=== PATIENT | female | born 1995 | race Caucasian/White ===

== ENCOUNTER → 2021-09-21 | Outpatient (CLI) | payer MEDICAID, SELFPAY ==
[2021-09-21 10:33] LABS: Erythrocyte Sedimentation Rate 16 mm/hr (0-30)
[2021-09-21 10:35] LABS: Absolute Lymphocyte Count 2.18 X10^3/uL (0.83-4.51); Absolute Neutrophil Count 5.2 X10^3/uL (2.0-7.7); Basophil# 0.02 X10^3/uL; Basophil% 0.3 % (0-1); Eosinophil# 0.19 X10^3/uL; Eosinophils% 2.4 % (0-5); Hematocrit 42.1 % (37-47); Hemoglobin 14.2 g/dL (12.0-15.0); Lymphocyte # 2.18 X10^3/ul (0.83-4.51); Lymphocyte % 27.4 % (19-41); Mean Corp Hgb Conc 33.7 g/dL (32-36); Mean Corpuscular Hgb 28.3 pg (27.0-32.0); Mean Corpuscular Volume 83.9 fL (81-99); Mean Platelet Vol. 10.9 fl (6.2-12.0); Monocyte# 0.36 X10^3/uL; Monocyte% 4.5 % (0-10); NRBC Flagged by Analyzer 0 % (0-5); Neutrophil # 5.19 X10^3/uL (2.7-7.7); Neutrophil % 65.1 % (47-70); Platelet Count 300 K/mm3 (150-450); RBC Distribution Width CV 13.6 % (11.6-14.6); RBC Distribution Width SD 41.8 fl (35.1-43.9); Red Blood Count 5.02 M/mm3 (4.2-5.4)
[2021-09-21 10:44] LABS: Hemoglobin A1c 5.3 % (3.8-5.6)
[2021-09-21 10:56] LABS: ALB/GLOB Ratio 0.8 RATIO (0.9-2.4); AST(SGOT) 13 U/L (15-37); Alanine Aminotransfer ALT/SGPT 22 U/L (13-56); Albumin, Serum 3.5 g/dL (3.2-5.0); Alkaline Phosphatase 74 U/L (45-117); Anion Gap 6 (5-15); BUN 11 mg/dL (7-18); BUN/Creat Ratio 18.7 RATIO (10-20); Bilirubin, Direct 0.11 mg/dL (0.00-0.30); Calcium,Total 9.3 mg/dL (8.5-10.1); Chloride 103 mmol/L (98-107); Creatinine, Serum 0.59 mg/dL (0.55-1.02); EST Glomerular Filtration Rate 130 mL/min (>60); Est Glom Filt Rate - Afr Amer 158 mL/min (>60); Globulin 4.3 g/dL (2.2-4.2); Glucose 91 mg/dL (74-106); Potassium 3.5 mmol/L (3.5-5.1); Protein, Total 7.8 g/dL (6.4-8.2); Sodium Level 136 mmol/L (136-145); Thyroid Stim Hormone (TSH) 2.83 uIU/mL (0.358-3.74)
[2021-09-22 18:08] LABS: Endomysial Antibody IgA Negative (Negative)
[2021-09-22 20:35] LABS: Immunoglobulin A 123 mg/dL (87-352); t-Transglutaminase IgA <2 U/mL (0-3)
[2021-09-28 05:07] LABS: Anti-Centromere B Ab <0.2 AI (0.0-0.9); Anti-Chromatin <0.2 AI (0.0-0.9); Anti-Jo <0.2 AI (0.0-0.9); Anti-Scleroderma-70 AB <0.2 AI (0.0-0.9); Beef <0.10 kU/L (Class 0); Clam <0.10 kU/L (Class 0); Codfish <0.10 kU/L (Class 0); Corn <0.10 kU/L (Class 0); Egg, White <0.10 kU/L (Class 0); Egg, Whole <0.10 kU/L (Class 0); Milk (Cow) <0.10 kU/L (Class 0); Peanut <0.10 kU/L (Class 0); Pork <0.10 kU/L (Class 0); RNP Ab <0.2 AI (0.0-0.9); SCALLOP <0.10 kU/L (Class 0); SESAME SEED <0.10 kU/L (Class 0); SJOGREN'S Anti-SS-A test 0.5 AI (0.0-0.9); SJOGREN'S Anti-SS-B test < 0.2 AI (0.0-0.9); Shrimp <0.10 kU/L (Class 0); Smith Ab <0.2 AI (0.0-0.9); Soybean <0.10 kU/L (Class 0); Walnut, (Food) <0.10 kU/L (Class 0); Wheat <0.10 kU/L (Class 0)
[2021-09-28 07:47] LABS: Anti-dsDNA Ab <1 IU/mL (0-9); Chocolate <0.10 kU/L (Class 0)
== END | disposition home or self-care (01) ==
LOC: LAB 09:17
PROVIDERS: PCP Student in an Organized Health Care Education/Training Program; Referring Provider Nurse Practitioner Adult Health; Visit Provider Nurse Practitioner Adult Health
DX: R11.0 Nausea (principal); R10.9 Unspecified abdominal pain; R19.8 Other specified symptoms and signs involving the digestive system and abdomen
CPT/HCPCS: 36415; 80053; 82248; 82784; 83036; 83516; 84443; 85025; 85652; 86003; 86005; 86140; 86225; 86235; 86255

== ENCOUNTER 2021-09-23 08:30 | Outpatient (RCR) | payer MEDICAID, SELFPAY ==
--- NOTE | 2021-09-07 10:15 | HP.PTEVAL ---
Patient's Visit Information CHRISSIE MABRY is a 26 year old F referred to Physical Therapy by Dr. Elder Solorzano DO with a diagnosis of R hip pain. Date of Evaluation: 09/07/21 Physical Therapist: Isma Unger, MATTT, OCS, CSCS - Visit Plan Frequency: 3x /Week Duration: 4-6 Weeks Plan: 3x/week for 2-4 weeks. Given hip flexor stretch and activitiy modification to avoid clicking/poppiing today with pics. please rollout and stretch gluts/piriformis and ITB. Please focus on hip stabs glut , pirifromis, abduction and extension. TENS and MH as needed for pain. - Subjective L hip pain. Had hip dysplasia at 6 months old and had brace . has clicked throughout years but no big problems. has gotten pain in the last 6 months and clicks louder. She feels very gaurded. X rays were Ok. Hard to flex hip or get out to side. 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 Sitting long time makes it ache. pain is constant. Transition out of chair is hard. Not sure what happened 6 months ago to make it worse. Now is fairly constant. Pain is posterior R hip and around side and can go to front. Constant 2/10. Sleep is uncomfortable to get to sleep, tries on tummy, usually ends up pulling R leg up. Student. Works at [employer] in [place] on feet for 8 hour shifts, worse with work. Patient asked for PT. No regular exercises at this point, hip ex cause pain. - Pain R hip Pain Intensity (Out of 10): 2 Pain Intensity Range: 2, 4 - Objective wALKS SLOWLY BUT i WITHOUT ANTALGIA TODAY. MARCHING CAUSES CLICKING WITH r HIP FLEXION EVERY STEP. Steps clicks when elevating R foot onto step and is painful. Transitioning out of chair is ataxic and clicking intermittently, slow. Hip AROM R is WFL, some tightness in hip flexors vs L and ITB. Tender to the touch ITB R and piriformis/glut area. External and IR r hip hurt at end range but decent ROM. reflexes 2/3 patella and achilles. Sensation LE WNL to gross light touch. Strength R hip abd and ext 4- and hip flexion 3+ with pain. Others on the right and L are 4/5. Knee and ankle 4+/5 B. Pain with R KIMI and FADDIR at end range. + instability test around 40 degrees with R SLR. - Balance/Special Test Scores Lower Extremity Functional Score: 46 - Goals Goal 1:: Patient pain 0/10 at rest and 1/10 at worst during day, 90% improved. Goal Time Frame: 4-6 Weeks Goal 2:: steps and march without clicking, trasnition out of chair without clicking. Goal Time Frame: 4-6 Weeks Goal 3:: I appropriate HEP to minimize future symptoms Goal Time Frame: 4-6 Weeks Goal 4:: Work without increased pain Goal Time Frame: 4-6 Weeks - Rehabilitation Potential Physical Therapy Diagnosis: R hip pain due to instability Rehabilitation Potential: Good - Anticipated Interventions Patient/Client Instruction: Educate patient on: Condition, Plan of Care For the Purpose of:: To decrease pain, To improve muscle performance and motor function, To improve ability of physical actions for home/community/work/leisure, To improve gait and locomotor functions Therapeutic Exercise to Include: Strength training, Flexibilty training, Gait and locomotor training, Dynamic Lumbar Stabilization For the Purpose of:: To decrease pain, To improve muscle performance and motor function, To increase tolerance to activity/condition/position, To improve gait and locomotor functions Manual Therapy Techniques to Include: Soft tissue mobilization For the Purpose of:: To increase ROM, To improve nutrient delivery to tissue, To increase tolerance to activity/condition/position TENS: Yes Thermo therapy (hot pack): Yes For the Purpose of:: To decrease pain Thank you for the opportunity to evaluate your patient. For Medicare and Medicare HMO plans, please review the plan of care and approve it. It will need to be FAXED BACK to us at [phone] for Medicare purposes. For Medicare only, by signing this I certify the plan of care. Please let me know if there are questions or concerns regarding this plan of care. Physician Signature: Date:
--- NOTE | 2021-09-23 09:18 | HP.PTREVAL ---
Dr. Elder Solorzano, DO, It has been my pleasure to treat CHRISSIE MABRY over the last 7 visits for R hip pain. Please see the progress note below for an update on the physical therapy plan of care! Subjective: Not as much pain standing or doing things where it used to be constant. Still hurts to be immobile for a while and takes 15 minutes to loosen up. Still pops now and then. Sleep is OK. Stiff in am. Pain this week up to 3/10 in class. To doctor in a couple weeks. Doing home exercises whcih are challenging. Work has not been too bad but does a lot of squatting and bending. Wants to continue HEP. Objective/Function: AROM R hip WNL, some clicking and pain with flexion over 100 degrees. Walking is normal today and steps are reciprocal without rail but does have some discomfort. Doing well and wishes to continue strength at home vs continued therapy. Plan Plan: pt to call after doctor f/u two weeks or prior if condition deteriorates. Will d/c end of September if no call. Balance/Gait/Functional tests - Balance/Special Test Scores Lower Extremity Functional Score: 43 Goals Goal 1:: Patient pain 0/10 at rest and 1/10 at worst during day, 90% improved. Goal Time Frame: 4-6 Weeks Goal Progress: Progressing 60% Goal 2:: steps and march without clicking, trasnition out of chair without clicking. Goal Time Frame: 4-6 Weeks Goal Progress: improving Goal 3:: I appropriate HEP to minimize future symptoms Goal Time Frame: 4-6 Weeks Goal Progress: Goal Met Goal 4:: Work without increased pain Goal Time Frame: 4-6 Weeks Goal Progress: Progressing Anticipated Interventions Patient/Client Instruction: Educate patient on: Condition, Plan of Care For the Purpose of:: To decrease pain, To improve muscle performance and motor function, To improve ability of physical actions for home/community/work/leisure, To improve gait and locomotor functions Therapeutic Exercise to Include: Strength training, Flexibilty training, Gait and locomotor training, Dynamic Lumbar Stabilization For the Purpose of:: To decrease pain, To improve muscle performance and motor function, To increase tolerance to activity/condition/position, To improve gait and locomotor functions Manual Therapy Techniques to Include: Soft tissue mobilization For the Purpose of:: To increase ROM, To improve nutrient delivery to tissue, To increase tolerance to activity/condition/position TENS: Yes Thermo therapy (hot pack): Yes For the Purpose of:: To decrease pain Please do not hesitate to contact me at [phone] by phone or if you have questions or concerns regarding this new plan of care! Sincerely, Isma Unger, DPT, OCS, CSCS
--- NOTE | 2021-11-24 16:14 | HP.PTDCSUM ---
It has been my pleasure to treat CHRISSIE MABRY referred by Dr. Elder Solorzano DO, with the diagnosis of R hip pain for a total of 7 visit(s). Discharge Date: Please see the following information for a summary of their discharge status. Subjective: Not as much pain standing or doing things where it used to be constant. Still hurts to be immobile for a while and takes 15 minutes to loosen up. Still pops now and then. Sleep is OK. Stiff in am. Pain this week up to 3/10 in class. To doctor in a couple weeks. Doing home exercises whcih are challenging. Work has not been too bad but does a lot of squatting and bending. Wants to continue HEP. R hip Pain Intensity (Out of 10): 0 % Improvement: 60 Objective/Function: AROM R hip WNL, some clicking and pain with flexion over 100 degrees. Walking is normal today and steps are reciprocal without rail but does have some discomfort. Doing well and wishes to continue strength at home vs continued therapy. Goal 1:: Patient pain 0/10 at rest and 1/10 at worst during day, 90% improved. Goal Progress: Progressing 60% Goal 2:: steps and march without clicking, trasnition out of chair without clicking. Goal Progress: improving Goal 3:: I appropriate HEP to minimize future symptoms Goal Progress: Goal Met Goal 4:: Work without increased pain Goal Progress: Progressing Plan: pt to call after doctor f/u two weeks or prior if condition deteriorates. Will d/c end of September if no call. If there are questions or concerns regarding this patient's physical therapy, please feel free to call me at [phone]. Thank you for the referral of this patient. Sincerely, Isma Unger, DPT, OCS, CSCS Balance/Gait/Functional tests - Balance/Special Test Scores Lower Extremity Functional Score: 43
== END 2021-09-23 19:00 | disposition home or self-care (01) ==
LOC: PT 08:30
PROVIDERS: PCP Student in an Organized Health Care Education/Training Program; Referring Provider Student in an Organized Health Care Education/Training Program; Visit Provider Student in an Organized Health Care Education/Training Program
DX: M25.551 Pain in right hip (principal)
CPT/HCPCS: 97110; 97140; 97161; 97164

== ENCOUNTER → 2021-11-01 | Outpatient (CLI) | payer MEDICAID, SELFPAY ==
--- NOTE | 2021-11-01 14:50 | CT_ITS ---
STUDY: CT ABDOMEN AND PELVIS WITH CONTRAST REASON FOR EXAM: Female, 26 years old. Abd pain, diarrhea and constipation -- oral and IV RADIATION DOSAGE (If Supplied By Facility): CTDIvol = ( 16.82 ) mGy, DLP = ( 1270.54 ) mGycm TECHNIQUE: Transaxial images were obtained from the dome of the diaphragm to the symphysis pubis without oral contrast. IV 100mL Isovue-300 was administered. Sagittal and coronal images were reconstructed. Individualized dose optimization techniques were used for this CT. COMPARISON: None. FINDINGS: The visualized lung bases are unremarkable. The visualized portions of the heart are within normal limits. Normal liver. Normal gallbladder and extrahepatic biliary system. Normal spleen. Normal pancreas. Normal bilateral adrenal glands. Normal right kidney. Normal left kidney. Normal visualized stomach. Normal small intestine. Normal colon. The appendix is visualized and appears normal. Normal abdominal aorta. Normal inferior vena cava. Normal retroperitoneum. Normal urinary bladder. There is a 4.27 x 3.2 cm cyst in the right ovary. This also evidence of a 3.5 cm x 2.2 cm cyst in the left ovary. Correlation with ultrasound is recommended. Normal abdominal wall. Normal osseous structures. CT/Abdomen/Pelvis WITH Contrast IMPRESSION: Bilateral ovarian cysts. Correlation with ultrasound recommended. Electronically Signed: Axel Burroughs MD at 15:15 EDT ,
== END | disposition home or self-care (01) ==
LOC: CT 14:48
PROVIDERS: PCP Student in an Organized Health Care Education/Training Program; Referring Provider Nurse Practitioner Adult Health; Visit Provider Nurse Practitioner Adult Health
DX: R10.9 Unspecified abdominal pain (principal); R19.8 Other specified symptoms and signs involving the digestive system and abdomen; R11.0 Nausea
CPT/HCPCS: 74177; Q9967

== ENCOUNTER 2021-12-22 07:37 | Day surgery (SDC) | payer MEDICAID, SELFPAY ==
[2021-12-22] VITALS (7 sets, daily range): BP systolic 102–114; BP diastolic 58–74; PULSE 73–96; RESP 16–18; TEMP 36.7–37.1; O2SAT 95–99; BMI 40.6
--- NOTE | 2021-12-22 08:06 | HP.PCM_ITS ---
History and Physical Date of Admission: 12/22/21 CHRISSIE MABRY, is a 26 F who presents to the office today for chronic abdominal pain and inconsistent bowels that are getting worse over time. Symptoms began in 7th grade; popcorn caused abdominal pain, went to ED couple times then. Also coconuts and nuts are problematic. Tried FODMAP diet w/o success. Now has no foods that don't bother her. Processed foods bother her more than whole foods. Interested in food allergy testing. She has a constant abd pain--ache, discomfort, bloated and gassy, mostly periumbilical and sometimes bilateral sides, no relieving factors; and then spasms whenever she eats--intense, lower abd and sides, affects her sleep, no relief with NSAIDS, only maybe minimal relief with dicyclomine. Took the dicyclomine prn, has a hard time remembering to take meds due to ADHD. Tried papaya enzymes w/ minimal relief with cramping. Taking Align probiotic now w/ some relief of cramping, the efficacy is waning. Recently developed heartburn, gets burning acid in throat x 2 mos, worse with tomato products, some relief with Maalox. Has nausea with the abdominal pain, often wakes up with nausea; tries not to vomit because she dislikes it so much. Usually has diarrhea, can be violently liquid, has 6 small BMs per day. No nocturnal diarrhea, no fecal incontinence. Otherwise soft stool. About twice a month she has constipation--this is when she hasn't had the urge to have a BM for 2 days. Has had rectal blood when constipated. Tried saline enemas, fiber, miralax, suppository, dulcolax, mag citrate--all w/o relief of constipation. Minimal help with stool softeners. Belly feels full and hard then. Almost never feels like bowels fully evacuate, even when she has diarrhea. No imaging for her GI symptoms. No endoscopy. 03/2021 labs: normal CBC with hgb 13.9, normal CMP and liver profile No significant seasonal allergies, no asthma or eczema. Gets dyshydrotic eczema on hands when stressed. Mother has similar GI symptoms, diagnosed w/ IBS. Mom also has fibromyalgia. Both parents have DM2. ROS Const Constitutional: Positive for fatigue, headache(s) and weight change ENT ENT: Positive for headache(s); No difficulty swallowing Cardio Cardiology: Positive for leg pain with exertion and dyspnea on exertion Gastro GI: Positive for abdominal pain, bloating, change in bowel habits, constipation, diarrhea, heartburn, excessive flatus and nausea/dyspepsia; No belching, change in stool character, coffee ground emesis, cramping, difficulty swallowing, feeling full early, incontinent of stools, Vomiting blood/hematemesis, Blood in stool, loose stools, Black,tarry stools, pain with swallowing, vomiting or other Genitourinary-Female: Positive for urinary frequency Musc Musculoskeletal: Positive for abnormal gait, back pain, numbness, stiffness, tingling, Arthritis, leg pain at night and leg pain with exertion; No joint pain Skin Skin: Positive for dry skin; No yellowing of the eye or itchy eyes Neuro Neurology: Positive for abnormal gait, headache(s), numbness and tingling Psych Psychiatric: Positive for anxiety, No depression, Positive for hyperactivity and Positive for inattentiveness Endo Endocrine: Positive for cold intolerance, fatigue, increased hunger, increased urine leakage and weight change Aller/Imm Allergy/Immunologic: No itchy eyes Frederick/Lymp Hematologic/Lymphatic: No easy bleeding or easy bruising Exam Const General: cooperative, no acute distress, well developed and well groomed Eyes Conjunctivae: conjunctivae normal Sclera: sclerae normal Neck Neck: normal visual inspection, no lymphadenopathy and supple Thyroid: thyroid normal Resp Effort & Inspection: normal respiratory effort GI Inspection: obesity Palpation: soft, no hepatosplenomegaly and tender (generalized, most bothersome LUQ) Skin General: no rashes or lesions noted Neuro Gait: normal gait Extrem General: no pedal edema Psych Mental Status: mental status grossly normal Mood: congruent mood Affect: normal affect Quality Reporting Tobacco Screening ([facility] 138) Smoking Status: Never smoker Assessment and Plan Assessment and Plan (1) Abdominal pain: ?Status:?Acute (2) Abdominal cramping: ?Status:?Acute (3) Alternating constipation and diarrhea: ?Status:?Acute (4) Nausea: ?Status:?Acute ? ? ? Orders:?Orders: ? Abdomen/Pelvis WITH Contrast TodayD R10.9, R10.9, R19.8, R11.0 ? ? CBC W/Diff, Automated Today R10.9, R10.9, R19.8, R11.0 ? ? Celiac Disease Profile Today R10.9, R10.9, R19.8, R11.0 ? ? Comprehensive Metabolic Profil Today R10.9, R10.9, R19.8, R11.0 ? ? CRP Today R10.9, R10.9, R19.8, R11.0 ? ? Erythrocyte Sed Rate Today R10.9, R10.9, R19.8, R11.0 ? ? JOAN Comprehensive Panel Today R10.9, R10.9, R19.8, R11.0 ? ? Hemoglobin A1c Today R10.9, R10.9, R19.8, R11.0 ? ? Liver Profile Today R10.9, R10.9, R19.8, R11.0 ? ? Thyroid Stim Hormone (TSH) Today R10.9, R10.9, R19.8, R11.0 ? ? Allergen, Food Profile Today R10.9, R10.9, R19.8, R11.0 ? ? Allergen, Rast Food Profile Today R10.9, R10.9, R19.8, R11.0 ? ? H. PYLORI STOOL AG Today R19.8, R11.0 ? ? Stool Lactoferrin/WBC Today R19.8, R11.0 ? ? Calprotectin, Stool Today R19.8, R11.0 ? ? Abdomen Single View Today R19.8 ? ? 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 This may be IBS but we will do a thorough work-up.? Biochemical work-up to include inflammatory markers, thyroid, hemoglobin A1c, celiac disease, food allergies, autoimmune disorders, stool tests for inflammation and H. pylori.? Sits marker study to assess colon transit time; she may have underlying constipation all the time and then loose stools passing a hard stool; in which case we could treat with Linzess or Amitiza or Trulance.? She has not had imaging, due to the severe pain she experiences we will get CT abdomen and pelvis with oral and IV contrast.? We will schedule her for upper and lower endoscopies.? Prescriptions today: Scopolamine patch for nausea, pantoprazole for heartburn, hyoscyamine for abdominal cramping.? Follow-up 4 to 6 weeks.? We will also schedule a 2-week follow-up after her endoscopies. Plan Details Other Medications: ?New: ? hyoscyamine sulfate 0.125 mg? PO BID-QID PRN 60 tabs 0RF abd ominal discomfort ? ? ? scopolamine base 1 patch? transdermal Q3D 10 ea 2RF nause a ? ? ? pantoprazole 40 mg? PO QAM 30 tabs 2RF ? ? I have re-examined the patient. There are no clinical changes since date of exam.
[2021-12-22] MEDS: Lactated Ringers 1,000 ML 15 ML IV (08:15)
[2021-12-22 08:31] LABS: Internal QC Validated? YES +Cl - CLEAR BKGD; Pregnancy, Serum, hCG Quali. NEGATIVE Negative
--- NOTE | 2021-12-22 09:00 | EGD_PTH ---
PATIENT: CHRISSIE DE LEÓN LOC: EN U#:[id number] AGE/SX: 26/F ROOM: RE12/22/[address]: Dr. Adrian Lock DO : 1995 BED: DIS: 12/22/2021 SPEC #: [id number] RECD: 12/22/21 10:17 STATUS: ANISHA RESandra #: [id number] TIM: 12/22/21 09:[address]: Adrian Lock DEPT: SURGICAL PATHOLOGY RECD BY: Jo Ann Shaffer ENTERED: 12/22/21 10:57 SP TYPE: EGD BIOPSY OT DR: Dr. Elder Solorzano DO Tissues: A - Duodenum, NOS B - Gastric mucous membrane C - Gastric mucous membrane D - Esophagus, NOS E - Ileum, NOS F - COLON BIOPSY Procedures: Special Stain Group II Surgery Specimen Level IV Alcian Blue/PAS (control) HEADER OPERATION: Colonoscopy, EGD ([facility]) with biopsies PRE-OP DIAGNOSIS: Abdominal pain, abdominal cramping, constipation and diarrhea, nausea TISSUE SUBMITTED: A - Duodenum biopsy, B - Antrum biopsy for H. pylori and path, C - Gastric body, D - Distal esophagus biopsy, E - Terminal ileum biopsy, F - Random colon biopsies MICROSCOPIC DIAGNOSIS A. Duodenum, biopsy: Fragments of duodenal mucosa, no pathologic diagnosis. B. Antrum, biopsy: Mild gastritis. See microscopic description and comment. C. Gastric body, biopsy: Mild gastritis. See microscopic description and comment. D. Distal esophagus, biopsy: A fragment of gastroesophageal mucosa with mild chronic inflammation. Intestinal metaplasia (goblet cell metaplasia) is not identified. See comment. E. Terminal ileum, biopsy: Fragments of small intestinal mucosa, no pathologic diagnosis. F. Colon, random biopsy: Fragments of colonic mucosa, no pathologic diagnosis. SJ:john 12/23/2021 COMMENT B. The results of immunohistochemistry for Helicobacter pylori will be reported separately ([id number]). C. Alcian blue/PAS stain with matched control is used in the evaluation of the specimen. D. Alcian blue/PAS stain with matched control is used in the evaluation of the specimen. MICROSCOPIC DESCRIPTION Slides are reviewed. B. The specimen shows fragments of gastric mucosa with chronic inflammatory cell infiltrates in the lamina propria consisting of lymphocytes and plasma cells, consistent with mild chronic gastritis. C. The specimen shows fragments of gastric mucosa with chronic inflammatory cell infiltrates in the lamina propria consisting of lymphocytes and plasma cells, consistent with mild chronic gastritis. A fragment of gastroesophageal mucosa is also noted with chronic inflammation and rare cells with intestinal metaplasia (goblet cell metaplasia). No evidence of dysplasia. GROSS DESCRIPTION A - Received in fixative is one container labeled with the patient's name and designated duodenum biopsy. The specimen consists of two irregular fragments of light hdz soft tissue that in aggregate measure 0.5 x 0.4 x 0.1 cm. The specimen is totally submitted in one cassette. B - Received in fixative is one container labeled with the patient's name and designated antrum biopsy. The specimen consists of two irregular fragments of light hdz soft tissue that in aggregate measure 0.6 x 0.3 x 0.1 cm. The specimen is totally submitted in one cassette. C - Received in fixative is one container labeled with the patient's name and designated gastric body biopsy. The specimen consists of multiple irregular fragments of light hdz soft tissue that in aggregate measure 1 x 0.3 x 0.1 cm. The specimen is totally submitted in one cassette. D - Received in fixative is one container labeled with the patient's name and designated distal esophagus biopsy. The specimen consists of one irregular fragment of light hdz soft tissue that measures 0.2 x 0.2 x 0.1 cm. The specimen is totally submitted in one cassette. E - Received in fixative is one container labeled with the patient's name and designated terminal ileum biopsy. The specimen consists of multiple irregular fragments of light hdz soft tissue that in aggregate measure 1.5 x 0.3 x 0.1 cm. The specimen is totally submitted in one cassette. F - Received in fixative is one container labeled with the patient's name and designated random colon biopsy. The specimen consists of multiple irregular fragments of light hdz soft tissue that in aggregate measure 1.5 x 0.5 x 0.1 cm. The specimen is totally submitted in one cassette. / SJ:rg 12/22/2021 TC: CPT: 38945 x6, 34824 x2
--- NOTE | 2021-12-22 09:00 | IMM_PTH ---
PATIENT: CHRISSIE DE LEÓN LOC: EN U#:[id number] AGE/SX: 26/F ROOM: RE12/22/[address]: Dr. Adrian Lock DO : 1995 BED: DIS: 12/22/2021 SPEC #: [id number] RECD: 12/22/21 11:38 STATUS: ANISHA REQ #: [id number] TIM: 12/22/21 09:[address]: Adrian Lock DEPT: IMMUNOHISTOCHEMISTRY RECD BY: Constance Isabel ENTERED: 12/22/21 11:38 SP TYPE: IMMUNO OTHR DR: Dr. Elder Solorzano DO Tissues: B - Stomach, NOS Procedures: H Pylori (initial) PHYSICIAN & INSTITUTION [place] [id number] SPECIMEN INFORMATION: Tissue Source: B ? Antrum biopsy Clinical Info: Abdominal pain, abdominal cramping, constipation and diarrhea, nausea Specimen Number: [id number] CPT code: 61315 METHODOLOGY: Deparaffinized sections of prefer/formalin-fixed tissue or PAP/DQ stained slides are incubated with monoclonal/polyclonal antibodies/oligonucleotide probes. Localization is made via biotin free immunoperoxidase method. Appropriate controls are performed and reacted as expected. Results on target cell population are indicated in the following table: RESULTS: ANTIBODY / CLONE RESULT Block B H Pylori (polyclonal) negative These tests were developed and their performance characteristics determined by [facility]. They may not have been cleared or approved by the U.S. Food and Drug Administration. The FDA has determined that such clearance or approval is not necessary. The above immunohistochemical/dualISH markers are ordered and reviewed by the Pathologist. INTERPRETATION: B. Antrum biopsy: Negative for Helicobacter pylori organisms. ROSA:john 12/23/2021
--- NOTE | 2021-12-22 09:55 | OP.EGD_ITS ---
Patient Name: Angela Christine Procedure Date: 12/22/2021 9:12 AM Date of : 1995 Age: 26 Procedure: Upper GI endoscopy Indications: Epigastric abdominal pain, Functional Dyspepsia, Failure to respond to medical treatment Providers: Adrian Lock DO Medicines: Monitored Anesthesia Care Patient Profile: This is a 26 year old female. Refer to note in patient chart for documentation of history and physical. Patient has symptoms of chronic abdominal cramping and chronic abdominal distention. Complications: No immediate complications. Procedure: Pre-Anesthesia Assessment: - Prior to the procedure, a History and Physical was performed, and patient medications and allergies were reviewed. The patient is competent. The risks and benefits of the procedure and the sedation options and risks were discussed with the patient. All questions were answered and informed consent was obtained. Patient identification and proposed procedure were verified by the physician in the pre-procedure area. Mental Status Examination: alert and oriented. Airway Examination: normal oropharyngeal airway and neck mobility. Respiratory Examination: clear to auscultation. CV Examination: normal. Prophylactic Antibiotics: The patient does not require prophylactic antibiotics. Prior Anticoagulants: The patient has taken no previous anticoagulant or antiplatelet agents. After reviewing the risks and benefits, the patient was deemed in satisfactory condition to undergo the procedure. The anesthesia plan was to use moderate sedation / analgesia (conscious sedation). Immediately prior to administration of medications, the patient was re-assessed for adequacy to receive sedatives. The heart rate, respiratory rate, oxygen saturations, blood pressure, adequacy of pulmonary ventilation, and response to care were monitored throughout the procedure. The physical status of the patient was re-assessed after the procedure. After obtaining informed consent, the endoscope was passed under direct vision. Throughout the procedure, the patient's blood pressure, pulse, and oxygen saturations were monitored continuously. The Colonoscope was introduced through the mouth, and advanced to the duodenal bulb. The upper GI endoscopy was accomplished without difficulty. The patient tolerated the procedure well. Scope In: 9:23:37 AM Scope Out: 9:29:46 AM Total Procedure Duration Time 0 hours 6 minutes 9 seconds Findings: The Z-line was irregular and was found 38 cm from the incisors. Biopsies were taken with a cold forceps for histology. Verification of patient identification for the specimen was done. Estimated blood loss was minimal. Patchy mildly erythematous mucosa without bleeding was found in the gastric body and in the gastric antrum. Biopsies were taken with a cold forceps for histology. Verification of patient identification for the specimen was done. Estimated blood loss was minimal. Patchy mildly erythematous mucosa without active bleeding and with no stigmata of bleeding was found in the first portion of the duodenum. Biopsies for histology were taken with a cold forceps for evaluation of celiac disease. Estimated blood loss: none. The major and minor ampulla were present on forward view imaging when evaluating the second portion of the duodenum. Impression: - Z-line irregular, 38 cm from the incisors. Biopsied. - Erythematous mucosa in the gastric body and antrum. Biopsied. - Erythematous duodenopathy. Biopsied. Recommendation: - Discharge patient to home. - Resume previous diet. - Continue present medications. - Await pathology results. -MR CP to evaluate hepatobiliary system for pancreatic divisum and possible stone disease of the minor ampulla or major ampulla Procedure Code(s): --- Professional --- 35978, Esophagogastroduodenoscopy, flexible, transoral; with biopsy, single or multiple CPT copyright 2017 [employer]. All rights reserved. The codes documented in this report are preliminary and upon deliverer food review may be revised to meet current compliance requirements. Adrian Lock DO 12/22/2021 9:55:22 AM This report has been signed electronically. Number of Addenda: 1 Note Initiated On: 12/22/2021 9:12 AM Addendum Number: 1 Addendum Date: 02/23/2022 6:28:32 AM MAC was used as sedation for this procedure. Adrian Lock DO 02/23/2022 6:28:36 AM This report has been signed electronically.
--- NOTE | 2021-12-22 09:56 | OP.CCLET_ITS ---
02/23/2022 Elder Solorzano Do Re : Upper GI endoscopy procedure for Angela Christine Dear Jeanine This procedure was performed on December. My impressions and recommendations are as follows: Impressions : - Z-line irregular, 38 cm from the incisors. Biopsied. - Erythematous mucosa in the gastric body and antrum. Biopsied. - Erythematous duodenopathy. Biopsied. Recommendations : - Discharge patient to home. - Resume previous diet. - Continue present medications. - Await pathology results. -MR CP to evaluate hepatobiliary system for pancreatic divisum and possible stone disease of the minor ampulla or major ampulla My findings are described in the full procedure note, which is enclosed. If I can be of further assistance, please feel free to contact me at . Sincerely, Adrian Lock, 12/22/2021 9:55:22 AM This report has been signed electronically.
--- NOTE | 2021-12-22 09:59 | OP.COLON_ITS ---
Patient Name: Angela Christine Procedure Date: 12/22/2021 9:30 AM Date of : 1995 Age: 26 Procedure: Colonoscopy Indications: This is the patient's first colonoscopy, Generalized abdominal pain, Clinically significant diarrhea of unexplained origin Providers: Adrian Lock DO Medicines: Monitored Anesthesia Care Patient Profile: This is a 26 year old female. Refer to note in patient chart for documentation of history and physical. Patient has symptoms of chronic abdominal cramping and chronic abdominal distention. Last Colonoscopy: none. The patient's first colonoscopy is today. Complications: No immediate complications. Procedure: Pre-Anesthesia Assessment: - Prior to the procedure, a History and Physical was performed, and patient medications and allergies were reviewed. The patient is competent. The risks and benefits of the procedure and the sedation options and risks were discussed with the patient. All questions were answered and informed consent was obtained. Patient identification and proposed procedure were verified by the physician in the pre-procedure area. Mental Status Examination: alert and oriented. Airway Examination: normal oropharyngeal airway and neck mobility. Respiratory Examination: clear to auscultation. CV Examination: normal. Prophylactic Antibiotics: The patient does not require prophylactic antibiotics. Prior Anticoagulants: The patient has taken no previous anticoagulant or antiplatelet agents. After reviewing the risks and benefits, the patient was deemed in satisfactory condition to undergo the procedure. The anesthesia plan was to use moderate sedation / analgesia (conscious sedation). Immediately prior to administration of medications, the patient was re-assessed for adequacy to receive sedatives. The heart rate, respiratory rate, oxygen saturations, blood pressure, adequacy of pulmonary ventilation, and response to care were monitored throughout the procedure. The physical status of the patient was re-assessed after the procedure. After I obtained informed consent, the scope was passed under direct vision. Throughout the procedure, the patient's blood pressure, pulse, and oxygen saturations were monitored continuously. The Colonoscope was introduced through the anus and advanced to the terminal ileum, with identification of the appendiceal orifice and IC valve. The colonoscopy was performed without difficulty. The patient tolerated the procedure well. The quality of the bowel preparation was adequate. Scope In: 9:32:02 AM Scope Withdrawal Time 0 hours 7 minutes 27 seconds Scope Out: 9:43:52 AM Total Procedure Duration Time 0 hours 11 minutes 50 seconds Findings: The perianal and digital rectal examinations were normal. Diffuse mild inflammation characterized by congestion (edema), erosions and erythema was found in the recto-sigmoid colon, in the sigmoid colon and in the descending colon. Biopsies were taken with a cold forceps for histology. Verification of patient identification for the specimen was done. Estimated blood loss was minimal. A patchy area of the terminal ileum was congested. Biopsies were taken with a cold forceps for histology. Verification of patient identification for the specimen was done. Estimated blood loss was minimal. Impression: - Diffuse mild inflammation was found in the recto-sigmoid colon, in the sigmoid colon and in the descending colon secondary to colitis. Biopsied. - Congested mucosa in the terminal ileum. Biopsied. Recommendation: - Discharge patient to home. - Resume previous diet. - Continue present medications. - Await pathology results. - Repeat colonoscopy in 5 years for surveillance. - Return to GI office. Procedure Code(s): --- Professional --- 63221, Colonoscopy, flexible; with biopsy, single or multiple CPT copyright 2017 [employer]. All rights reserved. The codes documented in this report are preliminary and upon drill press tender review may be revised to meet current compliance requirements. Adrian Lock DO 12/22/2021 9:58:57 AM This report has been signed electronically. Number of Addenda: 1 Note Initiated On: 12/22/2021 9:30 AM Addendum Number: 1 Addendum Date: 02/23/2022 6:28:45 AM MAC was used as sedation for this procedure. Adrian Lock DO 02/23/2022 6:28:49 AM This report has been signed electronically.
--- NOTE | 2021-12-22 09:59 | OP.CCLET_ITS ---
02/23/2022 Elder Solorzano Do Re : Colonoscopy procedure for Angela Galeasr Jeanine This procedure was performed on December. My impressions and recommendations are as follows: Impressions : - Diffuse mild inflammation was found in the recto-sigmoid colon, in the sigmoid colon and in the descending colon secondary to colitis. Biopsied. - Congested mucosa in the terminal ileum. Biopsied. Recommendations : - Discharge patient to home. - Resume previous diet. - Continue present medications. - Await pathology results. - Repeat colonoscopy in 5 years for surveillance. - Return to GI office. My findings are described in the full procedure note, which is enclosed. If I can be of further assistance, please feel free to contact me at . Sincerely, Adrian Lock, 12/22/2021 9:58:57 AM This report has been signed electronically.
== END 2021-12-22 10:35 | disposition home or self-care (01) ==
LOC: EN 07:38 → AC 07:39
PROVIDERS: Anesthesiology; PCP Student in an Organized Health Care Education/Training Program; Referring Provider Student in an Organized Health Care Education/Training Program; Visit Provider Internal Medicine Gastroenterology
PROC: 0DJD8ZZ Inspection of Lower Intestinal Tract, Via Natural or Artificial Opening Endoscopic (ICD-10-PCS; CPT 45378; principal; 2021-12-22 08:55)
DX: K29.70 Gastritis, unspecified, without bleeding (principal); R12 Heartburn; K63.89 Other specified diseases of intestine; R10.9 Unspecified abdominal pain; R19.8 Other specified symptoms and signs involving the digestive system and abdomen; R11.0 Nausea; F90.9 Attention-deficit hyperactivity disorder, unspecified type
CPT/HCPCS: 45380; 43239; 84703; 87493; 87506; 88305; 88313; 88342; J7120; J2405

== ENCOUNTER → 2021-12-30 | Outpatient (CLI) | payer MEDICAID, SELFPAY ==
--- NOTE | 2021-12-30 07:03 | MRI_ITS ---
STUDY: MR MRCP WITHOUT CONTRAST REASON FOR EXAM: Female, 26 years old. pancreatic abnormality , abd pain x 15 yrs TECHNIQUE: Standard MRCP technique was utilized. 3-D post processing images were reviewed. COMPARISON: None. FINDINGS: Gall Bladder: Normal with no distention or demonstrated fixed intraluminal filling defect. Cystic duct: Normal with no demonstrated fixed filling defect. Intrahepatic ducts: Normal visualized intrahepatic ducts with no demonstrated fixed filling defect, dilation or stricture. Common hepatic duct: Normal with no demonstrated fixed filling defect, dilation or stricture. Common bile duct: Normal with no demonstrated fixed filling defect, dilation or stricture. Pancreatic duct: Normal with no demonstrated fixed filling defect, dilation or stricture. MRI/MRCP Abdomen without Contrast IMPRESSION: Normal MR Cholangiopancreatography (MRCP). Electronically Signed: Benjamin Molina MD at 23:56 EDT ,
== END | disposition home or self-care (01) ==
LOC: MRI 07:03
PROVIDERS: PCP Student in an Organized Health Care Education/Training Program; Referring Provider Internal Medicine Gastroenterology; Visit Provider Internal Medicine Gastroenterology
DX: R10.9 Unspecified abdominal pain (principal)
CPT/HCPCS: 74181

== ENCOUNTER → 2022-09-02 | Outpatient (CLI) | payer MEDICAID, SELFPAY ==
[2022-09-02 10:38] LABS: Absolute Lymphocyte Count 1.81 X10^3/uL (0.83-4.51); Absolute Neutrophil Count 4.8 X10^3/uL (2.0-7.7); Basophil# 0.02 X10^3/uL; Basophil% 0.3 % (0-1); Eosinophils% 2.8 % (0-5); Hemoglobin 12.1 g/dL (12.0-15.0); Lymphocyte # 1.81 X10^3/ul (0.83-4.51); Lymphocyte % 25.1 % (19-41); Mean Corp Hgb Conc 32.7 g/dL (32-36); Mean Corpuscular Hgb 27.3 pg (27.0-32.0); Mean Corpuscular Volume 83.3 fL (81-99); Mean Platelet Vol. 10.9 fl (6.2-12.0); Monocyte# 0.31 X10^3/uL; Monocyte% 4.3 % (0-10); NRBC Flagged by Analyzer 0 % (0-5); Neutrophil # 4.83 X10^3/uL (2.7-7.7); Neutrophil % 67.1 % (47-70); Platelet Count 309 K/mm3 (150-450); RBC Distribution Width CV 13.7 % (11.6-14.6); RBC Distribution Width SD 41.7 fl (35.1-43.9); Red Blood Count 4.44 M/mm3 (4.2-5.4); White Blood Count 7.2 K/mm3 (4.4-11.0)
[2022-09-02 11:20] LABS: AST(SGOT) 21 U/L (15-37); Alanine Aminotransfer ALT/SGPT 39 U/L (13-56); Albumin, Serum 3.6 g/dL (3.2-5.0); Alkaline Phosphatase 93 U/L (45-117); Anion Gap 6 (5-15); BUN 12 mg/dL (7-18); BUN/Creat Ratio 19.9 RATIO (10-20); Chloride 106 mmol/L (98-107); Cholesterol 142 mg/dL (200); EST Glomerular Filtration Rate 125 mL/min (>60); Est Glom Filt Rate - Afr Amer 152 mL/min (>60); Estradiol 302.2 pg/mL; Follicle Stimulating Hormone 7.6 mIU/mL; Globulin 3.7 g/dL (2.2-4.2); Glucose 93 mg/dL (74-106); High Density Lipoprotein 42 mg/dL; Potassium 3.5 mmol/L (3.5-5.1); Prolactin 26.3 ng/mL; Protein, Total 7.3 g/dL (6.4-8.2); Sodium Level 137 mmol/L (136-145); Triglycerides 149 mg/dL; Very Low Density Lipoprotein 30 mg/dL (5-40)
[2022-09-02 12:35] LABS: Hemoglobin A1c 5.5 % (3.8-5.6)
[2022-09-05 11:18] LABS: 17-Hydroxyprogesterone 178 ng/dL (.); Vitamin D 1,25-Dihydroxy 48.2 pg/mL (24.8-81.5)
[2022-09-05 21:06] LABS: Testosterone Free 4.4 pg/mL (0.0-4.2)
== END | disposition home or self-care (01) ==
PROVIDERS: PCP Student in an Organized Health Care Education/Training Program; Referring Provider Obstetrics & Gynecology; Visit Provider Obstetrics & Gynecology
DX: E28.2 Polycystic ovarian syndrome (principal)
CPT/HCPCS: 36415; 80053; 80061; 82627; 82652; 82670; 83001; 83036; 83498; 84146; 84402; 85025; 82626

== ENCOUNTER → 2022-09-12 | Outpatient (CLI) | payer MEDICAID, SELFPAY ==
--- NOTE | 2022-09-12 16:00 | US_ITS ---
STUDY: ULTRASOUND OF THE FEMALE PELVIS - COMPLETE REASON FOR EXAM: Female, 27 years old. PCOS LMP: 2 months ago. TECHNIQUE: Transabdominal and Transvaginal TECHNICAL QUALITY: Adequate. COMPARISON: None. FINDINGS: The uterus is retroverted and is in a midline position. The uterus measures 7.5 cm x 5.5 cm x 4 cm. There is a Nabothian cyst of the cervix. The endometrium measures 8.1 mm in thickness, and is hyperechoic. There is no demonstrated endometrial mass. There is no demonstrated myometrial mass. I.U.D. - The patient does not have an I.U.D. The right ovary is visualized. The right ovary measures 5.3 cm x 6 3.7 cm x 4 cm. There is a 2.3 cm x 1.7 cm x 1.7 cm right ovarian cyst. There is no visualized right adnexal mass or complex lesion. There is normal arterial and normal venous vascularity. The left ovary is visualized. The left ovary measures 4.1 cm x 2.7 cm x 2.9 cm. There is no left ovarian cyst or ovarian mass. There is no visualized left adnexal mass or complex lesion. There is normal arterial and normal venous vascularity. There is no fluid in the cul-de-sac. US/Transvaginal Non- IMPRESSION: 2.3 cm x 1.7 cm x 1.7 cm cyst in the right ovary. Electronically Signed: Axel Burroughs MD at 15:01 EDT ,
== END | disposition home or self-care (01) ==
LOC: US 15:59
PROVIDERS: PCP Student in an Organized Health Care Education/Training Program; Referring Provider Obstetrics & Gynecology; Visit Provider Obstetrics & Gynecology
DX: E28.2 Polycystic ovarian syndrome (principal)
CPT/HCPCS: 76830

== ENCOUNTER → 2023-01-15 | Outpatient (CLI) | payer MEDICAID, SELFPAY ==
[2023-01-15 15:35] LABS: HIV - WCH Non-Reactive (Nonreactive); Hepatitis C Antibody Non-Reactive (Nonreactive); Syphilis Antibodies Non-reactive
[2023-01-17 05:07] LABS: HSV 1 IgG < 0.91 index (0.00-0.90); HSV 2 IgG < 0.91 index (0.00-0.90)
[2023-01-18 09:09] LABS: Chlamydia By Nucleic Acid AMP Negative (Negative); Gonococcus By Nucleic Acid AMP Negative (Negative)
== END | disposition home or self-care (01) ==
PROVIDERS: PCP Student in an Organized Health Care Education/Training Program; Referring Provider Nurse Practitioner Women's Health; Visit Provider Nurse Practitioner Women's Health
DX: Z20.2 Contact with and (suspected) exposure to infections with a predominantly sexual mode of transmission (principal); N89.8 Other specified noninflammatory disorders of vagina
CPT/HCPCS: 36415; 86695; 86696; 86703; 86780; 86803; 87070; 87205; 87491; 87591

== ENCOUNTER → 2024-04-02 | Outpatient (CLI) | payer BC, SELFPAY | END | disposition home or self-care (01) | LOC: LABSPEC 11:32 | PROVIDERS: PCP Student in an Organized Health Care Education/Training Program; Referring Provider Nurse Practitioner Family; Visit Provider Nurse Practitioner Family | DX: N89.8 Other specified noninflammatory disorders of vagina (principal) | CPT/HCPCS: 87070; 87205 ==

== ENCOUNTER → 2024-06-02 | Outpatient (CLI) | payer BC, SELFPAY ==
[2024-06-02 13:28] LABS: hCG Titer Quant., Serum < 1 mIU/mL (1-3)
[2024-06-02 13:32] LABS: ALB/GLOB Ratio 0.9 RATIO (0.9-2.4); AST(SGOT) 63 U/L (15-37); Alanine Aminotransfer ALT/SGPT 133 U/L (13-56); Albumin, Serum 3.6 g/dL (3.2-5.0); Alkaline Phosphatase 115 U/L (45-117); Anion Gap 8 (5-15); BUN 10 mg/dL (7-18); BUN/Creat Ratio 12.8 RATIO (10-20); Calcium,Total 8.8 mg/dL (8.5-10.1); Chloride 105 mmol/L (98-107); Creatinine, Serum 0.78 mg/dL (0.55-1.02); EST Glomerular Filtration Rate 92 mL/min (>60); Est Glom Filt Rate - Afr Amer 112 mL/min (>60); Glucose 171 mg/dL (74-106); Potassium 3.7 mmol/L (3.5-5.1); Protein, Total 7.6 g/dL (6.4-8.2); Sodium Level 139 mmol/L (136-145); T4 Free Direct 1.22 ng/dL (0.76-1.46)
== END | disposition home or self-care (01) ==
LOC: BWCLAB 08:06
PROVIDERS: Obstetrics & Gynecology; PCP Student in an Organized Health Care Education/Training Program; Referring Provider Nurse Practitioner Family; Visit Provider Nurse Practitioner Family
DX: E28.2 Polycystic ovarian syndrome (principal); N92.0 Excessive and frequent menstruation with regular cycle; Z13.29 Encounter for screening for other suspected endocrine disorder

== ENCOUNTER → 2024-10-15 | Outpatient (CLI) | payer BC, SELFPAY ==
[2024-10-15 09:18] LABS: Hemoglobin A1c 5.9 % (<=5.6)
[2024-10-15 09:30] LABS: ALB/GLOB Ratio 1.4 RATIO (0.9-2.4); AST(SGOT) 32 U/L (<=31); Alanine Aminotransfer ALT/SGPT 38 U/L (<=34); Albumin, Serum 4.3 g/dL (3.5-5.0); Alkaline Phosphatase 109 U/L (35-104); Anion Gap 11 (5-15); BUN 11 mg/dL (4-19); BUN/Creat Ratio 18.1 RATIO (10-20); Calcium,Total 9.3 mg/dL (7.6-11.0); Carbon Dioxide 26.1 mmol/L (21.0-32.0); Chloride 102 mmol/L (98-108); Creatinine, Serum 0.63 mg/dL (0.70-1.20); EST Glomerular Filtration Rate 122 (>60); Globulin 3.1 g/dL (2.2-4.2); Glucose 121 mg/dL (70-99); Potassium 4.1 mmol/L (3.3-5.1); Protein, Total 7.3 g/dL (5.9-8.4); Sodium Level 138 mmol/L (133-145); Total Bilirubin 0.39 mg/dL (0.00-1.30)
== END | disposition home or self-care (01) ==
LOC: LAB 07:49
PROVIDERS: PCP Student in an Organized Health Care Education/Training Program; Referring Provider Nurse Practitioner Family; Visit Provider Nurse Practitioner Family
DX: R73.09 Other abnormal glucose (principal); R74.8 Abnormal levels of other serum enzymes
CPT/HCPCS: 36415; 80053; 83036

== ENCOUNTER → 2024-12-04 | Outpatient (CLI) | payer BC, SELFPAY ==
--- OUTSIDE RECORDS SUMMARY | 2024-12-04 09:15 | XMS RPT_ITS | CCD ---
Author Organization [facility] Care Team Providers Care Director Of Business Applications Name Role Phone JON CARDOZO, DR DAMON Primary Care Physician [phone] Unavailable Primary Care Provider Bahman Sexton ADMINISTRATIVE OFFICE SPECIALIST, ADMINISTRATIVE OFFICE SPECIALIST-C Estela Bray Attending Provider [phone] Dr. Elder Solorzano Primary Care Provider Dr. Elder Solorzano Referring Provider [phone] Adrian Lock Attending Provider FriendDr. Campbell Other Provider Dr. Elder Solorzano Primary Care Provider Dr. Elder Solorzano Referring Provider Dr. Kamille Herr Attending Provider Dr. Elder Solorzano Primary Care Provider Dr. Elder Solorzano Referring Provider Ritu RICHARDS, ADMINISTRATIVE OFFICE SPECIALIST-C Rachell Attending Provider Unavailable Primary Care Provider LEANN Elizabeth Attending Unavailable ROMAR DO, DR DAMON Attending Unavailable ROMAR DO, DR DAMON Primary Care Unavailable CHRISTIAN THORPE-CAMILO CISNEROS Attending Abel SOLORZANO DO, DR DAMON Primary Care Unavailable ROMAR [...] ROMAR DO, DR DAMON Primary Care Unavailable Romar DO, Dr. Damon Primary Care Provider Romar DO, Dr. Damon Referring Provider Ritu ADMINISTRATIVE OFFICE SPECIALIST-C, Rachell Attending Provider Randy ADMINISTRATIVE OFFICE SPECIALIST-C, Airam Attending Provider Randy ADMINISTRATIVE OFFICE SPECIALIST-C, Airam Referring Provider Airam Padilla Attending Unavailable Romar, Elder Primary Care Unavailable Airam Padilla Referring Unavailable Romar, Elder Primary Care Unavailable Airam Padilla Attending Unavailable Randy, Airam Referring Unavailable Madeline Monet Attending Unavailable Romar, Elder Referring Unavailable Romar, Elder Primary Care Unavailable Kamille Herr Attending Unavailable Romar, Elder Referring Unavailable Romar, Elder Primary Care Unavailable Romar, Elder Primary Care Unavailable Kamille Herr Attending Unavailable Romar, Elder Referring Unavailable Romar, Elder Primary Care Unavailable Romar, Elder Referring Unavailable Airam Padilla Attending Unavailable Ritu ADMINISTRATIVE OFFICE SPECIALIST, Rachell Attending Unavailable Romar, Elder Referring Unavailable Romar, Elder Primary Care Unavailable Airam Padilla Attending Unavailable Romar, Elder Primary Care Unavailable Airam Padilla Referring Unavailable BarkAiram noguera Referring Unavailable Romar, Elder Primary Care Unavailable Airam Padilla Attending Unavailable Medications Current Medications Medication Drug Class(es) Dates Sig (Normalized) Sig (Original) 200 actuat albuterol 0.09 mg/actuat dry powder inhaler (3 sources) beta2-Adrenergic Agonist Start: 08-12-2021 Albuterol Sulfate Active 2 INH INHALATION EVERY 6 HOURS August 12, 2021 12:00am albuterol MDI (90 mcg/inh) CFC free inhalation aerosol (2 sources) Start: 03-14-2021 take 2 puff(s) by inhalation every four hours as needed for wheezing albuterol MDI (90 mcg/inh) CFC free inhalation aerosol 2 puff(s), Inhalation, q4h, PRN as needed for wheezing, # 18 gram(s), 0 Refill(s), Pharmacy: [address], Suspected COVID-19 virus infection, 165.1, cm, 03/14/21 13:35:00 EDT, Height, kg, 03/14/21 13:35:00 EDT, Dosing Weight Start Date: 03/14/21 Status: Ordered amoxicillin 875 mg oral tablet (1 source) Penicillin-class Antibacterial Start: 03-13-2023 End: 03-23-2023 take 1 tablet by mouth twice daily amoxicillin (AMOXIL) 875 mg tablet Indications: Odontalgia Take 1 tablet by mouth two times a day for 10 days. 20 tablet 0 03/13/2023 03/23/2023 Active Comment on above: Take 1 tablet by [facility] two times a day for 10 days. atomoxetine 40 mg oral capsule (1 source) Norepinephrine Reuptake Inhibitor Start: 04-28-2021 End: 06-27-2021 atomoxetine 40 mg oral capsule Dose : 40 mg = 1 cap(s), Oral, BID, Take in AM and noon, # 120 cap(s), 0 Refill(s), Pharmacy: [facility], ADHD (attention deficit hyperactivity disorder), combined type, 165, cm, 04/28/21 8:12:00 EST, Height, kg, 04/28/21 8:12:00 EST, Dos... Start Date: 04/28/21 Stop Date: 06/27/21 Status: Ordered dexamethasone 4 mg oral tablet (1 source) Corticosteroid Start: 03-13-2023 End: 03-17-2023 take 1 tablet by mouth once daily dexAMETHasone (DECADRON) 4 mg tablet Indications: Odontalgia , Cervical paraspinal muscle spasm Take 1 tablet by mouth once daily for 4 days. 4 tablet 0 03/13/2023 03/17/2023 Active Comment on above: Take 1 tablet by [facility] once daily for 4 days. dicyclomine hydrochloride 20 mg oral tablet (8 sources) Anticholinergic Start: 08-12-2021 take 20 mg by mouth four times daily Dicyclomine Active 20 MG PO .qid August 12, 2021 12:00am Start: 03-02-2021 End: 03-16-2021 dicyclomine 20 mg oral table t Dose : 20 mg = 1 tab(s), Oral, QID, PRN abdominal pain/diarrhea, 30 to 60 minutes before meals as needed, # 56 tab(s), 0 Refill(s), [facility]: [facility] [address] 130, cm, 03/02/21 14:56:00 EDT, Height, kg, 03/02/21 14:56:00 EDT, Dosing Weight Start Date: 03/02/21 Stop Date: 03/16/21 Status: Ordered digestive enzyme (3 sources) Start: 06-17-2021 digestive enzy me digestive enzyme, Oral, TID, 0 Refill(s), 106.1 Start Date: 06/17/21 Status: Ordered DME MISCellaneous (5 sources) Start: 03-01-2023 DME MISCellane ous See Instructions, BP cuff and machine, Dx: I10, # 1 EA, 0 Refill(s), Hypertension goal BP (blood pressure) Start Date: 03/01/23 Status: Ordered Start: 09-02-2021 DME MISCellane ous See Instructions, Blood pressure cuff and machine Dx: R03.0, # 1 EA, 0 Refill(s), Pharmacy: [facility] [address] Elevated blood pressure reading, 165, cm, 09/02/21 10:24:00 EDT, Height, 115 Start Date: 09/02/21 Status: Ordered docosahexaenoic acid 200 mg oral capsule (1 source) Start: 04-02-2024 Docosahexaenoi c Acid ( Dha) 200 mg capsule Active mg PO April 02, 2024 1:00am docusate calcium 240 mg oral capsule (1 source) Start: 04-28-2021 End: 06-27-2021 docusate calcium 240 mg oral capsule Dose : 240 mg = 1 cap(s), Oral, Daily, PRN for constipation, with plenty of water, # 30 cap(s), 1 Refill(s), Pharmacy: [facility] [address] 165, cm, 04/28/21 8:12:00 EST, Height, kg, 04/28/21 8:12:00 EST, Dosing Weight Start Date: 04/28/21 Stop Date: 06/27/21 Status: Ordered ethinyl estradiol 0.02 mg / ferrous fumarate 75 mg / norethindrone 1 mg oral tablet (4 sources) Estrogen Start: 03-02-2021 take 1 tablet by mouth once daily Dyllan FE 06/09 oral tablet Dose = 1 tab(s), Oral, qDay, # 84 tab(s), 0 Refill(s) Start Date: 03/02/21 Status: Ordered Norethin-E.Estradiol Triphasic (8 sources) Estrogen Start: 08-12-2021 take 1 tablet by mouth once daily Norethin-E.Estradiol Triphasic Active 1 TABLET PO DAILY August 12, 2021 4:36pm Start: 08-12-2021 End: 08-03-2022 take 1 tablet by mouth once daily Norethin-E.Estradiol Triphasic 0.5/1/0.5-35 mg-mcg tablet Discontinued 1 {tbl} PO DAILY August 12, 2021 12:00am August 03, 2022 2:46pm Start: 08-12-2021 End: 08-03-2022 take 1 tablet by mouth once daily Norethin-E.Estradiol Triphasic Discontinued 1 TABLET PO DAILY August 12, 2021 12:00am August 03, 2022 2:46pm Start: 08-12-2021 take 1 tablet by [facility] once daily Norethin-E.Estradiol Triphasic Active 1 TABLET PO DAILY August 12, 2021 12:00am fluticasone propionate 0.05 mg/actuat metered dose nasal spray (1 source) Corticosteroid Start: 09-23-2021 take 1 dose nasal route twice daily fluticasone proprionate NASAL 50 mcg/ spray Dose = 2 spray(s), Nostril, each, BID, 0 Refill(s) Start Date: 09/23/21 Status: Ordered hyoscyamine sulfate 0.125 mg disintegrating oral tablet (4 sources) Start: 09-21-2021 Hyoscyamine Sulfate Active 0.125 MG PO 2 to 4 times per day 60 September 21, 2021 12:00am labetalol hydrochloride 100 mg oral tablet (2 sources) beta-Adrenergic Esa Start: 04-02-2024 End: 10-08-2024 labetalol 100 mg oral tablet Dose : 100 mg = 1 tab(s), Oral, BID, # 200 tab(s), 0 Refill(s), Pharmacy: [facility] #[id number], 165.1, cm, 06/26/24 14:29:00 EST, Height, kg, 06/26/24 14:29:00 EST, Dosing Weight Start Date: 06/30/24 Stop Date: 10/08/24 Status: Ordered Quantity: 200.0 Unit: tab(s) Repeat number: 1 Dyllan FE 06/09 oral tablet (3 sources) Start: 03-02-2021 take 1 tablet by mouth once daily Dyllan FE 06/09 oral tablet Dose = 1 tab(s), Oral, qDay, # 84 tab(s), 0 Refill(s) Start Date: 03/02/21 Status: Ordered Multivitamin preparation (5 sources) Start: 08-03-2022 take 1 tablet by mouth once daily Multivitamin Active 1 TABLET PO DAILY August 03, 2022 12:00am Start: 04-19-2022 take 1 tablet by [facility] once daily Multivitamin Dose = 1 tab(s), Oral, Daily, 0 Refill(s) Start Date: 04/19/22 Status: Ordered polyethylene glycol 3350 oral powder for reconstitution (1 source) Start: 04-28-2021 End: 06-27-2021 take 17 doses by mouth once daily as needed for constipation polyethylene glycol 3350 oral powder for reconstitution Dose : 17 gram(s) =, Oral, qDay, PRN Constipation, dissolve in water or juice before taking, X 30 day(s), # 255 gram(s), 1 Refill(s), 06/27/21 8:40:00 EST, Pharmacy: [facility] 165, cm, 04/28/21 8:12:00 EST, Height, kg, 04/28/21 8:12:00... Start Date: 04/28/21 Stop Date: 06/27/21 Status: Ordered Probiotic (3 sources) Start: 06-17-2021 Probiotic Oral, qDay, 0 Refill(s) Start Date: 06/17/21 Status: Ordered tiZANidine 4 mg oral tablet (1 source) Central alpha-2 Adrenergic Agonist Start: 03-13-2023 End: 03-17-2023 take 1 tablet by mouth three times daily tiZANidine (ZANAFLEX) 4 mg tablet Indications: Cervical paraspinal muscle spasm Take 1 tablet by mouth three times a day for 4 days. 12 tablet 0 03/13/2023 03/17/2023 Active Comment on above: Take 1 tablet by harper three times a day for 4 days. traMADol hydrochloride 50 mg oral tablet (1 source) Opioid Agonist Start: 03-13-2023 End: 03-18-2023 take 1 tablet by mouth every eight hours as needed for pain traMADol (ULTRAM) 50 mg tablet Indications: Odontalgia Take 1 tablet by mouth every 8 hours as needed for pain for up to 5 days. 15 tablet 0 03/13/2023 03/18/2023 Active Comment on above: [facility] hours as needed for pain for up to 5 days. Completed/Discontinued Medications Medication Drug Class(es) Dates Sig (Normalized) Sig (Original) acetaminophen 500 mg oral tablet (1 source) take 1 tablet by mouth every eight hours as needed acetaminophen (TYLENOL EXTRA STRENGTH) 500 mg tablet Take 500 mg by mouth every 8 hours as needed. 0 Active Comment on above: Take 500 mg by mouth every 8 hours as needed. amLODIPine 5 mg / benazepril hydrochloride 10 mg oral capsule (17 sources) Dihydropyridine Calcium Channel Esa, Angiotensin Converting Enzyme Inhibitor Start: 12-05-2022 take 1 capsule by mouth once amLODIPine-benazep ril (LOTREL) 5-10 mg per capsule Take 1 capsule by mouth every afternoon. 0 12/05/2022 Active Start: 12-19-2021 End: 04-02-2024 take 1 capsule by mouth once daily amlodipine-benazepril 5 mg-10 mg oral capsule Dose = 1 cap(s), Oral, qDay, # 90 cap(s), 1 Refill(s), [facility]: [facility] #[id number], 165, cm, 04/19/22 11:21:00 EST, Height, kg, 04/19/22 11:21:00 EST, Dosing Weight Start Date: 04/19/22 Status: Ordered Start: 12-19-2021 take 1 capsule by mo [facility] once daily Amlodipine-Benazepril Active 1 CAP PO DAILY December 19, 2021 12:00am Start: 09-21-2021 End: 01-05-2022 take 1 capsule by mouth once daily Amlodipine-Benazepril Discontinued 1 CAP PO DAILY September 21, 2021 12:00am January 05, 2022 8:28am Start: 09-16-2021 End: 01-05-2022 Amlodipine-Benazepril 2.5-10 mg capsule Discontinued 1 NMA PO DAILY September 21, 2021 12:00am January 05, 2022 8:28am Comment on above: Take 1 capsule by [facility] every afternoon. bisacodyl 5 mg delayed release oral tablet (8 sources) Stimulant Laxative Start: End: take 4 tablets by mouth once Bisacodyl 5 mg tablet,delayed release (DR/EC) Discontinued 20 mg PO ONCE September 22, 2021 12:00am January 05, 2022 8:25am take as directed for colon prep Start: 09-22-2021 End: 01-05-2022 take 20 mg by mouth once Bisacodyl Discontinued 20 MG PO ONCE September 22, 2021 12:00am January 05, 2022 8:25am take as directed for colon prep 12 hr buPROPion hydrochloride 90 mg / naltrexone hydrochloride 8 mg extended release oral tablet (4 sources) Opioid Antagonist, Aminoketone Start: 09-10-2022 End: 04-02-2024 Naltrexone-Bupropion (Contrave) 8-90 mg tablet extended release Discontinued 2 {tbl} PO TWICE A DAY 112 September 10, 2022 12:00am April 02, 2024 11:29am cetirizine hydrochloride 10 mg oral tablet (7 sources) Histamine-1 Receptor Antagonist Start: 08-03-2022 End: 04-02-2024 take 1 tablet by mouth once daily as needed Cetirizine (Zyrtec) 10 mg tablet Discontinued 10 mg PO DAILY as needed August 03, 2022 12:00am April 02, 2024 11:28am Start: 04-19-2022 take 1 mg by mouth once daily Zyrtec 10 mg oral tablet mg = tab(s), Oral, qDay, 0 Refill(s) Start Date: 04/19/22 Status: Ordered Cetirizine (ZYRT EC) 10 mg cap Take by mouth once daily. 0 Active Comment on above: Take by mouth once d aily. Desogestrel / Ethinyl Estradiol (4 sources) Progestin, Estrogen Start: 09-05-2022 End: 04-02-2024 take 0.15 tablet by mouth once daily Desogestrel-Ethinyl Estradiol (Apri) 0.15-0.03 mg tablet Discontinued 1 {tbl} PO daily September 05, 2022 12:00am April 02, 2024 11:29am Start: 09-05-2022 Desogestrel-Et hinyl Estradiol (Apri) 0.15-0.03 mg tablet Active 1 TABLET PO daily September 05, 2022 12:00am fluconazole 150 mg oral tablet (5 sources) Azole Antifungal Start: 01-15-2023 End: 04-02-2024 Fluconazole 150 mg tablet Discontinued 150 mg PO .COMPLEX 2 December 21, 2023 4:57pm April 02, 2024 11:29am 150 mg PO take one po now and repeat in 3 days Comment on above: take 1 tablet by har[facility] immediately then repeat in 3 days ibuprofen 800 mg oral tablet (1 source) Nonsteroidal Anti-inflammatory Drug take 1 tablet by mouth every six hours as needed ibuprofen (IBU) 800 mg tablet Take 800 mg by mouth every 6 hours as needed. 0 Active Comment on above: Take 800 mg by mouth every 6 hours as needed. Multivitamin tablet (1 source) Start: 08-03-2022 End: 04-02-2024 Multivitamin tablet Discontinued 1 {tbl} PO DAILY August 03, 2022 12:00am April 02, 2024 11:29am pantoprazole 40 mg delayed release oral tablet (20 sources) Proton Pump Inhibitor Start: 09-21-2021 End: 08-03-2022 take 1 tablet by mouth once daily in the morning Pantoprazole 40 mg tablet,delayed release (DR/EC) Discontinued 40 mg PO EVERY MORNING April 26, 2022 8:55am August 03, 2022 2:46pm polyethylene glycol 3350 78541 mg powder for oral solution (8 sources) Osmotic Laxative Start: 09-22-2021 End: 01-05-2022 take 238 g by mouth once Polyethylene Glycol 3350 17 gram/dose powder Discontinued 238 g PO ONCE September 22, 2021 12:00am January 05, 2022 8:25am use as directed for colon prep Multivitamins with Folic Acid 0.4 mg oral tablet (2 sources) Start: 02-18-2024 End: 03-24-2025 take 1 tablet by mouth once daily Multivitamins with Folic Acid 0.4 mg oral tablet Dose = 1 tab(s), Oral, qDay, # 100 tab(s), 3 Refill(s), [facility]: [facility] #[id number], 165, cm, 12/26/23 15:36:00 EDT, Height, kg, 12/26/23 15:36:00 EDT, Dosing Weight Start Date: 02/18/24 Stop Date: 03/24/25 Status: Ordered Quantity: 100.0 Unit: tab(s) Repeat number: 4 Start: 09-19-2023 End: 10-23-2024 take 1 tablet by mouth once daily Multivitamins with Folic Acid 0.4 mg oral tablet Dose = 1 tab(s), Oral, qDay, # 100 tab(s), 3 Refill(s), [facility]: [facility] #[id number], 163.8, cm, 09/19/23 11:02:00 EDT, Height, kg, 09/19/23 11:02:00 EDT, Dosing Weight Start Date: 09/19/23 Stop Date: 10/23/24 Status: Ordered 72 hr scopolamine 0.0139 mg/hr transdermal system (7 sources) Anticholinergic Start: 04-26-2022 End: 04-02-2024 Scopolamine Base 1 mg over 3 days patch 3 day Discontinued 1 NMA TD Every 3 Days as needed for nausea and vomiting April 26, 2022 1:00am April 02, 2024 11:29am Start: 04-26-2022 Scopolamine Ba se Active 1 PATCH TD Q3D April 26, 2022 1:00am Start: 09-21-2021 Scopolamine Ba se Active 1 PATCH TD Q3D September 21, 2021 12:00am sertraline 50 mg oral tablet (16 sources) Serotonin Reuptake Inhibitor Start: 12-05-2022 take 1 tablet by mouth once sertraline (ZOLOFT) 50 mg tablet Take 1 tablet by mouth every afternoon. 0 12/05/2022 Active Start: 08-03-2022 End: 04-02-2024 take 2 tablets by mouth once daily Sertraline (Zoloft) 25 mg tablet Discontinued 50 mg PO DAILY September 01, 2022 3:58pm April 02, 2024 11:29am Start: 04-19-2022 End: 06-18-2022 sertraline 50 mg oral tablet Dose : 50 mg = 1 tab(s), Oral, qDay, # 60 tab(s), 0 Refill(s), [id number], 165, cm, 04/19/22 11:21:00 EST, Height Start Date: 04/19/22 Stop Date: 06/18/22 Status: Ordered Start: 12-19-2021 End: 08-03-2022 take 1 tablet by mouth once daily Sertraline (Zoloft) 25 mg Tablet Discontinued 25 mg PO DAILY December 19, 2021 12:00am August 03, 2022 2:48pm Comment on above: Take 1 tablet by [facility] every afternoon. sucralfate 100 mg/ml oral suspension (4 sources) Aluminum Complex Start: End: take 1 mL by mouth 1 hour(s) before mealtime Sucralfate 100 mg/mL suspension Discontinued 10 mL PO before meals 999December 23, 2021 12:00am August 03, 2022 2:48pm take on an empty stomach one hour before meals and two hours away from other medications for thirty minutes. Start: 12-23-2021 End: 08-03-2022 take 1 mL by mouth 1 hour(s) before mealtime Sucralfate Discontinued 10 ML PO before meals 999December 23, 2021 12:00am August 03, 2022 2:48pm take on an empty stomach one hour before meals and two hours away from other medications for thirty minutes. Problems Active Problems Problem Classification Problem Date Documented Da te Episodic/Chronic Abdominal pain (20 sources) Abdominal pain; Translations: [Finding of sensation of abdomen] 03-02-2021 Episodic Anxiety disorders (4 sources) Mixed anxiety and depressive disorder 11-15-2021 Chronic Attention-deficit, conduct, and disruptive behavior disorders (1 source) Attention deficit hyperactivity disorder 03-02-2021 Chronic Attention-deficit, conduct, and disruptive behavior disorders (8 sources) Attention deficit hyperactivity disorder, combined type 04-06-2021 Chronic Diabetes mellitus with complications (4 sources) Type 2 diabetes mellitus with hyperglycemia; Translations: [Type II diabetes mellitus uncontrolled] Onset: 5 Chronic Diabetes mellitus without complication (10 sources) Hyperglycemia; Translations: [Increased glucose level] Onset: 5 03-14-2021 Episodic Disorders of teeth and jaw (2 sources) Toothache; Translations: [Other specified disorders of teeth and supporting structures] Onset: 3 03-13-2023 Episodic Esophageal disorders (2 sources) Gastroesophageal reflux disease 03-01-2023 Chronic Essential hypertension (15 sources) Hypertensive disorder; Translations: [Essential hypertension] Onset: 5 09-16-2021 Chronic Comment on above: medication. monitor to ensure combo ocp or contrave does not affect. recommend weight reduction. Gastritis and duodenitis (4 sources) Gastritis; Translations: [Gastritis, unspecified, without bleeding] 09-10-2022 Episodic Gastrointestinal hemorrhage (9 sources) Rectal hemorrhage 03-02-2021 Episodic Immunizations and screening for infectious disease (1 source) Contact with and (suspected) exposure to infections with a predominantly sexual mode of transmission; Translations: [Contact with or exposure to venereal diseases] 01-15-2023 Episodic Menstrual disorders (2 sources) Secondary amenorrhea 03-01-2023 Chronic Mycoses (3 sources) Candidiasis of vagina; Translations: [Candidiasis of vagina] 01-15-2023 Episodic Nausea and vomiting (12 sources) Nausea; Translations: [Nausea] Episodic Nonspecific chest pain (9 sources) Chest pain; Translations: [Chest pain, unspecified] Onset: 2 Episodic Other connective tissue disease (1 source) Spasm of cervical paraspinous muscle; Translations: [Other muscle spasm] 03-13-2023 Episodic Other connective tissue disease (1 source) Other muscle spasm; Translations: [Cervical paraspinal muscle spasm] Onset: 3 Episodic Other endocrine disorders (5 sources) Polycystic ovary syndrome; Translations: [Polycystic ovarian syndrome] 08-03-2022 Chronic Comment on above: counseling and educa tion given. recommend diabetes and HTN control prior to any [facility] script. counseled on how to take medicine but will not start until medically optimized Other endocrine disorders (6 sources) Polycystic ovarian syndrome; Translations: [Polycystic ovaries] Onset: 4 08-03-2022 Chronic Other female genital disorders (1 source) Vaginal discharge; Translations: [Other specified noninflammatory disorders of vagina] 09-25-2024 Episodic Other gastrointestinal disorders (4 sources) Irritable bowel syndrome characterized by constipation; Translations: [Irritable bowel syndrome with constipation] 09-10-2022 Chronic Comment on above: avoid phentermine pe r patient request. Other gastrointestinal disorders (2 sources) Irritable bowel syndrome with constipation; Translations: [Irritable bowel syndrome] 09-05-2022 Chronic Other gastrointestinal disorders (17 sources) Constipation alternates with diarrhea; Translations: [Other specified symptoms and signs involving the digestive system and abdomen] 03-02-2021 Episodic Other gastrointestinal disorders (4 sources) Other specified symptoms and signs involving the digestive system and abdomen; Translations: [Other symptoms involving digestive system] Episodic Other liver diseases (1 source) Elevated liver enzymes level 06-26-2024 Episodic Other non-traumatic joint disorders (6 sources) Hip pain 09-02-2021 Episodic Other nutritional; endocrine; and metabolic disorders (8 sources) Hypoalbuminemia 03-14-2021 Chronic Other nutritional; endocrine; and metabolic disorders (12 sources) Body mass index 40+ - severely obese; Translations: [Body mass index (BMI) 40.0-44.9, adult] 06-17-2021 Chronic Other nutritional; endocrine; and metabolic disorders (5 sources) Obesity; Translations: [Obesity, unspecified] 09-10-2022 Chronic Comment on above: nutrition consult co mplete. Other nutritional; endocrine; and metabolic disorders (2 sources) Body mass index (BMI) 40.0-44.9, adult; Translations: [Body Mass Index 40.0-44.9, adult] 09-05-2022 Chronic Other nutritional; endocrine; and metabolic disorders (2 sources) Obesity, unspecified; Translations: [Obesity, unspecified] 09-05-2022 Chronic Other upper respiratory disease (2 sources) Nasal congestion 12-05-2022 Episodic Other upper respiratory infections (4 sources) Sore throat symptom 04-08-2021 Episodic Ovarian cyst (4 sources) Cyst of ovary 11-03-2021 Episodic Heather-; endo-; and myocarditis; cardiomyopathy (except that caused by tuberculosis or sexually transmitted disease) (8 sources) Ejection murmur 04-06-2021 Chronic Residual codes; unclassified (2 sources) Peripheral edema 11-07-2023 Episodic Past or Other Problems Problem Classification Problem Date Documented Date Episodic/Chronic Other female genital disorders (1 source) Other specified noninflammatory disorders of vagina; Translations: [Other specified noninflammatory disorders of vagina] Onset: 04-30-2024 Episodic Results Test Name Value Interpretation Reference Range Facility Anion gap in Serum or Plasma Ordered By: Airam Padilla on 10-15-2024 Anion gap [Moles/Vol] 11 mmol/L - [facility] BUN/creatinine ratioOrdered By: Airam Padilla on 10-15-2024 Urea nitrogen/Creatinine [Mass ratio] 18.1 mg/mg - [facility] Bilirubin, totalOrdered By: Airam Padilla on 10-15-2024 Bilirubin [Mass/Vol] 0.39 mg/dL 0.00-1.30 [facility] Carbon dioxide, total [Moles /volume] in Central venous bloodOrdered By: Airam Padilla on 10-15-2024 CO2 [Moles/Vol] 26.1 mmol/L 21.0-32.0 [facility] Chloride assayOrdered By: Renate Padilla on 10-15-2024 Chloride [Moles/Vol] 102 mmol/L 98-108 [facility] Comprehensive Metabolic Prof ilon 10-15-2024 Albumin [Mass/Vol] 4.3 g/dL Normal 3.5-5.0 [facility] Comment on above: Performed By: #### L 500.4050, L501.9985 #### [facility] [address] [place], [address] Albumin/Globulin [Mass ratio] 1.4 {ratio} Normal 0.9-2.4 [facility] Comment on above: Performed By: #### L 500.4050, L501.9985 #### [facility] [address] [place], [address] ALK PHOS 109 U/L High 35-104 [facility] Comment on above: Performed By: #### L 500.4050, L501.9985 #### [facility] [address] [place], [address] ALT [Catalytic activity/Vol] 38 U/L High <=34 [facility] Comment on above: Performed By: #### L 500.4050, L501.9985 #### [facility] [address] [place], [address] AST [Catalytic activity/Vol] 32 U/L Normal <=31 [facility] Comment on above: Result Comment: Hemo lysis present, Results??could be affected. ?? Performed By: #### L 500.4050, L501.9985 #### [facility] [address] [place], [address] Bilirubin [Mass/Vol] 0.39 mg/dL Normal 0.00-1.30 [facility] Comment on above: Performed By: #### L 500.4050, L501.9985 #### [facility] [address] [place], [address] BUN/CRE 18.1 RATIO Normal 10-20 [facility] Comment on above: Performed By: #### L 500.4050, L501.9985 #### [facility] [address] [place], [address] Calcium [Mass/Vol] 9.3 mg/dL Normal 7.6-11.0 [facility] Comment on above: Performed By: #### L 500.4050, L501.9985 #### [facility] [address] [place], [address] Chloride [Moles/Vol] 102 mmol/L Normal 98-108 [facility] Comment on above: Performed By: #### L 500.4050, L501.9985 #### [facility] [address] [place], [address] CO2 [Moles/Vol] 26.1 mmol/L Normal 21.0-32.0 [facility] Comment on above: Performed By: #### L 500.4050, L501.9985 #### [facility] [address] [place], [address] Creatinine [Mass/Vol] 0.63 mg/dL Low 0.70-1.20 [facility] Comment on above: Performed By: #### L 500.4050, L501.9985 #### [facility] [address] [place], [address] GAP 11 Normal 5-15 [facility] Comment on above: Performed By: #### L 500.4050, L501.9985 #### [facility] [address] [place], [address] GFR/1.73 sq M.predicted among non-blacks MDRD (S/P/Bld) [Vol rate/Area] 122 mL/min/{1.73_m2} Normal >60 [facility] Comment on above: Result Comment: mL/m in/1.73m2 CKD-EPI Creatinine Equation (2020) Performed By: #### L 500.4050, L501.9985 #### [facility] [address] [place], [address] Globulin (S) [Mass/Vol] 3.1 g/dL Normal 2.2-4.2 [facility] Comment on above: Performed By: #### L 500.4050, L501.9985 #### [facility] [address] [place], [address] Glucose [Mass/Vol] 121 mg/dL High 70-99 [facility] Comment on above: Performed By: #### L 500.4050, L501.9985 #### [facility] [address] [place], [address] Potassium [Moles/Vol] 4.1 mmol/L Normal 3.3-5.1 [facility] Comment on above: Result Comment: Hemo lysis present, Results??could be affected. ?? Performed By: #### L 500.4050, L501.9985 #### [facility] [address] [place], [address] Sodium [Moles/Vol] 138 mmol/L Normal 133-145 [facility] Comment on above: Performed By: #### L 500.4050, L501.9985 #### [facility] [address] [place], [address] T PROT 7.3 g/dL Normal 5.9-8.4 [facility] Comment on above: Performed By: #### L 500.4050, L501.9985 #### [facility] [address] [place], [address] Urea nitrogen [Mass/Vol] 11 mg/dL Normal 4-19 [facility] Comment on above: Performed By: #### L 500.4050, L501.9985 #### [facility] [address] [place], [address] Glomerular filtration rate ( GFR) estimation/1.73 sq m using serum, plasma, or whole bOrdered By: Airam Padilla on 10-15-2024 GFR/1.73 sq M.predicted among non-blacks MDRD (S/P/Bld) [Vol rate/Area] 122 mL/min/{1.73_m2} >60 [facility] Comment on above: mL/min/1.73m2 CKD-EP I Creatinine Equation (2020) Hemoglobin A1con 10-15-2024 HbA1c (Bld) [Mass fraction] 5.9 % High <=5.6 [facility] Comment on above: Result Comment: Norm al < 5.7 % Prediabetic 5.7 - 6.4 % Diabetic >or= 6.5 % Please note range changes. Performed By: #### L 500.4050, L501.9985 #### [facility] [address] [place], [place], [id number] Hemoglobin A1c percentageOrd ered By: Airam Padilla on 10-15-2024 HbA1c (Bld) [Mass fraction] 5.9 % High <5.7 [facility] Comment on above: Normal < 5.7 % Predi abetic 5.7 - 6.4 % Diabetic >or= 6.5 % Please note range changes. Laboratory - Chemistry and C hemistry - challengeOrdered By: Airam Padilla on 10-15-2024 AST [Catalytic activity/Vol] 32 U/L <32 [facility] Comment on above: Hemolysis present, R esults could be affected. Potassium measurement (mass/ volume)Ordered By: Airam Padilla on 10-15-2024 Potassium (Unsp spec) [Mass/Vol] 4.1 mmol/L 3.3-5.1 [facility] Comment on above: Hemolysis present, R esults could be affected. Serum creatinine measurement (mass/volume)Ordered By: Airam Padilla on 10-15-2024 Creatinine [Mass/Vol] 0.63 mg/dL Low 0.70-1.20 [facility] Serum globulin measurementOr dered By: Airam Padilla on 10-15-2024 Globulin (S) [Mass/Vol] 3.1 g/dL 2.2-4.2 [facility] Serum glucose measurement (m ass/volume)Ordered By: Airam Padilla on 10-15-2024 Glucose [Mass/Vol] 121 mg/dL High 70-99 [facility] Serum or plasma alanine santamaria otransferase (ALT) measurementOrdered By: Airam Padilla on 10-15-2024 ALT [Catalytic activity/Vol] 38 U/L High <35 [facility] Serum or plasma albumin gricelda urement (mass/volume)Ordered By: Airam Padilla on 10-15-2024 Albumin [Mass/Vol] 4.3 g/dL 3.5-5.0 [facility] Serum or plasma albumin/glob ulin mass ratioOrdered By: Airam Padilla on 10-15-2024 Albumin/Globulin [Mass ratio] 1.4 {ratio} 0.9-2.4 [facility] Serum or plasma alkaline debo sphatase measurementOrdered By: Airam Padilla on 10-15-2024 ALP [Catalytic activity/Vol] 109 U/L High 35-104 [facility] Serum or plasma calcium gricelda urement (mass/volume)Ordered By: Airam Padilla on 10-15-2024 Calcium [Mass/Vol] 9.3 mg/dL 7.6-11.0 [facility] Serum or plasma urea nitroge n measurement (mass/volume)Ordered By: Airam Padilla on 10-15-2024 Urea nitrogen [Mass/Vol] 11 mg/dL 4-19 [facility] Sodium levelOrdered By: Ladonna Padilla on 10-15-2024 Sodium [Moles/Vol] 138 mmol/L 133-145 [facility] Total proteinOrdered By: Henok Padilla on 10-15-2024 Protein [Mass/Vol] 7.3 g/dL 5.9-8.4 [facility] Child Development Professor Office Visit Reporton 09-25-2024 Child Development Professor Office Visit Report [facility] [address], [address] [place] [address] OFFICE VISIT Date of Service: 09/25/24 MR#: [id number] Acct: [id number] Name: ANGELA CHRISTINE Rep #: [id number] : 1995 Provider: DOLORES vela Age/Sex: 29/F Location: [facility] Status: Signed Intake Vital Signs 06/16/24 15:05 09/25/24 10:01 09/25/24 10:02 Height 5 ft 5 in 5 ft 5 in 5 ft 5 in Weight: 266 lb 8 oz 248 lb 8 oz BMI 44.3 41.3 BP 129/84 H 120/81 H Intake Visit Reasons: 3 M FU *$30 co pay Shipping Order Clerk Required: No Is patient in pain?: No Allergies No Known Allergies Allergy (Verified 09/25/24 10:01) Medications ???Medication ???Instructions ???Recorded ???Confirmed ???Type docosahexaenoic acid 200 mg mg PO 04/02/24 09/25/24 History capsule ( DHA) labetalol 100 mg tablet 100 mg PO BID 04/02/24 09/25/24 Hi story Is last menstrual period known: Yes Last Menstrual Period: 09/02/24 Post menopausal: No Patient : No : No PFSH Medical History Wears glasses Depression Anxiety Alcohol use Diabetes Gastric reflux Non-smoker Shortness of breath on exertion History of echocardiogram Chest pain Hypertension Alternating constipation and diarrhea Systolic ejection murmur Hypoalbuminemia Hyperglycemia ADHD Rectal bleeding Intermittent abdominal pain Surgical History History of wisdom tooth extraction Hx of tonsillectomy Family History Mother Diabetes Endometriosis PCOS (polycystic ovarian syndrome) Father Diabetes Hypertension Grandmother Cervical cancer Paternal Other Asthma Hyperlipidemia Social History adopted: No 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 Herr. She has lost 20 lbs with diet and exercise. She sees PCP today and will fax Hgba1c, CMP and liver US results. Her did an [facility] for semen analysis due to cost and says all results normal but does not have copy of that today. Menses are long lasting 10-13 days but usually occur monthly. Female Reproductive History Last Menstrual Period: 09/02/24 ROS Const Constitutional: Reports system reviewed and no additional complaints, except as documented Eyes Eyes: Reports system reviewed and no additional complaints, except as documented GI GI: Denies abdominal pain or change in bowel habits : Reports as per HPI Exam Const General: cooperative and no acute distress Nutritional Appearance: obese Orientation: oriented x3 HENMT Head: normal to inspection and normocephalic Eyes General: appearance normal, both eyes and all related structures Neck Neck: normal visual inspection Resp Effort Inspection: normal respiratory effort Neuro Cognition: normal cognition Speech: speech normal Psych Appearance: grossly normal Mood: congruent mood Affect: normal affect Speech and Movement: speech and movement normal Attitude: cooperative Judgment: judgment good Coding Level of Care Code Off vis,est,level 3 Diagnoses PCOS (polycystic ovarian syndrome) E28.2 Hypertension, unspecified type I10 Hypertension type: unspecified Class 3 severe obesity due to excess calories with serious comorbidity and body mass index (BMI) of 40.0 to 44.9 in adult E66.813; Z68.41 Obesity type: due to excess calories Obesity classification: adult class 3 (BMI >= 40) Body mass index: BMI 40.0-44.9 Serious obesity comorbidity presence: with serious comorbidity Uncontrolled type 2 diabetes mellitus with hyperglycemia E11.65 Glycemic state: with hyperglycemia Assessment and Plan Assessment and Plan (1) PCOS (polycystic ovarian syndrome): Status: Acute Comment: counseling and education given. recommend diabetes and HTN control prior to any femara script. counseled on how to take medicine but will not start until medically optimized (2) Hypertension: Status: Chronic Qualifiers: Hypertension type: unspecified Qualified Code(s): I10 - Essential (primary) hypertension Comment: medication. monitor to ensure combo ocp or contrave does not affect. recommend weight reduction. (3) Obesity: Status: Acute Quali (more content not included)... Normal [facility] 07-31-2024 U Ratio Alb/Cre 5 mg/G Normal 0-30 [facility] Comment on above: Performed By: #### M ALBR #### [facility] [address] [place], [place] [address] US ABDOMEN LIMITEDon 025 US ABDOMEN LIMITED ORIGINAL EXAMINATION: RIGHT UPPER QUADRANT ULTRASOUND 07/31/2024 [...] Sign Date: 07/31/2024 8:52:31 AM Ordering Provider: ELDER SOLORZANO Normal [facility]ATORYOrdered By: Sally Oliveira on 06-26-2024 Albumin DL <= 20 mg/L (U) [Mass/Vol] 13.9 mg/L Invalid Interpretation Code AO ADM SS Albumin/Creatinine DL <= 20 mg/L (U) [Mass ratio] 0 mcg/mg Normal 0 - 30 mcg/mg AO Chem istry S Creatinine (U) [Mass/Vol] 284.0 mg/dL Invali d Interpretation Code AO ADM SS MALBRon 06-26-2024 U Creatinine 284.0 mg/dL Normal [facility] Comment on above: Performed By: #### M ALBR #### [id number] [place], [place] [address] U Microalb 13.9 mg/L Normal [facility] Comment on above: Performed By: #### M ALBR #### [id number] [place], [place] [address] Child Development Professor Office Visit Reporton 06-16-2024 Child Development Professor Office Visit Report [facility], [address] [place] [address] OFFICE VISIT Date of Service: 06/16/24 MR#: [id number] Acct: [id number] Name: ANGELA CHRISTINE Rep #: [id number] : 1995 Provider: Dr. 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 Order Clerk Required: No Is patient in pain?: No Allergies No Known Allergies Allergy (Verified 06/16/24 15:07) Medications ???Medication ???Instructions ???Recorded ???Confirmed ???Type docosahexaenoic acid 200 mg mg PO 04/02/24 06/16/24 History capsule ( DHA) labetalol 100 mg tablet 100 mg PO BID 04/02/24 06/16/24 Hi story Is last menstrual period known: Yes Last Menstrual Period: 06/03/24 Post menopausal: No Patient : No PFSH Medical History Wears glasses Depression Anxiety Alcohol use Diabetes Gastric reflux Non-smoker Shortness of breath on exertion History of echocardiogram Chest pain Hypertension Alternating constipation and diarrhea Systolic ejection murmur Hypoalbuminemia Hyperglycemia ADHD Rectal bleeding Intermittent abdominal pain Surgical History History of wisdom tooth extraction Hx of tonsillectomy Family History Mother Diabetes Endometriosis PCOS (polycystic ovarian syndrome) Father Diabetes Hypertension Grandmother Cervical cancer Paternal Other Asthma Hyperlipidemia Social History (Updated 06/16/24 @ 15:09 by Rachell Linares) adopted: No 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 she was diagnosed with PCOS in the past and worked on weight loss, and she hasn't had an HSG or SA. she had a failyr normal US. she has had an US in the last 3 months. her is healthy takes no meds, she is newly diagnosed with diabetes and elevated liver enzymes. Her used to smoke and he is quitting. she is controlled with HTN. Female Reproductive History Last Menstrual Period: 06/03/24 ROS Const Constitutional: Reports fatigue and weight gain; Denies fever(s), headache(s), increased appetite, poor appetite or weight loss GI GI: Reports as per HPI; Denies abdominal pain, constipation, nausea or vomiting : Reports as per HPI; Denies difficulty voiding, dysuria, hematuria, pelvic pain, urinary frequency, urinary incontinence, urinary hesitancy, urinary urgency, vaginal discharge, vaginal dryness, vaginal odor, vaginal pruritus or other Exam Const General: cooperative, healthy appearing, comfortable, no acute distress and well developed Orientation: alert HENMT Head: normal to inspection and normocephalic Ears: hearing grossly normal bilaterally and external ears normal Nose: external nose normal and nares normal Face and sinus: normal facial exam Neck Neck: normal visual inspection, no lymphadenopathy and trachea midline Thyroid: thyroid normal Resp Effort Inspection: normal respiratory effort Musc Other: gross motor intact no deficits, full bilateral strength Skin General: no rashes or lesions noted Neuro Motor: muscle tone normal throughout Coding Level of Care Code Off vis,est,level 4 Diagnoses Hypertension I10 Elevated glucose R73.09 PCOS (polycystic ovarian syndrome) E28.2 Assessment and Plan Assessment and Plan (1) Hypertension: Status: Chronic Comment: medication. monitor to ensure combo ocp or contrave does not affect. recommend weight reduction. (2) Elevated glucose: Status: Acute (3) PCOS (polycystic ovarian syndrome): Status: Acute Comment: counseling and education given. recommend diabetes and HTN control prior to any femara script. counseled on how to take medicine but will not start until medically optimized Plan Problem list updated and treatment plans were reviewed with the patient and relevant educational handouts given. See problem list details for specific plan information. 06/23/242025 Date Kamille Herr MD Cosigner Signature: Date (more content not included)... Normal [facility] Comprehensive Metabolic Prof ilon 06-02-2024 Albumin [Mass/Vol] 3.6 g/dL Normal 3.2-5.0 [facility] Comment on above: Performed By: #### L 500.4050, L506.0400, L501.9520 #### [facility] [address] [place], [address] Albumin/Globulin [Mass ratio] 0.9 {ratio} Normal 0.9-2.4 [facility] Comment on above: Performed By: #### L 500.4050, L506.0400, L501.9520 #### [facility] [address] [place], [address] ALK P 115 U/L Normal 45-117 [facility] Comment on above: Performed By: #### L 500.4050, L506.0400, L501.9520 #### [facility] [address] [place], [address] ALT [Catalytic activity/Vol] 133 U/L High 13-56 [facility] Comment on above: Performed By: #### L 500.4050, L506.0400, L501.9520 #### [facility] [address] [place], [address] AST [Catalytic activity/Vol] 63 U/L High 15-37 [facility] Comment on above: Performed By: #### L 500.4050, L506.0400, L501.9520 #### [facility] [address] [place], [address] Bilirubin [Mass/Vol] 0.40 mg/dL Normal 0.20-1.00 [facility] Comment on above: Result Comment: For patients on eltrombopag therapy, use of Dimension Dazey TBIL is not recommended. Performed By: #### L 500.4050, L506.0400, L501.9520 #### [facility] [address] [place], [address] BUN/CRE 12.8 RATIO Normal 10-20 [facility] Comment on above: Performed By: #### L 500.4050, L506.0400, L501.9520 #### [facility] [address] [place], [address] CA,Total 8.8 mg/dL Normal 8.5-10.1 [facility] Comment on above: Performed By: #### L 500.4050, L506.0400, L501.9520 #### [facility] [address] [place], [address] Chloride [Moles/Vol] 105 mmol/L Normal 98-107 [facility] Comment on above: Performed By: #### L 500.4050, L506.0400, L501.9520 #### [facility] [address] [place], [address] CO2 [Moles/Vol] 26.0 mmol/L Normal 21.0-32.0 [facility] Comment on above: Performed By: #### L 500.4050, L506.0400, L501.9520 #### [facility] [address] [place], [address] Creatinine [Mass/Vol] 0.78 mg/dL Normal 0.55-1.02 [facility] Comment on above: Result Comment: The validity of the calculated GFR GFRAA in patients over 70 years has not been determined. Clinical correlation is essential. Performed By: #### L 500.4050, L506.0400, L501.9520 #### [facility] [address] [place], [address] EST GFR - AA 112 mL/min Normal >60 [facility] Comment on above: Result Comment: Afri can [place] GFR Calc Performed By: #### L 500.4050, L506.0400, L501.9520 #### [facility] [address] [place], [address] GAP 8 Normal 5-15 [facility] Comment on above: Performed By: #### L 500.4050, L506.0400, L501.9520 #### [facility] [address] [place], [address] GFR/1.73 sq M.predicted among non-blacks MDRD (S/P/Bld) [Vol rate/Area] 92 mL/min/{1.73_m2} Normal >60 [facility] Comment on above: Result Comment: Non- GFR Calc Performed By: #### L 500.4050, L506.0400, L501.9520 #### [facility] [address] [place], [address] Globulin (S) [Mass/Vol] 4.0 g/dL Normal 2.2-4.2 [facility] Comment on above: Performed By: #### L 500.4050, L506.0400, L501.9520 #### [facility] [address] [place], [address] Glucose [Mass/Vol] 171 mg/dL High 74-106 [facility] Comment on above: Result Comment: Fast ing Glucose result greater than or equal to 126 mg/dL suggests DIABETES MELLITUS per A.D.A. criteria. Performed By: #### L 500.4050, L506.0400, L501.9520 #### [facility] [address] [place], [address] Potassium [Moles/Vol] 3.7 mmol/L Normal 3.5-5.1 [facility] Comment on above: Performed By: #### L 500.4050, L506.0400, L501.9520 #### [facility] [address] [place], [address] Sodium [Moles/Vol] 139 mmol/L Normal 136-145 [facility] Comment on above: Performed By: #### L 500.4050, L506.0400, L501.9520 #### [facility] [address] [place], [address] T PROT 7.6 g/dL Normal 6.4-8.2 [facility] Comment on above: Performed By: #### L 500.4050, L506.0400, L501.9520 #### [facility] [address] [place], [address] Urea nitrogen [Mass/Vol] 10 mg/dL Normal 7-18 [facility] Comment on above: Performed By: #### L 500.4050, L506.0400, L501.9520 #### [facility] [address] [place], [address] T4 Free Directon 06-02-2024 T4 FREE DIRECT 1.22 ng/dL Normal 0.76-1.46 [facility] Comment on above: Performed By: #### L 500.4050, L506.0400, L501.9520 #### [facility] [address] [place], [address] Thyroid Stim Hormone (TSH)on 06-02-2024 TSH 3.240 uIU/mL Normal 0.358-3.740 [facility] Comment on above: Performed By: #### L 500.4050, L506.0400, L501.9520 #### [facility] [address] [place], [address] hCG Titer Quant., Serumon HCG QUANT. < 1 Normal 1-3 [facility] Comment on above: Result Comment: hCG levels with Gestational Age Gestational Age hCG mIU/mL (IU/L) 0.2 - 1 week 5 - 50 1-2 weeks 50 - 500 2-3 weeks 100 - 5000 3-4 weeks 500 - 40338 4-5 weeks 1000 - 10825 5-6 weeks 20591 - 100,000 6-8 weeks 89179 - 200,000 2-3 months 33630 - 100,000 Performed By: #### L 700.8000 #### [facility] [address] [place], [address] Genital Culture Comprehensiv allison 04-03-2024 VAC Reason for Exam: vaginal discharge Normal vaginal ning isolated. No yeast, Gardnerella, Neisseria or beta-hemolytic Streptococcus isolated. Normal [facility] Comment on above: Performed By: #### M 100.1999, M100.3200 ####[facility] [id number] [place], [place], [address] Gram Stainon 04-02-2024 GS Reason for Exam: vaginal discharge Gram Stain 4+ Gram positive rods No Gram negative diplococci No White Blood Cells Score = 0 Interpretation: 0-3 Normal, 4-6 Intermediate, 7-10 Positive BV Normal [facility] Comment on above: Performed By: #### M 100.1999, M100.3200 #### [facility] [address] 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 she hasnt had a real period since dec.28. had spotting in february that lasted 4-5 days. spotting was very light. wants to get , not on any controls and is actively trying. states her mom had to take medication that helped her ovulate and get . has been dx with [facility] Medical History Wears glasses Depression Anxiety Alcohol use Diabetes Gastric reflux Non-smoker Shortness of breath on exertion History of echocardiogram Chest pain Hypertension Alternating constipation and diarrhea Systolic ejection murmur Hypoalbuminemia Hyperglycemia ADHD Rectal bleeding Intermittent abdominal pain Surgical History History of wisdom tooth extraction Hx of tonsillectomy Family History Mother Diabetes Endometriosis PCOS (polycystic ovarian syndrome) Father Diabetes Hypertension Grandmother Cervical cancer Paternal Other Asthma Hyperlipidemia Social History adopted: No 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 history of recent travel: No sexually active: Yes Smoking Status: Never smoker second hand exposure: Yes alcohol intake: current alcohol intake frequency: a few times a month caffeine: Yes eating out: 1-3 times/week seatbelt use: always do you feel safe at home: Yes additional social history: Boyfriend Rj [facility] Encounter for routine gynecological examination Details: ANGELA CHRISTINE is a 28 year old who presents for annual exam. She reports she has not had a full period since December of this year. But did have spotting last week that lasted for 4-5 days. They have been attempting for approx 8 months with no success. She reports she did take a test this morning with negative results. Previous work up for infertility in 2022; was unable to keep follow up appt. Last PAP: 2021; records per other office/system. History of abnormal PAP: no. Last mammogram: age 39 History of abnormal mammogram: n/a Colon cancer screenin; recommended repeat 5 years. Other preventative health care screenings: Elder Solorzano pcp Female Reproductive History Last Menstrual Period: 03/26/24 Associated symptoms: irregular cycles Questions: metorrhagia: No, sexually active: Yes, dyspareunia: No and PCB: No Menopausal Symptoms: No hot flashes, No night sweats, No difficulty concentrating and No change in libido ROS Const Constitutional: Reports as per HPI; Denies fatigue, increased appetite, poor appetite, night sweats, weight gain or weight loss Cardio Card: Denies chest pain Resp Resp: Denies cough or dyspnea GI GI: Reports as per HPI; Denies abdominal pain, bloating, constipation, nausea or vomiting : Reports as per HPI and other; Denies difficulty voiding, dysuria, hematuria, hot flashes, nipple discharge, pelvic pain, prolapse symptoms, urinary frequency, urinary incontinence, urinary urgency, vaginal discharge, vaginal dryness, vaginal odor or vaginal pruritus Skin Skin/Breast: Denies changing lesions, breast mass, breast pain, breast skin changes or nipple discharge Psych Psych: Denies anxiety, change in libido, depression or difficulty concentrating Exam Const General: cooperative, healthy appearing, comfortable, no acute distress, well groomed and well hydrated Nutritional Appearance: well nourished Orientation: alert, awake and oriented x3 HENMT Head: normal to inspection and normocephalic Ears: hearing grossly normal bilaterally and external ears normal Nose: external n (more content not included)... Normal [facility] QUANTTBon 05-10-2023 QFT Criteria Comment Normal [facility] ([place]) Comment on above: Result Comment: QuantiFERON-TB Gold Plus is a qualitative indirect test for M tuberculosis infection (including disease) and is intended for use in conjunction with risk assessment, radiography, and other medical and diagnostic evaluations. The QuantiFERON-TB Gold Plus result is determined by subtracting the Nil value from either TB antigen (Ag) value. The Mitogen tube serves as a control for the test. Performed By: #### 1 [id number] #### [place] [address] QFT Mitogen Value >10.00 Normal [facility] ([place]) Comment on above: Performed By: #### 1 [id number] #### [place] [address] QFT Nil Value 0.00 IU/mL Normal [facility] ([place]) Comment on above: Performed By: #### 1 [id number] #### [place] [address] QFT TB1 Ag Value 0.00 IU/mL Normal [facility] ([place]) Comment on above: Performed By: #### 1 [id number] #### [place] [address] QFT TB2 Ag Value 0.00 IU/mL Normal [facility] ([place]) Comment on above: Performed By: #### 1 [id number] #### [place] [address] QFT-TB Gold Plus Clt Inc Negative Normal Negative [facility] ([place]) Comment on above: Result Comment: No r esponse to M tuberculosis antigens detected. Infection with M tuberculosis is unlikely, but high risk individuals should be considered for additional testing (ATS/IDSA/CDC Clinical Practice Guidelines, 2017). The reference range is an Antigen minus Nil result of <0.35 IU/mL. The specimen received for QuantiFERON testing was incubated by the ordering institution. Specific procedures outlined in our Directory of Services and in the package insert for the QuantiFERON Gold (In Tube) test must be followed to enable for proper stimulation of cells for the production of interferon gamma. Chemiluminescence immunoassay methodology Performed At: Lab[address] [id number] Jairo Isbell PhD Ph:[phone] Performed By: #### 1 [id number] #### [place] [address] .Auto Diffon 12-19-2023 Basophil, Absolute 0.0 10 3/mcL Normal 0.0-0.2 [facility] ([place]) Comment on above: Performed By: #### A [place], ADIFF, TSH, GFR, CMP, LIPID, CBC #### [address] [address] #### HCV1 #### [address] [address] Basophils/100 WBC (Bld) 0.6 % Normal 0.0-2.5 [facility] ([place]) Comment on above: Performed By: #### A [place], ADIFF, TSH, GFR, CMP, LIPID, CBC #### [place] [address] #### HCV1 #### [address] [address] Eosinophil, Absolute 0.2 10 3/mcL Normal 0.0-0.4 [facility] ([place]) Comment on above: Performed By: #### A [place], ADIFF, TSH, GFR, CMP, LIPID, CBC #### [place] [address] #### HCV1 #### [address] [address] Eosinophils/100 WBC (Bld) 3.0 % Normal 0.0-7.0 [facility] ([place]) Comment on above: Performed By: #### A [place], ADIFF, TSH, GFR, CMP, LIPID, CBC #### [place] [address] #### HCV1 #### [address] [address] Lymphocyte, Absolute 1.9 10 3/mcL Normal 0.8-3.9 [facility] ([place]) Comment on above: Performed By: #### A [place], ADIFF, TSH, GFR, CMP, LIPID, CBC #### [place] [address] #### HCV1 #### [address] [address] Lymphocytes/100 WBC (Bld) 25.3 % Normal 10.0-50.0 [facility] ([place]) Comment on above: Performed By: #### A [place], ADIFF, TSH, GFR, CMP, LIPID, CBC #### [address] [address] #### HCV1 #### [address] [address] Monocyte, Absolute 0.4 10 3/mcL Normal 0.2-1.0 [facility] ([place]) Comment on above: Performed By: #### A [place], ADIFF, TSH, GFR, CMP, LIPID, CBC #### [address] [address] #### HCV1 #### [address] [address] Monocytes/100 WBC (Bld) 5.4 % Normal 1.7-13.0 [facility] ([place]) Comment on above: Performed By: #### A [place], ADIFF, TSH, GFR, CMP, LIPID, CBC #### [address] [address] #### HCV1 #### [address] [address] Neutrophils/100 WBC (Bld) 65.7 % Normal 37.0-80.0 [facility] ([place]) Comment on above: Performed By: #### [place], ADIFF, TSH, GFR, CMP, LIPID, CBC #### [place] [address] #### HCV1 #### [address] [address] .GFRon 05-08-2023 GFR Non- 103 ml/min/1.73sqm Normal [facility] ([place]) Comment on above: Result Comment: GFR Population mean for , Non- Americans Ages 20-29 = 116 mL/min/1.73 sq.m. Ages 30-39 = 107 mL/min/1.73 sq.m. Ages 40-49 = 99 mL/min/1.73 sq.m. Ages 50-59 = 93 mL/min/1.73 sq.m. Ages 60-69 = 85 mL/min/1.73 sq.m. Ages 70+ = 75 mL/min/1.73 sq.m. Chronic Kidney Disease: Less than 60 mL/min/1.73 square meters End Stage Renal Disease: Less than 15 mL/min/1.73 square meters Performed By: #### A [place], ADIFF, TSH, GFR, CMP, LIPID, CBC #### [address] [address] #### HCV1 #### [address] [address] GFR 125 ml/min/1.73sqm Normal [facility] ([place]) Comment on above: Result Comment: GFR Population mean for , Non- Americans Ages 20-29 = 116 mL/min/1.73 sq.m. Ages 30-39 = 107 mL/min/1.73 sq.m. Ages 40-49 = 99 mL/min/1.73 sq.m. Ages 50-59 = 93 mL/min/1.73 sq.m. Ages 60-69 = 85 mL/min/1.73 sq.m. Ages 70+ = 75 mL/min/1.73 sq.m. Chronic Kidney Disease: Less than 60 mL/min/1.73 square meters End Stage Renal Disease: Less than 15 mL/min/1.73 square meters Performed By: #### [place], ADIFF, TSH, GFR, CMP, LIPID, CBC #### [address] [address] #### HCV1 #### [address] [address] .NEUABSon 05-08-2023 Neutrophil, Absolute 4.8 10 3/mcL Normal 2.9-6.2 [facility] ([place]) Comment on above: Performed By: #### [place], ADIFF, TSH, GFR, CMP, LIPID, CBC #### [address] [address] #### HCV1 #### [place] [address] CBCon 05-08-2023 Erythrocyte distribution width (RBC) [Ratio] 14.6 % High 11.5-14.5 [facility] ([place]) Comment on above: Performed By: #### A [place], ADIFF, TSH, GFR, CMP, LIPID, CBC #### [address] [address] #### HCV1 #### [place] [address] Hematocrit (Bld) [Volume fraction] 38.5 % Normal 37.0-47.0 [facility] ([place]) Comment on above: Performed By: #### [place], ADIFF, TSH, GFR, CMP, LIPID, CBC #### [place] [address] #### HCV1 #### [place] [address] Hgb 12.9 G/dL Normal 12.0-16.0 [facility] ([place]) Comment on above: Performed By: #### A [place], ADIFF, TSH, GFR, CMP, LIPID, CBC #### [place] [address] #### HCV1 #### [place] [address] MCH (RBC) [Entitic mass] 27.0 pg Normal 27.0-31.2 [facility] ([place]) Comment on above: Performed By: #### [place], ADIFF, TSH, GFR, CMP, LIPID, CBC #### [place] [address] #### HCV1 #### [place] [address] MCHC 33.4 G/dL Normal 33.0-37.0 [facility] ([place]) Comment on above: Performed By: #### [place], ADIFF, TSH, GFR, CMP, LIPID, CBC #### [place] [address] #### HCV1 #### [place] [address] MCV (RBC) [Entitic vol] 80.7 fL Normal 80.0-94.0 [facility] ([place]) Comment on above: Performed By: #### A [place], ADIFF, TSH, GFR, CMP, LIPID, CBC #### [place] [address] #### HCV1 #### [place] [address] Platelet 322 10 3/mcL Normal 130-400 [facility] ([place]) Comment on above: Performed By: #### A [place], ADIFF, TSH, GFR, CMP, LIPID, CBC #### [place] [address] #### HCV1 #### [place] [address] Platelet mean volume (Bld) [Entitic vol] 8.2 fL Normal 7.4-10.4 [facility] ([place]) Comment on above: Performed By: #### A [place], ADIFF, TSH, GFR, CMP, LIPID, CBC #### [place] [address] #### HCV1 #### [place] [address] RBC 4.77 10 6/mcL Normal 4.20-5.40 [facility] ([place]) Comment on above: Performed By: #### A [place], ADIFF, TSH, GFR, CMP, LIPID, CBC #### [place] [address] #### HCV1 #### [place] [address] WBC 7.3 10 3/mcL Normal 4.6-10.8 [facility] ([place]) Comment on above: Performed By: #### A [place], ADIFF, TSH, GFR, CMP, LIPID, CBC #### [place] [address] #### HCV1 #### [place] [address] CMPon 05-08-2023 Albumin Level 3.7 G/dL Normal 3.5-5.0 [facility] ([place]) Comment on above: Performed By: #### A [place], ADIFF, TSH, GFR, CMP, LIPID, CBC #### [address] [address] #### HCV1 #### [place] [address] Albumin/Globulin [Mass ratio] 1.0 {ratio} Low 1.1-2.5 [facility] ([place]) Comment on above: Performed By: #### A [place], ADIFF, TSH, GFR, CMP, LIPID, CBC #### [place] [address] #### HCV1 #### [place] [address] ALP [Catalytic activity/Vol] 124 U/L Normal 40-135 [facility] ([place]) Comment on above: Performed By: #### A [place], ADIFF, TSH, GFR, CMP, LIPID, CBC #### [place] [address] #### HCV1 #### [place] [address] ALT [Catalytic activity/Vol] 49 U/L Normal 14-59 [facility] ([place]) Comment on above: Performed By: #### A [place], ADIFF, TSH, GFR, CMP, LIPID, CBC #### [place] [address] #### HCV1 #### [place] [address] AST [Catalytic activity/Vol] 35 U/L Normal 10-40 [facility] ([place]) Comment on above: Performed By: #### A [place], ADIFF, TSH, GFR, CMP, LIPID, CBC #### [place] [address] #### HCV1 #### [place] [address] Bili Total 0.4 mg/dL Normal 0.2-1.0 [facility] ([place]) Comment on above: Result Comment: Use of this assay is not recommended for patients undergoing treatment with eltrombopag due to the potential for falsely elevated results. Performed By: #### A [place], ADIFF, TSH, GFR, CMP, LIPID, CBC #### [address] [address] #### HCV1 #### [address] [address] BUN/Creatinine Ratio 16 ratio Normal 7-27 [facility] ([place]) Comment on above: Performed By: #### A [place], ADIFF, TSH, GFR, CMP, LIPID, CBC #### [place] [address] #### HCV1 #### [address] [address] Calcium [Mass/Vol] 9.1 mg/dL Normal 8.4-10.2 [facility] ([place]) Comment on above: Performed By: #### A [place], ADIFF, TSH, GFR, CMP, LIPID, CBC #### [place] [address] #### HCV1 #### [address] [address] Chloride [Moles/Vol] 103 mmol/L Normal 98-107 [facility] ([place]) Comment on above: Performed By: #### A [place], ADIFF, TSH, GFR, CMP, LIPID, CBC #### [place] [address] #### HCV1 #### [address] [address] CO2 [Moles/Vol] 29 mmol/L Normal 22-29 [facility] ([place]) Comment on above: Performed By: #### A [place], ADIFF, TSH, GFR, CMP, LIPID, CBC #### [place] [address] #### HCV1 #### [address] [address] Creatinine [Mass/Vol] 0.68 mg/dL Normal 0.55-1.02 [facility] ([place]) Comment on above: Performed By: #### A [place], ADIFF, TSH, GFR, CMP, LIPID, CBC #### [address] [address] #### HCV1 #### [address] [address] Electrolyte Balance 9.0 mEq/L Normal 4.0-15.0 [facility] ([place]) Comment on above: Performed By: #### A [place], ADIFF, TSH, GFR, CMP, LIPID, CBC #### [place] [address] #### HCV1 #### [place] [address] Globulin 3.7 G/dL Normal [facility] ([place]) Comment on above: Performed By: #### A [place], ADIFF, TSH, GFR, CMP, LIPID, CBC #### [place] [address] #### HCV1 #### [place] [address] Glucose [Mass/Vol] 127 mg/dL High 70-105 [facility] ([place]) Comment on above: Performed By: #### A [place], ADIFF, TSH, GFR, CMP, LIPID, CBC #### [place] [address] #### HCV1 #### [place] [address] Potassium [Moles/Vol] 3.9 mmol/L Normal 3.5-5.1 [facility] ([place]) Comment on above: Performed By: #### A [place], ADIFF, TSH, GFR, CMP, LIPID, CBC #### [place] [address] #### HCV1 #### [place] [id number] Sodium [Moles/Vol] 141 mmol/L Normal 136-145 [facility] ([place]) Comment on above: Performed By: #### A [place], ADIFF, TSH, GFR, CMP, LIPID, CBC #### [place] [address] #### HCV1 #### [place] [address] Total Protein 7.4 G/dL Normal 6.4-8.2 [facility] ([place]) Comment on above: Performed By: #### A [place], ADIFF, TSH, GFR, CMP, LIPID, CBC #### [place] [address] #### HCV1 #### [place] [address] Urea nitrogen [Mass/Vol] 11 mg/dL Normal 7-18 [facility] ([place]) Comment on above: Performed By: #### A [place], ADIFF, TSH, GFR, CMP, LIPID, CBC #### [place] [address] #### HCV1 #### [place] [address] HCVon 05-08-2023 Hep C Ab Non-Reactive Normal Non-Reactive [facility] ([place]) Comment on above: Performed By: #### A [place], ADIFF, TSH, GFR, CMP, LIPID, CBC #### [place] [address] #### HCV1 #### [place] [address] Hep C Ab Int Normal [facility] ([place]) Comment on above: Result Comment: Nonr eactive: Samples with a value < 0.80 are considered nonreactive (negative) for antibodies to HCV. A negative test result does not exclude the possibility of exposure to or infection with HCV. HCV antibodies may be undetectable in some stages of the infection and in some clinical conditions. See Interp Performed By: #### A [place], ADIFF, TSH, GFR, CMP, LIPID, CBC #### [place] [address] #### HCV1 #### [address] [address] LIPIDon 05-08-2023 Cholesterol [Mass/Vol] 143 mg/dL Normal 0-200 [facility] ([place]) Comment on above: Result Comment: Chol esterol Reference Interval: Less than 200 Desirable 200-239 Borderline high risk 240 and above High risk Performed By: #### A [place], ADIFF, TSH, GFR, CMP, LIPID, CBC #### [address] [address] #### HCV1 #### [address] [address] Cholesterol in HDL [Mass/Vol] 43 mg/dL Normal 40-60 [facility] ([place]) Comment on above: Performed By: #### A [place], ADIFF, TSH, GFR, CMP, LIPID, CBC #### [address] [address] #### HCV1 #### [address] [address] Cholesterol in LDL [Mass/Vol] 66 mg/dL Normal 0-130 [facility] ([place]) Comment on above: Performed By: #### A [place], ADIFF, TSH, GFR, CMP, LIPID, CBC #### [address] [address] #### HCV1 #### [address] [address] Triglyceride [Mass/Vol] 170 mg/dL High 0-150 [facility] ([place]) Comment on above: Result Comment: Trig lyceride Reference Interval: Less than 150 Normal 150-199 Borderline high risk 200-499 High risk 500 or higher Very high risk Performed By: #### A [place], ADIFF, TSH, GFR, CMP, LIPID, CBC #### [address] [address] #### HCV1 #### [address] [address] TSHon 05-08-2023 TSH Qn 2.50 m[IU]/L Normal 0.36-3.74 [facility] ([place]) Comment on above: Performed By: #### A [place], ADIFF, TSH, GFR, CMP, LIPID, CBC #### [place] [address] [place], [place] [address] #### HCV1 #### [address] [address] CNOVon 03-13-2023 CNOV Office Visit ([facility]) ---- ANGELA CHRISTINE ([id number]) 1995 F Date Time Provider Department 03/13/23 12:05 PM LEANN CORBIN [facility] During your visit today, we recorded the following information about you: Temperature Pulse Respiration Blood pressure 97.5 degrees 77/minute 20/minute 140/104 Last Period 01/01/23 Leann Corbin DO 03/13/2023 2:04 PM Signed Angela Wright Emmett is a 27 year old FEMALE who presents with Mouth/Lip Problem (Mouth pain, hand weakness x 2 days) HPI History reviewed. No pertinent past medical history. There is no problem list on file for this patient. Current Outpatient Medications Medication Sig Dispense Refill sertraline (ZOLOFT) 50 mg tablet Take 1 tablet by mouth every afternoon. fluconazole (DIFLUCAN) 150 mg tablet take 1 tablet by mouth immediately then repeat in 3 days amLODIPine-benazepr il (LOTREL) 5-10 mg per capsule Take 1 capsule by mouth every afternoon. Cetirizine (ZYRTEC) 10 mg cap Take by mouth once daily. ibuprofen (IBU) 800 mg tablet Take 800 mg by mouth every 6 hours as needed. acetaminophen (TYLENOL EXTRA STRENGTH) 500 mg tablet Take 500 mg by mouth every 8 hours as needed. tiZANidine (ZANAFLEX) 4 mg tablet Take 1 tablet by mouth three times a day for 4 days. 12 tablet 0 traMADol (ULTRAM) 50 mg tablet Take 1 tablet by mouth every 8 hours as needed for pain for up to 5 days. 15 tablet 0 dexAMETHasone (DECADRON) 4 mg tablet Take 1 tablet by mouth once daily for 4 days. 4 tablet 0 amoxicillin (AMOXIL) 875 mg tablet Take 1 tablet by mouth two times a day for 10 days. 20 tablet 0 No current facility-administer ed medications for this visit. Social History Tobacco Use Smoking status: Never Smokeless tobacco: Never Vaping Use Vaping Use: Never used Substance Use Topics Alcohol use: Yes Drug use: Not Currently Alcohol Use: Yes Tobacco Use: Never History reviewed. No pertinent family history. Review of Systems Constitutional: Positive for chills and malaise/fatigue. HENT: Is complaining of tooth pain bilaterally both jaws are hurting. He has 2 fractured molars 1 on the left lower jaw #17 and 1 on the right upper jaw #1 Musculoskeletal: Positive for neck pain. Neurological: Positive for tingling (. In radial and ulnar nerves to the left hand). All other systems reviewed and are negative. BP 140/104 Pulse 77 Temp 97.5 Resp 20 SpO2 99% LMP 01/01/2023 Physical Exam Vitals and nursing note reviewed. HENT: Head: Normocephalic. Mouth/Throat: Lips: [place]. Mouth: Mucous membranes are moist. Dentition: Abnormal dentition. Dental tenderness present. Tongue: No lesions. Tongue does not deviate from midline. Palate: No mass and lesions. Pharynx: Oropharynx is clear. Uvula midline. Tonsils: No tonsillar exudate or tonsillar abscesses. Comments: 2 fractured molars #1 #17. Neither 1 are tender to the tapping they are fractured and the nerve is exposed. Tongue is midline. There does not appear to be any abscesses at this time. Musculoskeletal: General: Tenderness present. Comments: Patient has some tenderness in the cervical spine around C5-C6 area particularly on the left. She has radiation of pain down the radial and ulnar nerves to the left hand. I think what is happening is she is got such pain in the jaws she is tensing her jaws and tensing her neck and its causing some spasm and pressing on those nerves. Skin: General: Skin is warm. Capillary Refill: Capillary refill takes 2 to 3 seconds. Neurological: General: No focal deficit present. Mental Status: She is alert. ASSESSMENT/PLAN: 1. Odontalgia - ICD9: 525.9, ICD10: K08.89 (primary diagnosis) - TRAMADOL 50 MG TABLET - DEXAMETHASONE 4 MG TABLET - AMOXICILLIN 875 MG TABLET 2. Cervical paraspinal muscle spasm - ICD9: 728.85, ICD10: M62.838 - TIZANIDINE 4 MG TABLET - DEXAMETHASONE 4 MG TABLET Leann Corbin Referring Provider: SELF [200] Allergies As of Date: 03/13/2023 (No Known Allergies) Date Reviewed: 03/13/2023 Reviewed by: Leann Corbin, - Fully Assessed Reason for Visit: Mouth/Lip Problem [68] Cmt: Mouth pain, hand weakness x 2 days Primary Visit Diagnosis:Odontalgi a [K08.89] Other Visit Diagnosis:Cervical paraspinal muscle spasm [M62.838] Order(s):tiZANidine (ZANAFLEX) 4 mg tabletTake 1 tablet by mouth three times a day for 4 days.Disp: 12 tabletRfl: 0 traMADol (ULTRAM) 50 mg tabletTake 1 tablet by mouth every 8 hours as needed for pain for up to 5 days.Disp: 15 tabletRfl: 0 dexAMETHasone (DECADRON) 4 mg tabletTake 1 tablet by mouth once daily for 4 days.Disp: 4 tabletRfl: 0 amoxicillin (AMOXIL) 875 mg tabletTake 1 tablet by mouth two times a day for 10 days.Disp: 20 tabletRfl: 0 Prescriptions as of 03/13/2023 - sertraline (ZOLOFT) 50 mg tablet Take 1 tablet by mouth every afternoon. - fluconazole (DIFLU (more content not included)... Normal [facility] Chlamydia trachomatis rRNA d etection by probe and target amplification methodOrdered By: Rachell Chaney on 01-15-2023 C. trachomatis rRNA [place]+probe Ql (Unsp spec) Negative Negative [facility] Gram stain for investigation of transfusion reactionOrdered By: Rachell Chaney on 01-15-2023 Microscopic observation Gram stain Nom (Unsp spec) [facility] HIV 1 and HIV-2 antibody ass ay with HIV-1 p24 antigen detectionOrdered By: Rachell Chaney on 01-15-2023 HIV 1+2 Ab+HIV1 p24 Ag IA Ql Non-Reactive Nonreactive [facility] Laboratory - Microbiology an d Antimicrobial susceptibilityOrdered By: Rachell Chaney on 01-15-2023 N. gonorrhoeae DNA [place]+probe Ql (Unsp spec) Negative Negative [facility] Comment on above: Performed at: =[facility] [address] [place] [id number] Director: Katherine Pérez MD, Phone: [phone] No Panel InformationOrdered By: Rachell Chaney on 01-15-2023 Hepatitis C Antibody Non-Reactive Nonreactive [facility] Comment on above: Non Reactive: < 0.8 Equivocal: >/= 0.8 to < 1.0 Reactive: >/= 1.0The [facility] [facility] [place] recommends that a reactive/equivocal HCV antibody result be followed up by the HCV Nucleic Acid Amplificationtest (010387) Herpes Simplex Virus I IgG Antibody < 0.91 index 0.00-0.90 [facility] Comment on above: Negative <0.91 Equiv ocal 0.91 - 1.09 Positive >1.09 Note: Negative indicates no antibodies detected to HSV-1. Equivocal may suggest early infection. If clinically appropriate, retest at later date. Positive indicates antibodies detected to HSV-1. Serum Treponema species anti body detectionOrdered By: Rachell Raders on 01-15-2023 Treponema sp Ab Ql (S) Non-Reactive [facility] Serum herpes simplex virus 2 antibody assay by immunoassay (units/volume)Ordered By: Rachell Chaney on 01-15-2023 HSV 2 Ab IA Qn (S) < 0.91 index 0.00-0.90 [facility] Comment on above: Negative <0.91 Equiv ocal 0.91 - 1.09 Positive >1.09Note: Negative indicates no HSV-2 antibodies detected.Positive indicates HSV-2 antibodies detected.Equivocal and low positive HSV-2 screens(Index 0.91-5.00) may be false positive and arereflexed to supplemental testing in accordance with[facility] [place] guidelines.Effective January 29, 2023, this profilewill be made non-orderable due to the discontinuationof reagents by the floor covering printer. Supplemental testingof specimens with low-positive HSV-2 type-specificIgG antibody test results can no longer be performed.[facility] Offers: [id number] HSV-2 Ab, IgG, [id number] HSV 1and 2 Ab, IgG, and [id number] Prenat Infect Dis Ab, IgG.Performed at: - [facility] [id number] Director: Sukhi Gill PhD, Phone: [phone] Thin prep Papanicolaou smear with manual screeningOrdered By: Rachell Chaney on 01-15-2023 Genital Culture Presumptive C albicans [facility] Absolute lymphocyte countOrd ered By: Dr. Herr on 09-02-2022 Lymphocytes Auto (Unsp spec) [#/Vol] 1.81 10*3/uL 0.83-4.51 [facility] Basophil percentageOrdered B y: Dr. Herr on 09-02-2022 Basophils/100 WBC (Bld) 0.3 % 0-1 [facility] Bilirubin [Mass/Vol] 0.40 mg/dL 0.20-1.00 [facility] Comment on above: For patients on eltr ombopag therapy, use of Dimension Dazey TBIL is not recommended. Chloride [Moles/Vol] 106 mmol/L 98-107 [facility] Cholesterol [Mass/Vol] 142 mg/dL <200 [facility] Comment on above: <200 mg/dL Desirable 200-240 mg/dL Borderline >240 mg/dL High Risk Eosinophils/100 WBC (Bld) 2.8 % 0-5 [facility] Glucose [Mass/Vol] 93 mg/dL 74-106 [facility] Neutrophils (Bld) [#/Vol] 4.8 10*3/uL 2.0-7.7 [facility] Neutrophils/100 WBC (Bld) 67.1 % 47-70 [facility] Potassium [Moles/Vol] 3.5 mmol/L 3.5-5.1 [facility] Protein [Mass/Vol] 7.3 g/dL 6.4-8.2 [facility] Sodium [Moles/Vol] 137 mmol/L 136-145 [facility] Triglyceride [Mass/Vol] 149 mg/dL <199 [facility] Comment on above: The drugs N-Acetylcy steine and Metamizole may falsely depress this assay.Serum Triglycerides Reference Interval Normal <150 mg/dL Borderline high 150 - 199 mg/dL High 200 - 499 mg/dL Very High > or = 500 mg/dL WBC (Bld) [#/Vol] 7.2 10*3/uL 4.4-11.0 [facility] Blood erythrocytes count (nu mber/volume)Ordered By: Dr. Herr on 09-02-2022 RBC (Bld) [#/Vol] 4.44 10*6/uL 4.2-5.4 [facility] Blood hemoglobin measurement (mass/volume)Ordered By: Dr. Herr on 09-02-2022 Hemoglobin (Bld) [Mass/Vol] 12.1 g/dL 12.0-15.0 [facility] Blood lymphocytes/100 leukoc ytesOrdered By: Dr. Herr on 09-02-2022 Lymphocytes/100 WBC (Bld) 25.1 % 19-41 [facility] Blood monocytes/100 leukocyt esOrdered By: Dr. Herr on 09-02-2022 Monocytes/100 WBC (Bld) 4.3 % 0-10 [facility] Blood platelet mean volumeOr dered By: Dr. Herr on 09-02-2022 Platelet mean volume (Bld) [Entitic vol] 10.9 fL 6.2-12.0 [facility] Determination of erythrocyte mean corpuscular volume (MCV)Ordered By: Dr. Herr on 09-02-2022 MCV (RBC) [Entitic vol] 83.3 fL 81-99 [facility] Hematocrit Auto (Bld) [Volum e fraction]Ordered By: Dr. Herr on 09-02-2022 Hematocrit (Bld) [Volume fraction] 37.0 % 37-47 [facility] Laboratory - Chemistry and C hemistry - challengeOrdered By: Dr. Herr on 09-02-2022 ALP [Catalytic activity/Vol] 93 U/L 45-117 [facility] ALT [Catalytic activity/Vol] 39 U/L 13-56 [facility] CO2 [Moles/Vol] 25.0 mmol/L 21.0-32.0 [facility] Globulin (S) [Mass/Vol] 3.7 g/dL 2.2-4.2 [facility] Urea nitrogen/Creatinine [Mass ratio] 19.9 mg/mg 10-20 [facility] Laboratory - Hematology and Cell countsOrdered By: Dr. Herr on 09-02-2022 Erythrocyte distribution width (RBC) [Entitic vol] 41.7 fL 35.1-43.9 [facility] Erythrocyte distribution width (RBC) [Ratio] 13.7 % 11.6-14.6 [facility] Immature granulocytes/100 WBC (Bld) 0.400 % 0.0-0.9 [facility] Comment on above: IG% - Immature Granu locytes (promyelocytes, myelocytes and metamyelocytes) > 1% indicates that a LEFT SHIFT is Present. MCH (RBC) [Entitic mass] 27.3 pg 27.0-32.0 [facility] Nucleated RBC/100 WBC (Bld) [Ratio] 0 % 0-5 [facility] MCHC Auto (RBC) [Mass/Vol]Or dered By: Dr. Herr on 09-02-2022 MCHC (RBC) [Mass/Vol] 32.7 g/dL 32-36 [facility] No Panel InformationOrdered By: Dr. Herr on 09-02-2022 Dehydroepiandrosterone Sulfate 202.0 ug/dL 84.8-378.0 [facility] Estimated GFR (MDRD) Amer 152 mL/min >60 [facility] Comment on above: GFR Calc Estimated GFR (MDRD) Non-Af Amer 125 mL/min >60 [facility] Comment on above: Non- GFR Calc Follicle Stimulating Hormone 7.6 mIU/mL [facility] Comment on above: NORMAL REFERENCE RAN GES FEMALE FOLLICULAR 2.3 - 12.6 mIU/mL MID-CYCLE PEAK 5.2 - 17.5 mIU/mL LUTEAL 1.7 - 12.9 mIU/mL POST-MENOPAUSAL ON MHT 5.9 - 72.8 mIU/mL NOT ON MHT 12.7 - 132.2 mlU/mL MALE 0.7 - 10.8 mIU/mL Platelets bldOrdered By: Dr. Herr on 09-02-2022 Platelets (Bld) [#/Vol] 309 10*3/uL 150-450 [facility] Serum or plasma 17-hydroxypr ogesterone measurement (mass/volume)Ordered By: Dr. Herr on 09-02-2022 17-Hydroxyprogesterone [Mass/Vol] 178 ng/dL . [facility] Comment on above: Adult Female Follicu lar 15 - 70 Luteal 35 - 290 Serum or plasma albumin gricelda urement (mass/volume)Ordered By: Dr. Herr on 09-02-2022 Albumin [Mass/Vol] 3.6 g/dL 3.2-5.0 [facility] Serum or plasma albumin/glob ulin mass ratioOrdered By: Dr. Herr on 09-02-2022 Albumin/Globulin [Mass ratio] 1.0 {ratio} 0.9-2.4 [facility] Serum or plasma calcitriol m easurement (mass/volume)Ordered By: Dr. Herr on 09-02-2022 1,25-dihydroxyvitamin D3 [Mass/Vol] 48.2 pg/mL 24.8-81.5 [facility] Comment on above: Performed at: [address] [id number] Director: Jody Melvin MD, Phone: [phone] Serum or plasma calcium gricelda urement (mass/volume)Ordered By: Dr. Herr on 09-02-2022 Calcium [Mass/Vol] 9.0 mg/dL 8.5-10.1 [facility] Serum or plasma cholesterol in HDL measurement (mass/volume)Ordered By: Dr. Herr on 09-02-2022 Cholesterol in HDL [Mass/Vol] 42 mg/dL >40 [facility] Comment on above: The drugs N-Acetylcy steine and Metamizole may falsely depress this assay. Reference Range HDL <40 mg/dL Low HDL Cholesterol HDL >or= 60 mg/dL High HDL Cholesterol Serum or plasma cholesterol in VLDL measurement (mass/volume)Ordered By: Dr. Herr on 09-02-2022 Cholesterol in VLDL [Mass/Vol] 30 mg/dL 5-40 [facility] Serum or plasma creatinine m easurement (mass/volume)Ordered By: Dr. Herr on 09-02-2022 Creatinine [Mass/Vol] 0.60 mg/dL 0.55-1.02 [facility] Comment on above: The validity of the calculated GFR & GFRAA in patients over 70 years has not been determined. Clinical correlation is essential. Serum or plasma estradiol (E 2) measurement (mass/volume)Ordered By: Dr. Herr on 09-02-2022 E2 [Mass/Vol] 302.2 pg/mL [facility] Comment on above: NORMAL REFERENCE RAN GES FEMALE FOLLICULAR 21.4 - 164.8 pg/mL MID-CYCLE PEAK 49.9 - 367.2 pg/mL LUTEAL 40.2 - 259.0 pg/mL POST-MENOPAUSAL ON MHT <11.0 - 462.1 pg/mL NOT ON MHT <11.0 - 58.3 pg/mL MALE <11.0 - 52.5 pg/mL NOTE:[employer] HAS CONFIRMED THE DRUG FULVETRANT (FASLODEX) MAY CAUSE FALSELY ELEVATED ESTRADIOL RESULTS WHEN USING THIS TEST METHOD. IF PATIENT IS TAKING FULVESTRANT AN ALTERNATIVE METHOD SHOULD BE USED TO DETERMINE ESTRADIOL CONCENTRATION. Serum or plasma low density lipoprotein (LDL) cholesterol measurement (mass/volume)Ordered By: Dr. Herr on 09-02-2022 Cholesterol in LDL [Mass/Vol] 70 mg/dL 0-130 [facility] Serum or plasma prolactin me asurement (mass/volume)Ordered By: Dr. Herr on 09-02-2022 Prolactin [Mass/Vol] 26.3 ng/mL [facility] Comment on above: NORMAL REFERENCE RAN GES FEMALE NON- 2.2 - 30.3 ng/mL 8.1 - 347.6 ng/mL POST-MENOPAUSAL 0.7 - 31.5 ng/mL MALE 2.5 - 17.4 ng/mL Serum or plasma testosterone free measurement (mass/volume)Ordered By: Dr. Herr on 09-02-2022 Testosterone Free [Mass/Vol] 4.4 pg/mL 0.0-4.2 [facility] Comment on above: Performed at: [address] [id number] Director: Sukhi Gill PhD, Phone: [phone] at: - [facility] [id number] Director: Jody Melvin MD, Phone: [phone] Serum or plasma urea nitroge n measurement (mass/volume)Ordered By: Dr. Herr on 09-02-2022 Urea nitrogen [Mass/Vol] 12 mg/dL 7-18 [facility] Thin prep Papanicolaou smear with manual screeningOrdered By: Dr. Herr on 09-02-2022 Thin prep Papanicolaou smear with manual screening 21 U/L 15-37 [facility] Thin prep Papanicolaou smear with manual screening 6 5-15 [facility] Whole blood hemoglobin A1c/t otal hemoglobin ratio (mass fraction)Ordered By: Dr. Herr on 09-02-2022 HbA1c (Bld) [Mass fraction] 5.5 % 3.8-5.6 [facility] Comment on above: Normal < 5.7 % Predi abetic 5.7 - 6.4 % Diabetic >or= 6.5 % Please note range changes. LABORATORYOrdered By: Kathy Reyes on 04-21-2022 Calcium [Mass/Vol] 9.1 mg/dL Invalid Interpretation Code 8.4 - 10.2 mg/dL AO ADM SS Chloride [Moles/Vol] 103 mmol/L Invalid Interpretation Code 98 - 107 mmol/L AO ADM SS CO2 [Moles/Vol] 27 mmol/L Invalid Interpretation Code 22 - 29 mmol/L AO ADM SS Creatinine [Mass/Vol] 0.60 mg/dL Invalid Interpretation Code 0.55 - 1.02 mg/dL AO ADM SS Electrolyte Balance 9.0 mEq/L Invalid Interpretation Code 4.0 - 15.0 mEq/L AO ADM SS Glucose [Mass/Vol] 169 mg/dL Invalid Interpretation Code 70 - 105 mg/dL AO ADM SS Potassium [Moles/Vol] 3.9 mmol/L Invalid Interpretation Code 3.5 - 5.1 mmol/L AO ADM SS Sodium [Moles/Vol] 139 mmol/L Invalid Interpretation Code 136 - 145 mmol/L AO ADM SS Urea nitrogen [Mass/Vol] 11 mg/dL Invalid Interpretation Code 7 - 18 mg/dL AO ADM SS Urea nitrogen/Creatinine [Mass ratio] 18 ratio Invalid Interpretation Code 7 - 27 ratio AO ADM SS LABORATORYOrdered By: SYSTEM SYSTEM on 04-21-2022 GFR 145 ml/min/1.73sqm Invalid Interpretation Code AO Chemistry S GFR Non- 120 ml/min/1.73sqm Inva lid Interpretation Code AO Chemistry S Beta hCG serum qualon 2021 Beta HCG ( test) Ql Negative [facility] Work Phone: LABORATORYOrdered By: Evette Bowens on 09-23-2021 Troponin I.cardiac DL <= 0.01 ng/mL [Mass/Vol] ng/L Invalid Interpretation Code 0.0 - 51.4 ng/L AO ADM SS Calcium [Mass/Vol] 8.9 mg/dL Invalid Interpretation Code 8.4 - 10.2 mg/dL AO ADM SS Chloride [Moles/Vol] 103 mmol/L Invalid Interpretation Code 98 - 107 mmol/L AO ADM SS CO2 [Moles/Vol] 28 mmol/L Invalid Interpretation Code 22 - 29 mmol/L AO ADM SS Creatinine [Mass/Vol] 0.55 mg/dL Invalid Interpretation Code 0.55 - 1.02 mg/dL AO ADM SS Electrolyte Balance 11.0 mEq/L Invalid Interpretation Code 4.0 - 15.0 mEq/L AO ADM SS Fibrin D-dimer DDU (PPP) [Mass/Vol] 243 ng/mL D-DU Invalid Interpretation Code 0 - 230 ng/mL D-DU AO Coag SS Glucose [Mass/Vol] 127 mg/dL Invalid Interpretation Code 70 - 105 mg/dL AO ADM SS Natriuretic peptide.B prohormone N-Terminal [Mass/Vol] 12 pg/mL Invalid Interpretation Code 0 - 125 pg/mL AO ADM SS Potassium [Moles/Vol] 4.0 mmol/L Invalid Interpretation Code 3.5 - 5.1 mmol/L AO ADM SS Sodium [Moles/Vol] 142 mmol/L Invalid Interpretation Code 136 - 145 mmol/L AO ADM SS Troponin I.cardiac DL <= 0.01 ng/mL [Mass/Vol] 4.9 ng/L Invalid Interpretation Code 0.0 - 51.4 ng/L AO ADM SS Urea nitrogen [Mass/Vol] 11 mg/dL Invalid Interpretation Code 7 - 18 mg/dL AO ADM SS Urea nitrogen/Creatinine [Mass ratio] 20 ratio Invalid Interpretation Code 7 - 27 ratio AO ADM SS LABORATORYOrdered By: Maureen Calixto on 09-23-2021 Basophil, Absolute 0.00 103/mcL Invalid Interpretation Code 0.00 - 0.19 10^3/mcL AO Auto Heme SS Basophils/100 WBC (Bld) 0.4 % Invalid Interpretation Code 0.0 - 2.5 % AO Auto Heme SS Eosinophil, Absolute 0.10 103/mcL Invalid Interpretation Code 0.00 - 0.40 10^3/mcL AO Auto Heme SS Eosinophils/100 WBC (Bld) 1.5 % Invali d Interpretation Code 0.0 - 7.0 % AO Auto Heme SS Erythrocyte distribution width (RBC) [Ratio] 13.9 % Invalid Interpretation Code 11.5 - 14.5 % AO Auto Heme SS Hematocrit (Bld) [Volume fraction] 39.3 % Invalid Interpretation Code 37.0 - 47.0 % AO Auto Heme SS Hemoglobin (Bld) [Mass/Vol] 13.4 G/dL Invalid Interpretation Code 12.0 - 16.0 G/dL AO Auto Heme SS Lymphocyte, Absolute 2.20 103/mcL Invalid Interpretation Code 0.77 - 3.85 10^3/mcL AO Auto Heme SS Lymphocytes/100 WBC (Bld) 22.8 % Invali d Interpretation Code 10.0 - 50.0 % AO Auto Heme SS MCH (RBC) [Entitic mass] 27.9 pg Invalid Interpretation Code 27.0 - 31.2 pg AO Auto Heme SS MCHC (RBC) [Mass/Vol] 34.1 G/dL Invalid Interpretation Code 33.0 - 37.0 G/dL AO Auto Heme SS MCV (RBC) [Entitic vol] 81.7 fL Invalid Interpretation Code 80.0 - 94.0 fL AO Auto Heme SS Monocyte, Absolute 0.40 103/mcL Invalid Interpretation Code 0.15 - 1.00 10^3/mcL AO Auto Heme SS Monocytes/100 WBC (Bld) 4.5 % Invalid Interpretation Code 1.7 - 13.0 % AO Auto Heme SS Neutrophil, Absolute 6.80 103/mcL Invalid Interpretation Code 2.85 - 6.16 10^3/mcL AO Auto Heme SS Neutrophils/100 WBC (Bld) 70.8 % Invali d Interpretation Code 37.0 - 80.0 % AO Auto Heme SS Platelet mean volume (Bld) [Entitic vol] 9.2 fL Invalid Interpretation Code 7.4 - 10.4 fL AO Auto Heme SS Platelets (Bld) [#/Vol] 288 103/mcL Invalid Interpretation Code 130 - 400 10^3/mcL AO Auto Heme SS RBC (Bld) [#/Vol] 4.80 106/mcL Invalid Interpretation Code 4.20 - 5.40 10^6/mcL AO Auto Heme SS WBC (Bld) [#/Vol] 9.60 103/mcL Invalid Interpretation Code 4.60 - 10.80 10^3/mcL AO Auto Heme SS LABORATORYOrdered By: SYSTEM SYSTEM on 09-23-2021 GFR 161 ml/min/1.73sqm Invalid Interpretation Code AO Chemistry S GFR Non- 133 ml/min/1.73sqm Inva lid Interpretation Code AO Chemistry S Absolute lymphocyte counton 09-21-2021 Lymphocytes Auto (Unsp spec) [#/Vol] 2.18 10*3/uL 0.83-4.51 [facility] Work Phone: Basophil percentageon 2021 Basophil percentage 0.5 AI 0.0-0.9 [facility] Work Phone: Basophil percentage < 0.2 AI 0.0-0.9 [facility] Work Phone: Basophils/100 WBC (Bld) 0.3 % 0-1 [facility] Work Phone: Bilirubin [Mass/Vol] 0.30 mg/dL 0.20-1.00 [facility] Work Phone: Comment on above: For patients on eltr ombopag therapy, use of Dimension Dazey TBIL is not recommended. Chloride [Moles/Vol] 103 mmol/L 98-107 [facility] Work Phone: Eosinophils/100 WBC (Bld) 2.4 % 0-5 [facility] Work Phone: Glucose [Mass/Vol] 91 mg/dL 74-106 [facility] Work Phone: Neutrophils (Bld) [#/Vol] 5.2 10*3/uL 2.0-7.7 [facility] Work Phone: Neutrophils/100 WBC (Bld) 65.1 % 47-70 [facility] Work Phone: Potassium [Moles/Vol] 3.5 mmol/L 3.5-5.1 [facility] Work Phone: Protein [Mass/Vol] 7.8 g/dL 6.4-8.2 [facility] Work Phone: [phone] Sodium [Moles/Vol] 136 mmol/L 136-145 [facility] Work Phone: [phone] WBC (Bld) [#/Vol] 8.0 10*3/uL 4.4-11.0 [facility] Work Phone: [phone] Blood erythrocytes count (nu mber/volume)on 09-21-2021 RBC (Bld) [#/Vol] 5.02 10*6/uL 4.2-5.4 [facility] Work Phone: [phone] Blood hemoglobin measurement (mass/volume)on 09-21-2021 Hemoglobin (Bld) [Mass/Vol] 14.2 g/dL 12.0-15.0 [facility] Work Phone: Blood lymphocytes/100 leukoc yteson 09-21-2021 Lymphocytes/100 WBC (Bld) 27.4 % 19-41 [facility] Work Phone: [phone] Blood monocytes/100 leukocyt eson 09-21-2021 Monocytes/100 WBC (Bld) 4.5 % 0-10 [facility] Work Phone: [phone] Blood platelet mean volumeon 09-21-2021 Platelet mean volume (Bld) [Entitic vol] 10.9 fL 6.2-12.0 [facility] Work Phone: [phone] Chocolate RASTon 09-21-2021 Chocolate IgE Qn (S) <0.10 kU/L Class 0 [facility] Work Phone: [phone] Comment on above: Performed at: [facility] [id number] Director: Sukhi Gill PhD, Phone: [phone] at: [facility] [id number] Director: Jody Melvin MD, Phone: [phone] Determination of erythrocyte mean corpuscular volume (MCV)on 09-21-2021 MCV (RBC) [Entitic vol] 83.9 fL 81-99 [facility] Work Phone: Direct bilirubinon 2 Bilirubin.direct [Mass/Vol] 0.11 mg/dL 0.00-0.30 [facility] Work Phone: [phone] Erythrocyte sedimentation ra michael 09-21-2021 ESR (Bld) [Velocity] 16 mm/h 0-30 [facility] Phone: [phone] Hematocrit Auto (Bld) [Volum e fraction]on 09-21-2021 Hematocrit (Bld) [Volume fraction] 42.1 % 37-47 [facility] Work Phone: Laboratory - Chemistry and C hemistry - challengeon 09-21-2021 ALP [Catalytic activity/Vol] 74 U/L 45-117 [facility] Work Phone: [phone] ALT [Catalytic activity/Vol] 22 U/L 13-56 [facility] Work Phone: [phone] CO2 [Moles/Vol] 27.0 mmol/L 21.0-32.0 [facility] Work Phone: Globulin (S) [Mass/Vol] 4.3 g/dL 2.2-4.2 [facility] Work Phone: [phone] Urea nitrogen/Creatinine [Mass ratio] 18.7 mg/mg 10-20 [facility] Work Phone: [phone] Laboratory - Hematology and Cell countson 09-21-2021 Erythrocyte distribution width (RBC) [Entitic vol] 41.8 fL 35.1-43.9 [facility] Work Phone: [phone] Erythrocyte distribution width (RBC) [Ratio] 13.6 % 11.6-14.6 [facility] Work Phone: [phone] Immature granulocytes/100 WBC (Bld) 0.300 % 0.0-0.9 [facility] Work Phone: Comment on above: IG% - Immature Granu locytes (promyelocytes, myelocytes and metamyelocytes) > 1% indicates that a LEFT SHIFT is Present. MCH (RBC) [Entitic mass] 28.3 pg 27.0-32.0 [facility] Work Phone: [phone] Nucleated RBC/100 WBC (Bld) [Ratio] 0 % 0-5 [facility] Work Phone: [phone] Laboratory - Miscellaneous t estson 09-21-2021 Service comment (Unsp spec) [Interp] Comment . [facility] Work Phone: Comment on above: Levels of Specific I gE Class Description of Class ----- < 0.10 0 Negative 0.10 - 0.31 0/I Equivocal/Low 0.32 - 0.55 I Low 0.56 - 1.40 II Moderate 1.41 - 3.90 III High 3.91 - 19.00 IV Very High 19.01 - 100.00 V Very High >100.00 Very High MCHC Auto (RBC) [Mass/Vol]on 09-21-2021 MCHC (RBC) [Mass/Vol] 33.7 g/dL 32-36 [facility] Work Phone: [phone] Panel Informationon 09-21 Centromere B Antibody <0.2 AI 0.0-0.9 [facility] Work Phone: [phone] Endomysial IgA Antibody Negative Negative [facility] Work Phone: [phone] Estimated GFR (MDRD) Amer 158 mL/min >60 [facility] Work Phone: [phone] Comment on above: GFR Calc Estimated GFR (MDRD) Non-Af Amer 130 mL/min >60 [facility] Work Phone: [phone] Comment on above: Non- GFR Calc [employer]IOR DESIGN INSTRUCTOR Antibody <0.2 AI 0.0-0.9 [facility] Work Phone: Scallop Allergen <0.10 kU/L Class 0 [facility] Work Phone: Seafood Group Allergens (RAST) Negative . [facility] Work Phone: Comment on above: Allergens in this mi x are: Blue mussel Fish [place] Shrimp Tuna Sesame Seed Allergen IgE Antibody <0.10 kU/L Class 0 [facility] Work Phone: Shrimp Allergen <0.10 kU/L Class 0 [facility] Work Phone: Thyroid Stimulating Hormone (TSH) 2.83 uIU/mL 0.358-3.74 [facility] Work Phone: Platelets bldon 09-21-2021 Platelets (Bld) [#/Vol] 300 10*3/uL 150-450 [facility] Work Phone: Serum DNA double strand anti body assay (units/volume)on 09-21-2021 DNA double strand Ab Qn (S) [IU]/mL 0-9 [facility] Work Phone: Comment on above: Negative <5 Equivoca l 5 - 9 Positive >9 Serum Taylor-1 antibody assay (u nits/volume)on 09-21-2021 Taylor-1 extractable nuclear Ab Qn (S) <0.2 AI 0.0-0.9 [facility] Work Phone: Serum Scl-70 extractable nuc lear antibody assay (units/volume)on 09-21-2021 SCL-70 extractable nuclear Ab Qn (S) <0.2 AI 0.0-0.9 [facility] Work Phone: Serum Sifuentes extractable nucl ear antibody detectionon 09-21-2021 Sifuentes extractable nuclear Ab Ql (S) <0.2 AI 0.0-0.9 [facility] Work Phone: [phone] Serum beef IgE antibody assa y (units/volume)on 09-21-2021 Beef IgE Qn (S) <0.10 kU/L Class 0 [facility] Work Phone: Serum black walnut IgE antib shira assay (units/volume)on 09-21-2021 Black [place] IgE Qn (S) <0.10 kU/L Class 0 [facility] Work Phone: Serum clam IgE antibody assa y (units/volume)on 09-21-2021 Clam IgE Qn (S) <0.10 kU/L Class 0 [facility] Work Phone: Serum codfish IgE antibody a ssay (units/volume)on 09-21-2021 Codfish IgE Qn (S) <0.10 kU/L Class 0 [facility] Work Phone: Serum corn IgE antibody assa y (units/volume)on 09-21-2021 [place] IgE Qn (S) <0.10 kU/L Class 0 [facility] Work Phone: Serum cow milk IgE antibody assay (units/volume)on 09-21-2021 Cow milk IgE Qn (S) <0.10 kU/L Class 0 [facility] Work Phone: Serum egg white IgE antibody assay (units/volume)on 09-21-2021 Egg white IgE Qn (S) <0.10 kU/L Class 0 [facility] Work Phone: Serum or plasma C reactive p rotein measurement (mass/volume)on 09-21-2021 CRP [Mass/Vol] 24.70 mg/L 0.0-3.0 [facility] Work Phone: Comment on above: C-Reactive Protein ( CRP) provides useful information for thediagnosis, therapy and monitoring of inflammatory processesand associated diseases. For the evaluation of Relative Riskfor Cardiovascular Disease, a High Sensitivity CRP (HSCRP)should be ordered. Serum or plasma IgA measurem ent (mass/volume)on 09-21-2021 IgA [Mass/Vol] 123 mg/dL 87-352 [facility] Work Phone: Comment on above: Performed at: [address] [id number] Director: Sukhi Gill PhD, Phone: [phone] Serum or plasma albumin gricelda urement (mass/volume)on 09-21-2021 Albumin [Mass/Vol] 3.5 g/dL 3.2-5.0 [facility] Work Phone: Serum or plasma albumin/glob ulin mass ratioon 09-21-2021 Albumin/Globulin [Mass ratio] 0.8 {ratio} 0.9-2.4 [facility] Work Phone: Serum or plasma calcium gricelda urement (mass/volume)on 09-21-2021 Calcium [Mass/Vol] 9.3 mg/dL 8.5-10.1 [facility] Work Phone: Serum or plasma creatinine m easurement (mass/volume)on 09-21-2021 Creatinine [Mass/Vol] 0.59 mg/dL 0.55-1.02 [facility] Work Phone: Comment on above: The validity of the calculated GFR & GFRAA in patients over 70 years has not been determined. Clinical correlation is essential. Serum or plasma urea nitroge n measurement (mass/volume)on 09-21-2021 Urea nitrogen [Mass/Vol] 11 mg/dL 7-18 [facility] Work Phone: Serum peanut IgE antibody as say (units/volume)on 09-21-2021 Peanut IgE Qn (S) <0.10 kU/L Class 0 [facility] Work Phone: [phone] Serum pork IgE antibody assa y (units/volume)on 09-21-2021 Pork IgE Qn (S) <0.10 kU/L Class 0 [facility] Work Phone: [phone] Serum soybean IgE antibody a ssay (units/volume)on 09-21-2021 Soybean IgE Qn (S) <0.10 kU/L Class 0 [facility] Work Phone: [phone] Serum tissue transglutaminas e IgA antibody assay (units/volume)on 09-21-2021 tTG IgA Qn (S) <2 U/mL 0-3 [facility] Work Phone: Comment on above: Negative 0 - 3 Weak Positive 4 - 10 Positive >10 Tissue Transglutaminase (tTG) has been identified as the endomysial antigen. Studies have demonstr- ated that endomysial IgA antibodies have over 99% specificity for gluten sensitive enteropathy. Serum wheat IgE antibody ass ay (units/volume)on 09-21-2021 Wheat IgE Qn (S) <0.10 kU/L Class 0 [facility] Work Phone: Serum whole egg IgE antibody assay (units/volume)on 09-21-2021 Whole Egg IgE Qn (S) <0.10 kU/L Class 0 [facility] Work Phone: Thin prep Papanicolaou smear with manual screeningon 09-21-2021 Thin prep Papanicolaou smear with manual screening 13 U/L 15-37 [facility] Work Phone: Thin prep Papanicolaou smear with manual screening 6 5-15 [facility] Work Phone: Whole blood hemoglobin A1c/t otal hemoglobin ratio (mass fraction)on 09-21-2021 HbA1c (Bld) [Mass fraction] 5.3 % 3.8-5.6 [facility] Work Phone: Comment on above: Normal < 5.7 % Predi abetic 5.7 - 6.4 % Diabetic >or= 6.5 % Please note range changes. LABORATORYOrdered By: Charles Guerrero on 07-13-2021 HCG Qn mIU/mL Invalid Interpretation Code AO ADM SS GENITAL CULTUREon 07-02-2021 GENITAL CULTURE GENITAL RESULT NO NEISSERIA GONORRHOEAE ISOLATED BETA STREP RESULT NO BETA STREPTOCOCCUS ISOLATED NORMAL NING RARE NORMAL NING Normal [facility] Comment on above: Performed By: #### M [phone] #### [facility] [address] [place] [address] PCR GC AND CHLAMon PCR CHLAMYDIA Not detected Normal NOT DETECTD [facility] Comment on above: Performed By: #### L [phone] #### [facility] [address] [place] [address] PCR GONORRHOEAE Not detected Normal NOT DETECTD [facility] Comment on above: Performed By: #### L [phone] #### [facility] [address] [place] [address] PAP SMEARon 06-29-2021 Cytopathology procedure, preparation of smear, genital source Patient: ANGELA CHRISTINE Specimen: [id number] Spec Type: PAP SMEAR OrdBrayan Briceño: Missy Abdullahi Status: SOUT Collect Date: 06/29/21 Received Date: 06/30/21 1002 Source: Endocervix() Procedure: CYTO PAP TLP MS Comments: Thinprep vial. PAP QUESTIONNAIRE Patient: ANGELA CHRISTINE ? - control? Y Age/Sex: 26/F F ? - Hormones? - Col Date: 06/29/21 Menopausal? - Hyster? - LMP: 06/04/21 Pertinent Hx: Z01.411, Z11.3, Z11.8 CYTO LOGY REPORT -------- SPECIMEN ADEQUACY: Satisfactory, endocervical and/or metaplastic cells present. DESCRIPTIVE DIAGNOSIS: Negative for intraepithelial lesion or malignancy HPV TESTING: HPV testing is available up to 6 weeks from collect date. Signed Verified/Reviewed by BESSIE VANCE 07/04/21 [facility] NAME: EMMETTANGELA E Pathology and Laboratory Medicine UNIT#: [id number] LOC: GREG Senior Property Accountant: Lupe Rodriguez M.D. ROOM/BED: InboxQ [facility] : 89 AGE/SEX: 26/F ORD.Missy Alberts END OF REPORT Normal [facility] [place] LABORATORYOrdered By: Hailey Faulkner on 03-02-2021 Albumin BCP dye [Mass/Vol] 3.3 G/dL Invalid Interpretation Code 3.5 - 5.0 G/dL AO ADM SS Albumin/Globulin [Mass ratio] 0.9 {ratio} Invalid Interpretation Code 1.1 - 2.5 ratio AO ADM SS ALP [Catalytic activity/Vol] 99 U/L Invalid Interpretation Code 40 - 135 U/L AO ADM SS ALT With P-5'-P [Catalytic activity/Vol] 23 U/L Invalid Interpretation Code 14 - 59 U/L AO ADM SS AST With P-5'-P [Catalytic activity/Vol] 13 U/L Invalid Interpretation Code 10 - 40 U/L AO ADM SS Bilirubin [Mass/Vol] 0.2 mg/dL Invalid Interpretation Code 0.2 - 1.0 mg/dL AO ADM SS Calcium [Mass/Vol] 8.4 mg/dL Invalid Interpretation Code 8.4 - 10.2 mg/dL AO ADM SS Chloride [Moles/Vol] 104 mmol/L Invalid Interpretation Code 98 - 107 mmol/L AO ADM SS CO2 [Moles/Vol] 26 mmol/L Invalid Interpretation Code 22 - 29 mmol/L AO ADM SS Creatinine [Mass/Vol] 0.60 mg/dL Invalid Interpretation Code 0.55 - 1.02 mg/dL AO ADM SS Electrolyte Balance 11.0 mEq/L Invalid Interpretation Code AO ADM SS Globulin 3.6 G/dL Invalid Interpretation Code AO ADM SS Glucose [Mass/Vol] 120 mg/dL Invalid Interpretation Code 70 - 105 mg/dL AO ADM SS Lipase [Catalytic activity/Vol] 133 U/L Invalid Interpretation Code 73 - 393 U/L AO ADM SS Potassium [Moles/Vol] 3.5 mmol/L Invalid Interpretation Code 3.5 - 5.1 mmol/L AO ADM SS Protein [Mass/Vol] 6.9 G/dL Invalid Interpretation Code 6.4 - 8.2 G/dL AO ADM SS Sodium [Moles/Vol] 141 mmol/L Invalid Interpretation Code 136 - 145 mmol/L AO ADM SS Urea nitrogen [Mass/Vol] 11 mg/dL Invalid Interpretation Code 7 - 18 mg/dL AO ADM SS Urea nitrogen/Creatinine [Mass ratio] 18 ratio Invalid Interpretation Code 7 - 27 ratio AO ADM SS LABORATORYOrdered By: Charles Guerrero on 03-02-2021 Basophil, Absolute 0.10 103/mcL Invalid Interpretation Code 0.00 - 0.19 10^3/mcL AO Auto Heme SS Basophils/100 WBC (Bld) 0.6 % Invalid Interpretation Code 0.0 - 2.5 % AO Auto Heme SS Eosinophil, Absolute 0.30 103/mcL Invalid Interpretation Code 0.00 - 0.40 10^3/mcL AO Auto Heme SS Eosinophils/100 WBC (Bld) 3.0 % Invali d Interpretation Code 0.0 - 7.0 % AO Auto Heme SS Erythrocyte distribution width (RBC) [Ratio] 13.7 % Invalid Interpretation Code 11.5 - 14.5 % AO Auto Heme SS Hematocrit (Bld) [Volume fraction] 36.0 % Invalid Interpretation Code 37.0 - 47.0 % AO Auto Heme SS Hemoglobin (Bld) [Mass/Vol] 12.4 G/dL Invalid Interpretation Code 12.0 - 16.0 G/dL AO Auto Heme SS Lymphocyte, Absolute 2.00 103/mcL Invalid Interpretation Code 0.77 - 3.85 10^3/mcL AO Auto Heme SS Lymphocytes/100 WBC (Bld) 22.8 % Invali d Interpretation Code 10.0 - 50.0 % AO Auto Heme SS MCH (RBC) [Entitic mass] 28.3 pg Invalid Interpretation Code 27.0 - 31.2 pg AO Auto Heme SS MCHC (RBC) [Mass/Vol] 34.4 G/dL Invalid Interpretation Code 33.0 - 37.0 G/dL AO Auto Heme SS MCV (RBC) [Entitic vol] 82.3 fL Invalid Interpretation Code 80.0 - 94.0 fL AO Auto Heme SS Monocyte, Absolute 0.50 103/mcL Invalid Interpretation Code 0.15 - 1.00 10^3/mcL AO Auto Heme SS Monocytes/100 WBC (Bld) 5.5 % Invalid Interpretation Code 1.7 - 13.0 % AO Auto Heme SS Neutrophil, Absolute 6.00 103/mcL Invalid Interpretation Code 2.85 - 6.16 10^3/mcL AO Auto Heme SS Neutrophils/100 WBC (Bld) 68.1 % Invali d Interpretation Code 37.0 - 80.0 % AO Auto Heme SS Platelet mean volume (Bld) [Entitic vol] 8.8 fL Invalid Interpretation Code 7.4 - 10.4 fL AO Auto Heme SS Platelets (Bld) [#/Vol] 313 103/mcL Invalid Interpretation Code 130 - 400 10^3/mcL AO Auto Heme SS RBC (Bld) [#/Vol] 4.37 106/mcL Invalid Interpretation Code 4.20 - 5.40 10^6/mcL AO Auto Heme SS WBC (Bld) [#/Vol] 8.80 103/mcL Invalid Interpretation Code 4.60 - 10.80 10^3/mcL AO Auto Heme SS LABORATORYOrdered By: SYSTEM SYSTEM on 03-02-2021 GFR 146 ml/min/1.73sqm Invalid Interpretation Code AO Chemistry S GFR Non- 121 ml/min/1.73sqm Inva lid Interpretation Code AO Chemistry S Vital Signs Date Time Vital Sign Value Performing Clinician Faci lity 09-25-2024 10:02-0400 Body height 165.[address] Elder Solorzano DO Work Phone: [facility] 09-25-2024 10:01-0400 Body mass index (BMI) [Ratio] 41.3 kg/m2 Dr. Elder Solorzano DO Work Phone: [facility] 09-25-2024 10:01-0400 Body weight 112.[address] Elder Solorzano DO Work Phone: [facility] 09-25-2024 10:01-0400 Diastolic blood pressure 81 mm[Hg] Dr. Elder Solorzano DO Work Phone: [facility] 09-25-2024 10:01-0400 Systolic blood pressure 120 mm[Hg] Dr. Elder Solorzano DO Work Phone: [facility] 03-13-2023 13:26-0400 Body temperature 97.5 [degF] Leann Corbin DO Work Phone: [facility] 03-13-2023 13:26-0400 Diastolic blood pressure 104 mm[Hg] Leann Shaquille DO Work Phone: [facility] 03-13-2023 13:26-0400 Heart rate 77 /min Leann Corbin DO Work Phone: [facility] 03-13-2023 13:26-0400 Respiratory rate 20 /min Leann Shaquille DO Work Phone: [facility] 03-13-2023 13:26-0400 SaO2% (BldA) [Mass fraction] 99 % Leann Corbin DO Work Phone: [facility] 03-13-2023 13:26-0400 Systolic blood pressure 140 mm[Hg] Leann Shaquille DO Work Phone: [facility] 01-15-2023 13:55-0400 Body height 165.[address] Elder Solorzano Work Phone: [facility] 01-15-2023 13:51-0400 Body mass index (BMI) [Ratio] 42.1 kg/m2 Dr. Elder Solorzano Work Phone: [facility] 01-15-2023 13:51-0400 Body weight 114.[address] Elder Solorzano Work Phone: [facility] 01-15-2023 13:51-0400 Diastolic blood pressure 74 mm[Hg] Dr. Elder Solorzano Work Phone: [facility] 01-15-2023 13:51-0400 Systolic blood pressure 108 mm[Hg] Dr. Elder Solorzano Work Phone: [facility] 09-05-2022 15:08-0400 Body height 165.[address] Elder Solorzano Work Phone: [facility] 09-05-2022 15:07-0400 Body mass index (BMI) [Ratio] 42.3 kg/m2 Dr. Elder Solorzano Work Phone: [facility] 09-05-2022 15:07-0400 Body weight 115.[address] Elder Solorzano Work Phone: [facility] 09-05-2022 15:07-0400 Diastolic blood pressure 74 mm[Hg] Dr. Elder Solorzano Work Phone: [facility] 09-05-2022 15:07-0400 Heart rate 74 /min Dr. Elder Solorzano Work Phone: [facility] 09-05-2022 15:07-0400 Systolic blood pressure 117 mm[Hg] Dr. Elder Solorzano Work Phone: [facility] 08-03-2022 14:43-0400 Body mass index (BMI) [Ratio] 43 kg/m2 Dr. Elder Solorzano Work Phone: [facility] 08-03-2022 14:43-0400 Body weight 117.[address] Elder Solorzano Work Phone: [facility] 08-03-2022 14:43-0400 Diastolic blood pressure 85 mm[Hg] Dr. Elder Solorzano Work Phone: [facility] 08-03-2022 14:43-0400 Systolic blood pressure 125 mm[Hg] Dr. Elder Solorzano Work Phone: [facility] 12-22-2021 10:07-0400 Body temperature 98.7 [degF] ADMINISTRATIVE OFFICE SPECIALIST-C Estela Carlie ADMINISTRATIVE OFFICE SPECIALIST Work Phone: [facility] Work Phone: 12-22-2021 10:07-0400 Diastolic blood pressure 58 mm[Hg] ADMINISTRATIVE OFFICE SPECIALIST-C Estela Carlie ADMINISTRATIVE OFFICE SPECIALIST Work Phone: [facility] Work Phone: 12-22-2021 10:07-0400 Heart rate 73 /min ADMINISTRATIVE OFFICE SPECIALIST-C Estela Carlie ADMINISTRATIVE OFFICE SPECIALIST Work Phone: [facility] Work Phone: 12-22-2021 10:07-0400 Respiratory rate 16 /min ADMINISTRATIVE OFFICE SPECIALIST-C Estela Carlie ADMINISTRATIVE OFFICE SPECIALIST Work Phone: [facility] Work Phone: 12-22-2021 10:07-0400 SaO2% (BldA) [Mass fraction] 98 % ADMINISTRATIVE OFFICE SPECIALIST-C Estela Carlie ADMINISTRATIVE OFFICE SPECIALIST Work Phone: [facility] Work Phone: 12-22-2021 10:07-0400 Systolic blood pressure 114 mm[Hg] ADMINISTRATIVE OFFICE SPECIALIST-C Estela Carlie ADMINISTRATIVE OFFICE SPECIALIST Work Phone: [facility] Work Phone: 12-22-2021 08:15-0400 Body height 165.1 cm ADMINISTRATIVE OFFICE SPECIALIST-C Estela Carlie ADMINISTRATIVE OFFICE SPECIALIST Work Phone: [facility] Work Phone: 12-22-2021 08:15-0400 Body mass index (BMI) [Ratio] 40.6 kg/m2 ADMINISTRATIVE OFFICE SPECIALIST-C Estela Carlie ADMINISTRATIVE OFFICE SPECIALIST Work Phone: [facility] Work Phone: 12-22-2021 08:15-0400 Body weight 110.7 kg ADMINISTRATIVE OFFICE SPECIALIST-C Estela Banksne ADMINISTRATIVE OFFICE SPECIALIST Work Phone: [facility] Work Phone: 09-23-2021 18:31-0400 Diastolic blood pressure 66 mm[Hg] DR ELDA GARCIA MD [facility] 09-23-2021 18:31-0400 Heart rate 103 /min DR ELDA GARCIA MD [facility] 09-23-2021 18:31-0400 Respiratory rate 16 /min DR ELDA GARCIA MD [facility] 09-23-2021 18:31-0400 Systolic blood pressure 130 mm[Hg] DR ELDA GARCIA MD [facility] 09-23-2021 18:06-0400 Diastolic blood pressure 80 mm[Hg] DR ELDA GARCIA MD [facility] 09-23-2021 18:06-0400 Heart rate 93 /min DR ELDA GARCIA MD [facility] 09-23-2021 18:06-0400 Respiratory rate 16 /min DR ELDA GARCIA MD [facility] 09-23-2021 18:06-0400 Systolic blood pressure 122 mm[Hg] DR ELDA GARCIA MD [facility] 09-23-2021 17:30-0400 Diastolic blood pressure 69 mm[Hg] DR ELDA GARCIA MD [facility] 09-23-2021 17:30-0400 Heart rate 92 /min DR ELDA GARCIA MD [facility] 09-23-2021 17:30-0400 Respiratory rate 20 /min DR ELDA GARCIA MD [facility] 09-23-2021 17:30-0400 Systolic blood pressure 109 mm[Hg] DR ELDA GARCIA MD [facility] 09-23-2021 15:01-0400 Body height [address] ELDA GARCIA MD [facility] 09-23-2021 15:01-0400 Body temperature 98.6 [degF] DR ELDA GARCIA MD [facility] 09-23-2021 15:01-0400 Body weight [address] ELDA GARCIA MD [facility] 09-23-2021 15:01-0400 Heart rate 107 /min DR ELDA GARCIA MD [facility] 09-21-2021 07:56-0400 Body height 165.1 cm ADMINISTRATIVE OFFICE SPECIALIST-C Estela Carlie ADMINISTRATIVE OFFICE SPECIALIST Work Phone: [facility] Work Phone: 09-21-2021 07:56-0400 Body mass index (BMI) [Ratio] 42.3 kg/m2 ADMINISTRATIVE OFFICE SPECIALIST-C Estela Carlie ADMINISTRATIVE OFFICE SPECIALIST Work Phone: [facility] Work Phone: 09-21-2021 07:56-0400 Body weight 115.21 kg ADMINISTRATIVE OFFICE SPECIALIST-C Estela Carlie ADMINISTRATIVE OFFICE SPECIALIST Work Phone: [facility] Work Phone: 09-21-2021 07:56-0400 Diastolic blood pressure 98 mm[Hg] ADMINISTRATIVE OFFICE SPECIALIST-C Estela Carlie ADMINISTRATIVE OFFICE SPECIALIST Work Phone: [facility] Work Phone: 09-21-2021 07:56-0400 Heart rate 93 /min ADMINISTRATIVE OFFICE SPECIALIST-C Estela Carlie ADMINISTRATIVE OFFICE SPECIALIST Work Phone: [facility] Work Phone: 09-21-2021 07:56-0400 SaO2% (BldA) [Mass fraction] 97 % ADMINISTRATIVE OFFICE SPECIALIST-C Estela Carlie ADMINISTRATIVE OFFICE SPECIALIST Work Phone: [facility] Work Phone: 09-21-2021 07:56-0400 Systolic blood pressure 141 mm[Hg] ADMINISTRATIVE OFFICE SPECIALIST-C Estela Carlie ADMINISTRATIVE OFFICE SPECIALIST Work Phone: [facility] Work Phone: 09-21-2021 07:56-0400 Body height 165.1 cm ADMINISTRATIVE OFFICE SPECIALIST-C Estela Carlie ADMINISTRATIVE OFFICE SPECIALIST Work Phone: [facility] Work Phone: 09-21-2021 07:56-0400 Body mass index (BMI) [Ratio] 42.3 kg/m2 ADMINISTRATIVE OFFICE SPECIALIST-C Estela Carlie ADMINISTRATIVE OFFICE SPECIALIST Work Phone: [facility] Work Phone: 09-21-2021 07:56-0400 Body weight 115.21 kg ADMINISTRATIVE OFFICE SPECIALIST-C Estela Carlie ADMINISTRATIVE OFFICE SPECIALIST Work Phone: [facility] Work Phone: 09-21-2021 07:56-0400 Diastolic blood pressure 98 mm[Hg] ADMINISTRATIVE OFFICE SPECIALIST-C Estela Carlie ADMINISTRATIVE OFFICE SPECIALIST Work Phone: [facility] Work Phone: 09-21-2021 07:56-0400 Heart rate 93 /min ADMINISTRATIVE OFFICE SPECIALIST-C Estela Carlie ADMINISTRATIVE OFFICE SPECIALIST Work Phone: [facility] Work Phone: 09-21-2021 07:56-0400 SaO2% (BldA) [Mass fraction] 97 % ADMINISTRATIVE OFFICE SPECIALIST-C Estela Carlie ADMINISTRATIVE OFFICE SPECIALIST Work Phone: [facility] Work Phone: 09-21-2021 07:56-0400 Systolic blood pressure 141 mm[Hg] ADMINISTRATIVE OFFICE SPECIALIST-C Estela Carlie ADMINISTRATIVE OFFICE SPECIALIST Work Phone: [facility] Work Phone: Encounters Encounter Date Encounter Type Care Provider Facility Start: 12-05-2024 ambulatory Kamille kimy:[facility] Start: 10-15-2024 End: 10-15-[address] Elder Solorzano DO Work Phone: [facility] Work Phone: Start: 10-15-2024 End: 10-15-2024 Patient encounter procedure Airam Padilla ADMINISTRATIVE OFFICE SPECIALIST-C -Laboratory Work Phone: Start: 10-15-2024 End: 10-15-2024 ambulatory Airam Padilla Facility:[facility] Start: 10-11-[address] ELDER Emersoni ty:[facility] Start: 09-30-2024 ambulatory Madeline Romero ty:[facility] Start: 09-25-2024 End: 09-25-2024 Patient encounter procedure Rachell Ritu ADMINISTRATIVE OFFICE SPECIALIST-C -[facility] Work Phone: Start: 09-25-2024 End: 09-25-2024 ambulatory Rachell Chaney MAURICE Facility:[facility] Start: 08-29-[address] ELDER Emersoni ty:[facility] Start: 08-04-2024 End: 08-04-[address] ELDER SOLORZANO DO [facility] Start: 07-31-2024 End: 07-31-[address] ELDER SOLORZANO DO [facility] Start: 07-29-[address] ELDER Emersoni ty:[facility] Start: 06-26-2024 End: 06-30-[address] ELDER SOLORZANO DO [facility] Start: 06-26-2024 End: 06-30-[address] ELDER SOLORZANO DO [facility] Start: 06-16-2024 End: 06-16-2024 ambulatory Elder Solorzano Facility:[facility] Start: 06-02-2024 End: 06-02-2024 [facility] Start: 04-18-2024 ambulatory Elder Solorzano Facility:[facility] Start: 04-02-2024 End: 04-02-2024 ambulatory Elder Solorzano Facility:[facility] Start: 04-02-2024 End: 04-02-2024 ambulatory [facility] Facility:[facility] Start: 11-14-2023 End: 11-14-[address] ELDER SOLORZANO DO Facility:[facility] Start: 11-14-2023 End: 11-14-[address] ELDER SOLORZANO DO [facility] Start: 05-08-2023 End: 05-08-2023 ambulatory CAMILO MCGRAW Facility:[facility] Start: 03-13-2023 End: 03-13-2023 ambulatory LEANN CORBIN Facility:[id number] Start: 03-13-2023 End: 03-13-2023 Patient encounter procedure Leann Corbin DO Work Phone: [facility] Comment on above: Odontalgia (Primary Dx); Cervical paraspinal muscle spasm Start: 01-15-2023 End: 01-15-[address] Elder Solorzano Work Phone: [facility] Work Phone: Start: 01-15-2023 End: 01-15-[address] Elder Solorzano Work Phone: [facility] Work Phone: Start: 09-12-2022 End: 09-12-[address] Elder Solorzano Work Phone: [facility] Work Phone: Start: 09-12-2022 End: 09-12-[address] Elder Solorzano Work Phone: [facility] Start: 09-05-2022 End: 09-05-[address] Elder Solorzano Work Phone: [facility] Start: 09-02-2022 End: 09-02-[address] Elder Solorzano Work Phone: [facility] Work Phone: Start: 09-02-2022 End: 09-02-[address] Elder Solorzano Work Phone: [facility]-Laboratory Start: 08-03-2022 End: 08-03-[address] Elder Solorzano Work Phone: [facility] Start: 05-04-2022 End: 05-04-[address] ELDER SOLORZANO DO [facility] Start: 04-21-2022 End: 04-21-[address] ELDER SOLORZANO DO [facility] Start: 12-22-2021 Non-patient / Non-visit ADMINISTRATIVE OFFICE SPECIALIST-C Estela Sexton ADMINISTRATIVE OFFICE SPECIALIST Work Phone: [facility] Start: 12-22-2021 End: 12-22-2021 Admission to same day surgery center ADMINISTRATIVE OFFICE SPECIALIST-C Estela Carlie ADMINISTRATIVE OFFICE SPECIALIST Work Phone: [facility]Endoscopy Start: 11-01-2021 End: 11-01-2021 Patient encounter procedure ADMINISTRATIVE OFFICE SPECIALIST-C Estela Carlie ADMINISTRATIVE OFFICE SPECIALIST Work Phone: [facility] Start: 09-23-2021 End: 09-23-2021 Emergency department patient visit DR ELDA GARCIA MD [facility] Start: 09-23-2021 End: 09-23-2021 Discharged Recurring ADMINISTRATIVE OFFICE SPECIALIST-C Estela Carlie ADMINISTRATIVE OFFICE SPECIALIST Work Phone: [facility]Physical Therapy Start: 09-23-2021 Registered Recurring ADMINISTRATIVE OFFICE SPECIALIST-C Maya erica Banksne ADMINISTRATIVE OFFICE SPECIALIST Work Phone: [facility] Start: 09-21-2021 End: 09-21-2021 Patient encounter procedure ADMINISTRATIVE OFFICE SPECIALIST-C Estela Carlie ADMINISTRATIVE OFFICE SPECIALIST Work Phone: [facility]Labor[facility] Start: 09-21-2021 End: 09-21-2021 Patient encounter procedure ADMINISTRATIVE OFFICE SPECIALIST-C Estela Carlie ADMINISTRATIVE OFFICE SPECIALIST Work Phone: [facility] Gastro[facility] Start: 09-02-2021 End: 09-02-[address] ELDER SOLORZANO DO [facility] Start: 07-13-2021 End: 07-13-2021 Patient encounter procedure MISSY ABDULLAHI TRACK REPAIRER HELPER [facility] Start: 06-29-2021 End: 06-29-2021 Subsequent hospital visit by physician [facility] Provider IF JUDY ACKERMAN Comment on above: Z01.411,Z11.3,Z11.8, Z12.4 Start: 04-28-2021 End: 04-28-[address] ELDER SOLORZANO DO [facility] Start: 03-02-2021 End: 03-02-[address] ELDER SOLORZANO DO [facility] Procedures Date Procedure Procedure Detail Performing Clinician Start: 01-15-2023 Cytopathology proced ure, preparation of smear, genital source Dr. Elder Solorzano Work Phone: Start: 01-15-2023 Investigation of transfusion reaction Dr. Elder Solorzano Work Phone: Start: 09-12-[address] Elder Solorzano Work Phone: Start: 12-22-2021 Colonoscopy ADMINISTRATIVE OFFICE SPECIALIST-C Leslie Sexton ADMINISTRATIVE OFFICE SPECIALIST Work Phone: Start: 11-01-2021 Computed tomography of abdomen and pelvis with contrast ADMINISTRATIVE OFFICE SPECIALIST-C Estela Sexton ADMINISTRATIVE OFFICE SPECIALIST Work Phone: Tonsillectomy DR ELDA ROPER MD Plan of Treatment Date Care Activity Detail Author Start: 04-20-2026 Urine microalbumin profile DTaP,Tdap,Td Vaccine (2 - Td or Tdap) [facility] Start: 01-19-2023 Covid-19 Vaccine ( season) Covid-19 Vaccine () [facility] Start: 01-19-2023 Influenza vaccination Influenza Vaccine (#1) [facility] Start: 2022 Depression Assessment Depression Assessment [facility] Start: 02-25-2022 HPV Vaccine (2 - 3-dose SCDM series) HPV Vaccine (2 - 3-dose SCDM series) [facility] Start: 12-22-2021 Urine test [facility] Work Phone: Start: 12-22-2021 Patient discharge [facility] Work Phone: Start: 05-26-2017 Hepatitis B Vaccine (4 of 4 - Hep B Twinrix 4-dose series) Hepatitis B Vaccine (4 of 4 - Hep B Twinrix 4-dose series) [facility] Start: 2015 Pap Testing Pap Testing [facility] Start: 2012 Hepatitis C Screening Hepatitis C Screening [facility] Start: 2012 HIV Screening HIV Screening [facility] Clostridioides diffi cile DNA [Presence] in Unspecified specimen by [place] with probe detection [facility] Work Phone: Gastrointestinal pat hogens panel - Stool by [place] with probe detection [facility] Work Phone: Helicobacter pylori Ag [Presence] in Stool by Immunoassay [facility] Work Phone: Lactoferrin [Presenc e] in Stool by Immunoassay [facility] Work Phone: Patient referral [facility] Work Phone: Protein measurement [facility] Work Phone: Urine test [facility] Work Phone: US Pelvis [facility] US Pelvis transvaginal [facility] XR Abdomen Single view [facility] Work Phone: [facility] Immunizations Immunization Date Immunization Notes Care Provider [facility] 01-28-[address] ELDER SOLORZANO DO [facility] 01-02-2022 SARS-CoV-2 (COVID-19 ) mRNA-[address] ELDER SOLORZANO DO [facility] 11-29-2021 SARS-CoV-2 (COVID-19 ) mRNA-[address] ELDER SOLORZANO DO [facility] 06-27-2021 influenza virus vacc ine, unspecified formulation DR ELDER SOLORZANO DO [facility] 03-14-2020 influenza virus vacc ine, unspecified formulation MISSY AMBROSIO TRACK REPAIRER HELPER [facility] 05-08-2019 influenza virus vacc ine, unspecified formulation MISSY AMBROSIO TRACK REPAIRER HELPER [facility] 02-01-2018 influenza virus vacc ine, unspecified formulation MISSY AMBROSIO TRACK REPAIRER HELPER [facility] 02-09-2017 hepatitis A and hepatitis B vaccine MISSY AMBROSIO TRACK REPAIRER HELPER [facility] 01-02-2017 hepatitis A and hepatitis B vaccine MISSY AMBROSIO TRACK REPAIRER HELPER [facility] 01-02-2017 influenza virus vacc ine, unspecified formulation MISSY AMBROSIO TRACK REPAIRER HELPER [facility] 05-26-2016 hepatitis A and hepatitis B vaccine MISSY AMBROSIO TRACK REPAIRER HELPER [facility] 04-20-2016 influenza virus vacc ine, unspecified formulation MISSY AMBROSIO TRACK REPAIRER HELPER [facility] 04-20-2016 tetanus toxoid, redu yuko diphtheria toxoid, and acellular pertussis vaccine, adsorbed MISSY AMBROSIO TRACK REPAIRER HELPER [facility] 04-14-2014 influenza virus vacc ine, unspecified formulation MISSY ABDULLAHI [facility] Payers Date Payer Category Payer Unknown [id number] 2024 Self-pay [id number] 2023 Unknown [id number] 2023 Medicaid [id number] 2023 Medicaid MEDICAID [facility] MEDICAID [id number] 2023-Present [phone] [address] [place] [address] Medicaid [id number] 1994 Unknown [id number] 1994 Unknown [id number] [id number] 1994 Unknown [id number] [id number] 1994 Unknown [id number] [id number] 1994 Unknown [id number] [id number] 1994 Unknown [id number] [id number] 1994 Unknown [id number] [id number] 1994 Unknown [id number] [id number] Unknown [id number] Unknown [id number] [id number] Unknown [id number] [id number] Unknown [id number] [id number] Unknown [id number] [id number] Unknown [id number] [id number] Unknown [id number] 2.16.840.1.258472.3.579.2.462 Unknown [id number] [id number] Unknown [id number] [id number] Unknown [id number] Social History Date Type Detail Facility Start: 09-09-2018 End: 06-16-2024 Never smoked tobacco (finding) [facility] Sex Assigned At [facility] Start: 09-21-2021 End: 01-15-2023 Tobacco smoking status ORIS Tobacco smoking consumption unknown [facility] Start: 1995 Sex Assigned At Not on file [facility] Start: 1995 Sex Assigned At Female [facility] Start: 03-13-2023 Tobacco use and exposure Smokeless tobacco non-user [facility] Start: 03-13-2023 Alcohol intake Current drinke r of alcohol (finding) [facility] Start: 03-13-2023 History of Social function [facility] Start: 03-13-2023 Tobacco use panel [facility] Adult Depression Screening Assessment 0 [facility] Start: 12-14-2012 Sex Female (finding) [facility] Goals Date Patient Goal Desired Activity /State Functional Status Date Assessment Result Facility 09-23-2021 Functional Status Kvng navarro [facility] Mental Status Date Assessment Result Facility 12-22-2021 Cognitive function Voice[facility]Name [facility] Work Phone: 09-23-2021 [facility] 03-02-2021 to 09-25-2024 Note Date & Type Note Facility 09-25-2024 Evaluation note Diagnosis Onset Date Resolution Diabetes type 2, uncontrolled acute September 25, 2024 9: 54am Obesity acute September 25, 2024 9:54am PCOS (polycystic ovarian syndrome) acute September 25, 2024 9:54am Hypertension chronic September 25 9:54am [facility] Work Phone: [phone] 142-290810-24-2023 NoteHNO ID: [id number] Author: Leann Corbin, DO Service: ? Author Type: Physician Type: Progress Notes Filed: 03/13/2023 2:04 PM Note Text: Angela Christine is a 27 year old FEMALE who presents with Mouth/Lip Problem (Mouth pain, hand weakness x 2 days) HPI History reviewed. No pertinent past medical history. There is no problem list on file for this patient. Current Outpatient Medications Medication Sig Dispense Refill sertraline (ZOLOFT) 50 mg tablet Take 1 tablet by mouth every afternoon. fluconazole (DIFLUCAN) 150 mg tablet take 1 tablet by mouth immediately then repeat in 3 days amLODIPine-benazepril (LOTREL) 5-10 mg per capsule Take 1 capsule by mouth every afternoon. Cetirizine (ZYRTEC) 10 mg cap Take by mouth once daily. ibuprofen (IBU) 800 mg tablet Take 800 mg by mouth every 6 hours as needed. acetaminophen (TYLENOL EXTRA STRENGTH) 500 mg tablet Take 500 mg by mouth every 8 hours as needed. tiZANidine (ZANAFLEX) 4 mg tablet Take 1 tablet by mouth three times a day for 4 days. 12 tablet 0 traMADol (ULTRAM) 50 mg tablet Take 1 tablet by mouth every 8 hours as needed for pain for up to 5 days. 15 tablet 0 dexAMETHasone (DECADRON) 4 mg tablet Take 1 tablet by mouth once daily for 4 days. 4 tablet 0 amoxicillin (AMOXIL) 875 mg tablet Take 1 tablet by mouth two times a day for 10 days. 20 tablet 0 No current facility-administered medications for this visit. Social History Tobacco Use Smoking status: Never Smokeless tobacco: Never Vaping Use Vaping Use: Never used Substance Use Topics Alcohol use: Yes Drug use: Not Currently Alcohol Use: Yes Tobacco Use: Never History reviewed. No pertinent family history. Review of Systems Constitutional: Positive for chills and malaise/fatigue. HENT: Is complaining of tooth pain bilaterally both jaws are hurting. He has 2 fractured molars 1 on the left lower jaw #17 and 1 on the right upper jaw #1 Musculoskeletal: Positive for neck pain. Neurological: Positive for tingling (. In radial and ulnar nerves to the left hand). All other systems reviewed and are negative. BP 140/104 Pulse 77 Temp 97.5 Resp 20 SpO2 99% LMP 01/01/2023 Physical Exam Vitals and nursing note reviewed. HENT: Head: Normocephalic. Mouth/Throat: Lips: [place]. Mouth: Mucous membranes are moist. Dentition: Abnormal dentition. Dental tenderness present. Tongue: No lesions. Tongue does not deviate from midline. Palate: No mass and lesions. Pharynx: Oropharynx is clear. Uvula midline. Tonsils: No tonsillar exudate or tonsillar abscesses. Comments: 2 fractured molars #1 #17. Neither 1 are tender to the tapping they are fractured and the nerve is exposed. Tongue is midline. There does not appear to be any abscesses at this time. Musculoskeletal: General: Tenderness present. Comments: Patient has some tenderness in the cervical spine around C5-C6 area particularly on the left. She has radiation of pain down the radial and ulnar nerves to the left hand. I think what is happening is she is got such pain in the jaws she is tensing her jaws and tensing her neck and its causing some spasm and pressing on those nerves. Skin: General: Skin is warm. Capillary Refill: Capillary refill takes 2 to 3 seconds. Neurological: General: No focal deficit present. Mental Status: She is alert. ASSESSMENT/PLAN: 1. Odontalgia - ICD9: 525.9, ICD10: K08.89 (primary diagnosis) - TRAMADOL 50 MG TABLET - DEXAMETHASONE 4 MG TABLET - AMOXICILLIN 875 MG TABLET 2. Cervical paraspinal muscle spasm - ICD9: 728.85, ICD10: M62.838 - TIZANIDINE 4 MG TABLET - DEXAMETHASONE 4 MG TABLET Leann Carrasco [facility]10-24-2023 History of Present illness Narrative * Leann Corbin, - 03/13/2023 1:59 PM EDT Images from the original note were not included. Angela Christine is a 27 year old FEMALE who presents with Mouth/Lip Problem (Mouth pain, hand weakness x 2 days) HPI History reviewed. No pertinent past medical history. There is no problem list on file for this patient. Current Outpatient Medications Medication Sig Dispense Refill sertraline (ZOLOFT) 50 mg tablet Take 1 tablet by mouth every afternoon. fluconazole (DIFLUCAN) 150 mg tablet take 1 tablet by mouth immediately then repeat in 3 days amLODIPine-benazepril (LOTREL) 5-10 mg per capsule Take 1 capsule by mouth every afternoon. Cetirizine (ZYRTEC) 10 mg cap Take by mouth once daily. ibuprofen (IBU) 800 mg tablet Take 800 mg by mouth every 6 hours as needed. acetaminophen (TYLENOL EXTRA STRENGTH) 500 mg tablet Take 500 mg by mouth every 8 hours as needed. tiZANidine (ZANAFLEX) 4 mg tablet Take 1 tablet by mouth three times a day for 4 days. 12 tablet 0 traMADol (ULTRAM) 50 mg tablet Take 1 tablet by mouth every 8 hours as needed for pain for up to 5 days. 15 tablet 0 dexAMETHasone (DECADRON) 4 mg tablet Take 1 tablet by mouth once daily for 4 days. 4 tablet 0 amoxicillin (AMOXIL) 875 mg tablet Take 1 tablet by mouth two times a day for 10 days. 20 tablet 0 No current facility-administered medications for this visit. Social History Tobacco Use Smoking status: Never Smokeless tobacco: Never Vaping Use Vaping Use: Never used Substance Use Topics Alcohol use: Yes Drug use: Not Currently Alcohol Use: Yes Tobacco Use: Never History reviewed. No pertinent family history. Review of Systems Constitutional: Positive for chills and malaise/fatigue. HENT: Is complaining of tooth pain bilaterally both jaws are hurting. He has 2 fractured molars 1 on the left lower jaw #17 and 1 on the right upper jaw #1 Musculoskeletal: Positive for neck pain. Neurological: Positive for tingling (. In radial and ulnar nerves to the left hand). All other systems reviewed and are negative. BP 140/104 Pulse 77 Temp 97.5 Resp 20 SpO2 99% LMP 01/01/2023 Physical Exam Vitals and nursing note reviewed. HENT: Head: Normocephalic. Mouth/Throat: Lips: [place]. Mouth: Mucous membranes are moist. Dentition: Abnormal dentition. Dental tenderness present. Tongue: No lesions. Tongue does not deviate from midline. Palate: No mass and lesions. Pharynx: Oropharynx is clear. Uvula midline. Tonsils: No tonsillar exudate or tonsillar abscesses. Comments: 2 fractured molars #1 #17. Neither 1 are tender to the tapping they are fractured and thenerve is exposed. Tongue is midline. There does not appear to be any abscesses at this time. Musculoskeletal: General: Tenderness present. Comments: Patient has some tenderness in the cervical spine around C5-C6 area particularly on the left. She has radiation of pain down the radial and ulnar nerves to the left hand. I think what is happening is she is got such pain in the jaws she is tensing her jaws and tensing her neck and its causing some spasm and pressing on those nerves. Skin: General: Skin is warm. Capillary Refill: Capillary refill takes 2 to 3 seconds. Neurological: General: No focal deficit present. Mental Status: She is alert. ASSESSMENT/PLAN: 1. Odontalgia - ICD9: 525.9, ICD10: K08.89 (primary diagnosis) - TRAMADOL 50 MG TABLET - DEXAMETHASONE 4 MG TABLET - AMOXICILLIN 875 MG TABLET 2. Cervical paraspinal muscle spasm - ICD9: 728.85, ICD10: M62.838 - TIZANIDINE 4 MG TABLET - DEXAMETHASONE 4 MG TABLET [facility]ann Corbin [facility] Discharge instructions Patient Education 09/23/2021 18:40:30 Chest Pain, Uncertain Cause Uncertain Causes of Chest Pain Chest pain can happen for a number of reasons. Sometimes the cause can't be determined. If your condition does not seem serious, and your pain does not appear to be coming from your heart, your healthcare provider may recommend watching it closely. Sometimes the signs of a serious problem take moretime to appear. Many problems not related to your heart can cause chest pain. These include: Musculoskeletal. Costochondritis is an inflammation of the tissues around the ribs that can occur from trauma or overuse injuries, or a strain of the muscles of the chest wall Respiratory. Pneumonia, collapsed lung (pneumothorax), or inflammation of the lining of the chest and lungs (pleurisy) Gastrointestinal. Esophageal reflux, heartburn, ulcers, or gallbladder disease Anxiety and panic disorders Nerve compression and inflammation Rare miscellaneous problems such as aortic aneurysm (a swelling of the large artery coming out of the heart) or pulmonary embolism (a blood clot in the lungs) Home care After your visit, follow these recommendations: Rest today and avoid strenuous activity. Take any prescribed medicine as directed. Be aware of any recurrent chest pain and notice any changes Follow-up care Follow up with your healthcare provider if you do not start to feel better within 24 hours, or as advised. Call 911 Call 911 if any of these occur: A change in the type of pain: if it feels different, becomes more severe, lasts longer, or begins to spread into your shoulder, arm, neck, jaw or back Shortness of breath or increased pain with breathing Weakness, dizziness, or fainting Rapid heart beat Crushing sensation in your chest When to seek medical advice Call your healthcare provider right away if any of the following occur: Cough with dark colored sputum (phlegm) or blood Fever of 100.4 F (38 C) or higher, or as directed by your healthcare provider Swelling, pain or redness in one leg [id number] [employer] [address] [place] [address], [place] [address]. All rights reserved. This information is not intended as a substitute for professional medical care. Always follow yourhealthcare professional's instructions. Follow Up Care 09/23/2021 14:56:28 With:ELDER SOLORZANO DO Address: [address] [place] [address] [place] [address]- [phone] When:2-4 days [facility] 10-13-2021 Evaluation + Plan note Future Scheduled Tests Laboratory* Giardia Antigen 03/02/21 * Calprotectin, Fecal 03/02/21 * Ova & Parasite exam 03/02/21 * Clostridium difficile PCR 03/02/21 * Stool for Occult Blood (Lab) 03/02/21 * Stool Culture 03/02/21 * Group A Strep PCR (AO) 04/08/21 Radiology* XR Chest 2 Views (PA & Lateral) 03/21/21 [facility] Evaluation + Plan note Future Appointments Appointment Date:04/06/2021 03:30:00 PM Scheduled Provider:ELDER SOLORZANO DO Location:[facility] Appointment Type:PC OV Follow Up Future Scheduled Tests Laboratory* Giardia Antigen 03/02/21 * Calprotectin, Fecal 03/02/21 * Ova & Parasite exam 03/02/21 * Clostridium difficile PCR 03/02/21 * Stool for Occult Blood (Lab) 03/02/21 * Stool Culture 03/02/21 Radiology* US Abdomen Complete 03/02/21 [facility] Evaluation + Plan note Future Appointments Appointment Date:06/15/2021 08:30:00 AM Scheduled Provider:ELDER SOLORZANO DO Location:[facility] Appointment Type:PC OV Future Scheduled Tests Laboratory* Giardia Antigen 03/02/21 * Calprotectin, Fecal 03/02/21 * Ova & Parasite exam 03/02/21 * Clostridium difficile PCR 03/02/21 * Stool for Occult Blood (Lab) 03/02/21 * Stool Culture 03/02/21 * Group A Strep PCR (AO) 04/08/21 Radiology* XR Chest 2 Views (PA & Lateral) 03/21/21 [facility] Evaluation + Plan note Future Appointments Appointment Date:09/16/2021 10:45:00 AM Scheduled Provider: Location:[facility] Appointment Type:PC Nurse Future Scheduled Tests Laboratory* Group A Strep PCR (AO) 04/08/21 * Giardia Antigen 03/02/21 * Calprotectin, Fecal 03/02/21 * Ova & Parasite exam 03/02/21 * Stool for Occult Blood (Lab) 03/02/21 * Stool Culture 03/02/21 * Clostridium difficile PCR 03/02/21 Radiology* XR Chest 2 Views (PA & Lateral) 03/21/21 * XR Hip Minimum 2 Views Right 09/02/21 [facility] Evaluation + Plan note Future Appointments Appointment Date:10/28/2021 11:30:00 AM Scheduled Provider:ELDER SOLORZANO DO Location:[facility] Appointment Type:PC OV Future Scheduled Tests Laboratory* Group A Strep PCR (AO) 04/08/21 * Giardia Antigen 03/02/21 * Calprotectin, Fecal 03/02/21 * Ova & Parasite exam 03/02/21 * Basic Metabolic Panel 09/16/21 * Stool for Occult Blood (Lab) 03/02/21 * Stool Culture 03/02/21 * Clostridium difficile PCR 03/02/21 Radiology* XR Chest 2 Views (PA & Lateral) 03/21/21 * XR Hip Minimum 2 Views Right 09/02/21 [facility] Evaluation + Plan note Future Appointments Appointment Date:06/06/2022 04:30:00 PM Scheduled Provider:ELDER SOLORZANO DO Location:[facility] Appointment Type:PC OV Follow Up Future Scheduled Tests Laboratory* Basic Metabolic Panel 09/16/21 * A1C Hemoglobin 04/21/22 [facility] Evaluation + Plan note Future Appointments Appointment Date:12/26/2023 03:30:00 PM Scheduled Provider:ELDER SOLORZANO DO Location:[facility] Appointment Type:PC OV Future Scheduled Tests Laboratory* hCG, quantitative(AO) 11/07/23 * D-Dimer 11/07/23 * Complete Blood Count 11/07/23 * Complete Metabolic Panel 11/07/23 * N-Terminal proBNP 11/07/23 [facility] Evaluation + Plan note Future Appointments Appointment Date:09/25/2024 03:00:00 PM Scheduled Provider:ELDER SOLORZANO DO Location:[facility] Appointment Type:PC OV Future Scheduled Tests Laboratory* Iron Level 09/16/24 * A1C Hemoglobin 09/16/24 * Acute Hepatitis Panel 09/16/24 * Complete Blood Count 09/16/24 * Lipid Profile 09/16/24 * Complete Metabolic Panel 09/16/24 * N-Terminal proBNP 09/16/24 * TIBC 09/16/24 Radiology* US Abdomen Limited 06/26/24 [facility] Evaluation note* Diagnosis Onset Date Resolution Status Abdominal cramping acute Abdominal pain acute Alternating constipation and diarrhea acute Nausea acute [facility] Work Phone: Evaluation note* Diagnosis Onset Date Resolution Status PCOS (polycystic ovarian syndrome) acute Encounter for routine gynecological examination noneactive BMI 40.0-44.9, adult acute Irritable bowel syndrome with constipation acute Obesity acute PCOS (polycystic ovarian syndrome) acute Hypertension chronic [facility] Work Phone: Evaluation note* Diagnosis Onset Date Resolution Status Monilial vaginitis acute Possible exposure to STD non eactive [facility] Work Phone: Evaluation note* Diagnosis Odontalgia- Primary Unspecified disorder of the teeth and supporting structures Cervical paraspinal muscle spasm Spasm of muscle documented in this encounter [facility] course Narrative No data available for this section [facility] Hospital Discharge instructions No data available for this section [facility] Progress note No data available for this section [facility] Reason for referral (narrative)No reason for referral [facility] Work [facility]: Summary Purpose Family History No Family History Records Found Relationship Condition Age at Onset Recorded Date/T celestino mother Asthma Unknown Diabetes mellitus Unknown father Diabetes mellitus Unknown Hypertension Unknown Hyperlipidemia Unknown Relationship Condition Age at Onset Recorded Date/T celestino Not Specified Hyperlipidemia Unknown Asthma Unknown mother Diabetes mellitus Unknown Endometriosis Unknown Polycystic ovary syndrome Unknown father Diabetes mellitus Unknown Hypertension Unknown grandmother Malignant neoplasm of cervix Unknown Advance Directives No Advanced Directives Records Found Advance Directive Response Recorded Date/ Time Living Will No December 19, 2021 10:11am Power of Room Server No December 19 10:11am Chief Complaint and Reason for Visit Chief Complaint Consult E ORDERS RT HIP PN/DR TO FAX Reason for Visit Abdominal cramping Abdominal pain Alternating constipation and diarrhea Nausea Chief Complaint Consult E ORDERS RT HIP PN/DR TO FAX ABD PAIN Reason for Visit Abdominal cramping Abdominal pain Alternating constipation and diarrhea Nausea Chief Complaint 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) EORDER 1 MO FU Reason for Visit PCOS (polycystic ova eduardo syndrome) Encounter for routine gynecological examination BMI 40.0-44.9, adult Irritable bowel syndrome with constipation Obesity PCOS (polycystic ovarian syndrome) Hypertension Chief Complaint 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) EORDER 1 MO FU PCOS Reason for Visit PCOS (polycystic ova eduardo syndrome) Encounter for routine gynecological examination BMI 40.0-44.9, adult Irritable bowel syndrome with constipation Obesity PCOS (polycystic ovarian syndrome) Hypertension Chief Complaint yeast infection ADD LABSPEC Reason for Visit Monilial vaginitis Possible exposure to STD Chief Complaint Admit Date 3 M FU *$30 co pay September 25, 2024 9:54am E ORDER October 15, 2024 7:46a m Reason for Visit Admit Date Diabetes type 2, uncontrolled September 25, 025 9:54am Obesity September 25, 2024 9:54am PCOS (polycystic ovarian syndrome) September 252024 9:54am Hypertension September 25, 2024 9:54am Additional Source Comments Source Comments (unrecognize d section and content) In the event this informatio n is protected by the Federal Confidentiality of Alcohol and Drug Abuse Patient Records regulations: The Federal rules restrict any use of the information to criminally investigate or prosecute any alcohol or drug abuse patient.[facility] the event this information is protected by the Federal Confidentiality of Alcohol and Drug Abuse Patient Records regulations: The Federal rules restrict any use of the information to criminally investigate or prosecute any alcohol or drug abuse patient.[facility] INFORMATION SOURCE (unrecogn ized section and content) DATE CREATED AUTHOR 07/05/2021 [facility] [place] DATE CREATED AUTHOR AUTHOR'S ORGANIZ ATION 03/14/2023 [facility] DATE CREATED AUTHOR AUTHOR'S ORGANIZ ATION 11/17/2023 [facility] ([place]) DATE CREATED AUTHOR AUTHOR'S ORGANIZ ATION 10/16/2024 [facility] DATE CREATED AUTHOR AUTHOR'S ORGANIZ ATION 11/30/2024 [facility] Care Team (unrecognized sect ion and content) Team Status: Active Member Role Status Dates Dr. Elder Solorzano DO Primary Care Provider Active Team Status: Inactive Member Role Status Dates Dr. Elder Solorzano DO Primary Care Provider, Referring P rovider Active Dr. Kamille Herr MD Attending Provider Active Team Status: Inactive Member Role Status Dates Dr. Elder Solorzano DO Primary Care Provider Active Dr. Kamille Herr MD Attending Provider, Referr ing Provider Active Team Status: Inactive Member Role Status Dates Dr. Elder Solorzano DO Primary Care Provider, Referring P rovider Active Rachell Chaney ADMINISTRATIVE OFFICE SPECIALIST, ADMINISTRATIVE OFFICE SPECIALIST-C Attending Provider Active Team Status: Inactive Member Role Status Dates Dr. Eldre Solorzano DO Primary Care Provider Active Rachell Chaney ADMINISTRATIVE OFFICE SPECIALIST, ADMINISTRATIVE OFFICE SPECIALIST-C Attending Provider, Referring Provider Active Team Status: Inactive Member Role Status Dates Dr. Elder Solorzano DO Primary Care Provider Active Start: September 25, 2024 End: September 25, 2024 Dr. Elder Solorzano DO Referring Provider Active St art: September 25, 2024 End: September 25, 2024 Rachell Chaney ADMINISTRATIVE OFFICE SPECIALIST, ADMINISTRATIVE OFFICE SPECIALIST-C Attending Provider Active Start: September 25, 2024 End: September 25, 2024 Team Status: Inactive Member Role Status Dates Dr. Elder Solorzano DO Primary Care Provider Active Start: October 15, 2024 End: October 15, 2024 DOLORES Freitas Attending Provider Active Start: October 15, 2024 End: October 15, 2024 DOLORES Freitas Referring Provider Active Start: October 15, 2024 End: October 15, 2024 Goals (unrecognized section and content) Goals may be documented in a n alternate section Care Team (unrecognized sect ion and content) Care Team Personnel Name: ELDER SOLORZANO DO Position: P4 Physician - Primary Care Member Role: Primary Care Physician Address: Address: [address] [place] [address] Care Team Related Persons Name: SHAWNA CHRISTINE Care Team Personnel Name: ELDER SOLORZANO DO Position: P4 Physician - Primary Care Member Role: Primary Care Physician Address: Address: [address] [place] [address] Care Team Related Persons Name: SHAWNA CHRISTINE Reason for Visit (unrecogniz ed section and content) Reason Comments Mouth/Lip Problem Mouth pain, hand wea kness x 2 days FOR RECORDS PERTAINING TO PATIENTS WHO ARE OR HAVE BEEN ENROLLED IN A CHEMICAL DEPENDENCY/SUBSTANCEABUSE PROGRAM, SOME INFORMATION MAY BE OMITTED. This clinical summary was aggregated from multiple sources. Caution should be exercised in using it in the provision of clinical care. This summary normalizes information from multiple sources, and as a consequence, information in this document may materially change the coding, format and clinical context of patient data. In addition, data may be omitted in some cases. CLINICAL DECISIONS SHOULD BE BASED ON THE PRIMARY CLINICAL RECORDS. [facility] [employer] provides no warranty or guarantee of the accuracy or completeness of information in this document.
[2024-12-05 04:07] LABS: PROGESTERONE 21.9 ng/mL (.)
== END | disposition home or self-care (01) ==
LOC: BWCLAB 08:32
PROVIDERS: PCP Student in an Organized Health Care Education/Training Program; Referring Provider Obstetrics & Gynecology; Visit Provider Obstetrics & Gynecology
DX: E28.2 Polycystic ovarian syndrome (principal)
CPT/HCPCS: 36415; 84144

== ENCOUNTER → 2025-02-12 | Outpatient (CLI) | payer BC, SELFPAY ==
[2025-02-12 14:41] LABS: Hematocrit 35.9 % (37-47); Hemoglobin 12.6 g/dL (12.0-15.0); Immature Granulocytes Count 0.040 X10^3/uL (0.0-0.0); Mean Corp Hgb Conc 35.1 g/dL (32-36); Mean Corpuscular Volume 81.4 fL (81-99); Mean Platelet Vol. 11.1 fl (6.2-12.0); NRBC Flagged by Analyzer 0 % (0-5); Platelet Count 261 K/mm3 (150-450); RBC Distribution Width CV 13.2 % (11.6-14.6); RBC Distribution Width SD 38.7 fl (35.1-43.9); Red Blood Count 4.41 M/mm3 (4.2-5.4); White Blood Count 11.6 K/mm3 (4.4-11.0)
[2025-02-12 15:25] LABS: HIV Nonreactive (Nonreactive); Hepatitis B Surface Antigen Nonreactive (Nonreactive); Hepatitis C Antibody Nonreactive (Nonreactive); Syphilis Antibodies Nonreactive (Nonreactive)
[2025-02-16 03:07] LABS: Chlamydia By Nucleic Acid AMP Negative (Negative); Gonococcus By Nucleic Acid AMP Negative (Negative)
== END | disposition home or self-care (01) ==
PROVIDERS: PCP Student in an Organized Health Care Education/Training Program; Referring Provider Obstetrics & Gynecology; Visit Provider Obstetrics & Gynecology
DX: O24.119 Pre-existing type 2 diabetes mellitus, in pregnancy, unspecified trimester (principal); E11.65 Type 2 diabetes mellitus with hyperglycemia; Z3A.00 Weeks of gestation of pregnancy not specified; O99.210 Obesity complicating pregnancy, unspecified trimester
CPT/HCPCS: 36415; 83036; 85025; 86703; 86762; 86780; 86803; 86850; 86900; 86901; 87086; 87340; 87491; 87591

== ENCOUNTER → 2025-02-16 | Outpatient (CLI) | payer BC, SELFPAY ==
--- OUTSIDE RECORDS SUMMARY | 2024-10-11 05:25 | XMS RPT_ITS ---
Author Name Auto Generated Organization [facility] Care Team Providers [employer] Studio Operations Manager Name Role Phone JON CARDOZO, DR DAMON Attending Unavailable ROMAR DO, DR DAMON Primary Care Unavailable ROMAR DO, DR DAMON Primary Care Unavailable ROMAR DO, DR DAMON Attending Unavailable ROMAR DO, DR DAMON Primary Care Unavailable ROMAR DO, DR DAMON Attending Unavailable ROMAR DO, DR DAMON Attending Unavailable ROMAR DO, DR DAMON Primary Care Unavailable ROMAR DO, DR DAMON Primary Care Unavailable ROMAR DO, DR DAMON Attending Unavailable ROMAR DO, DR DAMON Attending Unavailable ROMAR DO, DR DAMON Primary Care Unavailable PROBLEMS DATE TYPE CONDITION / CODE ATTENDING STATUS [facility] 06/26/2024 Admitting Diagnosis Essential (primary) hypertension / I10(ICD-10) JON CARDOZO, DR DAMON Active [facility] 06/26/2024 Admitting Diagnosis Type 2 diabetes mellitus with hyperglycemia / E11.65(ICD-10) JON CARDOZO, DR DAMON Active [facility] PROCEDURES No Procedure Records Found RESULTS US ABDOMEN LIMITED Observed: 07/31/2024 7:00 AM Status: F Source: [facility] ORIGINAL EXAMINATION: RIGHT UPPER QUADRANT ULTRASOUND 07/31/2024 7:22 am COMPARISON: 04/28/2021 HISTORY: ORDERING SYSTEM PROVIDED HISTORY: Reason for Exam: elevated liver enzymes FINDINGS: LIVER: Diffusely increased hepatic echogenicity. The liver measures 15.6 cm. There is no intrahepatic biliary duct dilatation. There is an area of geographic low density in the region the gallbladder fossa most consistent with focal fatty sparing in this measures 1.4 x 0.9 x 1.3 cm. BILIARY SYSTEM: Gallbladder is unremarkable without evidence of pericholecystic fluid, wall thickening or stones. Negative sonographic Oliveira's sign. There is a Phrygian cap. Common bile duct is within normal limits measuring 5 mm. RIGHT KIDNEY: There is normal renal corticomedullary differentiation in size at 11.4 cm. No masses, calculi or hydronephrosis. PANCREAS: The pancreas is suboptimally visualized due to shadowing bowel gas. The visualized portion of the neck and body are within normal limits. OTHER: Visualized portion of the abdominal aorta is normal in caliber. There is no ascites. IMPRESSION: Diffusely increased hepatic echogenicity which can be seen in the setting of hepatic steatosis and or other hepatocellular disease. Interpreted by: Sujatha Maher Preliminary Report By: Sujatha Maher Electronically signed By Sujatha Maher Dictated Date: 07/31/2024 8:49:53 AM Prelim Date: 07/31/2024 8:52:31 AM Sign Date: 07/31/2024 8:52:31 AM Ordering Provider: NELSON CRAIG Collected: 06/26/2024 4:20 PM Status: C Source: [facility] TYPE CODE TESTS RESULT OUT OF RANGE REFERENCE UNITS LAB CRU(LOINC) U Creatinine 284.0 mg/dL LAB MRUR(LOINC) U Microalb 13.9 mg/L LAB RMAL(LOINC) U Ratio Alb/Cre 5 0-30 mg/G Performed By: #### KIARA ### # [facility] [address], [place] [address] ALLERGIES No Allergies Records Found ENCOUNTERS ADMIT/DISCHARGE ACCOUNT NUMBER ADMITTING ENCOUNTER CLASS LOC ATION SOURCE 10/11/2024 [id number] [facility] MAINBuilding: RAD [facility] 08/29/2024 [id number] [facility] MAINBuilding: [facility] 08/04/2024/ 5 [id number] [facility] [place] MAIN[facility]: [facility] 07/31/2024/ 5 [id number] [facility] [place] MA[facility]: [facility] 07/29/2024 [id number] [facility] [place] [facility] [id number] Amb[place] MA[facility]: [facility] PAYERS ENCOUNTER GUARANTOR PAYER SUBSCRIBER SOURCE 10/11/2024 CHRISSIE DIXONB: [place] [address]~ARSLAN [email or web address]: (HP) Primary Insurance:[employer] CROSS INSCOPolicy Number: [id number] e Date:5809-97-76Syma Name:JOI CESAR [address] [place] [address]ZQ: CHRISSIE IBARRAREDDOB: [id number] [place] [phone]: (HP) (WP) [facility] 08/29/2024 CHRISSIE MABRYDOB: [place] [address]~ARSLAN [email or web address]: (HP) Primary Insurance:[employer] CROSS INSCOPolicy Number: [id number] e Date:4242-17-60Jaki Name: TALI [id number] [place] [address]QG: CHRISSIE IBARRAREDDOB: [id number] [place] [address]Hhk: (HP) (WP) [facility] 08/04/2024 CHRISSIE E ALFREDDOB: [facility] [place] [address]~CALFRED [email or web address]: (HP) Primary Insurance:[employer] CROSS INSCOPolicy Number: [id number] e Date:5632-34-04Fnzz Name:JOI [place]RAF [place] [address]TI: CHRISSIE E ALFREDDOB: [id number] [facility] [place] [address]Pde: (WP) [facility] 07/31/2024 CHRISSIE E ALFREDDOB: [facility] [place] [address]~CALFRED [email or web address]: (HP) Primary Insurance:[employer] CR[employer] INSCOPolicy Number: [id number] e Date:5883-17-54Jytm Name:JOI [place] [address]TF: CHRISSIE E ALFREDDOB: [id number] [place] [address]Zrj: (WP) [facility] 07/29/2024 CHRISSIE E ALFREDDOB: [place] [address]~CALFRED [email or web address]: (HP) Primary Insurance:[employer] INSC[employer]olicy Number: [id number] e Date:9850-65-40Ksot Name:JOI [place] [address]KR: CHRISSIE E ALFREDDOB: [id number] [facility] [place] [address]Arv: (WP) [facility] 06/26/2024 CHRISSIE BOUCHER: [id number] [place] [address]~ARSLAN [email or web address]: (HP) Primary Insurance:[facility] [employer] INSCOPolicy Number: [id number] e Date:8832-90-26Mqub Name:JOI [place]AR [id number], [place] [address]GX: CHRISSIE DIXONB: [id number] [place] [address]Gqe: (WP) [facility]
== END | disposition home or self-care (01) ==
LOC: LABSPEC 12:05
PROVIDERS: PCP Student in an Organized Health Care Education/Training Program; Referring Provider Advanced Practice Midwife; Visit Provider Advanced Practice Midwife
DX: O09.90 Supervision of high risk pregnancy, unspecified, unspecified trimester (principal); Z3A.00 Weeks of gestation of pregnancy not specified
CPT/HCPCS: 87077; 87086; 87088

== ENCOUNTER → 2025-02-27 | Outpatient (CLI) | payer BC, SELFPAY ==
[2025-02-27 13:12] LABS: AST(SGOT) 18 U/L (<=31); Alanine Aminotransfer ALT/SGPT 20 U/L (<=34); Albumin, Serum 4.2 g/dL (3.5-5.0); Alkaline Phosphatase 69 U/L (35-104); Anion Gap 13 (5-15); BUN 7 mg/dL (4-19); BUN/Creat Ratio 12.3 RATIO (10-20); Calcium,Total 9.4 mg/dL (7.6-11.0); Carbon Dioxide 23.0 mmol/L (21.0-32.0); Chloride 100 mmol/L (98-108); Globulin 3.1 g/dL (2.2-4.2); Glucose 115 mg/dL (70-99); Potassium 3.5 mmol/L (3.3-5.1)
== END | disposition home or self-care (01) ==
PROVIDERS: Nurse Practitioner Women's Health; PCP Student in an Organized Health Care Education/Training Program; Visit Provider Obstetrics & Gynecology
DX: Z34.01 Encounter for supervision of normal first pregnancy, first trimester (principal)
CPT/HCPCS: 36415; 80053

== ENCOUNTER 2025-04-07 05:52 | Emergency (ER) | payer BC, SELFPAY ==
[2025-04-07 05:53] VITALS: BP 161/91; PULSE 94; RESP 22; TEMP 36.7; O2SAT 99; BMI 39.4
--- NOTE | 2025-04-07 06:10 | ED.VIS.FEGU ---
HPI HPI - Female History of Present Illness Chief Complaint: Informant: patient and spouse/S.O. Associated Symptoms P: 0 Narrative Narrative: Patient is a 29-year-old female, , with a history of HTN and DM, presenting with vaginal bleeding. - Reports onset of vaginal bleeding after urination and wiping, described as a decent amount. - Denies major pain, emesis, or urinary difficulties. - Denies syncope, fever, abdominal trauma, or recent falls. - Has chronic constipation, not currently managed with medication. - Under the care of Dr. Herr, with a scheduled ultrasound today. - First . - Medical history includes HTN, managed with antihypertensive medication, and DM, managed with dietary control. PFSH PFS Medical History Obesity Wears glasses Depression Anxiety Alcohol use Diabetes Gastric reflux Non-smoker Shortness of breath on exertion History of echocardiogram Chest pain Hypertension Alternating constipation and diarrhea Systolic ejection murmur Hypoalbuminemia Hyperglycemia ADHD Rectal bleeding Intermittent abdominal pain Home Medications ?Medication ?Instructions ?Recorded ?Last Taken ?Type labetalol 100 mg tablet 100 mg PO BID 04/02/24 Unknown History docosahexaenoic acid 200 mg 200 mg PO DAILY 01/27/25 Unknown History capsule (Algal Ary-3 DHA) vits 75-iron 28 mg-folic 1 pkg PO DAILY #120 ea 03/31/25 Unknown Rx acid 800 mcg-omega-3 oral combo pack (One A Day Women's DHA) Allergy/AdvReac Type Severity Reaction Status Date / Time No Known Allergies Allergy Verified 04/07/25 05:53 Family History Mother Diabetes Endometriosis PCOS (polycystic ovarian syndrome) Hypertension Father Diabetes Hypertension Grandmother , from old age Cervical cancer, Onset Age: 60 Paternal Brother ADHD Surgical History H/O colonoscopy History of wisdom tooth extraction Hx of tonsillectomy Social History adopted: No household members: spouse and family housing: house current occupational status: employed 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 current occupational exposures/hazards: No pets and animals: Yes (Avoid litterbox) pets and animals: cat(s) and dog(s) history of recent travel: No sexually active: Yes Smoking Status: Never smoker second hand exposure: Yes (Mother smoked) alcohol intake: current alcohol intake frequency: holidays/special occasions only details: not while substance use type: does not use well-balanced diet: daily or most days caffeine: No eating out: 1-3 times/week during the past year weight has: decreased > 10 lbs what type of physical activity do you participate in: none [employer]/mormonism: Congregational seatbelt use: always do you feel safe at home: Yes additional social history: [employer] ROS ROS ED Constitutional Constitutional ED: Denies chills or fever(s) Eyes Eyes: Denies change in vision or diplopia ENT ENT ED: Denies rhinorrhea or sore throat Cardiovascular Cardiovascular: Denies chest pain or palpitations Respiratory/Chest Respiratory/Chest: Denies cough or dyspnea Gastrointestinal Gastrointestinal: Reports abdominal pain; Denies diarrhea, nausea or vomiting Genitourinary Genitourinary ED: Reports vaginal bleeding; Denies dysuria or hematuria Musculoskeletal Musculoskeletal: Denies back pain or neck pain Integumentary Denies abscess or rash Neurologic Neurologic: Denies headache(s), paresthesias or weakness Psychiatric Psychiatric: Reports anxiety; Denies suicidal thoughts EXAM Physical Exam Const Vital Signs: 04/07/25 05:53 Temperature 98.1 F Temperature Source Oral Pulse Rate 94 Respiratory Rate 22 H Blood Pressure 161/91 H Blood Pressure Mean 114 Pulse Ox 99 Oxygen Delivery Method Room Air Positive well nourished, well developed and obese General Appearance ED: well developed and NAD Nutritional Appearance: obese HEENT Reports moist mucous membranes normocephalic and atraumatic Eyes PERRL and EOMs intact bilaterally Neck full ROM and supple Resp normal respiratory effort and clear to auscultation bilaterally Cardio regular rate, regular rhythm and no murmurs GI non-tender and non-distended Auscultation: normoactive bowel sounds Palpation: soft Speculum Exam - Vagina: vaginal bleeding Back/Spine no CVA tenderness General Back: other FROM Extremity normal to inspection General Extremety ED: Negative for edema, pulses abnormal or tenderness General Extremity: Negative for edema or pulses abnormal Neuro oriented x3, CN's II-XII intact bilaterally and no sensory deficits noted Sensorium / Orientation: awake and alert Motor Exam: strength 5/5 throughout Psych Mood & Affect: anxious and tearful Skin no rashes or lesions noted and no wounds MDM MDM MDM Narrative Medical decision making narrative: Assessment: The patient is a 29-year-old female with PMH of hypertension and diet-controlled diabetes presenting for first-trimester vaginal bleeding. Bedside ultrasound demonstrates a single live intrauterine with an anterior placenta, biparietal diameter consistent with 16 weeks 2 days, and heart rate 149 bpm, which is reassuring. Prior blood type on file is A positive, making RhoGAM unnecessary. Given the stable vitals, benign abdominal exam, and reassuring imaging, the most likely diagnosis is benign vaginal bleeding in . Plan: - Reassured patient regarding normal ultrasound findings and well-being - Determined RhoGAM not indicated (A positive) - Discussed case with her computer operator; patient to keep scheduled OB appointment later today - Discharged home in stable condition with return precautions Diagnostics: - Bedside pelvic ultrasound: single live intrauterine ; anterior placenta; biparietal diameter consistent with 16 weeks 2 days; heart tones 149 bpm - Prior blood type (January): A positive Consultations: - Obstetrics ? Dr. Herr: agrees with reassuring findings; recommends no additional tests and to keep today?s OB appointment History & Record Review Additional record(s) reviewed:: Prior labs (blood type A+) Discharge Plan Triage Chief Complaint: ED Provider: Robbie Kevin Dx/Rx/DC Orders Clinical Impression: Vaginal bleeding in Instructions: Vaginal Bleeding During Prescriptions: No Action labetalol 100 mg tablet 100 mg PO BID Algal Ary-3 DHA 200 mg capsule 200 mg PO DAILY One A Day Women's DHA 28 mg iron- 800 mcg combo pack 1 pkg PO DAILY Qty: 120 3RF Primary Care Provider: Elder Solorzano Referrals: Kamille Herr MD [Med Staff - Active Staff, Obstetrics-Gynecology (OBGYN)] - Keep Serjio appointment Activity Restrictions/Additional Instructions: - Bedside ultrasound confirmed a single, live intrauterine at 16 weeks 2 days, with an anterior placenta and a heart rate of 149 bpm. - Your abdominal exam was benign and no concerning findings were noted. - Blood type A positive was verified; RhoGAM is not required. - Continue your current care and keep your scheduled appointment with Dr. Herr later today. - No further testing is needed at this time. Print Language: Nicaraguan Disposition Disposition: Home, Self Care
[2025-04-07 06:22] VITALS: BP 125/84; PULSE 87; RESP 18; TEMP 36.6; O2SAT 99
--- OUTSIDE RECORDS SUMMARY | 2025-04-07 06:23 | XMS RPT_ITS | CCD ---
Author Organization [facility] Care Team Providers Care Relay Man Name Role Phone DR ELDER WEBB DO Primary Care Physician [phone] Unavailable Primary Care Provider Bahman Sexton MECHANICAL DRAFTER, MECHANICAL DRAFTER-C Estela Bray Attending Provider [phone] Dr. Elder Webb Primary Care Provider [phone] Dr. Elder Webb Referring Provider [phone] Adrian Lock Attending Provider [phone] FriendDr[address] Campbell Other Provider [phone] Elder Webb Primary Care Provider [phone] Elder Webb Referring Provider [phone] Dr[address] Kamille Herr Attending Provider [phone] Dr. Elder Webb Primary Care Provider [phone] Elder Webb Referring Provider [phone] Ritu MECHANICAL DRAFTER, MECHANICAL DRAFTER-C Rachell Attending Provider [phone] Unavailable Primary Care Provider LEANN Elizabeth Attending Unavailable DR ELDER WEBB DO Attending Unavailable DR ELDER WEBB DO Primary Care Unavailable CHRISTIAN THORPE-CAMILO CISNEROS Attending DR ELDER Hardin DO Primary Care Unavailable Dr. Elder Webb DO Primary Care Provider [phone] Dr. Elder Webb DO Referring Provider [phone] Ritu RICHARDS-CRachell Attending Provider [phone] Randy RICHARDS-CAiram Attending Provider [phone] Randy RICHARDS-CAiram Referring Provider [phone] Carmenza MCKINNEY, Dr. Simental Attending Provider Carmenza MCKINNEY, Dr. Simental Referring Provider Romar DO, Dr. Friedman Primary Care Provider [phone] Romar DO, Dr. Friedman Referring Provider [phone] Romar DO, Dr. Friedman Primary Care Physician Carmenza MCKINNEY, Dr. Simental Attending Physician Te CNM, Paula Attending Physician [phone] CNM, Paula Referring Provider [phone] ROMAR DO, DR FRIEDMAN Primary Care Unavailable ROMAR DO, DR FRIEDMAN Attending Unavailable ROMAR DO, DR FRIEDMAN Primary Care Unavailable SHARLA SPECIAL LIBRARY LIBRARIAN-ANESTHESIOLOGY FACULTYAVIVA Attending Unavailab le ROMAR DO, DR FRIEDMAN Attending Unavailable ROMAR DO, DR FRIEDMAN Primary Care Unavailable ROMAR DO, DR FRIEDMAN Attending Unavailable ROMAR DO, DR FRIEDMAN Primary Care Unavailable ROMAR DO, DR FRIEDMAN Primary Care Unavailable ROMAR DO, DR FRIEDMAN Attending Unavailable ROMAR DO, DR FRIEDMAN Primary Care Unavailable ROMAR DO, DR FRIEDMAN Attending Unavailable ROMAR DO, DR FRIEDMAN Primary Care Unavailable ROMAR DO, DR FRIEDMAN Attending Unavailable Romar, Elder Primary Care Unavailable Romar, Elder Referring Unavailable Kamille Herr Attending Unavailable Romar, Elder Primary Care Unavailable Romar, Elder Referring Unavailable Kamille Herr Attending Unavailable Romar, Elder Primary Care Unavailable Romar, Elder Referring Unavailable Ritu RICHARDS, Rachell Attending Unavailable Romar, Elder Referring Unavailable MarcanthKamille freeman Attending Unavailable Romar, Elder Primary Care Unavailable Madeline Keller Attending Unavailabl e RomarElder Referring Unavailable Romar, Elder Primary Care Unavailable Romar, Elder Referring Unavailable Airam Padilla Attending Unavailable Romar, Elder Primary Care Unavailable Romar, Elder Primary Care Unavailable Romar, Elder Referring Unavailable Madeline Monet Attending Unavailable Romar, Elder Primary Care Unavailable MarcanthonyKamille Attending Unavailable Airam Padilla Referring Unavailable Romar, Elder Primary Care Unavailable Airam Padilla Attending Unavailable Romar, Elder Primary Care Unavailable Paula Tiwari Referring Unavailable Paula Tiwari Attending Unavailable Romar, Elder Primary Care Unavailable Kamille Herr Referring Unavailable Carmenza, Kamille Attending Unavailable Romar, Elder Primary Care Unavailable Kamille Herr Referring Unavailable Carmenza, Kamille Attending Unavailable Romar, Elder Primary Care Unavailable Barkman, Airam Attending Unavailable Barkman, Airam Referring Unavailable Barkman, Airam Attending Unavailable Barkman, Airam Referring Unavailable Romar, Elder Primary Care Unavailable Barkman, Airam Referring Unavailable Barkman, Airam Attending Unavailable Romar, Elder Primary Care Unavailable Romar, Elder Primary Care Unavailable Paula Tiwari Attending Unavailable Romar, Elder Primary Care Unavailable Romar, Elder Referring Unavailable Paula Tiwari Attending Unavailable Jeanine CARDOZO, Dr. Friedman Primary Care Physician Carmenza MCKINNEY, Dr. Simental Attending Physician Dr. Kamille Herr MD Referring Provider [phone] Dr. Elder Webb DO Referring Provider [phone] Paula Tiwari CNM Attending Physician [phone] Paula Tiwari CNM Referring Provider [phone] Dr. Madeline Keller DO Attending Physician Medications Current Medications Medication Drug Class(es) Dates Sig (Normalized) Sig (Original) 200 actuat albuterol 0.09 mg/actuat dry powder inhaler (3 sources) beta2-Adrenergic Agonist Start: 08-12-2021 Albuterol Sulfate Active 2 INH INHALATION EVERY 6 HOURS August 12, 2021 12:00am albuterol MDI (90 mcg/inh) CFC free inhalation aerosol (3 sources) Start: 03-03-2025 take 1-2 puff(s) by inhalation every four hours as needed for wheezing albuterol MDI (90 mcg/inh) CFC free inhalation aerosol See Instructions, PRN Shortness of breath or wheezing, 1 to 2 puff(s) Inhalation q4h, # 18 gram(s), 0 Refill(s), Pharmacy: [id number], Shortness of breath, 166, cm, 03/03/25 14:00:00 EDT, Height, kg, 03/03/25 14:00:00 EDT, Dosing Weight Start Date: 03/03/25 Status: Ordered Medication Dispense Status: Completed Quantity: 18.0 Unit: g Total Allowed Fills: 1 Fills Dispensed: 0 Indications: Shortness of breath; Start: 03-14-2021 take 2 puff(s) by in halation every four hours as needed for wheezing albuterol MDI (90 mcg/inh) CFC free inhalation aerosol 2 puff(s), Inhalation, q4h, PRN as needed for wheezing, # 18 gram(s), 0 Refill(s), Pharmacy: [id number], Suspected COVID-19 virus infection, 165.1, cm, [...] on above: Take 1 tablet by harper two times a day for 10 days. amoxicillin 875 mg / clavulanate 125 mg oral tablet (1 source) Penicillin-class Antibacterial Start: 03-05-2025 End: 03-12-2025 take 1 tablet by mouth every twelve hours amoxicillin-clavul anate 875 mg-125 mg oral tablet 1 tab(s), Oral, q12h, X 7 day(s), # 14 tab(s), 0 Refill(s), 03/12/25 5:16:00 PM EDT, Pharmacy: [id number], Acute rhinosinusitis, 166, cm, 03/03/25 14:00:00 EDT, Height, 109, kg, 03/03/25 14:00:00 EDT, Dosing Weight Start Date: 03/05/25 Stop Date: 03/12/25 Status: Ordered Medication Dispense Status: Completed Quantity: 14.0 Unit: tab(s) Total Allowed Fills: 1 Fills Dispensed: 0 Indications: Acute sinusitis, unspecified; atomoxetine 40 mg oral capsule (1 source) Norepinephrine Reuptake Inhibitor Start: 04-28-2021 End: 06-27-2021 atomoxetine 40 mg oral capsule Dose : 40 mg = 1 cap(s), Oral, BID, Take in AM and noon, # 120 cap(s), 0 Refill(s), [facility], ADHD (attention deficit hyperactivity disorder), combined type, [...] on above: Take 1 tablet by harper once daily for 4 days. dicyclomine hydrochloride [...] needed, # 56 tab(s), 0 Refill(s), Pharmacy: [facility], 130, cm, 03/02/21 14:56:00 EDT, Height, kg, [...] R03.0, # 1 EA, 0 Refill(s), [facility] [address] Elevated blood pressure reading, 165, cm, 09/02/21 10:24:00 EDT, Height, 115 Start Date: 09/02/21 Status: Ordered docosahexaenoic acid 200 mg oral capsule (13 sources) Start: 01-27-2025 Docosahexaenoi c Acid (Algal Greenleaf-3 Dha) 200 mg capsule Active mg PO January 26, 2025 11:00pm Complies with drug therapy Start: 04-02-2024 End: 01-27-2025 Docosahexaenoic Acid (Prenat al Dha) 200 mg capsule Discontinued mg PO April 02, 2024 12:00am January 27, 2025 7:10am docusate calcium 240 mg oral capsule (1 source) Start: 04-28-2021 End: 06-27-2021 docusate calcium 240 mg oral capsule Dose : 240 mg = 1 cap(s), Oral, Daily, PRN for constipation, with plenty of water, # 30 cap(s), 1 Refill(s), [facility] [address] 165, cm, 04/28/21 8:12:00 [...] Start Date: 03/02/21 Status: Ordered Norethin-E.Estradiol Triphasic (15 sources) Estrogen Start: 08-12-2021 take 1 tablet by mouth once daily Norethin-E.Estradiol Triphasic Active 1 TABLET PO DAILY August 12, 2021 4:36pm Start: 08-12-2021 End: 08-03-2022 take 1 tablet by mouth once daily Norethin-E.Estradiol Triphasic 0.5/1/0.5-35 mg-mcg tablet Discontinued 1 {tbl} PO DAILY August 11, 2021 11:00pm August 03, 2022 1:46pm Start: 08-12-2021 End: 08-03-2022 take 1 tablet [...] 0 Refill(s) Start Date: 09/23/21 Status: Ordered FreeStyle Elise 3+ Sensors (1 source) Start: 09-25-2024 FreeStyle Libr e 3+ Sensors See Instructions, Place once sensor to the back of the upper arm every 15 days. Use reader or phone nicole for daily blood sugar checks. 1 month supply, # 2 EA, 2 Refill(s), Pharmacy: [id number], 166, cm, 09/25/24 14:59:00 EDT, Height, 113.3, kg, 09/25/24 14:59:00 EDT, Dosing Weight Start Date: 09/25/24 Status: Ordered Medication Dispense Status: Completed Quantity: 2.0 Unit: EA Total Allowed Fills: 3 Fills Dispensed: 0 hyoscyamine sulfate 0.125 mg disintegrating oral tablet (4 sources) Start: 09-21-2021 Hyoscyamine Sulfate Active 0.125 MG PO 2 to 4 times per day September 21, 2021 12:00am Iron (5 sources) Start: 01-27-2025 Pnv No.159-Kcna-Ifhvnt No.10 (Pnv Tabs 20-1) 20 mg iron- 1 mg tablet Active {tbl} PO January 26, 2025 11:00pm Complies with drug therapy Start: 01-27-2025 Start: 01-27-2025 Pnv No.163-Iro n-Folate No.10 (Pnv Tabs 20-1) 20 mg iron- 1 mg tablet Active {tbl} PO January 27, 2025 12:00am labetalol hydrochloride 100 mg oral tablet (10 sources) beta-Adrenergic Esa Start: 04-02-2024 End: 04-13-2025 take 1 tablet by mouth twice daily Labetalol 100 mg tablet Active 100 mg PO TWICE A DAY April 02, 2024 12:00am Complies with drug therapy Dyllan FE 1/20 oral tablet (3 sources) Start: 03-02-2021 take 1 tablet by mouth once daily Dyllan FE 1/20 oral tablet Dose = 1 tab(s), Oral, [...] Date: 04/28/21 Stop Date: 06/27/21 Status: Ordered Multivitamins with Folic Acid 0.4 mg oral tablet (3 sources) Start: 09-25-2024 End: 10-30-2025 take 1 tablet by mouth once daily Multivitamins with Folic Acid 0.4 mg oral tablet Dose = 1 tab(s), Oral, qDay, # 100 tab(s), 3 Refill(s), Pharmacy: [facility] #[id number], 166, cm, 09/25/24 14:59:00 EDT, Height, kg, 09/25/24 14:59:00 EDT, Dosing Weight Start Date: 09/25/24 Stop Date: 10/30/25 Status: Ordered Medication Dispense Status: Completed Quantity: 100.0 Unit: tab(s) Total Allowed Fills: 4 Fills Dispensed: 0 Start: 02-18-2024 End: 03-24-2025 take 1 tablet by mouth once daily Multivitamins with Folic Acid 0.4 mg oral tablet Dose = 1 tab(s), Oral, qDay, # 100 tab(s), 3 Refill(s), Pharmacy: [facility] #[id number], 165, cm, 12/26/23 15:36:00 EDT, Height, kg, 12/26/23 15:36:00 EDT, Dosing Weight Start Date: 02/18/24 Stop Date: 03/24/25 Status: Ordered Quantity: 100.0 Unit: tab(s) Repeat number: 4 Start: 09-19-2023 End: 10-23-2024 take 1 tablet by mouth once daily Multivitamins with Folic Acid 0.4 mg oral tablet Dose = 1 tab(s), Oral, qDay, # 100 tab(s), 3 Refill(s), Pharmacy: [facility] #[id number], 163.8, cm, 09/19/23 11:02:00 EDT, Height, kg, 09/19/23 11:02:00 EDT, Dosing Weight Start Date: 09/19/23 Stop Date: 10/23/24 Status: Ordered Probiotic (3 sources) Start: 06-17-2021 Probiotic Oral , qDay, 0 Refill(s) Start Date: 06/17/21 Status: [...] above: Take 1 tablet by harper th three times a day for 4 days. [...] Take 1 tablet by harper th every 8 hours as needed for pain [...] / benazepril hydrochloride 10 mg oral capsule (20 sources) Dihydropyridine Calcium Channel Esa, Angiotensin Converting Enzyme Inhibitor Start: 12-05-2022 take 1 capsule by mouth once amLODIPine-benazep ril (LOTREL) 5-10 mg per capsule Take 1 capsule by mouth every afternoon. 0 12/05/2022 Active Start: 12-19-2021 End: 04-02-2024 Amlodipine-Benazepril 5-10 m g Capsule Discontinued 1 NMA PO DAILY December 18, 2021 11:00pm April 02, 2024 10:28am Start: 12-19-2021 take 1 capsule by mo uth once daily Amlodipine-Benazepril Active 1 CAP PO DAILY December 19, 2021 12:00am Start: 09-21-2021 End: 01-05-2022 take 1 capsule by mouth once daily Amlodipine-Benazepril Discontinued 1 CAP PO DAILY September 21, 2021 12:00am January 05, 2022 8:28am Start: 09-16-2021 End: 01-05-2022 Amlodipine-Benazepril 2.5-10 mg capsule Discontinued 1 NMA PO DAILY September 20, 2021 11:00pm January 05, 2022 7:28am Comment on above: Take 1 capsule by [facility] every afternoon. bisacodyl 5 mg delayed release oral tablet (15 sources) Stimulant Laxative Start: End: take 4 tablets by mouth once Bisacodyl 5 mg tablet,delayed release (DR/EC) Discontinued 20 mg PO ONCE 4 0 September 21, 2021 11:00pm January 05, 2022 7:25am colonoscopy take as directed for colon prep Start: 09-22-2021 End: 01-05-2022 take 20 mg by mouth once Bisacodyl Discontinued 20 MG PO ONCE 4 September 22, 2021 12:00am January 05, 2022 8:25am take as directed for colon prep 12 hr buPROPion hydrochloride 90 mg / naltrexone hydrochloride 8 mg extended release oral tablet (11 sources) Opioid Antagonist, Aminoketone Start: 09-10-2022 End: 04-02-2024 Naltrexone-Bupropion (Contrave) 8-90 mg tablet extended release Discontinued 2 {tbl} PO TWICE A DAY 112 28 2 September 09, 2022 11:00pm April 02, 2024 10:29am cetirizine hydrochloride 10 mg oral tablet (14 sources) Histamine-1 Receptor Antagonist Start: 08-03-2022 End: 04-02-2024 take 1 tablet by mouth once daily as needed Cetirizine (Zyrtec) 10 mg tablet Discontinued 10 mg PO DAILY as needed August 02, 2022 11:00pm April 02, 2024 10:28am Start: 04-19-2022 take 1 mg by mouth once daily Zyrtec 10 mg oral tablet mg = tab(s), Oral, qDay, 0 Refill(s) Start Date: 04/19/22 Status: Ordered Cetirizine (ZYRT EC) 10 mg cap Take by mouth once daily. 0 Active Comment on above: Take by mouth once d aily. Desogestrel-Ethinyl Estradiol (11 sources) Progestin, Estrogen Start: 09-05-2022 End: 04-02-2024 take 0.15 tablet by mouth once daily Desogestrel-Ethinyl Estradiol (Apri) 0.15-0.03 mg tablet Discontinued 1 {tbl} PO daily 17 05September 04, 2022 11:00pm April 02, 2024 10:29am Start: 09-05-2022 End: 04-02-2024 take 0.15 tablet by mouth once daily Desogestrel-Ethinyl Estradiol (Apri) 0.15-0.03 mg tablet Discontinued 1 {tbl} PO daily 17 05September 05, 2022 12:00am April 02, 2024 11:29am Start: 09-05-2022 End: 04-02-2024 take 0.15 tablet by mouth once daily Desogestrel-Ethinyl Estradiol (Apri) 0.15-0.03 mg tablet Discontinued 1 {tbl} PO daily September 05, 2022 12:00am April 02, 2024 11:29am Start: 09-05-2022 Desogestrel-Et hinyl Estradiol (Apri) 0.15-0.03 mg tablet Active 1 TABLET PO daily September 05, 2022 12:00am fluconazole 150 mg oral tablet (20 sources) Azole Antifungal Start: 01-15-2023 End: 04-02-2024 Fluconazole 150 mg tablet Discontinued 150 mg PO .COMPLEX 2 0 December 21, 2023 3:57pm April 02, 2024 10:29am 150 mg PO take one po now and repeat in 3 days Comment on above: take 1 tablet by harper th immediately then repeat in 3 days ibuprofen 800 mg oral tablet (1 source) Nonsteroidal Anti-inflammator y Drug take 1 tablet by mouth every six hours as needed ibuprofen (IBU) 800 mg tablet Take 800 mg by mouth every 6 hours as needed. 0 Active Comment on above: Take 800 mg by mouth every 6 hours as needed. letrozole 2.5 mg oral tablet (20 sources) Aromatase Inhibitor Start: 10-23-2024 End: 01-27-2025 take 1 tablet by mouth once daily Letrozole 2.5 mg tablet Discontinued 5 mg PO daily 10 November 04, 2024 11:00pm December 05, 2024 3:17pm take daily cycle day 3-7 medroxyPROGESTERone acetate 10 mg oral tablet (7 sources) Progestin Start: 11-05-2024 End: 01-27-2025 Medroxyprogesterone (Provera) 10 mg tablet Discontinued 10 mg PO daily 5 November 04, 2024 11:00pm January 27, 2025 7:09am take for five days if neg preg test and no menses after 35-40 days Multivitamin tablet (8 sources) Start: 08-03-2022 End: 04-02-2024 Multivitamin tablet Discontinued 1 {tbl} PO DAILY August 02, 2022 11:00pm April 02, 2024 10:29am Start: 08-03-2022 End: 04-02-2024 Multivitamin tablet Disconti nued 1 {tbl} PO DAILY August 03, 2022 12:00am April 02, 2024 11:29am pantoprazole 40 mg delayed release oral tablet (20 sources) Proton Pump Inhibitor Start: 09-21-2021 End: 08-03-2022 take 1 tablet by mouth once daily in the morning Pantoprazole 40 mg tablet,delayed release (DR/EC) Discontinued 40 mg PO EVERY MORNING April 26, 2022 7:55am August 03, 2022 1:46pm polyethylene glycol 3350 35457 mg powder for oral solution (15 sources) Osmotic Laxative Start: 09-22-2021 End: 01-05-2022 take 238 g by mouth once Polyethylene Glycol 3350 17 gram/dose powder Discontinued 238 g PO ONCE 238 0 September 21, 2021 11:00pm January 05, 2022 7:25am colon prep use as directed for colon prep 72 hr scopolamine 0.0139 mg/hr transdermal system (14 sources) Anticholinergic Start: 04-26-2022 End: 04-02-2024 Scopolamine Base 1 mg over 3 days patch 3 day Discontinued 1 NMA TD Every 3 Days as needed for nausea and vomiting 10 April 26, 2022 12:00am April 02, 2024 10:29am Start: 04-26-2022 Scopolamine Ba se Active 1 PATCH TD Q3D April 26, 2022 1:00am Start: 09-21-2021 Scopolamine Ba se Active 1 PATCH TD Q3D September 21, 2021 12:00am sertraline 50 mg oral tablet (20 sources) Serotonin Reuptake Inhibitor Start: 12-05-2022 take 1 tablet by mouth once sertraline (ZOLOFT) 50 mg tablet Take 1 tablet by mouth every afternoon. 0 12/05/2022 Active Start: 08-03-2022 End: 04-02-2024 take 2 tablets by mouth once daily Sertraline (Zoloft) 25 mg tablet Discontinued 50 mg PO DAILY 30 September 01, 2022 2:58pm April 02, 2024 10:29am Start: 04-19-2022 End: 06-18-2022 sertraline 50 mg oral tablet Dose : 50 mg = 1 tab(s), Oral, qDay, # 60 tab(s), 0 Refill(s), Pharmacy: [facility] #[id number], 165, cm, 04/19/22 11:21:00 EST, Height Start Date: 04/19/22 Stop Date: 06/18/22 Status: Ordered Start: 12-19-2021 End: 08-03-2022 take 1 tablet by mouth once daily Sertraline (Zoloft) 25 mg Tablet Discontinued 25 mg PO DAILY December 18, 2021 11:00pm August 03, 2022 1:48pm Comment on above: Take 1 tablet by harper th every afternoon. sucralfate 100 mg/ml oral suspension (11 sources) Aluminum Complex Start: End: take 1 mL by mouth 1 hour(s) before mealtime Sucralfate 100 mg/mL suspension Discontinued 10 mL PO before meals 1000 0 December 22, 2021 11:00pm August 03, 2022 1:48pm take on an empty stomach one hour before meals and two hours away from other medications for thirty minutes. Start: 12-23-2021 End: 08-03-2022 take 1 mL by mouth 1 hour(s) before mealtime Sucralfate Discontinued 10 ML PO before meals 1000 December 23, 2021 12:00am August 03, 2022 2:48pm take on an empty stomach one hour before meals and two hours away from other medications for thirty minutes. Problems Active Problems Problem Classification Problem Date Documented Da te Episodic/Chronic Abdominal pain (20 sources) Abdominal pain; Translations: [Finding of sensation of abdomen] 03-02-2021 Episodic Anxiety disorders (5 sources) Mixed anxiety and depressive disorder 11-15-2021 Chronic Attention-deficit, conduct, and disruptive behavior disorders (1 source) Attention deficit hyperactivity disorder 03-02-2021 Chronic Attention-deficit, conduct, and disruptive behavior disorders (9 sources) Attention deficit hyperactivity disorder, combined type 04-06-2021 Chronic Diabetes mellitus with complications (20 sources) Type II diabetes mellitus uncontrolled; Translations: [Diabetes mellitus without mention of complication, type II or unspecified type, uncontrolled] Onset: 5 09-25-2024 Chronic Comment on above: controlled with diet Diabetes mellitus without complication (1 source) Diabetic on diet only 09-25-2024 Chronic Diabetes mellitus without complication (20 sources) Hyperglycemia; Translations: [Increased glucose level] Onset: 5 03-14-2021 Episodic Disorders of teeth and jaw (2 sources) Toothache; Translations: [Other specified disorders of teeth and supporting structures] Onset: 3 03-13-2023 Episodic Esophageal disorders (3 sources) Gastroesophageal reflux disease 03-01-2023 Chronic Essential hypertension (20 sources) Hypertensive disorder; Translations: [Essential hypertension] Onset: 5 09-16-2021 Chronic Comment on above: medication. monitor to ensure combo ocp or contrave does not affect. recommend weight reduction. Gastritis and duodenitis (11 sources) Gastritis; Translations: [Gastritis, unspecified, without bleeding] 09-10-2022 Episodic Gastrointestinal hemorrhage (10 sources) Rectal hemorrhage 03-02-2021 Episodic Genitourinary symptoms and ill-defined conditions (1 source) Frequency of micturition; Translations: [Frequency of micturition] Onset: 5 Episodic Immunizations and screening for infectious disease (1 source) Contact with and (suspected) exposure to infections with a predominantly sexual mode of transmission; Translations: [Contact with or exposure to venereal diseases] 01-15-2023 Episodic Menstrual disorders (3 sources) Secondary amenorrhea 03-01-2023 Chronic Mycoses (10 sources) Candidiasis of vagina; Translations: [Candidiasis of vagina] 01-15-2023 Episodic Nausea and vomiting (19 sources) Nausea; Translations: [Nausea] Episodic Nonspecific chest pain (10 sources) Chest pain; Translations: [Chest pain, unspecified] Onset: 2 Episodic Other complications of (13 sources) Maternal obesity complicating , childbirth and the puerperium, antepartum; Translations: [Obesity complicating , unspecified trimester] 01-27-2025 Chronic Comment on above: HgbA1c Other complications of (1 source) Obesity complicating , unspecified trimester; Translations: [Obesity complicating , unspecified trimester] Onset: 5 Chronic Other complications of (13 sources) High risk ; Translations: [Supervision of high risk , unspecified, unspecified trimester] 01-27-2025 Episodic Comment on above: , AZUL 09/22/25, Nicola De La Rosa Other complications of (1 source) Supervision of high risk , unspecified, unspecified trimester; Translations: [Supervision of high risk , unspecified, unspecified trimester] Onset: 5 Episodic Other complications of (1 source) Other specified related conditions, unspecified trimester; Translations: [Other specified related conditions, unspecified trimester] Onset: 5 Episodic Other congenital anomalies (13 sources) Congenital hip dysplasia; Translations: [Other specified congenital deformities of hip] 01-27-2025 Chronic Comment on above: treated at Other congenital anomalies (1 source) Other specified congenital deformities of hip; Translations: [Other specified congenital deformities of hip] Onset: 5 Chronic Other connective tissue disease (1 source) Spasm of cervical paraspinous muscle; Translations: [Other muscle spasm] 03-13-2023 Episodic Other connective tissue disease (1 source) Other muscle spasm; Translations: [Cervical paraspinal muscle spasm] Onset: 3 Episodic Other endocrine disorders (20 sources) Polycystic ovary syndrome; Translations: [Polycystic ovarian syndrome] 08-03-2022 Chronic Comment on above: counseling and educa tion given. recommend diabetes and HTN control prior to any femara script. counseled on how to take medicine but will not start until medically optimized counseling and educa tion given. recommend diabetes and HTN control prior to any femara script. counseled on how to take medicine but will not start until medically optimized. offered HSG and SA now. plan 3 months of letrozole and if no conception needs done prior to anymore being prescribed Other endocrine disorders (6 sources) Polycystic ovarian syndrome; Translations: [Polycystic ovaries] Onset: 4 08-03-2022 Chronic Other female genital disorders (8 sources) Vaginal discharge; Translations: [Other specified noninflammatory disorders of vagina] 09-25-2024 Episodic Other gastrointestinal disorders (20 sources) Irritable bowel syndrome characterized by constipation; Translations: [Irritable bowel syndrome with constipation] 09-10-2022 Chronic Comment on above: avoid phentermine pe r patient request. Other gastrointestinal disorders (3 sources) Irritable bowel syndrome with constipation; Translations: [Irritable bowel syndrome] Onset: 5 09-05-2022 Chronic Other gastrointestinal disorders (20 sources) Constipation alternates with diarrhea; Translations: [Other specified symptoms and signs involving the digestive system and abdomen] 03-02-2021 Episodic Other gastrointestinal disorders (4 sources) Other specified symptoms and signs involving the digestive system and abdomen; Translations: [Other symptoms involving digestive system] Episodic Other liver diseases (1 source) Steatosis of liver 09-25-2024 Chronic Other liver diseases (2 sources) Elevated liver enzymes level 06-26-2024 Episodic Other non-traumatic joint disorders (7 sources) Hip pain 09-02-2021 Episodic Other nutritional; endocrine; and metabolic disorders (9 sources) Hypoalbuminemia 03-14-2021 Chronic Other nutritional; endocrine; and metabolic disorders (20 sources) Body mass index 40+ - severely obese; Translations: [Body mass index (BMI) 40.0-44.9, adult] 06-17-2021 Chronic Other nutritional; endocrine; and metabolic disorders (14 sources) Obesity; Translations: [Obesity, unspecified] 09-10-2022 Chronic Comment on above: nutrition consult co mplete. Other nutritional; endocrine; and metabolic disorders (3 sources) Body mass index (BMI) 40.0-44.9, adult; Translations: [Body Mass Index 40.0-44.9, adult] Onset: 5 09-05-2022 Chronic Other nutritional; endocrine; and metabolic disorders (2 sources) Obesity, unspecified; Translations: [Obesity, unspecified] 09-05-2022 Chronic Other and delivery including normal (14 sources) ; Translations: [Encounter for supervision of normal , unspecified, unspecified trimester] Onset: 5 02-12-2025 Episodic Comment on above: elects NIPT with gen adeola & focus & carrier testing NEEDS REPEAT URINE C ULTURE AT 2ND APPT. elects NIPT with gender, low risk & focus & carrier testing negative Other screening for suspected conditions (not mental disorders or infectious disease) (1 source) Encounter for screening for malignant neoplasm of cervix; Translations: [Encounter for screening for malignant neoplasm of cervix] Onset: Episodic Other upper respiratory disease (3 sources) Nasal congestion 12-05-2022 Episodic Other upper respiratory infections (5 sources) Sore throat symptom; Translations: [Upper respiratory infection] 04-08-2021 Episodic Ovarian cyst (5 sources) Cyst of ovary 11-03-2021 Episodic Heather-; endo-; and myocarditis; cardiomyopathy (except that caused by tuberculosis or sexually transmitted disease) (9 sources) Ejection murmur 04-06-2021 Chronic Residual codes; unclassified (3 sources) Peripheral edema 11-07-2023 Episodic Residual codes; unclassified (1 source) 12 weeks gestation of ; Translations: [12 weeks gestation of ] Onset: Episodic Residual codes; unclassified (1 source) 8 weeks gestation of ; Translations: [8 weeks gestation of ] Onset: Episodic Unclassified (1 source) Cough, unspecified; Translations: [Cough, unspecified] Onset: Past or Other Problems Problem Classification Problem Date Documented Date Episodic/Chronic Other female genital disorders (1 source) Other specified noninflammatory disorders of vagina; Translations: [Other specified noninflammatory disorders of vagina] Onset: 04-30-2024 Episodic Unclassified (1 source) Cough, unspecified; Translations: [Cough, unspecified] Onset: 03-03-2025 Results Test Name Value Interpretation Reference Range Facility Laboratory - Chemistry and C hemistry - challengeOrdered By: Madeline Kiki on 03-10-2025 Glucose Ql (U) Negative [facility] Laboratory - UrinalysisOrder ed By: Madelineemmanuel Swanson on 03-10-2025 Protein Ql (U) Negative [facility] Artillery Specialist Office Visit Reporton 03-10-2025 Artillery Specialist Office Visit Report [facility] [address], [address] [place] [address] OFFICE VISIT Date of Service: 03/10/25 MR#: [id number] Acct: [id number] Name: ANGELA DE LEÓN Rep #: [id number] : 1995 Provider: Dr. 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 Is patient in pain?: No Allergies No Known Allergies Allergy (Verified 03/10/25 15:38) Medications ???Medication ???Instructions ???Recorded ???Confirmed ???Type labetalol 100 mg tablet 100 mg PO BID 04/02/24 03/10/25 Hi story docosahexaenoic acid 200 mg mg PO 01/27/25 03/10/25 History capsule (Algal Greenleaf-3 DHA) vitamins no.163-iron tab PO 01/27/25 03/10/25 History bis-gly 20 mg-folate no.10 1 mg tablet (PNV Tabs 20-1) Last Menstrual Period: 12/16/24 Zika: Zika virus screening: Negative : No PFSH PFSH Medical History Obesity Wears glasses Depression Anxiety Alcohol use Diabetes Gastric reflux Non-smoker Shortness of breath on exertion History of echocardiogram Chest pain Hypertension Alternating constipation and diarrhea Systolic ejection murmur Hypoalbuminemia Hyperglycemia ADHD Rectal bleeding Intermittent abdominal pain Surgical History H/O colonoscopy History of wisdom tooth extraction Hx of tonsillectomy Family History Mother Diabetes Endometriosis PCOS (polycystic ovarian syndrome) Hypertension Father Diabetes Hypertension Grandmother , from old age Cervical cancer, Onset Age: 60 Paternal Brother ADHD Social History adopted: No household members: spouse and family housing: house current occupational status: employed 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 current occupational exposures/hazards: No pets and animals: Yes (Avoid litterbox) pets and animals: cat(s) and dog(s) history of recent travel: No sexually active: Yes Smoking Status: Never smoker second hand exposure: Yes (Mother smoked) alcohol intake: current alcohol intake frequency: holidays/special occasions only details: not while substance use type: does not use well-balanced diet: daily or most days caffeine: No eating out: 1-3 times/week during the past year weight has: decreased > 10 lbs what type of physical activity do you participate in: none cisco/jehovah's witness: [employer] seatbelt use: always do you feel safe at home: Yes additional social history: Rj [employer] eMindful History 1 Elective abortions Hx Para 0 Spontaneous abortions Hx # Term Pregnancies Ectopic pregnancies Hx # Pregnancies Multiple births # of living children HPI 12 wk ob Details: ANGELA DE LEÓN is a 29 year old who presents for routine OB visit. OB Visit AZUL Calculator Estimated Delivery Date Method Current WG Current Estimate 09/22/25 LMP (Certain) 12w 0d Other Estimates 09/21/25 Ultrasound #1 12w 1d Expected Delivery Route/Plan Labor Preferences- CB/BF classes: [] labor support person: [] labor intervention preferences: [] pain management options preferred: [] cut cord/dad catch: [] : [] PP control planned: [] discussed possible routes of delivery and associated risks: [] special requests: [] Specific Issue/Plans Covid status: [] Flu vaccine: [] Tdap vaccine: [] Rhogam: [] LARC form signed: [] Problem list reviewed and updated with the most current plan of care details and appropriate orders placed. Relevant counseling for the gestational age provided. Continue routine care and follow up unless otherwise noted in visit notes/problem list details Initial Weight: 241 lb Date -???-???-???-???-?? ?-???-???-???-???-? ??-???-???- EGA Weight BP Urine Prot -???-???-???-???-?? ?-???-???-???-???-? ??-???-???- Glucose FHR FuHt Pres Dilation -???-???-???-???-?? ?-???-???-???-???-? ??-???-???- Effaced St Visit Note 02/12/25 -???-???-???-???-?? ?-???-???-???-???-? ??-???-???- 8w 2d 241 lb (+0 oz) 118/84 -???-???-???-???-?? ?-???-???-???-???-? ??-???-???- 176 -???-???-???-???-?? ?-???-???-???-???-? ??-???-???- KW- CRL 1.87 cm cons with dates. accepts NIP. labetalol for HTN and DM controlled with diet 03/10/25 -???-???-???-???-?? ?-???-???-???-???-? ??-???-???- 12w 0d 238 lb (-3 lb) 117/70 Negative - (more content not included)... Normal [facility] CVFLURVon 03-04-2025 FLU A PCR Negative Normal Negative [facility] Comment on above: Performed By: #### C VFLURV #### [address] [address] FLU B PCR Negative Normal Negative [facility] Comment on above: Performed By: #### C VFLURV #### [place] [id number] [place], [place] [address] RSV PCR Negative Normal Negative [facility] Comment on above: Performed By: #### C VFLURV #### [place] [address] SARS-CoV-2 (COVID-19) RNA [place]+probe Ql (Unsp spec) Negative Normal Negative [facility] Comment on above: Result Comment: Resu lts from the Xpert Xpress CoV-2/Flu/RSV plus test should be correlated with the clinical history, epidemiological data, and other data available to the clinical evaluating the patient. Performance of the Xpert Xpress CoV-2/Flu/RSV plus test has only been established in nasopharyngeal swab specimen. Erroneous test results might occur from improper specimen collection, failure to follow the recommended sample collection, handling and storage procedures, technical error, or sample mix-up. False negative results may occur if a virus is present at a level below the analytical limit of detection. Viral nucleic acid may persist in vivo, independent of virus viability. Detection of analyte target(s) does not imply that the corresponding virus(es) are infectious or are the causative agents for clinical symptoms. Recent patient exposure to FluMist or other live attenuated influenza vaccines may cause inaccurate positive results. Performed By: #### C VFLURV #### [place] [id number] LABORATORYOrdered By: Estefanía Miguel on 03-03-2025 FLUAV RNA [place]+probe Ql (Resp) Negative (03/03/25 2:21 PM) Normal AO Auto Urine SS FLUBV RNA [place]+probe Ql (Resp) Negative (03/03/25 2:21 PM) Normal AO Auto Urine SS RSV RNA [place]+probe Ql (Resp) Negative (03/03/25 2:21 PM) Normal AO Auto Urine SS SARS-CoV-2 (COVID-19) RNA [place]+probe Ql (Resp) Negative 1 (03/03/25 2:21 PM) Normal AO Auto Urine SS Comment on above: Interpretive Data: R esults from the Xpert Xpress CoV-2/Flu/RSV plus test should be correlated with the clinical history, epidemiological data, and other data available to the clinical evaluating the patient. Performance of the Xpert Xpress CoV-2/Flu/RSV plus test has only been established in nasopharyngeal swab specimen. Erroneous test results might occur from improper specimen collection, failure to follow the recommended sample collection, handling and storage procedures, technical error, or sample mix-up. False negative results may occur if a virus is present at a level below the analytical limit of detection. Viral nucleic acid may persist in vivo, independent of virus viability. Detection of analyte target(s) does not imply that the corresponding virus(es) are infectious or are the causative agents for clinical symptoms. Recent patient exposure to FluMist or other live attenuated influenza vaccines may cause inaccurate positive results. Anion gap in Serum or Plasma Ordered By: Rachell Chaney on 02-27-2025 Anion gap [Moles/Vol] 13 mmol/L 10-02 [facility] BUN/creatinine ratioOrdered By: Rachell Chaney on 02-27-2025 Urea nitrogen/Creatinine [Mass ratio] 12.3 mg/mg 03-[address] [facility] Bilirubin, totalOrdered By: Rachell Chaney on 02-27-2025 Bilirubin [Mass/Vol] 0.33 mg/dL 0.00-1.30 [facility] Carbon dioxide, total [Moles /volume] in Central venous bloodOrdered By: Rachell Chaney on 02-27-2025 CO2 [Moles/Vol] 23.0 mmol/L 21.0-32.[address] [facility] Chloride assayOrdered By: Azael Chaney on 02-27-2025 Chloride [Moles/Vol] 100 mmol/L 98-108 [facility] Comprehensive Metabolic Prof ilon 02-27-2025 Albumin [Mass/Vol] 4.2 g/dL Normal 3.5-5.0 [place] Comment on above: Performed By: #### L 801.8234 #### [facility] [address] [place], [address] Albumin/Globulin [Mass ratio] 1.3 {ratio} Normal 0.9-2.[address] [facility] Comment on above: Performed By: #### L 801.2600 #### [facility] [address] [place], [address] ALK PHOS 69 U/L Normal 35-[address] [facility] Comment on above: Performed By: #### L 801.2600 #### [facility] [address] [place], [address] ALT [Catalytic activity/Vol] 20 U/L Normal <=[address] [facility] Comment on above: Performed By: #### L 801.2600 #### [facility] [address] [place], [address] AST [Catalytic activity/Vol] 18 U/L Normal <=[address] [facility] Comment on above: Performed By: #### L 801.2600 #### [facility] [address] [place], [address] Bilirubin [Mass/Vol] 0.33 mg/dL Normal 0.00-1.30 [facility] Comment on above: Performed By: #### L 801.2600 #### [facility] [address] [place], [address] BUN/CRE 12.3 RATIO Normal 10-[address] [facility] Comment on above: Performed By: #### L 801.2600 #### [facility] [address] [place], [address] Calcium [Mass/Vol] 9.4 mg/dL Normal 7.6-11.0 [place] Comment on above: Performed By: #### L 801.2600 #### [facility] [address] [place], [address] Chloride [Moles/Vol] 100 mmol/L Normal 98-108 [facility] Comment on above: Performed By: #### L 801.2600 #### [facility] [address] [place], [address] CO2 [Moles/Vol] 23.0 mmol/L Normal 21.0-32.[address] [facility] Comment on above: Performed By: #### L 801.2600 #### [facility] [address] [place], [address] Creatinine [Mass/Vol] 0.53 mg/dL Low 0.70-1.20 [facility] Comment on above: Performed By: #### L 801.2600 #### [facility] [address] [place], [address] GAP 13 Normal 5-[address] [facility] Comment on above: Performed By: #### L 801.2600 #### [facility] [address] [place], [address] GFR/1.73 sq M.predicted among non-blacks MDRD (S/P/Bld) [Vol rate/Area] 127 mL/min/{1.73_m2} Normal >[address] [facility] Comment on above: Result Comment: mL/m in/1.73m2 CKD-EPI Creatinine Equation (2020) Performed By: #### L 801.2600 #### [facility] [address] [place], [address] Globulin (S) [Mass/Vol] 3.1 g/dL Normal 2.2-4.2 [facility] Comment on above: Performed By: #### L 801.2600 #### [facility] [address] [place], [address] Glucose [Mass/Vol] 115 mg/dL High 70-99 [place] Comment on above: Performed By: #### L 801.2600 #### [facility] [address] [place], [address] Potassium [Moles/Vol] 3.5 mmol/L Normal 3.3-5.1 [facility] Comment on above: Performed By: #### L 801.2600 #### [facility] [address] [place], [address] Sodium [Moles/Vol] 136 mmol/L Normal 133-145 [place] Comment on above: Performed By: #### L 801.2600 #### [facility] [address] [place], [address] T PROT 7.3 g/dL Normal 5.9-8.[address] [facility] Comment on above: Performed By: #### L 801.2600 #### [facility] [address] [place], [address] Urea nitrogen [Mass/Vol] 7 mg/dL Normal 4-[address] [facility] Comment on above: Performed By: #### L 801.2600 #### [facility] [address] [place], [address] Glomerular filtration rate ( GFR) estimation/1.73 sq m using serum, plasma, or whole bOrdered By: Rachell Chaney on 02-27-2025 GFR/1.73 sq M.predicted among non-blacks MDRD (S/P/Bld) [Vol rate/Area] 127 mL/min/{1.73_m2} >[address] [facility] Comment on above: mL/min/1.73m2 CKD-EP I Creatinine Equation (2020) Laboratory - Chemistry and C hemistry - challengeOrdered By: Rachell Chaney on 02-27-2025 AST [Catalytic activity/Vol] 18 U/L <[address] [facility] NATERAon 02-27-2025 NATURA SEE SCANNED REPORT Normal [place] Comment on above: Order Comment: Comme nts: NIPT with gender focus, carrier testing Performed By: #### L 900.0098 #### [facility] [address] [place], [address] Potassium measurement (mass/ volume)Ordered By: Rachell Chaney on 02-27-2025 Potassium (Unsp spec) [Mass/Vol] 3.5 mmol/L 3.3-5.[address] [facility] Serum creatinine measurement (mass/volume)Ordered By: Rachell Chaney on 02-27-2025 Creatinine [Mass/Vol] 0.53 mg/dL Low 0.70-1.20 [facility] Serum globulin measurementOr dered By: Rachell Chaney on 02-27-2025 Globulin (S) [Mass/Vol] 3.1 g/dL 2.2-4.[address] [facility] Serum glucose measurement (m ass/volume)Ordered By: Rachell Chaney on 02-27-2025 Glucose [Mass/Vol] 115 mg/dL High 70-99 [place] Serum or plasma alanine santamaria otransferase (ALT) measurementOrdered By: Rachell Chaney on 02-27-2025 ALT [Catalytic activity/Vol] 20 U/L <[address] [facility] Serum or plasma albumin gricelda urement (mass/volume)Ordered By: Rachell Chaney on 02-27-2025 Albumin [Mass/Vol] 4.2 g/dL 3.5-5.0 [place] Serum or plasma albumin/glob ulin mass ratioOrdered By: Rachell Chaney on 02-27-2025 Albumin/Globulin [Mass ratio] 1.3 {ratio} 0.9-2.[address] [facility] Serum or plasma alkaline debo sphatase measurementOrdered By: Rachell Chaney on 02-27-2025 ALP [Catalytic activity/Vol] 69 U/L 35-[address] [facility] Serum or plasma calcium gricelda urement (mass/volume)Ordered By: Rachell Chaney on 02-27-2025 Calcium [Mass/Vol] 9.4 mg/dL 7.6-11.0 [place] Serum or plasma urea nitroge n measurement (mass/volume)Ordered By: Rachell Chaney on 02-27-2025 Urea nitrogen [Mass/Vol] 7 mg/dL 4-[address] [facility] Sodium levelOrdered By: Delio Chaney on 02-27-2025 Sodium [Moles/Vol] 136 mmol/L 133-145 [place] Total proteinOrdered By: Kasia Chaney on 02-27-2025 Protein [Mass/Vol] 7.3 g/dL 5.9-8.4 [place] Urine Cultureon 02-19-2025 URC #1 Gram positive kiera suggestive of a diphtheroid. Susceptibility not normally performed on this organism Urine Culture Urine Culture Gram positive kiera [place] Count 80,000-100,000 Mixed Gram Positive Organisms Mixed Gram Positive Organisms MIXC Mixed contaminants. Submit a new specimen if indicated. Normal [facility] Comment on above: Performed By: #### L 506.0400, L501.9520, L500.4050 #### [facility] [address] [place], [place], [address] Chlamydia/GC [place] aptimaon CHLAMY,NUC ACID Negative Normal Negative [facility] Comment on above: Performed By: #### L 801.2600 #### [facility] [address] [place], [place], [address] GC BY NUC ACID Negative Normal Negative [facility] Comment on above: Result Comment: Perf ormed at: =G - [facility] [address] [id number] [employer] And Maintenance Supervisor: Katherine Pérez MD, Phone: [phone] Performed By: #### L 801.2600 #### [facility] [address] [place], [place], [address] Laboratory - Chemistry and C hemistry - challengeOrdered By: Paula Tiwari on 02-16-2025 Bilirubin Ql (U) Negative [facility] Glucose Ql (U) Negative [facility] Ketones Ql (U) Moderate (40+) [place] pH (U) 5 [pH] [facility] Specific gravity (U) [Rel density] 1.[address] [facility] Urobilinogen (U) [Mass/Vol] 0.7129648 mg/dL [facility] Laboratory - Hematology and Cell countsOrdered By: Paula Tiwari on 02-16-2025 Hemoglobin Ql (U) Negative [facility] Laboratory - Specimen inform ationOrdered By: Paula Tiwari on 02-16-2025 Clarity (U) Cloudy [facility] Color (U) ANGELINE [facility] Laboratory - UrinalysisOrder ed By: Paula Tiwari on 02-16-2025 Nitrite Ql (U) Negative [facility] Protein Ql (U) Trace [facility] No Panel InformationOrdered By: Paula Tiwrai on 02-16-2025 Urine Leukocytes Positive [facility] Urine Non-Hemolyzed Blood [facility] Urine cultureOrdered By: Brady Tiwari on 02-16-2025 Bacteria identified Cx Nom (U) Positive Abnormal [facility] Bacteria identified Cx Nom (U) Positive Abnormal [facility] Type AND Screenon 02-13-2025 Ab SCREEN GEL Negative Normal [facility] Comment on above: Order Comment: PN Performed By: #### L 509.4006, L3890.6006, L3890.6102, BTS, L3890.6301, L100.0100, L501.9985, L509.8002 #### [facility] [address] [place], [address] Absolute lymphocyte countOrd ered By: Kamille Herr on 02-12-2025 Lymphocytes Auto (Unsp spec) [#/Vol] 2.09 10*3/uL 0.83-4.[address] [facility] Absolute neutrophil countOrd ered By: Kamille Herr on 02-12-2025 Neutrophils (Bld) [#/Vol] 8.8 10*3/uL High 2.0-7.[address] [facility] Automated lymphocyte count a s percentage of total leukocytesOrdered By: Kamille Herr on 02-12-2025 Lymphocytes/100 WBC Auto (Unsp spec) 18.0 % Low 19-[address] [facility] Basophil percentageOrdered B y: Kamille Herr on 02-12-2025 Basophils/100 WBC (Bld) 0.3 % 0-[address] [facility] CBC W/Diff, Automatedon 01-20 Absolute Lymph 2.09 X10 3/uL Normal 0.83-4.[address] [facility] Comment on above: Performed By: #### L 509.4006, L3890.6006, L3890.6102, BTS, L3890.6301, L100.0100, L501.9985, L509.8002 #### [facility] [address] [place], [address] Absolute Neut 8.8 X10 3/uL High 2.0-7.[address] [facility] Comment on above: Performed By: #### L 509.4006, L3890.6006, L3890.6102, BTS, L3890.6301, L100.0100, L501.9985, L509.8002 #### [facility] [address] [place], [address] Basophils/100 WBC (Bld) 0.3 % Normal 0-[address] [facility] Comment on above: Performed By: #### L 509.4006, L3890.6006, L3890.6102, BTS, L3890.6301, L100.0100, L501.9985, L509.8002 #### [facility] [address] [place], [address] Eosinophils/100 WBC (Bld) 1.7 % Normal 0-[address] [facility] Comment on above: Performed By: #### L 509.4006, L3890.6006, L3890.6102, BTS, L3890.6301, L100.0100, L501.9985, L509.8002 #### [facility] [facility] [address] [place], [address] Erythrocyte distribution width (RBC) [Ratio] 13.2 % Normal 11.6-14.[address] [facility] Comment on above: Performed By: #### L 509.4006, L3890.6006, L3890.6102, BTS, L3890.6301, L100.0100, L501.9985, L509.8002 #### [facility] [address] [place], [address] Hematocrit (Bld) [Volume fraction] 35.9 % Low 37-[address] [facility] Comment on above: Performed By: #### L 509.4006, L3890.6006, L3890.6102, BTS, L3890.6301, L100.0100, L501.9985, L509.8002 #### [facility] [address] [place], [address] Hemoglobin (Bld) [Mass/Vol] 12.6 g/dL Normal 12.0-15.[address] [facility] Comment on above: Performed By: #### L 509.4006, L3890.6006, L3890.6102, BTS, L3890.6301, L100.0100, L501.9985, L509.8002 #### [facility] [address] [place], [address] IG% 0.300 Normal 0.0-0.[address] [facility] Comment on above: Result Comment: IG% - Immature Granulocytes (promyelocytes, myelocytes and metamyelocytes) > 1% indicates that a LEFT SHIFT is Present. Performed By: #### L 509.4006, L3890.6006, L3890.6102, BTS, L3890.6301, L100.0100, L501.9985, L509.8002 #### [facility] [address] [place], [address] Lymphocytes/100 WBC (Bld) 18.0 % Low 19-[address] [facility] Comment on above: Performed By: #### L 509.4006, L3890.6006, L3890.6102, BTS, L3890.6301, L100.0100, L501.9985, L509.8002 #### [facility] [address] [place], [address] MCH (RBC) [Entitic mass] 28.6 pg Normal 27.0-32.[address] [facility] Comment on above: Performed By: #### L 509.4006, L3890.6006, L3890.6102, BTS, L3890.6301, L100.0100, L501.9985, L509.8002 #### [facility] [address] [place], [address] MCHC (RBC) [Mass/Vol] 35.1 g/dL Normal 32-36 [facility] Comment on above: Performed By: #### L 509.4006, L3890.6006, L3890.6102, BTS, L3890.6301, L100.0100, L501.9985, L509.8002 #### [facility] [address] [facility] [place], [address] MCV (RBC) [Entitic vol] 81.4 fL Normal 81-[address] [facility] Comment on above: Performed By: #### L 509.4006, L3890.6006, L3890.6102, BTS, L3890.6301, L100.0100, L501.9985, L509.8002 #### [facility] [address] [facility] [place], [address] Monocytes/100 WBC (Bld) 3.9 % Normal 0-[address] [facility] Comment on above: Performed By: #### L 509.4006, L3890.6006, L3890.6102, BTS, L3890.6301, L100.0100, L501.9985, L509.8002 #### [facility] [address] [facility] [place], [address] Neutrophils/100 WBC (Bld) 75.8 % High 47-[address] [facility] Comment on above: Performed By: #### L 509.4006, L3890.6006, L3890.6102, BTS, L3890.6301, L100.0100, L501.9985, L509.8002 #### [facility] [address] [place], [address] Nucleated RBC (Bld) [#/Vol] 0 10*3/uL Normal 0-[address] [facility] Comment on above: Performed By: #### L 509.4006, L3890.6006, L3890.6102, BTS, L3890.6301, L100.0100, L501.9985, L509.8002 #### [facility] [address] [place], [address] Platelet mean volume (Bld) [Entitic vol] 11.1 fL Normal 6.2-12.[address] [facility] Comment on above: Performed By: #### L 509.4006, L3890.6006, L3890.6102, BTS, L3890.6301, L100.0100, L501.9985, L509.8002 #### [facility] [address] [place], [address] Platelets (Bld) [#/Vol] 261 10*3/uL Normal 150-[address] [facility] Comment on above: Performed By: #### L 509.4006, L3890.6006, L3890.6102, BTS, L3890.6301, L100.0100, L501.9985, L509.8002 #### [facility] [address] [place], [address] RBC (Bld) [#/Vol] 4.41 10*6/uL Normal 4.2-5.[address] [facility] Comment on above: Performed By: #### L 509.4006, L3890.6006, L3890.6102, BTS, L3890.6301, L100.0100, L501.9985, L509.8002 #### [facility] [address] [place], [address] RDW SD 38.7 fl Normal 35.1-43.[address] [facility] Comment on above: Performed By: #### L 509.4006, L3890.6006, L3890.6102, BTS, L3890.6301, L100.0100, L501.9985, L509.8002 #### [facility] [address] [place], [place], [id number] (077) WBC (Bld) [#/Vol] 11.6 10*3/uL High 4.4-11.[address] [facility] Comment on above: Performed By: #### L 509.4006, L3890.6006, L3890.6102, BTS, L3890.6301, L100.0100, L501.9985, L509.8002 #### [facility] [address] [place], [address] Chlamydia trachomatis rRNA d etection by probe and target amplification methodOrdered By: Kamille Herr on 02-12-2025 C. trachomatis rRNA [place]+probe Ql (Unsp spec) Negative Negative [facility] Eosinophil percentageOrdered By: Kamilledelvin Herr on 02-12-2025 Eosinophils/100 WBC (Bld) 1.7 % 0-[address] [facility] Erythrocyte distribution wid th ratioOrdered By: Kamille Herr on 02-12-2025 Erythrocyte distribution width (RBC) [Ratio] 13.2 % 11.6-14.[address] [facility] Erythrocyte distribution wid th standard deviationOrdered By: Kamille Barnhartpete on 02-12-2025 Erythrocyte distribution width (RBC) [Ratio] 38.7 fl 35.1-43.[address] [facility] HIVon 02-12-2025 HIV Non-Reactive Normal Nonreactive [facility] Comment on above: Result Comment: Non- Reactive Reactive Repeatedly reactive samples must be confirmed according to CDC recommended confirmatory algorithms. The subresults for either HIVAG or AHIV can be used as an aid in the selection of the confirmation algorithm for reactive samples. Send out specimens with Reactive results to [facility] for confirmation. Order the HIV antibody detection and differentiation: #[id number] Performed By: #### L 801.2600 #### [facility] [address] [place], [address] Hematocrit Auto (Bld) [Volum e fraction]Ordered By: Kamille Laceytatyana on 02-12-2025 Hematocrit (Bld) [Volume fraction] 35.9 % Low 37-[address] [facility] Hemoglobin A1con 02-12-2025 HbA1c (Bld) [Mass fraction] 5.7 % Normal <=5.[address] [facility] Comment on above: Result Comment: Norm al < 5.7 % Prediabetic 5.7 - 6.4 % Diabetic >or= 6.5 % Please note range changes. Performed By: #### L 509.4006, L3890.6006, L3890.6102, BTS, L3890.6301, L100.0100, L501.9985, L509.8002 #### [facility] [address] [place], [place], [address] Hemoglobin A1c percentageOrd ered By: Kamilledelvin Laceytatyana on 02-12-2025 HbA1c (Bld) [Mass fraction] 5.7 % <5.[address] [facility] Comment on above: Normal < 5.7 % Predi abetic 5.7 - 6.4 % Diabetic >or= 6.5 % Please note range changes. Hemoglobin measurementOrdere d By: Kamille Carmenza on 02-12-2025 Hemoglobin (Bld) [Mass/Vol] 12.6 g/dL 12.0-15.[address] [facility] Hepatitis C Antibodyon 02-12 Hepatitis C Ab Non-Reactive Normal Nonreactive [facility] Comment on above: Result Comment: Reac tive: Presumptive evidence of antibodies to HCV. Follow CDC recommendations for supplemental testing. Non-Reactive: Antibodies to HCV were not detected; does not exclude the possibility of exposure to HCV Reactive Results are presumptive evidence of antibodies to HCV. Follow CDC recommendations for supplemental testing. Order confirmation testing: HCV Quant by PCR testing - HCVPCR #[id number] Non Reactive: < 0.8 Equivocal: >/= 0.8 to < 1.0 Reactive: >/= 1.0 The CDC requires that a reactive/equivocal HCV antibody result be sent out for confirmation. HCV Quant by PCR testing. Performed By: #### L 801.2600 #### [facility] [address] [place], [place], [id number] Immature granulocytes/100 WB C Auto (Bld)Ordered By: Kamille Herr on 02-12-2025 Immature granulocytes/100 WBC (Bld) 0.300 % 0.0-0.[address] [facility] Comment on above: IG% - Immature Granu locytes (promyelocytes, myelocytes and metamyelocytes) > 1% indicates that a LEFT SHIFT is Present. L3890.6102on 02-12-2025 HEP B Surf Ag Non-Reactive Normal Nonreactive [facility] Comment on above: Result Comment: Reac tive: Presumptive evidence of HBV. Repeatedly reactive samples must be confirmed using a neutralization test ([employer] HBsAg Confirmatory Test) Non-Reactive: HBsAg not detected; does not exclude the possibility of exposure to HBV Performed By: #### L 801.2600 #### [facility] [address] [place], [address] L509.4006on 02-12-2025 Rubella IgG REAC Normal Nonreactive [facility] Comment on above: Result Comment: Anti body Result: Interpretation Non-Reactive: Non-Immune Reactive: Immune The following results were obtained with the [employer] Rubella IgG assay. Results from assays of other manufacturers cannot be used interchangeably. Performed By: #### L 801.2600 #### [facility] [address] [place], [place], [id number] Laboratory - Microbiology an d Antimicrobial susceptibilityOrdered By: Kamille Herr on 02-12-2025 HBV surface Ag Ql (S) Non-Reactive Nonreactive [facility] Comment on above: Reactive: Presumptiv e evidence of HBV. Repeatedly reactive samples must be confirmed using a neutralization test ([employer] HBsAg Confirmatory Test)Non-Reactive: HBsAg not detected; does not exclude the possibility of exposure to HBV MCV (mean corpuscular volume ) determinationOrdered By: Kamille Herr on 02-12-2025 MCV (RBC) [Entitic vol] 81.4 fL 81-[address] [facility] Mean corpuscular hemoglobin (MCH) determinationOrdered By: Kamille Herr on 02-12-2025 MCH (RBC) [Entitic mass] 28.6 pg 27.0-32.[address] [facility] Mean corpuscular hemoglobin concentration (MCHC) determinationOrdered By: Kamille Herr on 02-12-2025 MCHC (RBC) [Mass/Vol] 35.1 g/dL 32-36 [facility] Mean platelet volume determi nationOrdered By: Kamille Herr on 02-12-2025 Platelet mean volume (Bld) [Entitic vol] 11.1 fL 6.2-12.[address] [facility] Monocyte percentageOrdered B y: Kamille Herr on 02-12-2025 Monocytes/100 WBC (Bld) 3.9 % 0-[address] [facility] Neisseria gonorrhoeae nuclei c acid detection by amplified probe techniqueOrdered By: Kamille Herr on 02-12-2025 N. gonorrhoeae DNA [place]+probe Ql (Unsp spec) Negative Negative [facility] Comment on above: Performed at: =[address] [id number] Director: Katherine Pérez MD, Phone: [phone] Neutrophil percentageOrdered By: Kamille Herr on 02-12-2025 Neutrophils/100 WBC (Bld) 75.8 % High 47-[address] [facility] No Panel InformationOrdered By: Kamille Herr on 02-12-2025 HIV (1&2) Antibody Non-Reactive Nonreactive [facility] Comment on above: Non-ReactiveReactive Repeatedly reactive samples must be confirmed according to CDC recommended confirmatory algorithms. The subresults for either HIVAG or AHIV can be used as an aid in the selection of the confirmation algorithm for reactive samples.Send out specimens with Reactive results to [facility] for confirmation.Order the HIV antibody detection and differentiation: #[id number] Nucleated red blood cell per centageOrdered By: Kamille Herr on 02-12-2025 Nucleated RBC/100 WBC (Bld) [Ratio] 0 % 0-[address] [facility] Artillery Specialist Office Visit Reporton 02-12-2025 Artillery Specialist Office Visit Report [facility] [address], [address] [place] [address] OFFICE VISIT Date of Service: 02/12/25 MR#: [id number] Acct: [id number] Name: ANGELA DE LEÓN Rep #: [id number] : 1995 Provider: ESTEVAN New ams Age/Sex: 29/F Location: [facility] Status: Signed Intake Vital Signs 12/05/24 15:27 01/27/25 09:09 02/12/25 12:49 02/12/25 12:56 Height 5 ft 5 in 5 ft 5 in 5 ft 5 in 5 ft 5 in Weight: 241 lb BMI 40.1 BP 118/84 H Intake Visit Reasons: *EST* NOB LMP 12/16, AZUL 09/22 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 Required: No Is patient in pain?: No Allergies No Known Allergies Allergy (Verified 02/12/25 12:54) Medications ???Medication ???Instructions ???Recorded ???Confirmed ???Type labetalol 100 mg tablet 100 mg PO BID 04/02/24 02/12/25 Hi story docosahexaenoic acid 200 mg mg PO 01/27/25 02/12/25 History capsule (Algal Greenleaf-3 DHA) vitamins no.163-iron tab PO 01/27/25 02/12/25 History bis-gly 20 mg-folate no.10 1 mg tablet (PNV Tabs 20-1) Last Menstrual Period: 12/16/24 Zika: Zika virus screening: Negative : Yes Have you fallen in the past year?: No PFSH PFSH Medical History Obesity Wears glasses Depression Anxiety Alcohol use Diabetes Gastric reflux Non-smoker Shortness of breath on exertion History of echocardiogram Chest pain Hypertension Alternating constipation and diarrhea Systolic ejection murmur Hypoalbuminemia Hyperglycemia ADHD Rectal bleeding Intermittent abdominal pain Surgical History H/O colonoscopy History of wisdom tooth extraction Hx of tonsillectomy Family History Mother Diabetes Endometriosis PCOS (polycystic ovarian syndrome) Hypertension Father Diabetes Hypertension Grandmother , from old age Cervical cancer, Onset Age: 60 Paternal Brother ADHD Social History adopted: No household members: spouse and family housing: house current occupational status: employed 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 current occupational exposures/hazards: No pets and animals: Yes (Avoid litterbox) pets and animals: cat(s) and dog(s) history of recent travel: No sexually active: Yes Smoking Status: Never smoker second hand exposure: Yes (Mother smoked) alcohol intake: current alcohol intake frequency: holidays/special occasions only details: not while substance use type: does not use well-balanced diet: daily or most days caffeine: No eating out: 1-3 times/week during the past year weight has: decreased > 10 lbs what type of physical activity do you participate in: none [employer]/jehovah's witness: [employer] seatbelt use: always do you feel safe at home: Yes additional social history: [employer] History 1 Elective abortions Hx Para 0 Spontaneous abortions Hx # Term Pregnancies Ectopic pregnancies Hx # Pregnancies Multiple births # of living children HPI *EST* NOB LMP 12/16, AZUL 09/22 Details: ANGELA DE LEÓN is a 29 year old who presents for New OB visit. OB Visit AZUL Calculator Estimated Delivery Date Method Current WG Current Estimate 09/22/25 LMP (Certain) 8w 2d Other Estimates 09/21/25 Ultrasound #1 8w 3d Estimated Due Date: 09/22/25 Expected Delivery Route/Plan Labor Preferences- CB/BF classes: [] labor support person: [] labor intervention preferences: [] pain management options preferred: [] cut cord/dad catch: [] : [] PP control planned: [] discussed possible routes of delivery and associated risks: [] special requests: [] Specific Issue/Plans Covid status: [] Flu vaccine: [] Tdap vaccine: [] Rhogam: [] LARC form signed: [] Problem list reviewed and updated with the most current plan of care details and appropriate orders placed. Relevant counseling for the gestational age provided. Continue routine care and follow up unless otherwise noted in visit notes/problem list details Initial Weight: 241 lb Date -???-???-???-???-?? ?-???-???-???-???-? ??-???-???- EGA Weight BP Urine Prot -???-???-???-???-?? ?-???-???-???-???-? ??-???-???- Glucose FHR FuHt Pres Dilation -???-???-???-???-?? ?-???-???-???-???-? ??-???-???- Effaced St Visit Note 02/12/25 -???-???-???-???-?? ?-???-???-???-???-? ??-???-???- 8w 2d 241 lb (+0 oz) 118/84 -???-???-???-???-?? ?-???-???-???-???-? ??-???-???- 176 -???-???-???-???-?? ?-???-???-???-???-? ??-???-???- KW- CRL 1.87 cm cons with dates. accepts NIP. labetalol for HTN and DM controlled with diet Menstrua (more content not included)... Normal [facility] Platelet countOrdered By: Farhan Herr on 02-12-2025 Platelets (Bld) [#/Vol] 261 10*3/uL 150-[address] [facility] RBC Auto (Bld) [#/Vol]Ordere d By: Kamille Herr on 02-12-2025 RBC (Bld) [#/Vol] 4.41 10*6/uL 4.2-5.[address] [facility] Syphilis Antibodieson 2024 Syphilis Abs Non-Reactive Normal Nonreactive [facility] Comment on above: Performed By: #### L 801.2600 #### [facility] [address] [place], [address] White blood cell (WBC) count Ordered By: Kamille Herr on 02-12-2025 WBC (Bld) [#/Vol] 11.6 10*3/uL High 4.4-11.[address] [facility] Office Visit Reporton 2024 Office Visit Report [facility] [address] [place] [address] OFFICE VISIT Date of Service: 01/27/25 MR#: [id number] Acct: [id number] Patient: ANGELA CHRISTINE Rep #: [id number] : 1995 Provider: Dr. Kamille lynch MD Age/Sex: 29/F Location: [facility] Status: Signed Intake Vital Signs 12/05/24 15:27 01/27/25 09:09 Height 5 ft 5 in 5 ft 5 in Weight: 243 lb 9 oz BMI 40.5 BP 110/62 Blood Pressure Location Lt brachial Position Sitting Intake Visit Reasons: PNOB Vitals Education 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 Required: No Accompanied by: Is patient in pain?: No Allergies No Known Allergies Allergy (Verified 01/27/25 09:09) Medications ???Medication ???Instructions ???Recorded ???Confirmed ???Type labetalol 100 mg tablet 100 mg PO BID 04/02/24 01/27/25 Hi story docosahexaenoic acid 200 mg mg PO 01/27/25 01/27/25 History capsule (Algal Greenleaf-3 DHA) vitamins no.163-iron tab PO 01/27/25 01/27/25 History bis-gly 20 mg-folate no.10 1 mg tablet (PNV Tabs 20-1) Is last menstrual period known: Yes Last menstrual period: 12/16/24 Post menopausal: No Patient : Yes Nurse's Note: Pt here for secondary amenorrhea. Vitals WNL. PNOB questions completed. Problem list, allergies, and medications updated. First trimester ACOG education completed. Assessment and Plan Assessment and Plan (1) Congenital hip dysplasia: Status: Acute Comment: treated at (2) Supervision of high-risk : Status: Acute Comment: , AZUL 09/22/25, Rj (3) : Status: Acute Comment: elects NIPT with gender focus carrier testing (4) Obesity affecting : Status: Acute Comment: HgbA1c (5) Diabetes type 2, uncontrolled: Status: Acute Qualifiers: Glycemic state: with hyperglycemia Qualified Code(s): E11.65 - Type 2 diabetes mellitus with hyperglycemia (6) Elevated glucose: Status: Acute (7) Hypertension: Status: Chronic Qualifiers: Hypertension type: unspecified Qualified Code(s): I10 - Essential (primary) hypertension Comment: medication. monitor to ensure combo ocp or contrave does not affect. recommend weight reduction. (8) BMI 40.0-44.9, adult: Status: Acute (9) PCOS (polycystic ovarian syndrome): Status: Acute Comment: counseling and education given. recommend diabetes and HTN control prior to any femara script. counseled on how to take medicine but will not start until medically optimized. offered HSG and SA now. plan 3 months of letrozole and if no conception needs done prior to anymore being prescribed (10) Irritable bowel syndrome with constipation: Status: Acute Comment: avoid phentermine per patient request. Orders: Orders CBC W/Diff, Automated 01/27/25 O09.90 - Supervision of high risk , unspecified, unspecified trimester Type Screen 01/27/25 O09.90 - Supervision of high risk , unspecified, unspecified trimester Rubella IgG 01/27/25 O09.90 - Supervision of high risk , unspecified, unspecified trimester Hepatitis C Antibody 01/27/25 O09.90 - Supervision of high risk , unspecified, unspecified trimester Hepatitis B Surface Antigen 01/27/25 O09.90 - Supervision of high risk , unspecified, unspecified trimester Culture, Urine 01/27/25 O09.90 - Supervision of high risk , unspecified, unspecified trimester Syphilis Antibodies 01/27/25 O09.90 - Supervision of high risk , unspecified, unspecified trimester Chlamydia/GC [place] aptima 01/27/25 O09.90 - Supervision of high risk , unspecified, unspecified trimester HIV 01/27/25 O09.90 - Supervision of high risk , unspecified, unspecified trimester Hemoglobin A1c 01/27/25 E11.65 - Type 2 diabetes mellitus with hyperglycemia, O09.90 - Supervision of high risk , unspecified, unspecified trimester, O99.210 - Obesity complicating , unspecified trimester PAP I-G w/rfx hrHPV-Aptima 01/27/25 O09.90 - Supervision of high risk , unspecified, unspecified trimester, Z12.4 - Encounter for screening for malignant neoplasm of cervix IDA 01/27/25 O09.90 - Supervision of high risk , unspecified, unspecified trimester 01/31/25 0138 Date Kamille Herr MD Cosign Signature: Date (if applicable) CC: Normal [facility] Artillery Specialist Office Visit Reporton 12-05-2024 Artillery Specialist Office Visit Report [facility]'s [address], [facility] [address] [place] [address] OFFICE VISIT Date of Service: 12/05/24 MR#: [id number] Acct: [id number] Name: ANGELA CHRISTINE Rep #: [id number] : 1995 Provider: Dr. Kamille lynch MD Age/Sex: 29/F Location: [facility] Status: Signed Intake Vital Signs 09/25/24 10:02 12/05/24 15:22 12/05/24 15:27 Height 5 ft 5 in 5 ft 5 in 5 ft 5 in Weight: 246 lb BMI 40.9 BP 124/85 H Intake Visit Reasons: medication follow up *$30 copay Chief Complaint: Medication f/u 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 Required: No Is patient in pain?: No Allergies No Known Allergies Allergy (Verified 12/05/24 15:21) Medications ???Medication ???Instructions ???Recorded ???Confirmed ???Type docosahexaenoic acid 200 mg mg PO 04/02/24 12/05/24 History capsule ( DHA) labetalol 100 mg tablet 100 mg PO BID 04/02/24 12/05/24 Hi story medroxyprogesterone 10 mg tablet 10 mg PO QDAY #5 tabs 11/05/24 Rx (Provera) letrozole 2.5 mg tablet 7.5 mg (3 x 2.5 mg) PO QDAY 5 days 12/05/24 12/05/24 Rx #15 tabs Is last menstrual period known: Yes Last Menstrual Period: 11/14/24 Post menopausal: No Patient : No : [...] Social History adopted: No 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 history of recent travel: No sexually active: Yes Smoking Status: Never smoker second hand exposure: Yes alcohol intake: current alcohol intake frequency: a few times a month caffeine: Yes eating out: 1-3 times/week seatbelt use: always do you feel safe at home: Yes additional social history: Rj ZENDEJAS medication follow up *$30 copay Details: ANGELA CHRISTINE is a 29 year old who presents for follow up of pcos and being on letrozole x 2 months. she did ovulate this last month but likely not the previous. she denies any side effect no bleeding or dischare. she has done a home SA kit and it was normal but hasn't done a formal kit and decline HSG so far. she is working on HTN and diabetes medical management. Female Reproductive History Last Menstrual Period: 06/27/25 ROS Const Constitutional: Denies fatigue, fever(s), headache(s), increased appetite, poor appetite, weight gain or weight loss GI GI: Reports as [...] of Care Code Off vis,est,level 4 Diagnoses PCOS (polycystic ovarian syndrome) E28.2 Assessment and Plan Assessment and Plan (1) PCOS (polycystic ovarian syndrome): Status: Acute Comment: counseling and education given. recommend diabetes and HTN control prior to any femara script. counseled on how to take medicine but will not start until medically optimized. offered HSG and SA now. plan 3 months of letrozole and if no conception needs done prior to anymore being prescribed Medications: Changed From letrozole take daily cycle day 3-7 5 mg (2 x 2.5 mg) PO QDAY 10 tabs 0RF To letrozole take daily cycle day 3-7 7.5 mg (3 x 2.5 mg) PO QDAY 5 days 15 tabs 1RF Plan PCOS counseling an (more content not included)... Normal [facility] PROGESTERONE 4317on 12-06-19 25 PROGESTERONE 21.9 ng/mL Normal . [facility] Comment on above: Order Comment: N cycle day 21-22 Result Comment: Foll icular phase 0.1 - 0.9 Luteal phase 1.8 - 23.9 Ovulation phase 0.1 - 12.0 First trimester 11.0 - 44.3 Second trimester 25.4 - 83.3 Third trimester 58.7 - 214.0 Postmenopausal 0.0 - 0.1 Performed at: [address] [place], [place] [id number] [employer] Supervisor: Sukhi Gill PhD, Phone: [phone] Performed By: #### L 302.7652 #### [facility] [address] [place], [place], [id number] Anion gap in Serum or Plasma Ordered By: Airam Padilla on 10-15-2024 Anion gap [Moles/Vol] 11 mmol/L 5-15 [facility] BUN/creatinine ratioOrdered By: Airam Padilla on 10-15-2024 Urea nitrogen/Creatinine [Mass ratio] 18.1 mg/mg 10-[address] [facility] Bilirubin, totalOrdered By: Airam Padilla on 10-15-2024 Bilirubin [Mass/Vol] 0.39 mg/dL 0.00-1.30 [facility] Carbon dioxide, total [Moles /volume] in Central venous bloodOrdered By: Airam Padilla on 10-15-2024 CO2 [Moles/Vol] 26.1 mmol/L 21.0-32.[address] [facility] Chloride assayOrdered By: Renate Padilla on 10-15-2024 Chloride [Moles/Vol] 102 mmol/L 98-108 [facility] Comprehensive Metabolic Prof ilon 10-15-2024 Albumin [Mass/Vol] 4.3 g/dL Normal 3.5-5.0 [place] Comment on above: Performed By: #### L 501.9985, L500.4050 #### [facility] [address] [place], [place], [id number] Albumin/Globulin [Mass ratio] 1.4 {ratio} Normal 0.9-2.[address] [facility] Comment on above: Performed By: #### L 501.9985, L500.4050 #### [facility] [address] [place], [place], [id number] ALK PHOS 109 U/L High 35-[address] [facility] Comment on above: Performed By: #### L 501.9985, L500.4050 #### [facility] [address] [place], [address] ALT [Catalytic activity/Vol] 38 U/L High <=[address] [facility] Comment on above: Performed By: #### L 501.9985, L500.4050 #### [facility] [address] [place], [address] AST [Catalytic activity/Vol] 32 U/L Normal <=[address] [facility] Comment on above: Result Comment: Hemo lysis present, Results??could be affected. ?? Performed By: #### L 501.9985, L500.4050 #### [facility] [address] [place], [address] Bilirubin [Mass/Vol] 0.39 mg/dL Normal 0.00-1.30 [facility] Comment on above: Performed By: #### L 501.9985, L500.4050 #### [facility] [address] [place], [address] BUN/CRE 18.1 RATIO Normal 10-[address] [facility] Comment on above: Performed By: #### L 501.9985, L500.4050 #### [facility] [address] [place], [address] Calcium [Mass/Vol] 9.3 mg/dL Normal 7.6-11.0 [place] Comment on above: Performed By: #### L 501.9985, L500.4050 #### [facility] [address] [place], [address] Chloride [Moles/Vol] 102 mmol/L Normal 98-108 [facility] Comment on above: Performed By: #### L 501.9985, L500.4050 #### [facility] [address] [place], [address] CO2 [Moles/Vol] 26.1 mmol/L Normal 21.0-32.[address] [facility] Comment on above: Performed By: #### L 501.9985, L500.4050 #### [facility] [address] [place], [address] Creatinine [Mass/Vol] 0.63 mg/dL Low 0.70-1.20 [facility] Comment on above: Performed By: #### L 501.9985, L500.4050 #### [facility] [address] [place], [address] GAP 11 Normal 5-[address] [facility] Comment on above: Performed By: #### L 501.9985, L500.4050 #### [facility] [address] [place], [address] GFR/1.73 sq M.predicted among non-blacks MDRD (S/P/Bld) [Vol rate/Area] 122 mL/min/{1.73_m2} Normal >[address] [facility] Comment on above: Result Comment: mL/m in/1.73m2 CKD-EPI Creatinine Equation (2020) Performed By: #### L 501.9985, L500.4050 #### [facility] [address] [place], [address] Globulin (S) [Mass/Vol] 3.1 g/dL Normal 2.2-4.2 [facility] Comment on above: Performed By: #### L 501.9985, L500.4050 #### [facility] [address] [place], [address] Glucose [Mass/Vol] 121 mg/dL High 70-99 [place] Comment on above: Performed By: #### L 501.9985, L500.4050 #### [facility] [address] [place], [address] Potassium [Moles/Vol] 4.1 mmol/L Normal 3.3-5.1 [facility] Comment on above: Result Comment: Hemo lysis present, Results??could be affected. ?? Performed By: #### L 501.9985, L500.4050 #### [facility] [address] [place], [address] Sodium [Moles/Vol] 138 mmol/L Normal 133-145 [place] Comment on above: Performed By: #### L 501.9985, L500.4050 #### [facility] [address] [place], [address] T PROT 7.3 g/dL Normal 5.9-8.[address] [facility] Comment on above: Performed By: #### L 501.9985, [id number] #### [facility] [address] [place], [address] Urea nitrogen [Mass/Vol] 11 mg/dL Normal 4-[address] [facility] Comment on above: Performed By: #### L 501.9985, L500.4050 #### [facility] [address] [place], [address] Glomerular filtration rate ( GFR) estimation/1.73 sq m using serum, plasma, or whole bOrdered By: Airam Padilla on 10-15-2024 GFR/1.73 sq M.predicted among non-blacks MDRD (S/P/Bld) [Vol rate/Area] 122 mL/min/{1.73_m2} >[address] [facility] Comment on above: mL/min/1.73m2 CKD-EP I Creatinine Equation (2020) Hemoglobin A1con 10-15-2024 HbA1c (Bld) [Mass fraction] 5.9 % High <=5.[address] [facility] Comment on above: Result Comment: Norm al < 5.7 % Prediabetic 5.7 - 6.4 % Diabetic >or= 6.5 % Please note range changes. Performed By: #### L 501.9985, L500.4050 #### [facility] [address] [place], [address] Hemoglobin A1c percentageOrd ered By: Airam Padilla on 10-15-2024 HbA1c (Bld) [Mass fraction] 5.9 % High <5.[address] [facility] Comment on above: Normal < 5.7 % Predi abetic 5.7 - 6.4 % Diabetic >or= 6.5 % Please note range changes. Laboratory - Chemistry and C hemistry - challengeOrdered By: Airam Padilla on 10-15-2024 AST [Catalytic activity/Vol] 32 U/L <[address] [facility] Comment on above: Hemolysis present, R esults could be affected. Potassium measurement (mass/ volume)Ordered By: Airam Padilla on 10-15-2024 Potassium (Unsp spec) [Mass/Vol] 4.1 mmol/L 3.3-5.[address] [facility] Comment on above: Hemolysis present, R esults could be affected. Serum creatinine measurement (mass/volume)Ordered By: Airam Padilla on 10-15-2024 Creatinine [Mass/Vol] 0.63 mg/dL Low 0.70-1.20 [facility] Serum globulin measurementOr dered By: Airam Padilla on 10-15-2024 Globulin (S) [Mass/Vol] 3.1 g/dL 2.2-4.[address] [facility] Serum glucose measurement (m ass/volume)Ordered By: Airam Padilla on 10-15-2024 Glucose [Mass/Vol] 121 mg/dL High 70-99 [place] Serum or plasma alanine santamaria otransferase (ALT) measurementOrdered By: Airam Padilla on 10-15-2024 ALT [Catalytic activity/Vol] 38 U/L High <[address] [facility] Serum or plasma albumin gricelda urement (mass/volume)Ordered By: Airam Padilla on 10-15-2024 Albumin [Mass/Vol] 4.3 g/dL 3.5-5.0 [place] Serum or plasma albumin/glob ulin mass ratioOrdered By: Airam Padilla on 10-15-2024 Albumin/Globulin [Mass ratio] 1.4 {ratio} 0.9-2.[address] [facility] Serum or plasma alkaline debo sphatase measurementOrdered By: Airam Padilla on 10-15-2024 ALP [Catalytic activity/Vol] 109 U/L High 35-[address] [facility] Serum or plasma calcium gricelda urement (mass/volume)Ordered By: Airam Padilla on 10-15-2024 Calcium [Mass/Vol] 9.3 mg/dL 7.6-11.0 [place] Serum or plasma urea nitroge n measurement (mass/volume)Ordered By: Airam Padilla on 10-15-2024 Urea nitrogen [Mass/Vol] 11 mg/dL 4-[address] [facility] Sodium levelOrdered By: Ladonna Padilla on 10-15-2024 Sodium [Moles/Vol] 138 mmol/L 133-145 [place] Total proteinOrdered By: Henok Padilla on 10-15-2024 Protein [Mass/Vol] 7.3 g/dL 5.9-8.4 [place] Artillery Specialist Office Visit Reporton 09-25-2024 Artillery Specialist Office Visit Report [facility]'s [address], [address] [place] [address] OFFICE VISIT Date of Service: 09/25/24 MR#: [id number] Acct: [id number] Name: ANGELA CHRISTINE Rep #: [id number] : 1995 Provider: DOLORES vela Age/Sex: 29/F Location: [facility] Status: Signed Intake Vital Signs 06/16/24 15:05 09/25/24 10:01 09/25/24 10:02 Height 5 ft 5 in 5 ft 5 in 5 ft 5 in Weight: 266 lb 8 oz 248 lb 8 oz BMI 44.3 41.3 BP 129/84 H 120/81 H Intake Visit Reasons: 3 M 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 Herr. She has lost 20 lbs with diet and exercise. She sees PCP today and will fax Hgba1c, CMP and liver US results. Her did an online company for semen analysis due to cost and [...] Acute Quali (more content not included)... Normal [place] 07-31-2024 U Ratio Alb/Cre 5 mg/G Normal 0-30 [facility] Comment on above: Performed By: #### M ALBR #### [facility] [address] [place], [place] [address] US ABDOMEN LIMITEDon 025 US ABDOMEN LIMITED [...] Date: 07/31/2024 8:52:31 AM Ordering Provider: [facility] LABORATORYOrdered By: Sally Oliveira on 06-26-2024 Albumin DL <= 20 mg/L (U) [Mass/Vol] 13.9 mg/L Invalid Interpretation Code AO ADM SS Albumin/Creatinine DL <= 20 mg/L (U) [Mass ratio] 0 mcg/mg Normal 0 - 30 mcg/mg AO Chem istry S Creatinine (U) [Mass/Vol] 284.0 mg/dL Invali d Interpretation Code AO ADM SS MALBRon 06-26-2024 U Creatinine 284.0 mg/dL Normal [facility] Comment on above: Performed By: #### M ALBR #### [address] [place] [id number] [place], [place] [address] U Microalb 13.9 mg/L Normal [facility] Comment on above: Performed By: #### M ALBR #### [id number] [place], [place] [address] Artillery Specialist Office Visit Reporton 06-16-2024 Artillery Specialist Office Visit Report [facility]'s [address], [address] [place] [address] OFFICE VISIT Date of Service: 06/16/24 MR#: [id number] Acct: [id number] Name: ANGELA CHRISTINE Rep #: [id number] : 1995 Provider: Dr. 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 06/23/242025 Date Kamille Herr MD Cosign Signature: Date (more content not included)... Normal [facility] Comprehensive Metabolic Prof ilon 06-02-2024 Albumin [Mass/Vol] 3.6 g/dL Normal 3.2-5.0 [place] Comment on above: Performed By: #### L 506.0400, L501.9520, L500.4050 #### [facility] [address] [place], [address] Albumin/Globulin [Mass ratio] 0.9 {ratio} Normal 0.9-2.[address] [facility] Comment on above: Performed By: #### L 506.0400, L501.9520, L500.4050 #### [facility] [address] [place], [address] ALK P 115 U/L Normal 45-[address] [facility] Comment on above: Performed By: #### L 506.0400, L501.9520, L500.4050 #### [facility] [address] [place], [address] ALT [Catalytic activity/Vol] 133 U/L High 13-[address] [facility] Comment on above: Performed By: #### L 506.0400, L501.9520, L500.4050 #### [facility] [address] [place], [address] AST [Catalytic activity/Vol] 63 U/L High 15-[address] [facility] Comment on above: Performed By: #### L 506.0400, L501.9520, L500.4050 #### [facility] [address] [place], [address] Bilirubin [Mass/Vol] 0.40 mg/dL Normal 0.20-1.00 [facility] Comment on above: Result Comment: For patients on eltrombopag therapy, use of [facility] [place] TBIL is not recommended. Performed By: #### L 506.0400, L501.9520, L500.4050 #### [facility] [address] [place], [address] BUN/CRE 12.8 RATIO Normal 10-[address] [facility] Comment on above: Performed By: #### L 506.0400, L501.9520, L500.4050 #### [facility] [address] [place], [address] CA,Total 8.8 mg/dL Normal 8.5-10.[address] [facility] Comment on above: Performed By: #### L 506.0400, L501.9520, L500.4050 #### [facility] [address] [place], [address] Chloride [Moles/Vol] 105 mmol/L Normal 98-107 [facility] Comment on above: Performed By: #### L 506.0400, L501.9520, L500.4050 #### [facility] [address] [place], [address] CO2 [Moles/Vol] 26.0 mmol/L Normal 21.0-32.[address] [facility] Comment on above: Performed By: #### L 506.0400, L501.9520, L500.4050 #### [facility] [address] [place], [address] Creatinine [Mass/Vol] 0.78 mg/dL Normal 0.55-1.02 [facility] Comment on above: Result Comment: The validity of the calculated GFR GFRAA in patients over 70 years has not been determined. Clinical correlation is essential. Performed By: #### L 506.0400, L501.9520, L500.4050 #### [facility] [address] [place], [address] EST GFR - AA 112 mL/min Normal >[address] [facility] Comment on above: Result Comment: Afri can [place]ar[place] GFR Calc Performed By: #### L 506.0400, L501.9520, L500.4050 #### [facility] [address] [place], [address] GAP 8 Normal 5-[address] [facility] Comment on above: Performed By: #### L 506.0400, L501.9520, L500.4050 #### [facility] [address] [place], [address] GFR/1.73 sq M.predicted among non-blacks MDRD (S/P/Bld) [Vol rate/Area] 92 mL/min/{1.73_m2} Normal >60 [facility] Comment on above: Result Comment: Non- GFR Calc Performed By: #### L 506.0400, L501.9520, L500.4050 #### [facility] [address] [place], [address] Globulin (S) [Mass/Vol] 4.0 g/dL Normal 2.2-4.2 [facility] Comment on above: Performed By: #### L 506.0400, L501.9520, L500.4050 #### [facility] [address] [place], [address] Glucose [Mass/Vol] 171 mg/dL High 74-106 [place] Comment on above: Result Comment: Fast ing Glucose result greater than or equal to 126 mg/dL suggests DIABETES MELLITUS per A.D.A. criteria. Performed By: #### L 506.0400, L501.9520, L500.4050 #### [facility] [address] [place], [address] Potassium [Moles/Vol] 3.7 mmol/L Normal 3.5-5.1 [facility] Comment on above: Performed By: #### L 506.0400, L501.9520, L500.4050 #### [facility] [address] [place], [address] Sodium [Moles/Vol] 139 mmol/L Normal 136-145 [place] Comment on above: Performed By: #### L 506.0400, L501.9520, L500.4050 #### [facility] [address] [place], [address] T PROT 7.6 g/dL Normal 6.4-8.[address] [facility] Comment on above: Performed By: #### L 506.0400, L501.9520, L500.4050 #### [facility] [address] [place], [address] Urea nitrogen [Mass/Vol] 10 mg/dL Normal 7-[address] [facility] Comment on above: Performed By: #### L 506.0400, L501.9520, L500.4050 #### [facility] [address] [place], [address] T4 Free Directon 06-02-2024 T4 FREE DIRECT 1.22 ng/dL Normal 0.76-1.[address] [facility] Comment on above: Performed By: #### L 506.0400, L501.9520, L500.4050 #### [facility] [address] [place], [address] Thyroid Stim Hormone (TSH)on 06-02-2024 TSH 3.240 uIU/mL Normal 0.358-3.[address] [facility] Comment on above: Performed By: #### L 506.0400, L501.9520, L500.4050 #### [facility] [address] [place], [address] hCG Titer Quant., Serumon HCG QUANT. < 1 Normal 1-[address] [facility] Comment on above: Result Comment: hCG levels with Gestational Age Gestational Age hCG mIU/mL (IU/L) 0.2 - 1 week 5 - 50 1-2 weeks 50 - 500 2-3 weeks 100 - 5000 3-4 weeks 500 - 42414 4-5 weeks 1000 - 00266 5-6 weeks 59813 - 100,000 6-8 weeks 04406 - 200,000 2-3 months 445[address] - 100,000 Performed By: #### L 506.0400, L501.9520, L500.4050 #### [facility] [address] [place], [address] Genital Culture Comprehensiv allison 04-03-2024 VAC Reason for Exam: vaginal discharge Normal vaginal ning isolated. No yeast, Gardnerella, Neisseria or beta-hemolytic Streptococcus isolated. Normal [facility] Comment on above: Performed By: #### L 506.0400, L501.9520, L500.4050 #### [facility] [address] [place], [place], [address] Gram Stainon 04-02-2024 GS Reason for Exam: vaginal discharge Gram Stain 4+ Gram positive rods No Gram negative diplococci No White Blood Cells Score = 0 Interpretation: 0-3 Normal, 4-6 Intermediate, 7-10 Positive BV Normal [facility] Comment on above: Performed By: #### L 506.0400, L501.9520, L500.4050 #### [facility] [address] 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 Other preventative health care screenings: Elder [facility] pcp Female Reproductive History Last Menstrual Period: [...] external n (more content not included)... Normal [facility] QUANTTBon 05-10-2023 QFT Criteria Comment Normal [facility] ([place]) Comment on above: Result Comment: QuantiFERON-TB Gold [...] for the test. Performed By: #### 1 [id number] #### [place] [address] QFT Mitogen Value >10.00 Normal [facility] ([place]) Comment on above: Performed By: #### 1 [address]505 #### [place] [address] QFT Nil Value 0.00 IU/mL Normal [facility] ([place]) Comment on above: Performed By: #### 1 [address] #### [place] [address] QFT TB1 Ag Value 0.00 IU/mL Normal [facility] ([place]) Comment on above: Performed By: #### 1 [address] #### [place] [address] QFT TB2 Ag Value 0.00 IU/mL Normal [facility] ([place]) Comment on above: Performed By: #### 1 [address] #### [place] [address] QFT-TB Gold Plus Clt Inc Negative Normal Negative [facility] ([place]) Comment on above: Result Comment: No [...] interferon gamma. Chemiluminescence immunoassay methodology Performed At: [address] [id number] Jairo Isbell PhD Ph:[phone] Performed By: #### 1 [id number] #### [place] [address] .Auto Diffon 05-08-2023 Basophil, Absolute 0.0 10 3/mcL Normal 0.0-0.2 [facility] ([place]) Comment on above: Performed By: #### A [place], ADIFF, TSH, GFR, CMP, LIPID, CBC #### [address] [address] #### HCV1 #### [address] [address] Basophils/100 WBC (Bld) 0.6 % Normal 0.0-2.5 A [facility] ([place]) Comment on above: Performed By: #### A [place], ADIFF, TSH, GFR, CMP, LIPID, CBC #### [address] [address] #### HCV1 #### [address] [address] Eosinophil, Absolute 0.2 10 3/mcL Normal 0.0-0.4 [facility] ([place]) Comment on above: Performed By: #### A [place], ADIFF, TSH, GFR, CMP, LIPID, CBC #### [address] [address] #### HCV1 #### [address] [address] Eosinophils/100 WBC (Bld) 3.0 % Normal 0.0-7.0 [facility] ([place]) Comment on above: Performed By: #### A [place], ADIFF, TSH, GFR, CMP, LIPID, CBC #### [place] [address] #### HCV1 #### [address] [address] Lymphocyte, Absolute 1.9 10 3/mcL Normal 0.8-3.9 [facility] ([place]) Comment on above: Performed By: #### A [place], ADIFF, TSH, GFR, CMP, LIPID, CBC #### [address] [address] #### HCV1 #### [address] [address] Lymphocytes/100 WBC (Bld) 25.3 % Normal 10.0-50.0 [facility] ([place]) Comment on above: Performed By: #### A [place], ADIFF, TSH, GFR, CMP, LIPID, CBC #### [address] [address] #### HCV1 #### [address] [address] Monocyte, Absolute 0.4 10 3/mcL Normal 0.2-1.0 [facility] ([place]) Comment on above: Performed By: #### A [place], ADIFF, TSH, GFR, CMP, LIPID, CBC #### [address] [address] #### HCV1 #### [address] [address] Monocytes/100 WBC (Bld) 5.4 % Normal 1.7-13.0 A [facility] ([place]) Comment on above: Performed By: #### A [place], ADIFF, TSH, GFR, CMP, LIPID, CBC #### [address] [address] #### HCV1 #### [address] [address] Neutrophils/100 WBC (Bld) 65.7 % Normal 37.0-80.0 [facility] ([place]) Comment on above: Performed By: #### A [place], ADIFF, TSH, GFR, CMP, LIPID, CBC #### [address] [address] #### HCV1 #### [address] [address] .GFRon 05-08-2023 GFR Non- 103 ml/min/1.73sqm Normal [facility] ([place]) Comment on above: Result Comment: GFR [...] ADIFF, TSH, GFR, CMP, LIPID, CBC #### [address] [address] #### HCV1 #### [address] [address] GFR 125 ml/min/1.73sqm Normal [facility] ([place]) Comment on above: Result Comment: GFR [...] ADIFF, TSH, GFR, CMP, LIPID, CBC #### [address] [address] #### HCV1 #### [address] [address] .NEUABSon 05-08-2023 Neutrophil, Absolute 4.8 10 3/mcL Normal 2.9-6.2 [facility] ([place]) Comment on above: Performed By: #### [place], ADIFF, TSH, GFR, CMP, LIPID, CBC #### [address] [address] #### HCV1 #### [address] [address] CBCon 05-08-2023 Erythrocyte distribution width (RBC) [Ratio] 14.6 % High 11.5-14.5 [facility] ([place]) Comment on above: Performed By: #### [place], ADIFF, TSH, GFR, CMP, LIPID, CBC #### [address] [address] #### HCV1 #### [place] [address] Hematocrit (Bld) [Volume fraction] 38.5 % Normal 37.0-47.0 [facility] ([place]) Comment on above: Performed By: #### A [place], ADIFF, TSH, GFR, CMP, LIPID, CBC #### [place] [address] #### HCV1 #### [place] [address] Hgb 12.9 G/dL Normal 12.0-16.0 [facility] ([place]) Comment on above: Performed By: #### A [place], ADIFF, TSH, GFR, CMP, LIPID, CBC #### [place] [address] #### HCV1 #### [place] [address] MCH (RBC) [Entitic mass] 27.0 pg Normal 27.0-31.2 [facility] ([place]) Comment on above: Performed By: #### A [place], ADIFF, TSH, GFR, CMP, LIPID, CBC #### [place] [address] #### HCV1 #### [place] [address] MCHC 33.4 G/dL Normal 33.0-37.0 [facility] ([place]) Comment on above: Performed By: #### A [place], ADIFF, TSH, GFR, CMP, LIPID, CBC #### [place] [address] #### HCV1 #### [place] [address] MCV (RBC) [Entitic vol] 80.7 fL Normal 80.0-94.0 A [facility] ([place]) Comment on above: Performed By: #### A [place], ADIFF, TSH, GFR, CMP, LIPID, CBC #### [place] [address] #### HCV1 #### [place] [address] Platelet 322 10 3/mcL Normal 130-400 [facility] ([place]) Comment on above: Performed By: #### A [place], ADIFF, TSH, GFR, CMP, LIPID, CBC #### [place] [address] #### HCV1 #### [place] [address] Platelet mean volume (Bld) [Entitic vol] 8.2 fL Normal 7.4-10.4 [facility] ([place]) Comment on above: Performed By: #### A [place], ADIFF, TSH, GFR, CMP, LIPID, CBC #### [place] [address] #### HCV1 #### [place] [address] RBC 4.77 10 6/mcL Normal 4.20-5.40 [facility] ([place]) Comment on above: Performed By: #### A [place], ADIFF, TSH, GFR, CMP, LIPID, CBC #### [place] [address] #### HCV1 #### [place] [address] WBC 7.3 10 3/mcL Normal 4.6-10.8 [facility] ([place]) Comment on above: Performed By: #### A [place], ADIFF, TSH, GFR, CMP, LIPID, CBC #### [place] [address] #### HCV1 #### [place] [address] CMPon 05-08-2023 Albumin Level 3.7 G/dL Normal 3.5-5.0 [facility] ([place]) Comment on above: Performed By: #### A [place], ADIFF, TSH, GFR, CMP, LIPID, CBC #### [address] [address] #### HCV1 #### [address] [address] Albumin/Globulin [Mass ratio] 1.0 {ratio} Low 1.1-2.5 [facility] ([place]) Comment on above: Performed By: #### A [place], ADIFF, TSH, GFR, CMP, LIPID, CBC #### [address] [address] #### HCV1 #### [address] [address] ALP [Catalytic activity/Vol] 124 U/L Normal 40-135 [facility] ([place]) Comment on above: Performed By: #### A [place], ADIFF, TSH, GFR, CMP, LIPID, CBC #### [address] [address] #### HCV1 #### [address] [address] ALT [Catalytic activity/Vol] 49 U/L Normal 14-59 [facility] ([place]) Comment on above: Performed By: #### A [place], ADIFF, TSH, GFR, CMP, LIPID, CBC #### [address] [address] #### HCV1 #### [address] [address] AST [Catalytic activity/Vol] 35 U/L Normal 10-40 [facility] ([place]) Comment on above: Performed By: #### A [place], ADIFF, TSH, GFR, CMP, LIPID, CBC #### [address] [address] #### HCV1 #### [address] [address] Bili Total 0.4 mg/dL Normal 0.2-1.0 [facility] ([place]) Comment on above: Result Comment: Use of this assay is not recommended for patients undergoing treatment with eltrombopag due to the potential for falsely elevated results. Performed By: #### A [place], ADIFF, TSH, GFR, CMP, LIPID, CBC #### [address] [address] #### HCV1 #### [address] [address] BUN/Creatinine Ratio 16 ratio Normal 7-27 [facility] ([place]) Comment on above: Performed By: #### A [place], ADIFF, TSH, GFR, CMP, LIPID, CBC #### [place] [address] #### HCV1 #### [address] [address] Calcium [Mass/Vol] 9.1 mg/dL Normal 8.4-10.2 [facility] ([place]) Comment on above: Performed By: #### A [place], ADIFF, TSH, GFR, CMP, LIPID, CBC #### [place] [address] #### HCV1 #### [address] [address] Chloride [Moles/Vol] 103 mmol/L Normal 98-107 [facility] ([place]) Comment on above: Performed By: #### A [place], ADIFF, TSH, GFR, CMP, LIPID, CBC #### [place] [address] #### HCV1 #### [address] [address] CO2 [Moles/Vol] 29 mmol/L Normal 22-29 [facility] ([place]) Comment on above: Performed By: #### A [place], ADIFF, TSH, GFR, CMP, LIPID, CBC #### [place] [address] #### HCV1 #### [address] [address] Creatinine [Mass/Vol] 0.68 mg/dL Normal 0.55-1.02 [facility] ([place]) Comment on above: Performed By: #### A [place], ADIFF, TSH, GFR, CMP, LIPID, CBC #### [address] [address] #### HCV1 #### [address] [address] Electrolyte Balance 9.0 mEq/L Normal 4.0-15.0 [facility] ([place]) Comment on above: Performed By: #### A [place], ADIFF, TSH, GFR, CMP, LIPID, CBC #### [address] [address] #### HCV1 #### [place] [address] Globulin 3.7 G/dL Normal [facility] ([place]) Comment on above: Performed By: #### A [place], ADIFF, TSH, GFR, CMP, LIPID, CBC #### [place] [address] #### HCV1 #### [address] [address] Glucose [Mass/Vol] 127 mg/dL High 70-105 [facility] ([place]) Comment on above: Performed By: #### A [place], ADIFF, TSH, GFR, CMP, LIPID, CBC #### [address] [address] #### HCV1 #### [place] [address] Potassium [Moles/Vol] 3.9 mmol/L Normal 3.5-5.1 [facility] ([place] Comment on above: Performed By: #### A [place], ADIFF, TSH, GFR, CMP, LIPID, CBC #### [place] [address] #### HCV1 #### [address] [address] Sodium [Moles/Vol] 141 mmol/L Normal 136-145 [facility] ([place]) Comment on above: Performed By: #### A [place], ADIFF, TSH, GFR, CMP, LIPID, CBC #### [place] [address] #### HCV1 #### [place] [address] Total Protein 7.4 G/dL Normal 6.4-8.2 [facility] ([place]) Comment on above: Performed By: #### A [place], ADIFF, TSH, GFR, CMP, LIPID, CBC #### [place] [address] #### HCV1 #### [place] [address] Urea nitrogen [Mass/Vol] 11 mg/dL Normal 7-18 [facility] ([place]) Comment on above: Performed By: #### A [place], ADIFF, TSH, GFR, CMP, LIPID, CBC #### [place] [address] #### HCV1 #### [place] [address] HCVon 05-08-2023 Hep C Ab Non-Reactive Normal Non-Reactive [facility] ([place]) Comment on above: Performed By: #### A [place], ADIFF, TSH, GFR, CMP, LIPID, CBC #### [place] [address] #### HCV1 #### [place] [address] Hep C Ab Int Normal [facility] ([place]) Comment on above: Result Comment: Nonr [...] ADIFF, TSH, GFR, CMP, LIPID, CBC #### [place] [address] #### HCV1 #### [place] [address] LIPIDon 05-08-2023 Cholesterol [Mass/Vol] 143 mg/dL Normal 0-200 [facility] ([place]) Comment on above: Result Comment: Chol esterol Reference Interval: Less than 200 Desirable 200-239 Borderline high risk 240 and above High risk Performed By: #### A [place], ADIFF, TSH, GFR, CMP, LIPID, CBC #### [address] [address] #### HCV1 #### [address] [address] Cholesterol in HDL [Mass/Vol] 43 mg/dL Normal 40-60 [facility] ([place]) Comment on above: Performed By: #### A [place], ADIFF, TSH, GFR, CMP, LIPID, CBC #### [address] [address] #### HCV1 #### [address] [address] Cholesterol in LDL [Mass/Vol] 66 mg/dL Normal 0-130 [facility] ([place]) Comment on above: Performed By: #### A [place], ADIFF, TSH, GFR, CMP, LIPID, CBC #### [address] [address] #### HCV1 #### [address] [address] Triglyceride [Mass/Vol] 170 mg/dL High 0-150 A [facility] ([place]) Comment on above: Result Comment: Trig lyceride Reference Interval: Less than 150 Normal 150-199 Borderline high risk 200-499 High risk 500 or higher Very high risk Performed By: #### A [place], ADIFF, TSH, GFR, CMP, LIPID, CBC #### [address] [address] #### HCV1 #### [address] [address] TSHon 05-08-2023 TSH Qn 2.50 m[IU]/L Normal 0.36-3.74 [facility] ([place]) Comment on above: Performed By: #### A [place], ADIFF, TSH, GFR, CMP, LIPID, CBC #### [place] [address] [place], [place] [address] #### HCV1 #### [address] [address] OVon 03-13-2023 CNOV Office Visit ([facility]) ---- EMMETTANGELA Kyle ([id number]) 1995 F Date Time Provider Department 03/13/23 12:05 PM LEANN CANSECO [facility] During your visit today, we recorded the following information about you: Temperature Pulse Respiration Blood pressure 97.5 degrees 77/minute 20/minute 140/104 Last Period 01/01/23 Leann Canseco, 03/13/2023 2:04 PM Signed Angela Wright Emmett [...] note reviewed. HENT: Head: Normocephalic. Mouth/Throat: Lips: Tilleda. Mouth: Mucous membranes are moist. Dentition: Abnormal [...] TABLET - DEXAMETHASONE 4 MG TABLET Leann Canseco Referring Provider: SELF [200] Allergies As of Date: 03/13/2023 (No Known Allergies) Date Reviewed: 03/13/2023 Reviewed by: Leann Canseco DO - Fully Assessed Reason for Visit: Mouth/Lip [...] fluconazole (DIFLU (more content not included)... Normal [facility] Chlamydia trachomatis rRNA d etection by probe and target amplification methodOrdered By: Rachell Chaney on 01-15-2023 C. trachomatis rRNA [place]+probe Ql (Unsp spec) Negative Negative [facility] Gram stain for investigation of transfusion reactionOrdered By: Rachell Chaney on 01-15-2023 Microscopic observation Gram stain Nom (Unsp spec) [facility] HIV 1 and HIV-2 antibody ass ay with HIV-1 p24 antigen detectionOrdered By: Rachell Chaney on 01-15-2023 HIV 1+2 Ab+HIV1 p24 Ag IA Ql Non-Reactive Nonreactive [facility] Laboratory - Microbiology an d Antimicrobial susceptibilityOrdered By: Rachell Chaney on 01-15-2023 N. gonorrhoeae DNA [place]+probe Ql (Unsp spec) Negative Negative [facility] Comment on above: Performed at: =[facility] Mook esteban [address] [place] [id number] Director: Katherine Pérez MD, Phone: [phone] No Panel InformationOrdered By: Rachell Chaney on 01-15-2023 Hepatitis C Antibody Non-Reactive Nonreactive [facility] Comment on above: Non Reactive: < 0.8 Equivocal: >/= 0.8 to < 1.0 Reactive: >/= 1.0The [facility] recommends that a reactive/equivocal HCV antibody result be followed up by the HCV Nucleic Acid Amplificationtest (240643) Herpes Simplex Virus I IgG Antibody < 0.91 index 0.00-0.[address] [facility] Comment on above: Negative <0.91 Equiv ocal 0.91 - 1.09 Positive >1.09 Note: Negative indicates no antibodies detected to HSV-1. Equivocal may suggest early infection. If clinically appropriate, retest at later date. Positive indicates antibodies detected to HSV-1. Serum Treponema species anti body detectionOrdered By: Rachell Chaney on 01-15-2023 Treponema sp Ab Ql (S) Non-Reactive [facility] Serum herpes simplex virus 2 antibody assay by immunoassay (units/volume)Ordered By: Rachell Chaney on 01-15-2023 HSV 2 Ab IA Qn (S) < 0.91 index 0.00-0.90 [facility] Comment on above: Negative <0.91 Equiv ocal 0.91 - 1.09 Positive >1.09Note: Negative indicates no HSV-2 antibodies detected.Positive indicates HSV-2 antibodies detected.Equivocal and low positive HSV-2 screens(Index 0.91-5.00) may be false positive and arereflexed to supplemental testing in accordance with[facility] guidelines.Effective January 29, 2023, this profilewill be made non-orderable due to the discontinuationof reagents by the strap buckler. Supplemental testingof specimens with low-positive HSV-2 type-specificIgG antibody test results can no longer be performed.[facility] Offers: [id number] HSV-2 Ab, IgG, [address] HSV 1and 2 Ab, IgG, and [id number] Prenat Infect Dis Ab, IgG.Performed at: - [facility] [address] [id number] Director: Sukhi Gill PhD, Phone: [phone] Thin prep Papanicolaou smear with manual screeningOrdered By: Rachell Chaney on 01-15-2023 Genital Culture Presumptive C albicans [facility] Absolute lymphocyte countOrd ered By: Dr. Herr on 09-02-2022 Lymphocytes Auto (Unsp spec) [#/Vol] 1.81 10*3/uL 0.83-4.[address] [facility] Basophil percentageOrdered B y: Dr. Herr on 09-02-2022 Basophils/100 WBC (Bld) 0.3 % 0-1 [facility] Bilirubin [Mass/Vol] 0.40 mg/dL 0.20-1.00 [facility] Comment on above: For patients on eltr ombopag therapy, use of Dimension [place] TBIL is not recommended. Chloride [Moles/Vol] 106 mmol/L 98-107 [facility] Cholesterol [Mass/Vol] 142 mg/dL <200 [facility] Comment on above: <200 mg/dL Desirable 200-240 mg/dL Borderline >240 mg/dL High Risk Eosinophils/100 WBC (Bld) 2.8 % 0-[address] [facility] Glucose [Mass/Vol] 93 mg/dL 74-106 [place] Neutrophils (Bld) [#/Vol] 4.8 10*3/uL 2.0-7.[address] [facility] Neutrophils/100 WBC (Bld) 67.1 % 47-[address] [facility] Potassium [Moles/Vol] 3.5 mmol/L 3.5-5.1 [facility] Protein [Mass/Vol] 7.3 g/dL 6.4-8.2 [place] Sodium [Moles/Vol] 137 mmol/L 136-145 [place] Triglyceride [Mass/Vol] 149 mg/dL <199 [facility] Comment on above: The drugs N-Acetylcy steine and Metamizole may falsely depress this assay.Serum Triglycerides Reference Interval Normal <150 mg/dL Borderline high 150 - 199 mg/dL High 200 - 499 mg/dL Very High > or = 500 mg/dL WBC (Bld) [#/Vol] 7.2 10*3/uL 4.4-11.0 [place] Blood erythrocytes count (nu mber/volume)Ordered By: Dr. Herr on 09-02-2022 RBC (Bld) [#/Vol] 4.44 10*6/uL 4.2-5.[address] [facility] Blood hemoglobin measurement (mass/volume)Ordered By: Dr. Herr on 09-02-2022 Hemoglobin (Bld) [Mass/Vol] 12.1 g/dL 12.0-15.[address] [facility] Blood lymphocytes/100 leukoc ytesOrdered By: Dr. Herr on 09-02-2022 Lymphocytes/100 WBC (Bld) 25.1 % 19-[address] [facility] Blood monocytes/100 leukocyt esOrdered By: Dr. Herr on 09-02-2022 Monocytes/100 WBC (Bld) 4.3 % 0-[address] [facility] Blood platelet mean volumeOr dered By: Dr. Herr on 09-02-2022 Platelet mean volume (Bld) [Entitic vol] 10.9 fL 6.2-12.[address] [facility] Determination of erythrocyte mean corpuscular volume (MCV)Ordered By: Dr. Herr on 09-02-2022 MCV (RBC) [Entitic vol] 83.3 fL 81-[address] [facility] Hematocrit Auto (Bld) [Volum e fraction]Ordered By: Dr. Herr on 09-02-2022 Hematocrit (Bld) [Volume fraction] 37.0 % 37-[address] [facility] Laboratory - Chemistry and C hemistry - challengeOrdered By: Dr. Herr on 09-02-2022 ALP [Catalytic activity/Vol] 93 U/L 45-[address] [facility] ALT [Catalytic activity/Vol] 39 U/L 13-[address] [facility] CO2 [Moles/Vol] 25.0 mmol/L 21.0-32.[address] [facility] Globulin (S) [Mass/Vol] 3.7 g/dL 2.2-4.[address] [facility] Urea nitrogen/Creatinine [Mass ratio] 19.9 mg/mg 10-[address] [facility] Laboratory - Hematology and Cell countsOrdered By: Dr. Herr on 09-02-2022 Erythrocyte distribution width (RBC) [Entitic vol] 41.7 fL 35.1-43.9 [place] Erythrocyte distribution width (RBC) [Ratio] 13.7 % 11.6-14.[address] [facility] Immature granulocytes/100 WBC (Bld) 0.400 % 0.0-0.[address] [facility] Comment on above: IG% - Immature Granu locytes (promyelocytes, myelocytes and metamyelocytes) > 1% indicates that a LEFT SHIFT is Present. MCH (RBC) [Entitic mass] 27.3 pg 27.0-32.[address] [facility] Nucleated RBC/100 WBC (Bld) [Ratio] 0 % 0-[address] [facility] MCHC Auto (RBC) [Mass/Vol]Or dered By: Dr. Herr on 09-02-2022 MCHC (RBC) [Mass/Vol] 32.7 g/dL 32-36 [facility] No Panel InformationOrdered By: Dr. Herr on 09-02-2022 Dehydroepiandrosterone Sulfate 202.0 ug/dL 84.8-378.[address] [facility] Estimated GFR (MDRD) Amer 152 mL/min >[address] [facility] Comment on above: GFR Calc Estimated GFR (MDRD) Non-Af Amer 125 mL/min >[address] [facility] Comment on above: Non- GFR Calc Follicle Stimulating Hormone 7.6 mIU/mL [facility] Comment on above: NORMAL REFERENCE RAN GES FEMALE FOLLICULAR 2.3 - 12.6 mIU/mL MID-CYCLE PEAK 5.2 - 17.5 mIU/mL LUTEAL 1.7 - 12.9 mIU/mL POST-MENOPAUSAL ON MHT 5.9 - 72.8 mIU/mL NOT ON MHT 12.7 - 132.2 mlU/mL MALE 0.7 - 10.8 mIU/mL Platelets bldOrdered By: Dr. Herr on 09-02-2022 Platelets (Bld) [#/Vol] 309 10*3/uL 150-[address] [facility] Serum or plasma 17-hydroxypr ogesterone measurement (mass/volume)Ordered By: Dr. Herr on 09-02-2022 17-Hydroxyprogesterone [Mass/Vol] 178 ng/dL . [facility] Comment on above: Adult Female Follicu lar 15 - 70 Luteal 35 - 290 Serum or plasma albumin gricelda urement (mass/volume)Ordered By: Dr. Herr on 09-02-2022 Albumin [Mass/Vol] 3.6 g/dL 3.2-5.0 [place] Serum or plasma albumin/glob ulin mass ratioOrdered By: Dr. Herr on 09-02-2022 Albumin/Globulin [Mass ratio] 1.0 {ratio} 0.9-2.[address] [facility] Serum or plasma calcitriol m easurement (mass/volume)Ordered By: Dr. Herr on 09-02-2022 1,25-dihydroxyvitamin D3 [Mass/Vol] 48.2 pg/mL 24.8-81.[address] [facility] Comment on above: Performed at: [facility] - [address] [id number] Director: Jody Melvin MD, Phone: [phone] Serum or plasma calcium gricelda urement (mass/volume)Ordered By: Dr. Herr on 09-02-2022 Calcium [Mass/Vol] 9.0 mg/dL 8.5-10.1 [place] Serum or plasma cholesterol in HDL measurement (mass/volume)Ordered By: Dr. Herr on 09-02-2022 Cholesterol in HDL [Mass/Vol] 42 mg/dL >[address] [facility] Comment on above: The drugs N-Acetylcy steine and Metamizole may falsely depress this assay. Reference Range HDL <40 mg/dL Low HDL Cholesterol HDL >or= 60 mg/dL High HDL Cholesterol Serum or plasma cholesterol in VLDL measurement (mass/volume)Ordered By: Dr. Herr on 09-02-2022 Cholesterol in VLDL [Mass/Vol] 30 mg/dL 5-[address] [facility] Serum or plasma creatinine m easurement (mass/volume)Ordered By: Dr. Herr on 09-02-2022 Creatinine [Mass/Vol] 0.60 mg/dL 0.55-1.02 [facility] Comment on above: The validity of the calculated GFR & GFRAA in patients over 70 years has not been determined. Clinical correlation is essential. Serum or plasma estradiol (E 2) measurement (mass/volume)Ordered By: Dr. Herr on 09-02-2022 E2 [Mass/Vol] 302.2 pg/mL [facility] Comment on above: NORMAL REFERENCE RAN [...] Cholesterol in LDL [Mass/Vol] 70 mg/dL 0-[address] [facility] Serum or plasma prolactin me asurement (mass/volume)Ordered By: Dr. Herr on 09-02-2022 Prolactin [Mass/Vol] 26.3 ng/mL [facility] Comment on above: NORMAL REFERENCE RAN GES FEMALE NON- 2.2 - 30.3 ng/mL 8.1 - 347.6 ng/mL POST-MENOPAUSAL 0.7 - 31.5 ng/mL MALE 2.5 - 17.4 ng/mL Serum or plasma testosterone free measurement (mass/volume)Ordered By: Dr. Herr on 09-02-2022 Testosterone Free [Mass/Vol] 4.4 pg/mL 0.0-4.[address] [facility] Comment on above: Performed at: [address] [id number] Director: Sukhi Gill PhD, Phone: [phone] at: [facility] [id number] Director: Jody Melvin MD, Phone: [phone] Serum or plasma urea nitroge n measurement (mass/volume)Ordered By: Dr. Herr on 09-02-2022 Urea nitrogen [Mass/Vol] 12 mg/dL 7-[address] [facility] Thin prep Papanicolaou smear with manual screeningOrdered By: Dr. Herr on 09-02-2022 Thin prep Papanicolaou smear with manual screening 21 U/L 15-[address] [facility] Thin prep Papanicolaou smear with manual screening 6 5-[address] [facility] Whole blood hemoglobin A1c/t otal hemoglobin ratio (mass fraction)Ordered By: Dr. Herr on 09-02-2022 HbA1c (Bld) [Mass fraction] 5.5 % 3.8-5.[address] [facility] Comment on above: Normal < 5.7 [...] 2021 Beta HCG ( test) Ql Negative [facility] Work Phone: LABORATORYOrdered By: Evette Bowens [...] Auto (Unsp spec) [#/Vol] 2.18 10*3/uL 0.83-4.[address] [facility] Work Phone: Basophil percentageon 2021 Basophil percentage 0.5 AI 0.0-0.[address] [facility] Work Phone: Basophil percentage < 0.2 AI 0.0-0.[address] [facility] Work Phone: Basophils/100 WBC (Bld) 0.3 % 0-[address] [facility] Work Phone: Bilirubin [Mass/Vol] 0.30 mg/dL 0.20-1.00 [facility] Work Phone: Comment on above: For patients on eltr ombopag therapy, use of Dimension [place] TBIL is not recommended. Chloride [Moles/Vol] 103 mmol/L 98-107 [facility] Work Phone: Eosinophils/100 WBC (Bld) 2.4 % 0-[address] [facility] Work Phone: Glucose [Mass/Vol] 91 mg/dL 74-106 [place] Work Phone: Neutrophils (Bld) [#/Vol] 5.2 10*3/uL 2.0-7.[address] [facility] Work Phone: Neutrophils/100 WBC (Bld) 65.1 % 47-[address] [facility] Work Phone: Potassium [Moles/Vol] 3.5 mmol/L 3.5-5.1 [facility] Work Phone: Protein [Mass/Vol] 7.8 g/dL 6.4-8.2 [facility]: [phone] Sodium [Moles/Vol] 136 mmol/L 136-145 [facility] Work Phone: WBC (Bld) [#/Vol] 8.0 10*3/uL 4.4-11.0 [facility] Work Phone: Blood erythrocytes count (nu mber/volume)on 09-21-2021 RBC (Bld) [#/Vol] 5.02 10*6/uL 4.2-5.4 [facility]: Blood hemoglobin measurement (mass/volume)on 09-21-2021 Hemoglobin (Bld) [Mass/Vol] 14.2 g/dL 12.0-15.[address] [facility] Work Phone: Blood lymphocytes/100 leukoc yteson 09-21-2021 Lymphocytes/100 WBC (Bld) 27.4 % 19-[address] [facility] Work Phone: [phone] Blood monocytes/100 leukocyt eson 09-21-2021 Monocytes/100 WBC (Bld) 4.5 % 0-[address] [facility] Work Phone: Blood platelet mean volumeon 09-21-2021 Platelet mean volume (Bld) [Entitic vol] 10.9 fL 6.2-12.[address] [facility] Work Phone: [phone] Chocolate RASTon 09-21-2021 Chocolate IgE Qn (S) <0.10 kU/L Class 0 [facility] Work Phone: [phone] Comment on above: Performed at: [facility] Mook esteban [address] [id number] Director: Sukhi Gill PhD, Phone: [phone] at: [facility] Lab[address] [id number] Director: Jody Melvin MD, Phone: [phone] Determination of erythrocyte mean corpuscular volume (MCV)on 09-21-2021 MCV (RBC) [Entitic vol] 83.9 fL 81-[address] [facility] Work Phone: Direct bilirubinon Bilirubin.direct [Mass/Vol] 0.11 mg/dL 0.00-0.[address] [facility] Work Phone: [phone] Erythrocyte sedimentation ra michael 09-21-2021 ESR (Bld) [Velocity] 16 mm/h 0-30 [facility] Phone: [phone] Hematocrit Auto (Bld) [Volum e fraction]on 09-21-2021 Hematocrit (Bld) [Volume fraction] 42.1 % 37-[address] [facility] Work Phone: Laboratory - Chemistry and C hemistry - challengeon 09-21-2021 ALP [Catalytic activity/Vol] 74 U/L 45-[address] [facility] Work Phone: [phone] ALT [Catalytic activity/Vol] 22 U/L 13-[address] [facility] Work Phone: [phone] CO2 [Moles/Vol] 27.0 mmol/L 21.0-32.[address] [facility] Work Phone: Globulin (S) [Mass/Vol] 4.3 g/dL 2.2-4.[address] [facility] Work Phone: Urea nitrogen/Creatinine [Mass ratio] 18.7 mg/mg 10-[address] [facility] Work Phone: [phone] Laboratory - Hematology and Cell countson 09-21-2021 Erythrocyte distribution width (RBC) [Entitic vol] 41.8 fL 35.1-43.9 [place] Work Phone: [phone] Erythrocyte distribution width (RBC) [Ratio] 13.6 % 11.6-14.[address] [facility] Work Phone: [phone] Immature granulocytes/100 WBC (Bld) 0.300 % 0.0-0.[address] [facility] Work Phone: Comment on above: IG% - Immature Granu locytes (promyelocytes, myelocytes and metamyelocytes) > 1% indicates that a LEFT SHIFT is Present. MCH (RBC) [Entitic mass] 28.3 pg 27.0-32.[address] [facility] Work Phone: [phone] Nucleated RBC/100 WBC (Bld) [Ratio] 0 % 0-[address] [facility] Work Phone: [phone] Laboratory - Miscellaneous t estson 09-21-2021 Service comment (Unsp spec) [Interp] Comment . [facility] Work Phone: [phone] Comment on above: Levels of Specific I gE Class Description of Class ----- < 0.10 0 Negative 0.10 - 0.31 0/I Equivocal/Low 0.32 - 0.55 I Low 0.56 - 1.40 II Moderate 1.41 - 3.90 III High 3.91 - 19.00 IV Very High 19.01 - 100.00 V Very High >100.00 Very High MCHC Auto (RBC) [Mass/Vol]on 09-21-2021 MCHC (RBC) [Mass/Vol] 33.7 g/dL 32-36 [facility] Work Phone: [phone] Panel Informationon 09-21 Centromere B Antibody <0.2 AI 0.0-0.9 [facility] Work Phone: [phone] Endomysial IgA Antibody Negative Negative W [facility] Work Phone: [phone] Estimated GFR (MDRD) Amer 158 mL/min >[address] [facility] Work Phone: [phone] Comment on above: GFR Calc Estimated GFR (MDRD) Non-Af Amer 130 mL/min >[address] [facility] Work Phone: [phone] Comment on above: Non- GFR Calc CAMERA REPAIRMAN Antibody <0.2 AI 0.0-0.[address] [facility] Work Phone: Scallop Allergen <0.10 kU/L Class [address] [facility] Work Phone: Seafood Group Allergens (RAST) Negative . [facility] Work Phone: Comment on above: Allergens in this mi x are: Blue mussel Fish [place] Shrimp Tuna Sesame Seed Allergen IgE Antibody <0.10 kU/L Class [address] [facility] Work Phone: Shrimp Allergen <0.10 kU/L Class [address] [facility] Work Phone: Thyroid Stimulating Hormone (TSH) 2.83 uIU/mL 0.358-3.[address] [facility] Work Phone: Platelets bldon 09-21-2021 Platelets (Bld) [#/Vol] 300 10*3/uL 150-[address] [facility] Work Phone: Serum DNA double strand anti body assay (units/volume)on 09-21-2021 DNA double strand Ab Qn (S) [IU]/mL 0-[address] [facility] Work Phone: Comment on above: Negative <5 Equivoca l 5 - 9 Positive >9 Serum Taylor-1 antibody assay (u nits/volume)on 09-21-2021 Taylor-1 extractable nuclear Ab Qn (S) <0.2 AI 0.0-0.[address] [facility] Work Phone: Serum Scl-70 extractable nuc lear antibody assay (units/volume)on 09-21-2021 SCL-70 extractable nuclear Ab Qn (S) <0.2 AI 0.0-0.[address] [facility] Work Phone: Serum Sifuentes extractable nucl ear antibody detectionon 09-21-2021 Sifuentes extractable nuclear Ab Ql (S) <0.2 AI 0.0-0.[address] [facility] Work Phone: Serum beef IgE antibody assa y (units/volume)on 09-21-2021 Beef IgE Qn (S) <0.10 kU/L Class [address] [facility] Work Phone: Serum black walnut IgE antib shira assay (units/volume)on 09-21-2021 Black [place] IgE Qn (S) <0.10 kU/L Class [address] [facility] Work Phone: Serum clam IgE antibody assa y (units/volume)on 09-21-2021 Clam IgE Qn (S) <0.10 kU/L Class [address] [facility] Work Phone: Serum codfish IgE antibody a ssay (units/volume)on 09-21-2021 Codfish IgE Qn (S) <0.10 kU/L Class 0 [facility] Work Phone: Serum corn IgE antibody assa y (units/volume)on 09-21-2021 [place] IgE Qn (S) <0.10 kU/L Class [address] [facility] Work Phone: Serum cow milk IgE antibody assay (units/volume)on 09-21-2021 Cow milk IgE Qn (S) <0.10 kU/L Class [address] [facility] Work Phone: Serum egg white IgE antibody assay (units/volume)on 09-21-2021 Egg white IgE Qn (S) <0.10 kU/L Class 0 [facility] Work Phone: Serum or plasma C reactive p rotein measurement (mass/volume)on 09-21-2021 CRP [Mass/Vol] 24.70 mg/L 0.0-3.[address] [facility] Work Phone: Comment on above: C-Reactive Protein ( CRP) provides useful information for thediagnosis, therapy and monitoring of inflammatory processesand associated diseases. For the evaluation of Relative Riskfor Cardiovascular Disease, a High Sensitivity CRP (HSCRP)should be ordered. Serum or plasma IgA measurem ent (mass/volume)on 09-21-2021 IgA [Mass/Vol] 123 mg/dL 87-[address] [facility] Work Phone: Comment on above: Performed at: [address] [id number] Director: Sukhi Gill PhD, Phone: [phone] Serum or plasma albumin gricelda urement (mass/volume)on 09-21-2021 Albumin [Mass/Vol] 3.5 g/dL 3.2-5.0 [place] Work Phone: Serum or plasma albumin/glob ulin mass ratioon 09-21-2021 Albumin/Globulin [Mass ratio] 0.8 {ratio} 0.9-2.[address] [facility] Work Phone: [phone] Serum or plasma calcium gricelad urement (mass/volume)on 09-21-2021 Calcium [Mass/Vol] 9.3 mg/dL 8.5-10.1 [place] Work Phone: Serum or plasma creatinine m easurement (mass/volume)on 09-21-2021 Creatinine [Mass/Vol] 0.59 mg/dL 0.55-1.02 [facility] Work Phone: Comment on above: The validity of the calculated GFR & GFRAA in patients over 70 years has not been determined. Clinical correlation is essential. Serum or plasma urea nitroge n measurement (mass/volume)on 09-21-2021 Urea nitrogen [Mass/Vol] 11 mg/dL 7-[address] [facility] Work Phone: Serum peanut IgE antibody as say (units/volume)on 09-21-2021 Peanut IgE Qn (S) <0.10 kU/L Class [address] [facility] Work Phone: [phone] Serum pork IgE antibody assa y (units/volume)on 09-21-2021 Pork IgE Qn (S) <0.10 kU/L Class [address] [facility] Work Phone: Serum soybean IgE antibody a ssay (units/volume)on 09-21-2021 Soybean IgE Qn (S) <0.10 kU/L Class 0 [place] Work Phone: Serum tissue transglutaminas e IgA antibody assay (units/volume)on 09-21-2021 tTG IgA Qn (S) <2 U/mL 0-[address] [facility] Work Phone: Comment on above: Negative 0 - 3 Weak Positive 4 - 10 Positive >10 Tissue Transglutaminase (tTG) has been identified as the endomysial antigen. Studies have demonstr- ated that endomysial IgA antibodies have over 99% specificity for gluten sensitive enteropathy. Serum wheat IgE antibody ass ay (units/volume)on 09-21-2021 Wheat IgE Qn (S) <0.10 kU/L Class [address] [facility] Work Phone: Serum whole egg IgE antibody assay (units/volume)on 09-21-2021 Whole Egg IgE Qn (S) <0.10 kU/L Class 0 [facility] Work Phone: Thin prep Papanicolaou smear with manual screeningon 09-21-2021 Thin prep Papanicolaou smear with manual screening 13 U/L 15-[address] [facility] Work Phone: Thin prep Papanicolaou smear with manual screening 6 5-[address] [facility] Work Phone: Whole blood hemoglobin A1c/t otal hemoglobin ratio (mass fraction)on 09-21-2021 HbA1c (Bld) [Mass fraction] 5.3 % 3.8-5.[address] [facility] Work Phone: Comment on above: Normal < 5.7 % Predi abetic 5.7 - 6.4 % Diabetic >or= 6.5 % Please note range changes. LABORATORYOrdered By: Charles Guerrero on 07-13-2021 HCG Qn mIU/mL Invalid Interpretation Code AO ADM SS GENITAL CULTUREon 07-02-2021 GENITAL CULTURE GENITAL RESULT NO NEISSERIA GONORRHOEAE ISOLATED BETA STREP RESULT NO BETA STREPTOCOCCUS ISOLATED NORMAL NING RARE NORMAL NING Normal [facility] Comment on above: Performed By: #### M [id number] #### [facility] [address] [place] [id number] PCR GC AND CHLAMon PCR CHLAMYDIA Not detected Normal NOT DETECTD [facility] Comment on above: Performed By: #### L [id number] #### [facility] [address] [place] [id number] PCR GONORRHOEAE Not detected Normal NOT DETECTD [facility] Comment on above: Performed By: #### L [id number] #### [facility] [address] [place] [address] PAP SMEARon 06-29-2021 Cytopathology procedure, preparation of [...] date. Signed Verified/Reviewed by BESSIE VANCE 07/04/21 [facility] NAME: EMMETTANGELA EMANUEL Pathology and Laboratory Medicine UNIT#: [id number] LOC: MAR[facility] Service Support Representative: Lupe Rodriguez M.D. [id number] ROOM/BED: [facility] : 89 AGE/SEX: 26/F ORD.Missy Alberts END OF REPORT Normal [facility] [place] LABORATORYOrdered By: Hailey Faulkner on 03-02-2021 Albumin [...] Vital Sign Value Performing Clinician Faci lity 03-10-2025 15:39-0400 Body height 165.[address] Elder Webb DO Work Phone: [facility] 03-10-2025 15:38-0400 Body mass index (BMI) [Ratio] 39.6 kg/m2 Dr. Elder Webb DO Work Phone: [facility] 03-10-2025 15:38-0400 Body weight 107.[address] Elder Webb DO Work Phone: [facility] 03-10-2025 15:38-0400 Diastolic blood pressure 70 mm[Hg] Dr. Elder Webb DO Work Phone: [facility] 03-10-2025 15:38-0400 Systolic blood pressure 117 mm[Hg] Dr. Elder Webb DO Work Phone: [facility] 02-12-2025 12:56-0400 Body height 165.[address] Elder Webb DO Work Phone: [facility] 02-12-2025 12:49-0400 Body mass index (BMI) [Ratio] 40.1 kg/m2 Dr. Elder Webb DO Work Phone: [facility] 02-12-2025 12:49-0400 Body weight 109.[address] Elder Webb DO Work Phone: [facility] 02-12-2025 12:49-0400 Diastolic blood pressure 84 mm[Hg] Dr. Elder Webb DO Work Phone: [facility] 02-12-2025 12:49-0400 Systolic blood pressure 118 mm[Hg] Dr. Elder Webb DO Work Phone: [facility] 01-27-2025 09:09-0400 Body mass index (BMI) [Ratio] 40.5 kg/m2 Dr. Elder Webb DO Work Phone: [facility] 01-27-2025 09:09-0400 Body weight 110.[address] Elder Webb DO Work Phone: [facility] 01-27-2025 09:09-0400 Diastolic blood pressure 62 mm[Hg] Dr. Elder Webb DO Work Phone: [facility] 01-27-2025 09:09-0400 Systolic blood pressure 110 mm[Hg] Dr. Elder Webb DO Work Phone: [facility] 12-05-2024 15:27-0400 Body height 165.[address] Elder Webb DO Work Phone: [facility] 12-05-2024 15:22-0400 Body mass index (BMI) [Ratio] 40.9 kg/m2 Dr. Elder Webb DO Work Phone: [facility] 12-05-2024 15:22-0400 Body weight 111.[address] Elder Webb DO Work Phone: [facility] 12-05-2024 15:22-0400 Diastolic blood pressure 85 mm[Hg] Dr. Elder Webb DO Work Phone: [facility] 12-05-2024 15:22-0400 Systolic blood pressure 124 mm[Hg] Dr. Elder Webb DO Work Phone: [facility] 09-25-2024 10:02-0400 Body height 165.[address] Elder Webb DO Work Phone: [facility] 09-25-2024 10:01-0400 Body mass index (BMI) [Ratio] 41.3 kg/m2 Dr. Elder Webb DO Work Phone: [facility] 09-25-2024 10:01-0400 Body weight 112.[address] Elder Webb DO Work Phone: [facility] 09-25-2024 10:01-0400 Diastolic blood pressure 81 mm[Hg] Dr. Elder Webb DO Work Phone: [facility] 09-25-2024 10:01-0400 Systolic blood pressure 120 mm[Hg] Dr. Elder Webb DO Work Phone: [facility] 03-13-2023 13:26-0400 Body temperature 97.5 [degF] Leann Canseco DO Work Phone: [facility] 03-13-2023 13:26-0400 Diastolic blood pressure 104 mm[Hg] Leann Canseco DO Work Phone: [facility] 03-13-2023 13:26-0400 Heart rate 77 /min Leann Canseco DO Work Phone: [facility] 03-13-2023 13:26-0400 Respiratory rate 20 /min Leann Canseco DO Work Phone: [facility] 03-13-2023 13:26-0400 SaO2% (BldA) [Mass fraction] 99 % Leann Canseco DO Work Phone: [facility] 03-13-2023 13:26-0400 Systolic blood pressure 140 mm[Hg] Leann Canseco DO Work Phone: [facility] 01-15-2023 13:55-0400 Body height 165.[address] Elder Webb Work Phone: [facility] 01-15-2023 13:51-0400 Body mass index (BMI) [Ratio] 42.1 kg/m2 Dr. Elder Webb Work Phone: [facility] 01-15-2023 13:51-0400 Body weight 114.[address] Elder Webb Work Phone: [facility] 01-15-2023 13:51-0400 Diastolic blood pressure 74 mm[Hg] Dr. Elder Webb Work Phone: [facility] 01-15-2023 13:51-0400 Systolic blood pressure 108 mm[Hg] Dr. Elder Webb Work Phone: [facility] 09-05-2022 15:08-0400 Body height 165.[address] Elder Webb Work Phone: [facility] 09-05-2022 15:07-0400 Body mass index (BMI) [Ratio] 42.3 kg/m2 Dr. Elder Webb Work Phone: [facility] 09-05-2022 15:07-0400 Body weight 115.[address] Elder Webb Work Phone: [facility] 09-05-2022 15:07-0400 Diastolic blood pressure 74 mm[Hg] Dr. Elder Webb Work Phone: [facility] 09-05-2022 15:07-0400 Heart rate 74 /min Dr. Elder Webb Work Phone: [facility] 09-05-2022 15:07-0400 Systolic blood pressure 117 mm[Hg] Dr. Elder Webb Work Phone: [facility] 08-03-2022 14:43-0400 Body mass index (BMI) [Ratio] 43 kg/m2 Dr. Elder Webb Work Phone: [facility] 08-03-2022 14:43-0400 Body weight 117.[address] Elder Webb Work Phone: [facility] 08-03-2022 14:43-0400 Diastolic blood pressure 85 mm[Hg] Dr. Elder Webb Work Phone: [facility] 08-03-2022 14:43-0400 Systolic blood pressure 125 mm[Hg] Dr. Elder Webb Work Phone: [facility] 12-22-2021 10:07-0400 Body temperature 98.7 [degF] MECHANICAL DRAFTER-C Estela Carlie MECHANICAL DRAFTER Work Phone: [facility] Work Phone: 12-22-2021 10:07-0400 Diastolic blood pressure 58 mm[Hg] MECHANICAL DRAFTER-C Estela Carlie MECHANICAL DRAFTER Work Phone: [facility] Work Phone: 12-22-2021 10:07-0400 Heart rate 73 /min MECHANICAL DRAFTER-C Estela Carlie MECHANICAL DRAFTER Work Phone: [facility] Work Phone: 12-22-2021 10:07-0400 Respiratory rate 16 /min MECHANICAL DRAFTER-C Estela Carlie MECHANICAL DRAFTER Work Phone: [facility] Work Phone: 12-22-2021 10:07-0400 SaO2% (BldA) [Mass fraction] 98 % MECHANICAL DRAFTER-C Estela Carlie MECHANICAL DRAFTER Work Phone: [facility] Work Phone: 12-22-2021 10:07-0400 Systolic blood pressure 114 mm[Hg] MECHANICAL DRAFTER-C Estela Carlie MECHANICAL DRAFTER Work Phone: [facility] Work Phone: 12-22-2021 08:15-0400 Body height 165.1 cm MECHANICAL DRAFTER-C Estela Carlie MECHANICAL DRAFTER Work Phone: [facility] Work Phone: 12-22-2021 08:15-0400 Body mass index (BMI) [Ratio] 40.6 kg/m2 [employer]CH[employer] DRAFTER-C Estela Carlie MECHANICAL DRAFTER Work Phone: [facility] Work Phone: 12-22-2021 08:15-0400 Body weight 110.7 kg MECHANICAL DRAFTER-C Estela Carlie MECHANICAL DRAFTER Work Phone: [facility] Work Phone: 09-23-2021 18:31-0400 Diastolic blood pressure 66 mm[Hg] DR ELDA GARCIA MD [facility] 09-23-2021 18:31-0400 Heart rate 103 /min DR ELDA GARCIA MD [facility] 09-23-2021 18:31-0400 Respiratory rate 16 /min DR ELDA GARCIA MD [facility] 09-23-2021 18:31-0400 Systolic blood pressure 130 mm[Hg] DR ELDA GRACIA MD [facility] 09-23-2021 18:06-0400 Diastolic blood pressure 80 mm[Hg] DR ELDA GARCIA MD [facility] 09-23-2021 18:06-0400 Heart rate 93 /min DR ELDA GARCIA MD [facility] 09-23-2021 18:06-0400 Respiratory rate 16 /min DR ELDA GARCIA MD [facility] 09-23-2021 18:06-0400 Systolic blood pressure 122 mm[Hg] DR ELDA GARCIA MD [facility] 09-23-2021 17:30-0400 Diastolic blood pressure 69 mm[Hg] DR ELDA GARCIA MD [facility] 09-23-2021 17:30-0400 Heart rate 92 /min DR ELDA GARCIA MD [facility] 09-23-2021 17:30-0400 Respiratory rate 20 /min DR ELDA GARCIA MD [facility] 09-23-2021 17:30-0400 Systolic blood pressure 109 mm[Hg] DR ELDA GARCIA MD [facility] 09-23-2021 15:01-0400 Body height [address] ELDA GARCIA MD [facility] 09-23-2021 15:01-0400 Body temperature 98.6 [degF] DR ELDA GARCIA MD [facility] 09-23-2021 15:01-0400 Body weight [address] ELDA GARCIA MD [facility] 09-23-2021 15:01-0400 Heart rate 107 /min DR ELDA GARCIA MD [facility] 09-21-2021 07:56-0400 Body height 165.1 cm MECHANICAL DRAFTER-C Estela Carlie MECHANICAL DRAFTER Work Phone: [facility] Work Phone: 09-21-2021 07:56-0400 Body mass index (BMI) [Ratio] 42.3 kg/m2 [employer]CH[employer] DRAFTER-C Estela Carlie MECHANICAL DRAFTER Work Phone: [facility] Work Phone: 09-21-2021 07:56-0400 Body weight 115.21 kg MECHANICAL DRAFTER-C Estela Carlie MECHANICAL DRAFTER Work Phone: [facility] Work Phone: 09-21-2021 07:56-0400 Diastolic blood pressure 98 mm[Hg] MECHANICAL DRAFTER-C Estela Carlie MECHANICAL DRAFTER Work Phone: [facility] Work Phone: 09-21-2021 07:56-0400 Heart rate 93 /min MECHANICAL DRAFTER-C Estela Carlie MECHANICAL DRAFTER Work Phone: [facility] Work Phone: 09-21-2021 07:56-0400 SaO2% (BldA) [Mass fraction] 97 % MECHANICAL DRAFTER-C Estela Carlie MECHANICAL DRAFTER Work Phone: [facility] Work Phone: 09-21-2021 07:56-0400 Systolic blood pressure 141 mm[Hg] MECHANICAL DRAFTER-C Estela Carlie MECHANICAL DRAFTER Work Phone: [facility] Work Phone: 09-21-2021 07:56-0400 Body height 165.1 cm MECHANICAL DRAFTER-C Estela Carlie MECHANICAL DRAFTER Work Phone: [facility] Work Phone: 09-21-2021 07:56-0400 Body mass index (BMI) [Ratio] 42.3 kg/m2 MECHANICAL DRAFTER-C Estela Carlie MECHANICAL DRAFTER Work Phone: [facility] Work Phone: 09-21-2021 07:56-0400 Body weight 115.21 kg MECHANICAL DRAFTER-C Estela Carlie MECHANICAL DRAFTER Work Phone: [facility] Work Phone: 09-21-2021 07:56-0400 Diastolic blood pressure 98 mm[Hg] MECHANICAL DRAFTER-C Estela Carlie MECHANICAL DRAFTER Work Phone: [facility] Work Phone: 09-21-2021 07:56-0400 Heart rate 93 /min MECHANICAL DRAFTER-C Estela Carlie MECHANICAL DRAFTER Work Phone: [facility] Work Phone: 09-21-2021 07:56-0400 SaO2% (BldA) [Mass fraction] 97 % MECHANICAL DRAFTER-C Estela Carlie MECHANICAL DRAFTER Work Phone: [facility] Work Phone: 09-21-2021 07:56-0400 Systolic blood pressure 141 mm[Hg] MECHANICAL DRAFTER-C Estela Sexton MECHANICAL DRAFTER Work Phone: [facility] Work Phone: Encounters Encounter Date Encounter Type Care Provider Facility Start: 03-10-2025 End: 03-10-[address] Madeline [facility] Work Phone: Start: 03-10-2025 End: 03-10-2025 ambulatory Madeline Keller Facility:[facility] Start: 03-03-2025 End: 03-07-[address] ELDER WEBB DO Facility:[facility] Start: 03-03-2025 End: 03-07-2025 Outreach Lab AVIVA SHARLA SPECIAL LIBRARY LIBRARIAN-[facility] Start: 02-27-2025 End: 02-27-[address] Kamille Herr MD -Lab [facility] Start: 02-27-2025 End: 02-27-2025 ambulatory Elder Webb Facility:[facility] Start: 02-16-2025 End: 02-16-2025 Patient encounter procedure Paula Tiwari CNM -Laboratory Specimen Work Phone: Start: 02-16-2025 End: 02-16-[address] Elder Webb DO Work Phone: -Laboratory Specimen Start: 02-16-2025 Non-patient / Non-visit Paula Tiwari CNM -[facility] Work Phone: Start: 02-16-2025 End: 02-16-2025 ambulatory Elder Webb Facility:[facility] Start: 02-12-2025 End: 02-12-[address] Elder Webb DO Work Phone: -Laboratory Start: 02-12-2025 End: 02-12-[address] Kamille Herr MD -Laboratory Work Phone: Start: 02-12-2025 End: 02-12-2025 Patient encounter procedure Paula Tiwari CNM -[facility] Work Phone: Start: 02-12-2025 End: 02-12-[address] Elder Webb DO Work Phone: [facility] Start: 02-12-2025 End: 02-12-2025 ambulatory Elder Webb Facility:[facility] Start: 01-27-2025 End: 01-27-[address] Kamille Herr MD -[facility] Work Phone: Start: 01-27-2025 End: 01-27-[address] Elder Webb DO Work Phone: [facility] Start: 12-05-2024 End: 12-05-[address] Kamille Herr MD -[facility] Work Phone: Start: 12-05-2024 End: 12-05-[address] Elder Webb DO Work Phone: [facility] Start: 12-04-2024 End: 12-04-[address] Elder Webb DO Work Phone: [facility] Start: 12-04-2024 End: 12-04-[address] Kamille Herr MD [facility] Start: 12-04-2024 End: 12-04-2024 ambulatory Elder Webb Facility:[facility] Start: 10-15-2024 End: 10-15-[address] Elder Webb DO Work Phone: [facility] Work Phone: Start: 10-15-2024 End: 10-15-2024 Patient encounter procedure Airam BERNAL -Laboratory Work Phone: Start: 10-15-2024 End: 10-15-2024 ambulatory Elder Webb Facility:[facility] Start: 10-11-[address] ELDER Herndon ty:[facility] Start: 09-30-2024 ambulatory Elder Webb Facility:[facility] Start: 09-25-2024 End: 09-25-2024 Patient encounter procedure Rachell Chaney MECHANICAL DRAFTER-C -[facility] Work Phone: Start: 09-25-2024 End: 09-25-2024 ambulatory Elder Webb Facility:[facility] Start: 08-29-[address] ELDER Herndon ty:[facility] Start: 08-04-2024 End: 08-04-[address] ELDER WEBB DO [facility] Start: 07-31-2024 End: 07-31-[address] ELDER WEBB DO [facility] Start: 07-29-[address] ELDER Herndon ty:[facility] Start: 06-26-2024 End: 06-30-[address] ELDER WEBB DO [facility] Start: 06-26-2024 End: 06-30-[address] ELDER WEBB DO [facility] Start: 06-16-2024 End: 06-16-2024 ambulatory Elder Webb Facility:[facility] Start: 06-02-2024 End: 06-02-2024 ambulatory [facility] Facility:[facility] Start: 04-18-2024 [facility] Start: 04-02-2024 End: 04-02-2024 ambulatory Elder Webb Facility:[facility] Start: 04-02-2024 End: 04-02-2024 ambulatory [facility] Facility:[facility] Start: 11-14-2023 End: 11-14-[address] ELDER WEBB DO Facility:[facility] Start: 11-14-2023 End: 11-14-[address] ELDER WEBB DO [facility] Start: 05-08-2023 End: 05-08-2023 ambulatory CAMILO GONZALES SPECIAL LIBRARY LIBRARIAN-ANESTHESIOLOGY FACULTY Facility:[facility] Start: 03-13-2023 End: 03-13-2023 ambulatory LEANN CANSECO Facility:[id number] Start: 03-13-2023 End: 03-13-2023 Patient encounter procedure Leann Canseco DO Work Phone: [facility] Comment on above: Odontalgia (Primary Dx); Cervical paraspinal muscle spasm Start: 01-15-2023 End: 01-15-[address] Elder Webb Work Phone: [facility] Work Phone: Start: 01-15-2023 End: 01-15-[address] Elder Webb Work Phone: [facility] Work Phone: Start: 09-12-2022 End: 09-12-[address] Elder Webb Work Phone: [facility] Work Phone: Start: 09-12-2022 End: 09-12-[address] Elder Webb Work Phone: [facility] Start: 09-05-2022 End: 09-05-[address] Elder Webb Work Phone: [facility] Start: 09-02-2022 End: 09-02-[address] Elder Webb Work Phone: [facility] Work Phone: Start: 09-02-2022 End: 09-02-[address] Elder Webb Work Phone: [facility]-Laboratory Start: 08-03-2022 End: 08-03-[address] Elder Webb Work Phone: [facility] Start: 05-04-2022 End: 05-04-[address] ELDER WBEB DO [facility] Start: 04-21-2022 End: 04-21-[address] ELDER WEBB DO [facility] Start: 12-22-2021 Non-patient / Non-visit MECHANICAL DRAFTER-C Estelanimesh Sexton MECHANICAL DRAFTER Work Phone: [facility] Start: 12-22-2021 End: 12-22-2021 Admission to same day surgery center MECHANICAL DRAFTER-C Estela Carlie MECHANICAL DRAFTER Work Phone: [facility]-Endoscopy Start: 11-01-2021 End: 11-01-2021 Patient encounter procedure MECHANICAL DRAFTER-C Estela Carlie MECHANICAL DRAFTER Work Phone: [facility] Start: 09-23-2021 End: 09-23-2021 Emergency department patient visit DR ELDA GARCIA MD [facility] Start: 09-23-2021 End: 09-23-2021 Discharged Recurring MECHANICAL DRAFTER-C Estela Banksne MECHANICAL DRAFTER Work Phone: [facility]-Physical Therapy Start: 09-23-2021 Registered Recurring MECHANICAL DRAFTER-C Maya erica Banksne MECHANICAL DRAFTER Work Phone: [facility] Start: 09-21-2021 End: 09-21-2021 Patient encounter procedure MECHANICAL DRAFTER-C Estela Carlie MECHANICAL DRAFTER Work Phone: [facility]Labor[facility] Start: 09-21-2021 End: 09-21-2021 Patient encounter procedure MECHANICAL DRAFTER-C Estela Carlie MECHANICAL DRAFTER Work Phone: [facility] Start: 09-02-2021 End: 09-02-[address] ELDER WEBB DO [facility] Start: 07-13-2021 End: 07-13-2021 Patient encounter procedure MISSY ABDULLAHI ANESTHESIOLOGY FACULTY [facility] Start: 06-29-2021 End: 06-29-2021 Subsequent hospital visit by physician [facility] Provider IF JUDY ACKERMAN Comment on above: Z01.411,Z11.3,Z11.8, Z12.4 Start: 04-28-2021 End: 04-28-[address] ELDER WEBB DO [facility] Start: 03-02-2021 End: 03-02-[address] ELDER WEBB DO [facility] Procedures Date Procedure Procedure Detail Performing Clinician Start: 02-27-[address] Elder maharaj DO Work Phone: Start: 02-16-[address] Elder Webb DO Work Phone: Start: 02-12-[address] Elder Webb DO Work Phone: Start: 02-12-2025 Hepatitis C antibody measurement Dr. Elder Webb DO Work Phone: Comment on above: Reactive: Presumptiv e evidence of antibodies to HCV. Follow CDC recommendations for supplemental testing.Non-Reactive: Antibodies to HCV were not detected; does not exclude the possibility of exposure to HCVReactive Results are presumptive evidence of antibodies to HCV. Follow CDC recommendations for supplemental testing.Order confirmation testing: HCV Quant by PCR testing - HCVPCR #[id number] Non Reactive: < 0.8 Equivocal: >/= 0.8 to < 1.0 Reactive: >/= 1.0The CDC requires that a reactive/equivocal HCV antibody result be sent out for confirmation. HCV Quant by PCR testing. Start: 02-12-[address] Elder Webb DO Work Phone: Comment on above: Antibody Result: Int erpretationNon-Reactive: Non- ImmuneReactive: ImmuneThe following results were obtained with the [employer] Rubella IgG assay. Results from assays of other manufacturers cannot be used interchangeably. Start: 02-12-2025 Serologic test for syphilis Dr. Elder Webb DO Work Phone: Start: 12-04-[address] Elder Webb DO Work Phone: Comment on above: Follicular phase 0.1 - 0.9 Luteal phase 1.8 - 23.9 Ovulation phase 0.1 - 12.0 First trimester 11.0 - 44.3 Second trimester 25.4 - 83.3 Third trimester 58.7 - 214.0 Postmenopausal 0.0 - 0.1Performed at: [place] [id number] Director: Sukhi Gill PhD, Phone: [phone] Start: 01-15-2023 Cytopathology proced ure, preparation of smear, genital source Dr. Elder Webb Work Phone: Start: 01-15-2023 Investigation of tra nsfusion reaction Dr. Elder Webb Work Phone: Start: 09-12-[address] Elder Webb Work Phone: Start: 12-22-2021 Colonoscopy MECHANICAL DRAFTER-C Leslie Sexton MECHANICAL DRAFTER Work Phone: Start: 11-01-2021 Computed tomography of abdomen and pelvis with contrast MECHANICAL DRAFTER-C Estela Sexton MECHANICAL DRAFTER Work Phone: Tonsillectomy DR ELDA ROPER MD Plan of Treatment Date Care Activity Detail Author Start: 04-20-2026 Urine microalbumin profile DTaP,Tdap,Td Vaccine (2 - Td or Tdap) [facility] Start: 02-16-2025 Bacteria identified in Urine by Culture Urine Culture [facility] Start: 02-16-2025 Urine culture [facility] Start: 02-16-2025 Patient encounter procedure Registered Clinical -Laboratory Specimen Work Phone: Start: 02-16-2025 Non-patient / Non-visit Non-patient / Non-visit -[facility] Work Phone: Start: 01-27-2025 Liquid based cervical cytology screening [facility] Start: 01-19-2023 Covid-19 Vaccine () Covid-19 Vaccine () [facility] Start: 01-19-2023 Influenza vaccination Influenza Vaccine (#1) [facility] Start: 2022 Depression Assessment Depression Assessment [facility] Start: 02-25-2022 HPV Vaccine (2 - 3-dose SCDM series) HPV Vaccine (2 - 3-dose SCDM series) [facility] Start: 12-22-2021 Urine test [facility] Work Phone: Start: 12-22-2021 Patient discharge [facility] Work Phone: Start: 05-26-2017 Hepatitis B Vaccine (4 of 4 - Hep B Twinrix 4-dose series) Hepatitis B Vaccine (4 of 4 - Hep B Twinrix 4-dose series) [facility] Start: 2015 Pap Testing Pap Testing [facility] Start: 2012 Hepatitis C Screening Hepatitis C Screening [facility] Start: 2012 HIV Screening HIV Screening [facility] Clostridioides diffi cile DNA [Presence] in Unspecified specimen by [place] with probe detection [facility] Work Phone: Gastrointestinal pat hogens panel - Stool by [place] with probe detection [facility] Work Phone: Helicobacter pylori Ag [Presence] in Stool by Immunoassay [facility] Work Phone: Lactoferrin [Presenc e] in Stool by Immunoassay [facility] Work Phone: Patient referral [facility] Work Phone: Protein measurement [facility] Work Phone: Urine test [facility] Work Phone: US Pelvis [facility] US Pelvis transvaginal [facility] XR Abdomen Single view [facility] Work Phone: [facility] Immunizations Immunization Date Immunization Notes Care Provider [facility] 01-28-[address] ELDER WEBB DO [facility] 01-02-2022 SARS-CoV-2 (COVID-19 ) mRNA-12[address] ELDER WEBB DO [facility] 11-29-2021 SARS-CoV-2 (COVID-19 ) mRNA-12[address] ELDER WEBB DO [facility] 06-27-2021 influenza virus vacc ine, unspecified formulation DR ELDER WEBB DO [facility] 03-14-2020 influenza virus vacc ine, unspecified formulation MISSY AMBROSIO ANESTHESIOLOGY FACULTY [facility] 05-08-2019 influenza virus vacc ine, unspecified formulation MISSY AMBROSIO ANESTHESIOLOGY FACULTY [facility] 02-01-2018 influenza virus vacc ine, unspecified formulation MISSY AMBROSIO ANESTHESIOLOGY FACULTY [facility] 02-09-2017 hepatitis A and hepatitis B vaccine MISSY AMBROSIO ANESTHESIOLOGY FACULTY [facility] 01-02-2017 hepatitis A and hepatitis B vaccine MISSY AMBROSIO ANESTHESIOLOGY FACULTY [facility] 01-02-2017 influenza virus vacc ine, unspecified formulation MISSY ABDULLAHI ANESTHESIOLOGY FACULTY [facility] 05-26-2016 hepatitis A and hepatitis B vaccine MISSY ABDULLAHI ANESTHESIOLOGY FACULTY [facility] 04-20-2016 influenza virus vacc ine, unspecified formulation MISSY ABDULLAHI ANESTHESIOLOGY FACULTY [facility] 04-20-2016 tetanus toxoid, redu yuko diphtheria toxoid, and acellular pertussis vaccine, adsorbed MISSY ABDULLAHI ANESTHESIOLOGY FACULTY [facility] 04-14-2014 influenza virus vacc ine, unspecified formulation MISSY ABDULLAHI ANESTHESIOLOGY FACULTY [facility] Payers Date Payer Category Payer Private Health Insurance [id number] 2024 Unknown [id number] 2024 Self-pay [id number] 2023 Unknown [id number] 2023 Medicaid [id number] 2023 Medicaid MEDICAID [facility] MEDICAID [id number] 2023-Present [phone] [address] [place] [address] Medicaid [id number] 1994 Unknown [id number] 2.16.840.1.610268.3.579.2.6 1994 Unknown [id number] 2.16.840.1.781492.3.579.2.6 1994 Unknown [id number] 2.16.840.1.724140.3.579.2.6 1994 Unknown [id number] 2.16.840.1.544750.3.579.2.6 1994 Unknown [id number] 2.16.840.1.876825.3.579.2.6 1994 Unknown [id number] 2.16.840.1.604252.3.579.2.6 1994 Unknown [id number] 2.16.840.1.380158.3.579.2.6 1994 Unknown [id number] 2.16.840.1.239344.3.579.2.6 1994 Unknown [id number] 2.16.840.1.486360.3.579.2.6 27 Unknown [id number] Unknown [id number] 2.16.840.1.255606.3.579.2.4 62 Unknown [id number] 2.840.1.410252.3.579.2.4 62 Unknown [id number] 2.16.840.1.429686.3.579.2.4 62 Unknown [id number] 2.16.840.1.875040.3.579.2.4 62 Unknown [id number] 2.16.840.1.260777.3.579.2.4 62 Unknown [id number] 2.16.840.1.610046.3.579.2.4 62 Unknown [id number] 2.16840.1.231807.3.579.2.4 62 Unknown [id number] 2.16.840.1.806482.3.579.2.4 62 Unknown [id number] 2.16.840.1.097936.3.579.2.4 62 Unknown [id number] 2.16.840.1.617554.3.579.2.4 62 Unknown [id number] 2.16.840.1.906242.3.579.2.4 62 Unknown [id number] 2.16.840.1.221756.3.579.2.4 62 Unknown [id number] 2.16.840.1.168509.3.579.2.4 62 Unknown [id number] 2.16.840.1.995928.3.579.2.4 62 Unknown [id number] 2.16.840.1.542647.3.579.2.4 62 Unknown [id number] 2.16.840.1.787938.3.579.2.4 62 Unknown [id number] 2.16.840.1.421289.3.579.2.4 62 Social History Date Type Detail Facility Start: 09-09-2018 End: 01-27-2025 Never smoked tobacco (finding) [facility] Sex Assigned At [facility] Start: 09-21-2021 End: 01-15-2023 Tobacco smoking status OHIS Tobacco smoking consumption unknown [facility] Start: 1995 Sex Assigned At Not on file [facility] Start: 1995 Sex Assigned At Female W [facility] Start: 03-13-2023 Tobacco use and exposure Smokeless tobacco non-user [facility] Start: 03-13-2023 Alcohol intake Current drinke r of alcohol (finding) [facility] Start: 03-13-2023 History of Social function [facility] Start: 03-13-2023 Tobacco use panel [facility] Adult Depression Screening Assessment 0 [facility] Start: 12-14-2012 Sex Female (finding) [facility] Goals Date Patient Goal Desired Activity /State Functional Status Date Assessment Result Facility 09-23-2021 Functional Status [facility] Date Assessment Result Facility 12-22-2021 Cognitive function Voice/Name [facility] Work Phone: 09-23-2021 Mental Status [facility] [place] Clinical Notes 03-02-2021 to 03-10-2025 Note Date & Type Note Facility 03-10-2025 Progress note [facility] 03-10-2025 Progress note Note Date/Time March 10, 2025 5:13pm [facility] [address], [address] [place] [address] OFFICE VISIT Date of Service: 03/10/25 MR#: [id number] Acct: [id number] Name: ANGELA DE LEÓN Rep #: [id number] : 1995 Provider: Dr. Cee Keller DO Age/Sex: 29/F Location: [facility] Status: Signed Intake Vital Signs 12/05/24 15:27 02/12/25 12:56 03/10/25 15:38 03/10/25 15:39 Height 5 ft 5 in 5 ft 5 in 5 ft 5 in 5 ft 5 in Weight: 238 lb BMI 39.6 BP 117/70 Intake Visit Reasons: 12 wk ob 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 Required: No Is patient in pain?: No Allergies No Known Allergies Allergy (Verified 03/10/25 15:38) Medications ?Medication ?Instructions ?Recorded ?Confirmed ?Type labetalol 100 mg tablet 100 mg PO BID 04/02/2403/10 History docosahexaenoic acid 200 mg mg PO 01/27/25 03/10/25 Hi story capsule (Algal Greenleaf-3 DHA) vitamins no.163-iron tab PO 01/27/25 03/10/25 History bis-gly 20 mg-folate no.10 1 mg tablet (PNV Tabs 20-1) Last Menstrual Period: 12/16/24 Zika: Zika virus screening: Negative : No PFSH PFSH Medical History Obesity Wears glasses Depression Anxiety Alcohol use Diabetes Gastric reflux Non-smoker Shortness of breath on exertion History of echocardiogram Chest pain Hypertension Alternating constipation and diarrhea Systolic ejection murmur Hypoalbuminemia Hyperglycemia ADHD Rectal bleeding Intermittent abdominal pain Surgical History H/O colonoscopy History of wisdom tooth extraction Hx of tonsillectomy Family History Mother Diabetes Endometriosis PCOS (polycystic ovarian syndrome) Hypertension Father Diabetes Hypertension Grandmother , from old age Cervical cancer, Onset Age: 60 Paternal Brother ADHD Social History adopted: No household members: spouse and family housing: house current occupational status: employed 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 current occupational exposures/hazards: No pets and animals: Yes (Avoid litterbox) pets and animals: cat(s) and dog(s) history of recent travel: No sexually active: Yes Smoking Status: Never smoker second hand exposure: Yes (Mother smoked) alcohol intake: current alcohol intake frequency: holidays/special occasions only details: not while substance use type: does not use well-balanced diet: daily or most days caffeine: No eating out: 1-3 times/week during the past year weight has: decreased > 10 lbs what type of physical activity do you participate in: none cisco/jehovah's witness: [employer] seatbelt use: always do you feel safe at home: Yes additional social history: Rj Rojas ReVera History 1 Elective abortions Hx Para 0 Spontaneous abortions Hx # Term Pregnancies Ectopic pregnancies Hx # Pregnancies Multiple births # of living children HPI 12 wk ob Details: ANGELA DE LEÓN is a 29 year old who presents for routine OB visit. OB Visit AZUL Calculator Estimated Delivery Date Method Current WG Current Estimate 09/22/25 LMP (Certain) 12w 0d Other Estimates 09/21/25 Ultrasound #1 12w 1d Expected Delivery Route/Plan Labor Preferences- CB/BF classes: [] labor support person: [] labor intervention preferences: [] pain management options preferred: [] cut cord/dad catch: [] : [] PP control planned: [] discussed possible routes of delivery and associated risks: [] special requests: [] Specific Issue/Plans Covid status: [] Flu vaccine: [] Tdap vaccine: [] Rhogam: [] LARC form signed: [] Problem list reviewed and updated with the most current plan of care details and appropriate orders placed. Relevant counseling for the gestational age provided. Continue routine care and follow up unless otherwise noted in visit notes/problem list details Initial Weight: 241 lb Date -?-?-?-?-?-?-?-?-?-?-?-?- EGA Weight BP Urine Prot -?-?-?-?-?-?-?-?-?-?-?-?- Glucose FHR FuHt Pres Dilation -?-?-?-?-?-?-?-?-?-?-?-?- Effaced St Visit Note 02/12/25 -?-?-?-?-?-?-?-?-?-?-?-?- 8w 2d 241 lb (+0 oz) 118/84 -?-?-?-?-?-?-?-?-?-?-?-?- 176 -?-?-?-?-?-?-?-?-?-?-?-?- KW- CRL 1.87cm cons with dates. accepts NIP. labetalol for HTN and DM controlled with diet 03/10/25 -?-?-?-?-?-?-?-?-?-?-?-?- 12w 0d 238 lb (-3 lb) 117/70 Negative -?-?-?-?-?-?-?-?-?-?-?-?- Negative 160 -?-?-?-?-?-?-?-?-?-?-?-?- no complaints meza ving low risk boy! ACOG First Trimester First Trimester: Desire for , Alcohol, Tobacco Cessation, Illicit/Recreational Drug/Substance Use, Intimate Partner Violence, Barriers to care, Unstable Housing, Communication Barriers, Environmental/Work Hazards, Anticipated Course of Care, Toxoplasmosis Precations, Use of Any medications, Sexual activity, Exercise, Dental Care, Sauna/Hot tub use, Seat Belt use, Childbirth classes/Hospital facilities, Travel, Indications for Ultrasound and Screening for Aneuploidy; Discussed Second Trimester Second Trimester: Signs and Symptoms of Labor, Selecting a care provider, Reproductive Life Planning & Contreception, Care Planning, Depression/Anxiety and Intimate Partner Violence; Discussed Tobacco Cessation Third Trimester Third Trimester: Pain Management Plans, Labor support person(s), Immediate Larc, Signs and Symptoms of Preeclampsia, Infant Feeding No , [place] Education and Family Medical Leave or Disability Forms Results POC Urinalysis 2 Dip (Clinic) Office Urine Glucose Negative Last Edit by Natalie Douglas on 03/10/25 15: 56 Office Urine Protein Negative Last Edit by Natalie Douglas on 03/10/25 15: 56 Coding Level of Care Code OB Routine Diagnoses Congenital hip dysplasia Q65.89 Supervision of high-risk O09.90 12 weeks gestation of Z3A.12 Weeks of gestation: 12 weeks Obesity affecting O99.210 Uncontrolled type 2 diabetes mellitus with hyperglycemia E11.65 Glycemic state: with hyperglycemia Elevated glucose R73.09 Hypertension, unspecified type I10 Hypertension type: unspecified BMI 40.0-44.9, adult Z68.41 PCOS (polycystic ovarian syndrome) E28.2 Irritable bowel syndrome with constipation K58.1 Assessment and Plan Assessment and Plan (1) Congenital hip dysplasia: Status: Acute Comment: treated at (2) Supervision of high-risk : Status: Acute Comment: , AZUL 09/22/25, Rj (3) : Status: Acute Qualifiers: Weeks of gestation: 12 weeks Qualified Code(s): Z3A.12 - 12 weeks gestation of Comment: NEEDS REPEAT URINE CULTURE AT 2ND APPT. elects NIPT with gender, low risk & focus & carrier testing negative (4) Obesity affecting : Status: Acute Comment: HgbA1c (5) Diabetes type 2, uncontrolled: Status: Acute Qualifiers: Glycemic state: with hyperglycemia Qualified Code(s): E11.65 - Type 2 diabetes mellitus with hyperglycemia Comment: controlled with diet (6) Elevated glucose: Status: Acute (7) Hypertension: Status: Chronic Qualifiers: Hypertension type: unspecified Qualified Code(s): I10 - Essential (primary) hypertension Comment: medication. monitor to ensure combo ocp or contrave does not affect. recommend weight reduction. (8) BMI 40.0-44.9, adult: Status: Acute (9) PCOS (polycystic ovarian syndrome): Status: Acute Comment: counseling and education given. recommend diabetes and HTN control prior to any femara script. counseled on how to take medicine but will not start until medically optimized. offered HSG and SA now. plan 3 months of letrozole and if no conception needs done prior to anymore being prescribed (10) Irritable bowel syndrome with constipation: Status: Acute Comment: avoid phentermine per patient request. Orders: Orders POC Urinalysis 2 Dip (Clinic) Today 03/10/25 1613 <Electronically signed by Madeline Rob DO> Date _ Madeline Keller DO Cosigner Signature: Date (if applicable) CC: ~ [facility] Work Phone: 1(323) 549-578409-25-2025 [facility] [address] [place] [address], [place] [id number] OFFICE VISIT Date of Service: 02/12/25 MR#: [id number] Acct: [id number] Name: GENETANGELAKyle MAYS Rep #: [id number] : 1995 Provider: ESTEVAN Tiwari Age/Sex: 29/F Location: [facility] Status: Signed Intake Vital Signs 12/05/24 15:27 01/27/25 09:09 02/12/25 12:49 02/12/25 12:56 Height 5 ft 5 in 5 ft 5 in 5 ft 5 in 5 ft 5 in Weight: 241 lb BMI 40.1 BP 118/84 H Intake Visit Reasons: *EST* NOB LMP 12/16, AZUL 09/22 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 Required: No Is patient in pain?: No Allergies No Known Allergies Allergy (Verified 02/12/25 12:54) Medications ?Medication ?Instructions ?Recorded ?Confirmed ?Type labetalol 100 mg tablet 100 mg PO BID 04/02/2402/12 History docosahexaenoic acid 200 mg mg PO 01/27/25 02/12/25 Hi story capsule (Algal Greenleaf-3 DHA) vitamins no.163-iron tab PO 01/27/25 02/12/25 History bis-gly 20 mg-folate no.10 1 mg tablet (PNV Tabs 20-1) Last Menstrual Period: 12/16/24 Zika: Zika virus screening: Negative : Yes Have you fallen in the past year?: No PFSH PFSH Medical History Obesity Wears glasses Depression Anxiety Alcohol use Diabetes Gastric reflux Non-smoker Shortness of breath on exertion History of echocardiogram Chest pain Hypertension Alternating constipation and diarrhea Systolic ejection murmur Hypoalbuminemia Hyperglycemia ADHD Rectal bleeding Intermittent abdominal pain Surgical History H/O colonoscopy History of wisdom tooth extraction Hx of tonsillectomy Family History Mother Diabetes Endometriosis PCOS (polycystic ovarian syndrome) Hypertension Father Diabetes Hypertension Grandmother , from old age Cervical cancer, Onset Age: 60 Paternal Brother ADHD Social History adopted: No household members: spouse and family housing: house current occupational status: employed 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 current occupational exposures/hazards: No pets and animals: Yes (Avoid litterbox) pets and animals: cat(s) and dog(s) history of recent travel: No sexually active: Yes Smoking Status: Never smoker second hand exposure: Yes (Mother smoked) alcohol intake: current alcohol intake frequency: holidays/special occasions only details: not while substance use type: does not use well-balanced diet: daily or most days caffeine: No eating out: 1-3 times/week during the past year weight has: decreased > 10 lbs what type of physical activity do you participate in: none cisco/jehovah's witness: Oriental Orthodox seatbelt use: always do you feel safe at home: Yes additional social history: [employer] History 1 Elective abortions Hx Para 0 Spontaneous abortions Hx # Term Pregnancies Ectopic pregnancies Hx # Pregnancies Multiple births # of living children HPI *EST* NOB LMP 12/16, AZUL 09/22 Details: ANGELA DE LEÓN is a 29 year old who presents for New OB visit. OB Visit AZUL Calculator Estimated Delivery Date Method Current WG Current Estimate 09/22/25 LMP (Certain) 8w 2d Other Estimates 09/21/25 Ultrasound #1 8w 3d Estimated Due Date: 09/22/25 Expected Delivery Route/Plan Labor Preferences- CB/BF classes: [] labor support person: [] labor intervention preferences: [] pain management options preferred: [] cut cord/dad catch: [] : [] PP control planned: [] discussed possible routes of delivery and associated risks: [] special requests: [] Specific Issue/Plans Covid status: [] Flu vaccine: [] Tdap vaccine: [] Rhogam: [] LARC form signed: [] Problem list reviewed and updated with the most current plan of care details and appropriate ordersplaced. Relevant counseling for the gestational age provided. Continue routine care and follow up unless otherwise noted in visit notes/problem list details Initial Weight: 241 lb Date -?-?-?-?-?-?-?-?-?-?-?-?- EGA Weight BP Urine Prot -?-?-?-?-?-?-?-?-?-?-?-?- Glucose FHR FuHt Pres Dilation -?-?-?-?-?-?-?-?-?-?-?-?- Effaced St Visit Note 02/12/25 -?-?-?-?-?-?-?-?-?-?-?-?- 8w 2d 241 lb (+0 oz) 118/84 -?-?-?-?-?-?-?-?-?-?-?-?- 176 -?-?-?-?-?-?-?-?-?-?-?-?- KW- CRL 1.87cm cons with dates. accepts NIP. labetalol for HTN and DM controlled with diet Menstrual History Last Menstrual Period: 12/16/24 Reported LMP: definite Normal amount/duration: No (a little shorter) Frequency in days: 30-34 On hormonal BC at conception: No hCG+: 01/16/25 Antepartum Record Genetic Screening: Congenital Heart Defect: Other, Neural Tube Defect: Other, Hemoglobinopathy Or Carrier: Other, Cystic Fibrosis: Other, Chromosome Abnormality: Other, Faustino-Sachs: Other, Hemophilia: Other, Intellectual Disability/Autism: Patient (Pt & Brother ADHD), Recurrent Loss/Stil lbirth: Other, Other Structural Defect: Patient (pt hip dysplasia at ), Other Genetic Disease: Other and Maternal Metabolic Disorder: Other Infection History: Live with someone with TB or Exposed to TB: No, Patient or Partner has history of Genital Herpes: No, Rash or Viral illness since last mentrual period: No, Prior GBS-Infected child: No, History of STD: No, HIV Infection: No, History of Hepatitis: No, Recent travel outside of [place]: No, Concern for hepatitis exposure: No, Varicella immune: Yes (immune-virus) and Covid Vaccinated: Yes (Moderna, 1 Booster) Medical History Medical History: Positive: Diabetes (type 2 controlled), Hypertension (labetalol), Seasonal allergies, Operations/hospitalizations (wisdom teeth, tonsillectomy, colonoscopy), Infertility (1.5 years, conceived on second round of medication), Relevant family history (See PFSH) and Other (IBS, PCOS, ob esity) and Negative: Heart disease, Auto-immune disorder, Kidney disease/UTI, Neurologic/epilepsy, Psychiatric, Depression/ depression, Hepatitis/liver disease, Varicosities/phlebitis, Thyroid dysfunction, Trauma/domestic violence, History of blood transfusions, D (Rh) Sensitized, Pulmonary (e.g.,TB,Asthma), Drug/latex allergies/reactions, Breast, Power And Recovery Superintendent surgery, Anesthetic complications, History of abnormal pap, Uterine anomaly/judy and Anti-retroviral treatment ACOG First Trimester First Trimester: Desire for , Alcohol, Tobacco Cessation, Illicit/Recreational Drug/Substance Use, Intimate Partner Violence, Barriers to care, Unstable Housing, Communication Barriers, Environmental/Work Hazards, Anticipated Course of Care, Toxoplasmosis Precations, Use of Any med ications, Sexual activity, Exercise, Dental Care, Sauna/Hot tub use, Seat Belt use, Childbirth classes/Hospital facilities, , Travel, Indications for Ultrasound and Screening for Aneuploidy Second Trimester Second Trimester: Signs and Symptoms of Labor, Selecting a care provider, Reproductive Life Planning & Contreception, Care Planning, Depression/Anxiety and Intimate Partner Violence; Discussed Tobacco Cessation Third Trimester Third Trimester: Pain Management Plans, Labor support person(s), Immediate Larc, Signs and Symptoms of Preeclampsia, Infant Feeding Yes , Education and Family Medical Leave or Disability Forms ROS Const Reports system reviewed and no additional complaints, except as documented, Denies fatigue, Denies headache(s) and Denies lethargy ENT Denies headache(s) Card Reports system reviewed and no additional complaints, except as documented Resp Reports system reviewed and no additional complaints, except as documented GI Reports system reviewed and no additional complaints, except as documented, Denies abdominal pain, Denies constipation, Denies cramping, Denies diarrhea and Denies dyspepsia Reports system reviewed and no additional complaints, except as documented, Denies abnormal vaginalbleeding, Denies difficulty voiding, Denies dyspareunia and Denies dysuria Musc Reports system reviewed and no additional complaints, except as documented Skin/Breast Reports system reviewed and no additional complaints, except as documented Neuro Yes system reviewed and no additional complaints, except as documented and No headache(s) Psych Reports system reviewed and no additional complaints, except as documented, Denies anhedonia and Denies anxiety Endo Reports system reviewed and no additional complaints, except as documented and Denies fatigue Exam Const General: cooperative, healthy appearing and comfortable Neck Neck: normal visual inspection and full ROM Chest Chest palpation & inspection: normal inspection of the chest Breast inspection: normal inspection of the breasts and normal inspection of the axillae Breast palpation: normal palpation of the breasts and normal palpation of the axillae Resp Effort & Inspection: normal respiratory effort and able to speak in complete sentences GI Inspection: normal to inspection Palpation: soft External Female Exam: normal external appearance and normal appearance of the urethra Urethra: normal appearance of the urethra Skin General: no rashes or lesions noted Neuro General: patient alert, patient awake and patient oriented x3 Extrem General: normal to inspection and full ROM Psych Appearance: grossly normal and well kempt Mental Status: mental status grossly normal Mood: congruent mood Affect: normal affect Speech and Movement: speech and movement normal Thought Process: normal Thought Content: normal Coding Level of Care Code OB Routine Diagnoses Congenital hip dysplasia Q65.89 Supervision of high-risk O09.90 8 weeks gestation of Z3A.08 Weeks of gestation: 8 weeks Obesity affecting O99.210 Uncontrolled type 2 diabetes mellitus with hyperglycemia E11.65 Glycemic state: with hyperglycemia Elevated glucose R73.09 Hypertension, unspecified type I10 Hypertension type: unspecified BMI 40.0-44.9, adult Z68.41 PCOS (polycystic ovarian syndrome) E28.2 Irritable bowel syndrome with constipation K58.1 Assessment and Plan Assessment and Plan (1) Congenital hip dysplasia: Status: Acute Comment: treated at (2) Supervision of high-risk : Status: Acute Comment: , AZUL 09/22/25, Rj (3) : Status: Acute Qualifiers: Weeks of gestation: 8 weeks Qualified Code(s): Z3A.08 - 8 weeks gestation of Comment: elects NIPT with gender & focus & carrier testing (4) Obesity affecting : Status: Acute Comment: HgbA1c (5) Diabetes type 2, uncontrolled: Status: Acute Qualifiers: Glycemic state: with hyperglycemia Qualified Code(s): E11.65 - Type 2 diabetes mellitus with hyperglycemia Comment: controlled with diet (6) Elevated glucose: Status: Acute (7) Hypertension: Status: Chronic Qualifiers: Hypertension type: unspecified Qualified Code(s): I10 - Essential (primary) hypertension Comment: medication. monitor to ensure combo ocp or contrave does not affect. recommend weight reduction. (8) BMI 40.0-44.9, adult: Status: Acute (9) PCOS (polycystic ovarian syndrome): Status: Acute Comment: counseling and education given. recommend diabetes and HTN control prior to any femara script. counseled on how to take medicine but will not start until medically optimized. offered HSG and SA now. plan 3 months of letrozole and if no conception needs done prior to anymore being prescribed (10) Irritable bowel syndrome with constipation: Status: Acute Comment: avoid phentermine per patient request. Comments Comments: Patient oriented to practice and discussed care expectations and screenings. ACOG book offered to patient. Discussed routine and specially indicated labs if needed- patient consents to testing. See problem list details for plan information. Optional screening including maternal carrier screenings, neural tube defect screening, genetic screening options including quad screen, nuchal translucency, sequential screening, and NIPT screening offered to patient and patient chose: [ denies Clinical Quality Measures Falls Risk Screening/Assistive Devices Have you fallen in the past year?: No 02/12/25 1329 s CNM> Date _ Paula Tiwari CNM Cosigner Signature: Date (if applicable) CC: ~ [facility]07-18-2025 Evaluation note* Diagnosis Onset Date Resolution Status Admit Date PCOS (polycystic ovarian syndrome) acute December 05, 2024 3:09pm [facility] Work Phone: [phone] Evaluation note* Diagnosis Onset Date Resolution Status Admit Date PCOS (polycystic ovarian syndrome) acute December 05, 2024 3:09pm BMI 40.0-44.9, adult acute Jan 7:43am Congenital hip dysplasia acute January 27, 2025 7:43am Diabetes type 2, uncontrolled acute January 27, 2025 7:43am Elevated glucose acute 2024 7:43am Irritable bowel syndrome wit h constipation acute January 27 7:43am Obesity affecting acute January 27, 2025 7:43am PCOS (polycystic ovarian syndrome) acute January 27 7:43am acute January 27, 2025 7:43am Supervision of high-risk acute January 27 7:43am Hypertension chronic January 7:43am BMI 40.0-44.9, adult acute Jan 12:38pm Congenital hip dysplasia acute February 12, 2025 12:38pm Diabetes type 2, uncontrolled acute February 12, 2025 12:38pm Elevated glucose acute 2024 12:38pm Irritable bowel syndrome wit h constipation acute February 12, 2025 12:38pm Obesity affecting acute February 12, 2025 12:38pm PCOS (polycystic ovarian syndrome) acute February 12, 2025 12:38pm acute January 12:38pm Supervision of high-risk acute February 12, 2025 12:38pm Hypertension chronic February 122024 12:38pm [facility] Work Phone: 1([phone]) 303-291507-18-2025 Evaluation note* Diagnosis Onset Date Resolution Status Admit Date PCOS (polycystic ovarian syndrome) acute December 05, 2024 3:09pm BMI 40.0-44.9, adult acute Jan 7:43am Congenital hip dysplasia acute January 27, 2025 7:43am Diabetes type 2, uncontrolled acute January 27, 2025 7:43am Elevated glucose acute 2024 7:43am Irritable bowel syndrome wit h constipation acute January 27 025 7:43am Obesity affecting acute January 27, 2025 7:43am PCOS (polycystic ovarian syndrome) acute January 27 025 7:43am acute January 27, 2025 7:43am Supervision of high-risk acute January 27 7:43am Hypertension chronic January 7:43am BMI 40.0-44.9, adult acute Jan 12:38pm Congenital hip dysplasia acute February 12, 2025 12:38pm Diabetes type 2, uncontrolled acute February 12, 2025 12:38pm Elevated glucose acute 2024 12:38pm Irritable bowel syndrome wit h constipation acute February 12, 2025 12:38pm Obesity affecting acute February 12, 2025 12:38pm PCOS (polycystic ovarian syndrome) acute February 12, 2025 12:38pm acute January 12:38pm Supervision of high-risk acute February 12, 2025 12:38pm Hypertension chronic February 122024 12:38pm BMI 40.0-44.9, adult acute 2024 3:32pm Congenital hip dysplasia acute March 10, 2025 3:32pm Diabetes type 2, uncontrolled acute March 10, 2025 3:32pm Elevated glucose acute March 10, 2025 3:32pm Irritable bowel syndrome wit h constipation acute March 10 3:32pm Obesity affecting acute March 10, 2025 3:32pm PCOS (polycystic ovarian syndrome) acute March 10 3:32pm acute March 10, 2025 3:32pm Supervision of high-risk acute March 10 3:32pm Hypertension chronic February 3:32pm [facility] Work Phone: 1([phone] 333-592505-08-2025 Evaluation + Plan note Future Scheduled Tests Laboratory* Iron Level 09/25/24 * Acute Hepatitis Panel 09/25/24 * Complete Blood Count 09/25/24 * Lipid Profile 09/25/24 * Complete Metabolic Panel 09/25/24 * N-Terminal proBNP 09/25/24 * TIBC 09/25/24 Radiology* US Elastography Liver Only 10/27/24 [facility] 05-08-2025 Evaluation note* Diagnosis Onset Date Resolution Status Admit Date Diabetes type 2, uncontrolled acute September 25, 2024 9:54am Obesity acute September 25, 2024 9:54am PCOS (polycystic ovarian syndrome) a cute September 25, 2024 9:54am Hypertension chronic September 25 9:54am [facility] Work Phone: 1(841) 735-632705-08-2025 Evaluation note* Diagnosis Onset Date Resolution Status Admit Date Diabetes type 2, uncontrolled acute September 25, 2024 9:54am Obesity acute September 25, 2024 9:54am PCOS (polycystic ovarian syndrome) acute September 25, 2024 9: 54am Hypertension chronic September 25 9:54am PCOS (polycystic ovarian syndrome) acute December 05, 2024 3:09pm [facility] Work Phone: 1([phone]) 152-868610-24-2023 NoteHNO ID: [id number] Author: Leann Canseco, DO Service: ? Author Type: Physician Type: [...] note reviewed. HENT: Head: Normocephalic. Mouth/Throat: Lips: [place]illed[place]. Mouth: Mucous membranes are moist. Dentition: Abnormal [...] - DEXAMETHASONE 4 MG TABLET Leann Carrasco [facility]10-24-2023 History of Present illness Narrative * Leann Canseco, - 03/13/2023 1:59 PM EDT Images from [...] note reviewed. HENT: Head: Normocephalic. Mouth/Throat: Lips: [place]. Mouth: Mucous membranes are moist. Dentition: Abnormal [...] TABLET - DEXAMETHASONE 4 MG TABLET [facility] Dis[facility] Patient Education 09/23/2021 18:40:30 [...] Swelling, pain or redness in one leg 5133-4160 [employer]. [address] [place] [address], [place] [address]. All rights reserved. This information is not intended as a substitute for professional medical care. Always follow yourhealthcare professional's instructions. Follow Up Care 09/23/2021 14:56:28 With:ELDER WEBB DO Address: [address] [place] [address] [place] [address]- [phone] When:2-4 days [facility] 10-13-2021 Evaluation + Plan note Future Scheduled Tests Laboratory* Giardia Antigen 03/02/21 * Calprotectin, Fecal 03/02/21 * Ova & Parasite exam 03/02/21 * Clostridium difficile PCR 03/02/21 * Stool for Occult Blood (Lab) 03/02/21 * Stool Culture 03/02/21 * Group A Strep PCR (AO) 04/08/21 Radiology* XR Chest 2 Views (PA & Lateral) 03/21/21 [facility] Evaluation + Plan note Future Appointments Appointment Date:04/06/2021 03:30:00 PM Scheduled Provider:ELDER WEBB DO Location:[facility] Appointment Type:PC OV Follow Up Future Scheduled Tests Laboratory* Giardia Antigen 03/02/21 * Calprotectin, Fecal 03/02/21 * Ova & Parasite exam 03/02/21 * Clostridium difficile PCR 03/02/21 * Stool for Occult Blood (Lab) 03/02/21 * Stool Culture 03/02/21 Radiology* US Abdomen Complete 03/02/21 [facility] Evaluation + Plan note Future Appointments Appointment Date:06/15/2021 08:30:00 AM Scheduled Provider:ELDER WEBB DO Location:[facility] Appointment Type:PC OV Future Scheduled Tests Laboratory* Giardia Antigen 03/02/21 * Calprotectin, Fecal 03/02/21 * Ova & Parasite exam 03/02/21 * Clostridium difficile PCR 03/02/21 * Stool for Occult Blood (Lab) 03/02/21 * Stool Culture 03/02/21 * Group A Strep PCR (AO) 04/08/21 Radiology* XR Chest 2 Views (PA & Lateral) 03/21/21 [facility] Evaluation + Plan note Future Appointments Appointment Date:09/16/2021 10:45:00 AM Scheduled Provider: Location:[facility] Appointment Type:PC Nurse Future Scheduled Tests Laboratory* Group A Strep PCR (AO) 04/08/21 * Giardia Antigen 03/02/21 * Calprotectin, Fecal 03/02/21 * Ova & Parasite exam 03/02/21 * Stool for Occult Blood (Lab) 03/02/21 * Stool Culture 03/02/21 * Clostridium difficile PCR 03/02/21 Radiology* XR Chest 2 Views (PA & Lateral) 03/21/21 * XR Hip Minimum 2 Views Right 09/02/21 [facility] Evaluation + Plan note Future Appointments Appointment Date:10/28/2021 11:30:00 AM Scheduled Provider:ELDER WEBB DO Location:[facility] Appointment Type:PC OV Future Scheduled [...] XR Hip Minimum 2 Views Right 09/02/21 [facility] Evaluation + Plan note Future Appointments Appointment Date:06/06/2022 04:30:00 PM Scheduled Provider:ELDER WEBB DO Location:[facility] Appointment Type:PC OV Follow Up Future Scheduled Tests Laboratory* Basic Metabolic Panel 09/16/21 * A1C Hemoglobin 04/21/22 [facility] Evaluation + Plan note Future Appointments Appointment Date:12/26/2023 03:30:00 PM Scheduled Provider:ELDER WEBB DO Location:[facility] Appointment Type:PC OV Future Scheduled Tests Laboratory* hCG, quantitative(AO) 11/07/23 * D-Dimer 11/07/23 * Complete Blood Count 11/07/23 * Complete Metabolic Panel 11/07/23 * N-Terminal proBNP 11/07/23 [facility] Evaluation + Plan note Future Appointments Appointment Date:09/25/2024 03:00:00 PM Scheduled Provider:ELDER WEBB DO Location:[facility] Appointment Type:PC OV Future Scheduled Tests Laboratory* Iron Level 09/16/24 * A1C Hemoglobin 09/16/24 * Acute Hepatitis Panel 09/16/24 * Complete Blood Count 09/16/24 * Lipid Profile 09/16/24 * Complete Metabolic Panel 09/16/24 * N-Terminal proBNP 09/16/24 * TIBC 09/16/24 Radiology* US Abdomen Limited 06/26/24 [facility] Evaluation note* Diagnosis Onset Date Resolution Status Abdominal cramping acute Abdominal pain acute Alternating constipation and diarrhea acute Nausea acute [facility] Work Phone: Evaluation note* Diagnosis Onset Date Resolution Status PCOS (polycystic ovarian syndrome) acute Encounter for routine gynecological examination noneactive BMI 40.0-44.9, adult acute Irritable bowel syndrome with constipation acute Obesity acute PCOS (polycystic ovarian syndrome) acute Hypertension chronic [facility] Work Phone: Evaluation note* Diagnosis Onset Date Resolution Status Monilial vaginitis acute Possible exposure to STD non eactive [facility] Work Phone: Evaluation note* Diagnosis Odontalgia- Primary Unspecified disorder of the teeth and supporting structures Cervical paraspinal muscle spasm Spasm of muscle documented in this encounter [facility] course Narrative No data available for this section [facility] Hospital Discharge instructions No data available for this section [facility] Progress note No data available for this section [facility] Progrkia note Author Paula Tiwari [facility] Note Date/Time February 12, 2025 1:29pm [facility] [address] [place] [address], [address] [place] [address] OFFICE VISIT Date of Service: 02/12/25 MR#: [id number] Acct: [id number] Name: ANGELA DE LEÓN Rep #: [id number] : 1995 Provider: ESTEVAN Tiwari Age/Sex: 29/F Location: [facility] Status: Signed Intake Vital Signs 12/05/24 15:27 01/27/25 09:09 02/12/25 12:49 02/12/25 12:56 Height 5 ft 5 in 5 ft 5 in 5 ft 5 in 5 ft 5 in Weight: 241 lb BMI 40.1 BP 118/84 H Intake Visit Reasons: *EST* NOB LMP 12/16, AZUL / 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 Required: No Is patient in pain?: No Allergies No Known Allergies Allergy (Verified 02/12/25 12:54) Medications ?Medication ?Instructions ?Recorded ?Confirmed ?Type labetalol 100 mg tablet 100 mg PO BID 04/02/2402/12 History docosahexaenoic acid 200 mg mg PO 01/27/25 02/12/25 Hi story capsule (Algal Greenleaf-3 DHA) vitamins no.163-iron tab PO 01/27/25 02/12/25 History bis-gly 20 mg-folate no.10 1 mg tablet (PNV Tabs 20-1) Last Menstrual Period: 12/16/24 Zika: Zika virus screening: Negative : Yes Have you fallen in the past year?: No PFSH PFSH Medical History Obesity Wears glasses Depression Anxiety Alcohol use Diabetes Gastric reflux Non-smoker Shortness of breath on exertion History of echocardiogram Chest pain Hypertension Alternating constipation and diarrhea Systolic ejection murmur Hypoalbuminemia Hyperglycemia ADHD Rectal bleeding Intermittent abdominal pain Surgical History H/O colonoscopy History of wisdom tooth extraction Hx of tonsillectomy Family History Mother Diabetes Endometriosis PCOS (polycystic ovarian syndrome) Hypertension Father Diabetes Hypertension Grandmother , from old age Cervical cancer, Onset Age: 60 Paternal Brother ADHD Social History adopted: No household members: spouse and family housing: house current occupational status: employed 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 current occupational exposures/hazards: No pets and animals: Yes (Avoid litterbox) pets and animals: cat(s) and dog(s) history of recent travel: No sexually active: Yes Smoking Status: Never smoker second hand exposure: Yes (Mother smoked) alcohol intake: current alcohol intake frequency: holidays/special occasions only details: not while substance use type: does not use well-balanced diet: daily or most days caffeine: No eating out: 1-3 times/week during the past year weight has: decreased > 10 lbs what type of physical activity do you participate in: none [employer]/jehovah's witness: Oriental Orthodox seatbelt use: always do you feel safe at home: Yes additional social history: Rj Rojas ReVera History 1 Elective abortions Hx Para 0 Spontaneous abortions Hx # Term Pregnancies Ectopic pregnancies Hx # Pregnancies Multiple births # of living children HPI *EST* NOB LMP 12/16, AZUL 09/22 Details: ANGELA DE LEÓN is a 29 year old who presents for New OB visit. OB Visit AZUL Calculator Estimated Delivery Date Method Current WG Current Estimate 09/22/25 LMP (Certain) 8w 2d Other Estimates 09/21/25 Ultrasound #1 8w 3d Estimated Due Date: 09/22/25 Expected Delivery Route/Plan Labor Preferences- CB/BF classes: [] labor support person: [] labor intervention preferences: [] pain management options preferred: [] cut cord/dad catch: [] : [] PP control planned: [] discussed possible routes of delivery and associated risks: [] special requests: [] Specific Issue/Plans Covid status: [] Flu vaccine: [] Tdap vaccine: [] Rhogam: [] LARC form signed: [] Problem list reviewed and updated with the most current plan of care details and appropriate orders placed. Relevant counseling for the gestational age provided. Continue routine care and follow up unless otherwise noted in visit notes/problem list details Initial Weight: 241 lb Date -?-?-?-?-?-?-?-?-?-?-?-?- EGA Weight BP Urine Prot -?-?-?-?-?-?-?-?-?-?-?-?- Glucose FHR FuHt Pres Dilation -?-?-?-?-?-?-?-?-?-?-?-?- Effaced St Visit Note 02/12/25 -?-?-?-?-?-?-?-?-?-?-?-?- 8w 2d 241 lb (+0 oz) 118/84 -?-?-?-?-?-?-?-?-?-?-?-?- 176 -?-?-?-?-?-?-?-?-?-?-?-?- KW- CRL 1.87cm cons with dates. accepts NIP. labetalol for HTN and DM controlled with diet Menstrual History Last Menstrual Period: 12/16/24 Reported LMP: definite Normal amount/duration: No (a little shorter) Frequency in days: 30-34 On hormonal BC at conception: No hCG+: 01/16/25 Antepartum Record Genetic Screening: Congenital Heart Defect: Other, Neural Tube Defect: Other, Hemoglobinopathy Or Carrier: Other, Cystic Fibrosis: Other, Chromosome Abnormality: Other, Faustino-Sachs: Other, Hemophilia: Other, Intellectual Disability/Autism: Patient (Pt & Brother ADHD), Recurrent Loss/Stillbirth: Other, Other Structural Defect: Patient (pt hip dysplasia at ), Other Genetic Disease: Other and Maternal Metabolic Disorder: Other Infection History: Live with someone with TB or Exposed to TB: No, Patient or Partner has history of Genital Herpes: No, Rash or Viral illness since last mentrual period: No, Prior GBS-Infected child: No, History of STD: No, HIV Infection: No, History of Hepatitis: No, Recent travel outside of [place]: No, Concern for hepatitis exposure: No, Varicella immune: Yes (immune-virus) and Covid Vaccinated: Yes (Moderna, 1 Booster) Medical History Medical History: Positive: Diabetes (type 2 controlled), Hypertension (labetalol), Seasonal allergies, Operations/hospitalizations (wisdom teeth, tonsillectomy, colonoscopy), Infertility (1.5 years, conceived on second round of medication), Relevant family history (See PFSH) and Other (IBS, PCOS, obesity) and Negative: Heart disease, Auto-immune disorder, Kidney disease/UTI, Neurologic/epilepsy, Psychiatric, Depression/ depression, Hepatitis/liver disease, Varicosities/phlebitis, Thyroid dysfunction, Trauma/domestic violence, History of blood transfusions, D (Rh) Sensitized, Pulmonary (e.g.,TB,Asthma), Drug/latex allergies/reactions, Breast, Power And Recovery Superintendent surgery, Anesthetic complications, History of abnormal pap, Uterine anomaly/judy and Anti-retroviral treatment ACOG First Trimester First Trimester: Desire for , Alcohol, Tobacco Cessation, Illicit/Recreational Drug/Substance Use, Intimate Partner Violence, Barriers to care, Unstable Housing, Communication Barriers, Environmental/Work Hazards, Anticipated Course of Care, Toxoplasmosis Precations, Use of Any medications, Sexual activity, Exercise, Dental Care, Sauna/Hot tub use, Seat Belt use, Childbirth classes/Hospital facilities, , Travel, Indications for Ultrasound and Screening for Aneuploidy Second Trimester Second Trimester: Signs and Symptoms of Labor, Selecting a care provider, Reproductive Life Planning & Contreception, Care Planning, Depression/Anxiety and Intimate Partner Violence; Discussed Tobacco Cessation Third Trimester Third Trimester: Pain Management Plans, Labor support person(s), Immediate Larc, Signs and Symptoms of Preeclampsia, Feeding Yes , Education and Family Medical Leave or Disability Forms ROS Const Reports system reviewed and no additional complaints, except as documented, Denies fatigue, Denies headache(s) and Denies lethargy ENT Denies headache(s) Card Reports system reviewed and no additional complaints, except as documented Resp Reports system reviewed and no additional complaints, except as documented GI Reports system reviewed and no additional complaints, except as documented, Denies abdominal pain, Denies constipation, Denies cramping, Denies diarrhea and Denies dyspepsia Reports system reviewed and no additional complaints, except as documented, Denies abnormal vaginal bleeding, Denies difficulty voiding, Denies dyspareunia and Denies dysuria Musc Reports system reviewed and no additional complaints, except as documented Skin/Breast Reports system reviewed and no additional complaints, except as documented Neuro Yes system reviewed and no additional complaints, except as documented and No headache(s) Psych Reports system reviewed and no additional complaints, except as documented, Denies anhedonia and Denies anxiety Endo Reports system reviewed and no additional complaints, except as documented and Denies fatigue Exam Const General: cooperative, healthy appearing and comfortable Neck Neck: normal visual inspection and full ROM Chest Chest palpation & inspection: normal inspection of the chest Breast inspection: normal inspection of the breasts and normal inspection of the axillae Breast palpation: normal palpation of the breasts and normal palpation of the axillae Resp Effort & Inspection: normal respiratory effort and able to speak in complete sentences GI Inspection: normal to inspection Palpation: soft External Female Exam: normal external appearance and normal appearance of the urethra Urethra: normal appearance of the urethra Skin General: no rashes or lesions noted Neuro General: patient alert, patient awake and patient oriented x3 Extrem General: normal to inspection and full ROM Psych Appearance: grossly normal and well kempt Mental Status: mental status grossly normal Mood: congruent mood Affect: normal affect Speech and Movement: speech and movement normal Thought Process: normal Thought Content: normal Coding Level of Care Code OB Routine Diagnoses Congenital hip dysplasia Q65.89 Supervision of high-risk O09.90 8 weeks gestation of Z3A.08 Weeks of gestation: 8 weeks Obesity affecting O99.210 Uncontrolled type 2 diabetes mellitus with hyperglycemia E11.65 Glycemic state: with hyperglycemia Elevated glucose R73.09 Hypertension, unspecified type I10 Hypertension type: unspecified BMI 40.0-44.9, adult Z68.41 PCOS (polycystic ovarian syndrome) E28.2 Irritable bowel syndrome with constipation K58.1 Assessment and Plan Assessment and Plan (1) Congenital hip dysplasia: Status: Acute Comment: treated at (2) Supervision of high-risk : Status: Acute Comment: , AZUL 09/22/25, Rj (3) : Status: Acute Qualifiers: Weeks of gestation: 8 weeks Qualified Code(s): Z3A.08 - 8 weeks gestation of Comment: elects NIPT with gender & focus & carrier testing (4) Obesity affecting : Status: Acute Comment: HgbA1c (5) Diabetes type 2, uncontrolled: Status: Acute Qualifiers: Glycemic state: with hyperglycemia Qualified Code(s): E11.65 - Type 2 diabetes mellitus with hyperglycemia Comment: controlled with diet (6) Elevated glucose: Status: Acute (7) Hypertension: Status: Chronic Qualifiers: Hypertension type: unspecified Qualified Code(s): I10 - Essential (primary) hypertension Comment: medication. monitor to ensure combo ocp or contrave does not affect. recommend weight reduction. (8) BMI 40.0-44.9, adult: Status: Acute (9) PCOS (polycystic ovarian syndrome): Status: Acute Comment: counseling and education given. recommend diabetes and HTN control prior to any femara script. counseled on how to take medicine but will not start until medically optimized. offered HSG and SA now. plan 3 months of letrozole and if no conception needs done prior to anymore being prescribed (10) Irritable bowel syndrome with constipation: Status: Acute Comment: avoid phentermine per patient request. Comments Comments: Patient oriented to practice and discussed care expectations and screenings. ACOG book offered to patient. Discussed routine and specially indicated labs if needed- patient consents to testing. See problem list details for plan information. Optional screening including maternal carrier screenings, neural tube defect screening, genetic screening options including quad screen, nuchal translucency, sequential screening, and NIPT screening offered to patient and patient chose: [ denies Clinical Quality Measures Falls Risk Screening/Assistive Devices Have you fallen in the past year?: No 02/12/25 1329 <Electronically signed by Paula christianson CNM> Date _ Paula Tiwari CNM Cosigner Signature: Date (if applicable) CC: ~ [facility] Work Phone: Reason for referral (narrative)No reason for referral information availableWMercy Health St[facility] Work Phone: Summary Purpose Family History Relationship Condition Age at Onset Recorded Date/T celestino mother Asthma Unknown Diabetes mellitus Unknown father Diabetes mellitus Unknown Hypertension Unknown Hyperlipidemia Unknown Relationship Condition Age at Onset Recorded Date/T celestino Not Specified Hyperlipidemia Unknown Asthma Unknown mother Diabetes mellitus Unknown Endometriosis Unknown Polycystic ovary syndrome Unknown father Diabetes mellitus Unknown Hypertension Unknown grandmother Malignant neoplasm of cervix Unknown Relationship Condition Age at Onset Recorded Date/T celestino mother Diabetes mellitus Unknown Endometriosis Unknown Polycystic ovary syndrome Unknown Hypertension Unknown father Diabetes mellitus Unknown grandmother Malignant neoplasm of cervix 60 Relationship Condition Age at Onset Recorded Date/T celestino mother Diabetes mellitus Unknown Endometriosis Unknown Polycystic ovary syndrome Unknown Hypertension Unknown father Diabetes mellitus Unknown grandmother Malignant neoplasm of cervix 60 brother Attention deficit hy peractivity disorder (ADHD) Unknown Advance Directives Advance Directive Response Recorded Date/ Time Living Will No December 19, 2021 10:11am Power of Valve Seater Operator No December 19 10:11am Chief Complaint and Reason for Visit Chief Complaint Consult E ORDERS RT HIP PN/DR TO FAX Reason for Visit Abdominal cramping Abdominal pain Alternating constipation and diarrhea Nausea Chief Complaint Consult E ORDERS RT HIP PN/DR TO FAX ABD PAIN Reason for Visit Abdominal cramping Abdominal pain Alternating constipation and diarrhea Nausea Chief Complaint 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) EORDER 1 MO FU Reason for Visit PCOS (polycystic ova eduardo syndrome) Encounter for routine gynecological examination BMI 40.0-44.9, adult Irritable bowel syndrome with constipation Obesity PCOS (polycystic ovarian syndrome) Hypertension Chief Complaint 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) EORDER 1 MO FU PCOS Reason for [...] Admit Date Diabetes type 2, uncontrolled September 25 025 9:54am Obesity September 25, 2024 9:54am PCOS (polycystic ovarian syndrome) September 252024 9:54am Hypertension September 25, 2024 9:54am Chief Complaint Admit Date 3 M FU *$30 co pay September 25, 2024 9:54am E ORDER October 15, 2024 7:46a m medication follow up *$30 copay November 3:09pm Reason for Visit Admit Date Diabetes type 2, uncontrolled September 25 2 025 9:54am Obesity September 25, 2024 9:54am PCOS (polycystic ovarian syndrome) September 252024 9:54am Hypertension September 25, 2024 9:54am PCOS (polycystic ovarian syndrome) December 05, 2024 3:09pm Chief Complaint Admit Date E ORDER October 15, 2024 7:46a m medication follow up *$30 copay November 3:09pm PNOB Vitals & Education January 27 2 025 7:43am Reason for Visit Admit Date PCOS (polycystic ovarian syndrome) December 05, 2024 3:09pm Chief Complaint Admit Date medication follow up *$30 copay November 3:09pm PNOB Vitals & Education January 27 2 025 7:43am *EST* NOB LMP 12/16, AZUL 09/22February 122024 12:38pm INT LABS February 12, 2025 1:42pm Reason for Visit Admit Date PCOS (polycystic ovarian syndrome) December 05, 2024 3:09pm BMI 40.0-44.9, adult January 27, 2025 7:43am Congenital hip dysplasia January 27, 2025 7:43am Diabetes type 2, uncontrolled January 27, 2025 7:43am Elevated glucose January 27, 2025 7:43am Irritable bowel syndrome with constipati on January 27, 2025 7:43am Obesity affecting January 7:43am PCOS (polycystic ovarian syndrome) [facility] 2024 7:43am January 27, 2025 7:43am Supervision of high-risk [facility] 2024 7:43am Hypertension January 27, 2025 7:43am BMI 40.0-44.9, adult February 12 12:38pm Congenital hip dysplasia February 12, 2025 12:38pm Diabetes type 2, uncontrolled February 12, 2025 12:38pm Elevated glucose February 12, 2025 12:38pm Irritable bowel syndrome with constipati on February 12, 2025 12:38pm Obesity affecting February 122024 12:38pm PCOS (polycystic ovarian syndrome) [facility] 2024 12:38pm February 12, 2025 12:38pm Supervision of high-risk [facility] 2024 12:38pm Hypertension February 12, 2025 12:38pm Chief Complaint Admit Date medication follow up *$30 copay November 3:09pm PNOB Vitals & Education January 27 7:43am *EST* NOB LMP 12/16, AZUL 5/February 122024 12:38pm INT LABS February 12, 2025 1:42pm 12 wk ob March 10, 2025 3 :32pm Reason for Visit Admit Date PCOS (polycystic ovarian syndrome) December 05, 2024 3:09pm BMI 40.0-44.9, adult January 27, 2025 7:43am Congenital hip dysplasia January 27, 2025 7:43am Diabetes type 2, uncontrolled January 27, 2025 7:43am Elevated glucose January 27, 2025 7:43am Irritable bowel syndrome with constipati on January 27, 2025 7:43am Obesity affecting January 7:43am PCOS (polycystic ovarian syndrome) [facility] 2024 7:43am January 27, 2025 7:43am Supervision of high-risk [facility] 2024 7:43am Hypertension January 27, 2025 7:43am BMI 40.0-44.9, adult February 12 12:38pm Congenital hip dysplasia February 12, 2025 12:38pm Diabetes type 2, uncontrolled February 12, 2025 12:38pm Elevated glucose February 12, 2025 12:38pm Irritable bowel syndrome with constipati on February 12, 2025 12:38pm Obesity affecting February 122024 12:38pm PCOS (polycystic ovarian syndrome) [facility] 2024 12:38pm February 12, 2025 12:38pm Supervision of high-risk [facility] 2024 12:38pm Hypertension February 12, 2025 12:38pm BMI 40.0-44.9, adult March 10, 2025 3:32pm Congenital hip dysplasia March 10 025 3:32pm Diabetes type 2, uncontrolled March 102024 3:32pm Elevated glucose March 10, 2025 3 :32pm Irritable bowel syndrome with constipati on March 10, 2025 3:32pm Obesity affecting February 3:32pm PCOS (polycystic ovarian syndrome) Octob er 2024 3:32pm March 10, 2025 3 :32pm Supervision of high-risk Octob er 2024 3:32pm Hypertension March 10, 2025 3 :32pm Additional Source Comments Source Comments (unrecognize d section and content) In the event this informatio n is protected by the Federal Confidentiality of Alcohol and Drug Abuse Patient Records regulations: The Federal rules restrict any use of the information to criminally investigate or prosecute any alcohol or drug abuse patient.[facility] the event this information is protected by the Federal Confidentiality of Alcohol and Drug Abuse Patient Records regulations: The Federal rules restrict any use of the information to criminally investigate or prosecute any alcohol or drug abuse patient.[facility] INFORMATION SOURCE (unrecogn ized section and content) DATE CREATED AUTHOR 07/05/2021 [facility] [place] DATE CREATED AUTHOR AUTHOR'S ORGANIZ ATION 03/14/2023 [facility] DATE CREATED AUTHOR AUTHOR'S ORGANIZ ATION 11/17/2023 [facility] ([place]) DATE CREATED AUTHOR AUTHOR'S ORGANIZ ATION 03/08/2025 [facility] DATE CREATED AUTHOR AUTHOR'S ORGANIZ ATION 03/16/2025 [facility] Care Team (unrecognized sect ion and content) Team Status: Active Member Role Status Dates Dr. Elder Webb , DO Primary Care Provider Active Team Status: Inactive Member Role Status Dates Dr. Elder Webb , DO Primary Care Provider, Referring P rovider Active Dr. Kamille Herr MD Attending Provider Active Team Status: Inactive Member Role Status Dates Dr. Elder Webb DO Primary Care Provider Active Dr. Kamille Herr MD Attending Provider, Referr ing Provider Active Team Status: Inactive Member Role Status Dates Dr. Elder Webb DO Primary Care Provider, Referring P rovider Active Rachell Chaney MECHANICAL DRAFTER, MECHANICAL DRAFTER-C Attending Provider Active Team Status: Inactive Member Role Status Dates Dr. Elder Webb DO Primary Care Provider Active Rachell Chaney MECHANICAL DRAFTER, MECHANICAL DRAFTER-C Attending Provider, Referring Provider Active Team Status: Inactive Member Role Status Dates Dr. Elder Webb DO Primary Care Provider Active Start: September 25, 2024 End: September 25, 2024 Dr. Elder Webb DO Referring Provider Active St art: September 25, 2024 End: September 25, 2024 Rachell Chaney MECHANICAL DRAFTER, MECHANICAL DRAFTER-C Attending Provider Active Start: September 25, 2024 End: September 25, 2024 Team Status: Inactive Member Role Status Dates Dr. Elder Webb DO Primary Care Provider Active Start: October 15, 2024 End: October 15, 2024 DOLORES Freitas Attending Provider Active Start: October 15, 2024 End: October 15, 2024 DOLORES Freitas Referring Provider Active Start: October 15, 2024 End: October 15, 2024 Team Status: Active Member Role/Relationship Status Dates Dr. Elder Webb DO Primary Care Provider Active Team Status: Inactive Member Role/Relationship Status Dates Dr. Elder Webb DO Primary Care Provider Active Start: September 25, 2024 End: September 25, 2024 Dr. Elder Webb DO Referring Provider Active St art: September 25, 2024 End: September 25, 2024 Rachell Chaney MECHANICAL DRAFTER, MECHANICAL DRAFTER-C Attending Provider Active Start: September 25, 2024 End: September 25, 2024 Team Status: Inactive Member Role/Relationship Status Dates Dr. Elder Webb DO Primary Care Provider Active Start: October 15, 2024 End: October 15, 2024 DOLORES Freitas Attending Provider Active Start: October 15, 2024 End: October 15, 2024 DOLORES Freitas Referring Provider Active Start: October 15, 2024 End: October 15, 2024 Team Status: Active Member Role/Relationship Status Dates Dr. Elder Webb DO Primary Care Provider Active Start: December 04, 2024 Dr. Kamille Herr MD Attending Provider Active Start: December 04, 2024 Dr. Kamille Herr MD Referring Provider Active Start: December 04, 2024 Team Status: Inactive Member Role/Relationship Status Dates Dr. Elder Webb DO Primary Care Provider Active Start: December 05, 2024 End: December 05, 2024 Dr. Elder Webb DO Referring Provider Active St art: December 05, 2024 End: December 05, 2024 Dr. Kamille Herr MD Attending Provider Active Start: December 05, 2024 End: December 05, 2024 Team Status: Inactive Member Role/Relationship Status Dates Dr. Elder Webb DO Primary Care Provider Active Start: December 04, 2024 End: December 04, 2024 Dr. Kamille Herr MD Attending Provider Active Start: December 04, 2024 End: December 04, 2024 Dr. Kamille Herr MD Referring Provider Active Start: December 04, 2024 End: December 04, 2024 Team Status: Inactive Member Role/Relationship Status Dates Dr. Elder Webb DO Primary Care Provider Active Start: October 15, 2024 End: October 15, 2024 DOLORES Freitas Attending Provider Active Start: October 15, 2024 End: October 15, 2024 DOLORES Freitas Referring Provider Active Start: October 15, 2024 End: October 15, 2024 Team Status: Inactive Member Role/Relationship Status Dates Dr. Elder Webb DO Primary Care Provider Active Start: December 04, 2024 End: December 04, 2024 Dr. Kamille Herr MD Attending Provider Active Start: December 04, 2024 End: December 04, 2024 Dr. Kamille Herr MD Referring Provider Active Start: December 04, 2024 End: December 04, 2024 Team Status: Inactive Member Role/Relationship Status Dates Dr. Elder Webb DO Primary Care Provider Active Start: December 05, 2024 End: December 05, 2024 Dr. Elder Webb DO Referring Provider Active St art: December 05, 2024 End: December 05, 2024 Dr. Kamille Herr MD Attending Provider Active Start: December 05, 2024 End: December 05, 2024 Team Status: Inactive Member Role/Relationship Status Dates Dr. Elder Webb DO Primary Care Provider Active Start: January 27, 2025 End: January 27, 2025 Dr. Elder Webb DO Referring Provider Active St art: January 27, 2025 End: January 27, 2025 Dr. Kamille Herr MD Attending Provider Active Start: January 27, 2025 End: January 27, 2025 Team Status: Active Member Role/Relationship Status Dates Dr. Elder Webb DO Primary care physician Active Team Status: Inactive Member Role/Relationship Status Dates Dr. Elder Webb DO Primary care physician Active Start: December 04, 2024 End: December 04, 2024 Dr. Kamille Herr MD Attending physician Active Start: December 04, 2024 End: December 04, 2024 Dr. Kamille Herr MD Referring Provider Active Start: December 04, 2024 End: December 04, 2024 Team Status: Inactive Member Role/Relationship Status Dates Dr. Elder Webb DO Primary care physician Active Start: December 05, 2024 End: December 05, 2024 Dr. Elder Webb DO Referring Provider Active St art: December 05, 2024 End: December 05, 2024 Dr. Kamille Herr MD Attending physician Active Start: December 05, 2024 End: December 05, 2024 Team Status: Inactive Member Role/Relationship Status Dates Dr. Elder Webb DO Primary care physician Active Start: January 27, 2025 End: January 27, 2025 Dr. Elder Webb DO Referring Provider Active St art: January 27, 2025 End: January 27, 2025 Dr. Kamille Herr MD Attending physician Active Start: January 27, 2025 End: January 27, 2025 Team Status: Inactive Member Role/Relationship Status Dates Dr. Elder Webb DO Primary care physician Active Start: February 12, 2025 End: February 12, 2025 Dr. Elder Webb DO Referring Provider Active St art: February 12, 2025 End: February 12, 2025 Paula Tiwari CNM Attending physician Active Start: February 12, 2025 End: February 12, 2025 Team Status: Inactive Member Role/Relationship Status Dates Dr. Elder Webb DO Primary care physician Active Start: February 12, 2025 End: February 12, 2025 Dr. Kamille Herr MD Attending physician Active Start: February 12, 2025 End: February 12, 2025 Dr. Kamille Herr MD Referring Provider Active Start: February 12, 2025 End: February 12, 2025 Team Status: Active Member Role/Relationship Status Dates Dr. Elder Webb DO Primary care physician Active Start: February 16, 2025 Paula Tiwari CNM Attending physician Active Start: February 16, 2025 Team Status: Active Member Role/Relationship Status Dates Dr. Elder Webb DO Primary care physician Active Start: February 16, 2025 Paula Tiwari CNM Attending physician Active Start: February 16, 2025 Paula Tiwari CNM Referring Provider Active S tart: February 16, 2025 Team Status: Inactive Member Role/Relationship Status Dates Dr. Elder Webb DO Primary care physician Active Start: February 16, 2025 End: February 16, 2025 Paula Twiari CNM Attending physician Active Start: February 16, 2025 End: February 16, 2025 Paula Tiwari CNM Referring Provider Active S tart: February 16, 2025 End: February 16, 2025 Team Status: Inactive Member Role/Relationship Status Dates Dr. Elder Webb DO Primary care physician Active Start: February 27, 2025 End: February 27, 2025 Dr. Kamille Herr MD Attending physician Active Start: February 27, 2025 End: February 27, 2025 Team Status: Inactive Member Role/Relationship Status Dates Dr. Elder Webb DO Primary care physician Active Start: March 10, 2025 End: March 10, 2025 Dr. Elder Webb DO Referring Provider Active St art: March 10, 2025 End: March 10, 2025 Dr. Madeline Keller DO Attending physician Acti ve Start: March 10, 2025 End: March 10, 2025 Goals (unrecognized section and content) Type Care Experience Labor Preferences-CB /BF classes: []labor support person: []labor intervention preferences: []pain management options preferred: []cut cord/dad catch: []: []PP control planned: []discussed possible routes of delivery and associated risks: []special requests: [] Goals may be documented in an alternate section Care Team (unrecognized sect ion and content) Care Team Personnel Name: ELDER WEBB DO Position: P4 Physician - Primary Care Member Role: Primary Care Physician Address: Address: [address] [place] [address] Care Team Related Persons Name: GERMAINE CHRISTINEMIE Care Team Personnel Name: ELDER WEBB DO Position: P4 Physician - Primary Care Member Role: Primary Care Physician Address: Address: [address] [place] [address] Care Team Related Persons Name: SHAWNA CHRISTINE [...] BE BASED ON THE PRIMARY CLINICAL RECORDS. [facility] [employer] [facility]. provides no warranty or guarantee of the accuracy or completeness of information in this document.
== END 2025-04-07 06:24 | disposition home or self-care (01) ==
LOC: ED 06:20
PROVIDERS: Emergency Provider Emergency Medicine; PCP Student in an Organized Health Care Education/Training Program; Visit Provider Emergency Medicine
DX: O20.9 Hemorrhage in early pregnancy, unspecified (principal); Z3A.16 16 weeks gestation of pregnancy; O24.912 Unspecified diabetes mellitus in pregnancy, second trimester; O16.2 Unspecified maternal hypertension, second trimester; Z79.899 Other long term (current) drug therapy
CPT/HCPCS: 99282

== ENCOUNTER → 2025-04-07 | Outpatient (CLI) | payer BC, SELFPAY | END | disposition home or self-care (01) | LOC: LABSPEC 16:11 | PROVIDERS: PCP Student in an Organized Health Care Education/Training Program; Visit Provider Obstetrics & Gynecology | DX: R10.20 Pelvic and perineal pain unspecified side (principal) | CPT/HCPCS: 87086 ==